=== PATIENT | male | born 1965 | race Caucasian/White ===

== ENCOUNTER 2023-11-28 12:25 | Outpatient (OUT) | payer MEDICAID, SELFPAY ==
--- NOTE | 2023-11-28 12:32 | ECG_ITS ---
The [facility] Test Date: 2023-11-28 Pat Name: JOHN GODWIN Department: Room: - Gender: Male [employer]: : 1965 Requested By: KASSI MANRIQUEZ Order Number: [id number] Reading MD: MISHEL MONTOYA Measurements Intervals Rembrandt Rate: 57 P: 23 [place]: 157 QRS: 44 QRSD: 112 T: -10 QT: 424 QTc: 416 Interpretive Statements SINUS BRADYCARDIA MODERATE INTRAVENTRICULAR CONDUCTION DELAY [110+ ms QRS DURATION] NONSPECIFIC T-WAVE ABNORMALITY Electronically Signed On 11-28-2023 23:06:59 EDT by MISHEL MONTOYA
--- NOTE | 2023-11-28 12:32 | XR_ITS ---
The [address] [address] Patient Name: JOHN GODWIN MRN: [id number] date: 1965 Sex: M Assigned Patient Location: [facility] Current Patient Location: Accession/Order Number: [id number] Exam Date: 11/28/2023 13:12 Report Date: 11/29/2023 08:03 At the request of: KASSI MANRIQUEZ Procedure: XR chest 2V PROCEDURE: XR chest 2V DATE: 11/28/2023 12:12 PM CDT COMPARISONS: None. CLINICAL INDICATION: 57 years Male Preop exam FINDINGS: The cardiomediastinal silhouette and pulmonary vasculature are within normal limits. The lungs are clear. There is no evidence of pleural effusion or pneumothorax. XR/XR chest 2V IMPRESSION: Chest radiograph is within normal limits. Electronically authenticated by: NING CORTEZ Date: 11/29/2023 08:03
--- NOTE | 2023-11-28 13:01 | PM.PRESUREVA ---
History of Present Illness History of Present Illness Chief complaint: Right Kidney Stone Narrative: Patient presents for preadmission testing. Please see HPI from Dr. Prasad dated 11/16/2023. Review of Systems ROS Narrative Please see ROS from Dr. Prasad dated 11/16/2023. 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) Hyperlipidemia ?E78.5 - Hyperlipidemia, unspecified (ICD-10) Kidney stones ?N20.0 - Calculus of kidney (ICD-10) Surgical History (Updated 11/28/23 @ 13:00 by Kelsea Dempsey NP) Hx of tonsillectomy ?Z90.89 - Acquired absence of other organs (ICD-10) History of surgery on lower extremity (~07/2008) ?Z98.890 - Other specified postprocedural states (ICD-10) H/O colonoscopy ?Z98.890 - Other specified postprocedural states (ICD-10) Family History (Updated 11/28/23 @ 11:47 by Kelsea Dempsey NP) Other Family history of cancer Social History (Updated 11/28/23 @ 12:43 by Kelsea Dempsey NP) Within the past year, how often did you have a drink containing alcohol: monthly or less Smoking status: Never smoker Non-prescribed substance use: denies use Previous occupational history: [employer] Highest level of school completed/degree received: some college, no degree Meds Home Medications and Allergies Home Medications ?Medication ?Instructions ?Recorded ?Confirmed ?Type amlodipine 10 mg tablet 10 mg PO DAILY 11/28/23 11/28/23 History atorvastatin 40 mg tablet 40 mg PO DAILY 11/28/23 11/28/23 History carvedilol 12.5 mg tablet 12.5 mg PO BID 11/28/23 11/28/23 History hydrochlorothiazide 12.5 mg capsule 12.5 mg PO DAILY 11/28/23 11/28/23 History losartan 100 mg tablet 100 mg PO DAILY 11/28/23 11/28/23 History potassium bicarbonate-citric acid 25 meq PO BID 11/28/23 11/28/23 History 25 mEq effervescent tablet (Klor-Con/EF) Allergies Allergy/AdvReac Type Severity Reaction Status Date / Time lisinopril Allergy Cough Verified 11/28/23 11:52 Exam Narrative Exam Narrative: Constitutional: Awake, alert, comfortable, well-appearing, nontoxic, interactive, vital signs as charted Head: Normocephalic, atraumatic Neck: Supple, normal appearance, normal range of motion, no meningeal signs, no lymphadenopathy Respiratory: No respiratory distress, breath sounds clear Cardiovascular: Regular rate and rhythm, strong and regular heart tones Abdomen: Nontender, normal bowel sounds, soft, no CVA tenderness Musculoskeletal: Normal gait, no swelling or edema Skin: No rashes or induration, no lesions, only visible skin inspected Neuro: No neurological deficits, normal sensation Psychiatric: Oriented ?3, normal affect Assessment and Plan Assessment and Plan (1) Kidney stones: Plan Right ESWL scheduled with Dr. Prasad 12/08/2023.
[2023-11-28 13:29] LABS: Basophils Absolute Auto 0.1 10^3/uL (0.0-0.1); Basophils Percent Auto 0.7 % (0.2-2.0); Eosinophils Absolute Auto 0.3 10^3/uL (0.0-0.7); Eosinophils Percent Auto 3.3 % (0.9-7.0); Hematocrit 48.3 % (42.0-54.0); Hemoglobin 15.4 g/dL (14.0-18.0); Immature Granulocytes Abs Auto 0.02 10^3/uL (0.00-0.03); Immature Granulocytes Pct Auto 0.2 % (0.0-0.5); Lymphocytes Absolute Auto 4.8 10^3/uL (1.2-3.8); Mean Corpuscular HGB Conc 31.9 g/dL (29.9-35.2); Mean Corpuscular Hemoglobin 28.5 pg (25.9-34.0); Mean Corpuscular Volume 89.4 fL (80.0-94.0); Mean Platelet Volume 11.2 fL (9.5-13.5); Monocytes Absolute Auto 0.9 10^3/uL (0.3-0.8); Monocytes Percent Auto 8.9 % (1.7-12.0); Neutrophils Absolute Auto 3.7 10^3/uL (1.4-6.5); Neutrophils Percent Auto 37.9 % (43.0-75.0); Platelet Count 237 10^3/uL (150-450); Red Cell Distribution Width 13.4 % (11.0-15.0); White Blood Count 9.8 10^3/uL (4.0-11.0)
[2023-11-28 14:06] LABS: Anion Gap 11.8; BUN Creatinine Ratio 17.3; Calcium 9.7 mg/dL (8.5-10.1); Carbon Dioxide 28.8 mmol/L (21.0-32.0); Chloride 104 mmol/L (98-107); Estimated GFR (African America >60 (>=60); Estimated GFR (Non-African Ame >60 (>=60); Glucose 82 mg/dL (74-106); Potassium 3.6 mmol/L (3.5-5.1); Sodium 141 mmol/L (136-145)
[2023-11-28 14:35] LABS: INR 0.98; Partial Thromboplastin Time 28.5 sec (22.3-36.2); Prothrombin Time 10.4 sec (9.0-11.6)
== END 2023-11-28 12:26 | disposition home or self-care (01) ==
PROVIDERS: Visit Provider Urology
DX: Z01.810 Encounter for preprocedural cardiovascular examination (principal); Z01.812 Encounter for preprocedural laboratory examination; Z01.818 Encounter for other preprocedural examination; N20.0 Calculus of kidney
CPT/HCPCS: 71046; 80048; 85025; 85610; 85730; 93005; G0463

== ENCOUNTER 2023-12-08 08:11 | Day surgery (SDC) | payer MEDICAID, SELFPAY ==
[2023-11-28 12:58] VITALS: BP 149/91; PULSE 65; TEMP 36.5; O2SAT 95; BMI 43.8
[2023-12-08] VITALS (10 sets, daily range): BP systolic 120–160; BP diastolic 77–95; PULSE 75–93; TEMP 36.5–36.6; O2SAT 86–98
--- NOTE | 2023-12-08 08:15 | XR_ITS ---
The [address] [address] Patient Name: JOHN GODWIN MRN: [id number] date: 1965 Sex: M Assigned Patient Location: [facility] Current Patient Location: [facility] Accession/Order Number: [id number] Exam Date: 12/08/2023 08:28 Report Date: 12/08/2023 09:50 At the request of: KASSI MANRIQUEZ Procedure: XR abdomen 1V EXAM: XR abdomen 1V HISTORY: kidney stones COMPARISON: None. TECHNIQUE: AP view of the abdomen. FINDINGS: Nonobstructive bowel gas pattern is noted. There are bilateral renal calculi. The osseous structures are intact. XR/XR abdomen 1V IMPRESSION: Nonobstructive bowel gas pattern. Bilateral nephrolithiasis. Electronically authenticated by: LOVE LEVIN Date: 12/08/2023 09:50
[2023-12-08] MEDS: LACTATED RINGER'S SOLUTION 1,000 ML 50 ML IV (09:03)
[2023-12-08] MEDS: CEFAZOLIN SODIUM/DEXTROSE,ISO 1 GM/50 ML IV.SOLN IV (09:44)
[2023-12-08] MEDS: FAMOTIDINE/PF 20 MG/2 ML VIAL IV (09:46)
--- NOTE | 2023-12-08 10:51 | P.URON_ITS ---
Urology Surgery Operative Note Operative Note Procedure Date: 12/08/23 Time Out Performed: yes Pre-op Diagnosis: Right nephrolithiasis Post-op Diagnosis: same as pre-op Procedures performed: 1. Right ESWL. Anesthesia: General-LMA Primary Surgeon: Rio Prasad Complications: None Estimated blood loss (mL): 0 Findings: 2, right mid to lower pole stones Specimens: None Indications for Procedures: This gentleman has recurrent right nephrolithiasis. He has 2 stones each of which is about 5 mm. They are nonobstructing. He now presents for right ESWL. He has signed an informed consent for this procedure after all risks were explained. Some of these risks include bleeding, perinephric hematoma, infection and anesthesia to name a few. Detailed description of Procedure: The patient was brought to the Operating Room and placed on Siemens electromagnetic lithotripsy treatment table in the supine position. SCDs were placed on their lower extremities and turned on and functioning during the entire case. Timeout was done by all parties in the room. We all agreed upon the patient's identification and the planned procedures for this patient. General Anesthesia was then administered via LMA. Treatment head was then brought to the patient's correct side. While using flourscopy the lower pole stone was identified and lined up into the crosshairs. We then began applying shocks at power level 2.0 and increased to a maximum power level of 3.5. Intermittent fluoroscopy showed that the stone fragmented well. After 1500 shocks we then lined up the midpole stone in the crosshairs and similarly applied 1500 shocks. After 3000 shocks were applied to the right renal unit all stone was well fragmented and there was no visible evidence fluoroscopically of any formed stone remaining. The procedure was then terminated. He was then transferred to a [facility] bed and wheeled to PACU in stable condition.
--- NOTE | 2023-12-08 12:35 | PC.NURSE ---
Voided vila colored urine without difficulty; urine strained and negative for calculi
== END 2023-12-08 12:35 | disposition home or self-care (01) ==
PROVIDERS: Visit Provider Urology
PROC: (CPT 873; principal; 2023-12-08 09:30)
DX: N20.0 Calculus of kidney (principal); I45.6 Pre-excitation syndrome; E78.5 Hyperlipidemia, unspecified; I25.10 Atherosclerotic heart disease of native coronary artery without angina pectoris; Z87.442 Personal history of urinary calculi; I11.9 Hypertensive heart disease without heart failure; Z79.899 Other long term (current) drug therapy; N40.0 Benign prostatic hyperplasia without lower urinary tract symptoms; R82.994 Hypercalciuria; E66.01 Morbid (severe) obesity due to excess calories; Z68.41 Body mass index [BMI] 40.0-44.9, adult
CPT/HCPCS: 50590; 36415; 74018; J1094; J2704

== ENCOUNTER 2024-02-20 13:20 | Outpatient (OUT) | payer MEDICAID, SELFPAY ==
--- NOTE | 2024-02-20 13:47 | PM.PRESUREVA ---
History of Present Illness History of Present Illness Chief complaint: left kidney stone Narrative: Patient presents for preadmission testing. Please see HPI from Dr. Prasad dated February 15, 2024. Review of Systems ROS Narrative Please see ROS from Dr. Prasad dated February 15, 2024. 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) Hyperlipidemia ?E78.5 - Hyperlipidemia, unspecified (ICD-10) Kidney stones ?N20.0 - Calculus of kidney (ICD-10) Surgical History (Updated 02/17/24 @ 10:56 by Kelsea Dempsey NP) H/O lithotripsy (12/08/23) ?Z98.890 - Other specified postprocedural states (ICD-10) History of lithotripsy ?Z98.890 - Other specified postprocedural states (ICD-10) Hx of tonsillectomy ?Z90.89 - Acquired absence of other organs (ICD-10) History of surgery on lower extremity (~07/2008) ?Z98.890 - Other specified postprocedural states (ICD-10) H/O colonoscopy ?Z98.890 - Other specified postprocedural states (ICD-10) Family History (Updated 11/28/23 @ 11:47 by Kelsea Dempsey NP) Other Family history of cancer Social History (Updated 11/28/23 @ 12:43 by Kelsea Dempsey NP) Within the past year, how often did you have a drink containing alcohol: monthly or less Smoking status: Never smoker Non-prescribed substance use: denies use Previous occupational history: [employer] Highest level of school completed/degree received: some college, no degree Meds Home Medications and Allergies Home Medications ?Medication ?Instructions ?Recorded ?Confirmed ?Type amlodipine 10 mg tablet 10 mg PO DAILY 11/28/23 02/20/24 History atorvastatin 40 mg tablet 40 mg PO DAILY 11/28/23 02/20/24 History carvedilol 12.5 mg tablet 12.5 mg PO BID 11/28/23 02/20/24 History hydrochlorothiazide 12.5 mg capsule 12.5 mg PO DAILY 11/28/23 02/20/24 History losartan 100 mg tablet 100 mg PO DAILY 11/28/23 02/20/24 History potassium bicarbonate-citric acid 25 meq PO BID 11/28/23 02/20/24 History 25 mEq effervescent tablet (Klor-Con/EF) Allergies Allergy/AdvReac Type Severity Reaction Status Date / Time lisinopril Allergy Cough Verified 02/20/24 13:33 Exam Narrative Exam Narrative: Constitutional: Awake, alert, comfortable, well-appearing, nontoxic, interactive, vital signs as charted Head: Normocephalic, atraumatic Neck: Supple, normal appearance, normal range of motion, no meningeal signs, no lymphadenopathy Respiratory: No respiratory distress, breath sounds clear Cardiovascular: Regular rate and rhythm, strong and regular heart tones Abdomen: Nontender, normal bowel sounds, soft, no CVA tenderness Musculoskeletal: Normal gait, no swelling or edema Skin: No rashes or induration, no lesions, only visible skin inspected Neuro: No neurological deficits, normal sensation Psychiatric: Oriented ?3, normal affect Assessment and Plan Assessment and Plan (1) Kidney stones: Plan Left ESWL scheduled with Dr. Prasad March 01, 2024.
[2024-02-20 13:57] LABS: Hemoglobin 15.8 g/dL (14.0-18.0); Mean Corpuscular HGB Conc 32.9 g/dL (29.9-35.2); Mean Corpuscular Hemoglobin 29.4 pg (25.9-34.0); Mean Corpuscular Volume 89.2 fL (80.0-94.0); Mean Platelet Volume 11.2 fL (9.5-13.5); Platelet Count 264 10^3/uL (150-450); Red Blood Count 5.38 10^6/uL (4.70-6.10); Red Cell Distribution Width 13.6 % (11.0-15.0); White Blood Count 11.6 10^3/uL (4.0-11.0)
[2024-02-20 14:27] LABS: INR 0.98; Partial Thromboplastin Time 27.3 sec (22.3-36.2); Prothrombin Time 10.4 sec (9.0-11.6)
[2024-02-20 15:04] LABS: Monocytes Absolute Manual 0.69 10^3/uL (0.30-0.80)
[2024-02-20 15:05] LABS: BUN Creatinine Ratio 13.9; Calcium 9.1 mg/dL (8.5-10.1); Carbon Dioxide 28.3 mmol/L (21.0-32.0); Chloride 103 mmol/L (98-107); Estimated GFR (African America >60 (>=60); Estimated GFR (Non-African Ame 54 (>=60); Glucose 148 mg/dL (74-106); Potassium 3.3 mmol/L (3.5-5.1); Sodium 141 mmol/L (136-145)
== END 2024-02-20 13:21 | disposition home or self-care (01) ==
LOC: PST 13:21
PROVIDERS: Visit Provider Urology
DX: Z01.812 Encounter for preprocedural laboratory examination (principal); Z01.818 Encounter for other preprocedural examination; N20.0 Calculus of kidney
CPT/HCPCS: 80048; 85007; 85027; 85610; 85730; G0463

== ENCOUNTER 2024-03-01 08:03 | Day surgery (SDC) | payer MEDICAID, SELFPAY ==
[2024-02-20 13:45] VITALS: BP 118/81; PULSE 76; TEMP 36.6; O2SAT 97; BMI 42.1
[2024-03-01] VITALS (11 sets, daily range): BP systolic 107–150; BP diastolic 76–93; PULSE 54–74; TEMP 36.3–36.8; O2SAT 90–97; BMI 43.5; BMI 434.7
--- OUTSIDE RECORDS SUMMARY | 2024-03-01 08:10 | XMS_ITS | CCD ---
Author Organization [facility] Care Team Providers Care Switcher Name Role Phone ARLYN LOZA Unavailable Unavailable NO FAMILY DOCTOR, NO FAMILY DOCTOR Unavailable Unavailable RIO PRASAD Admitting Unavailable RIO PRASAD Attending Unavailable REQUEST, NONE LISTED Primary Care Unavailable RIO PRASAD Consulting Unavailable RANI PATTERSON V Consulting Unavailable ENA GALICIA Consulting Unavailable JULIANO PORTER Consulting Unavailable Unavailable Unavailable None, No PCP Unavailable Unavailable [facility], Services Primary Care Provider MD Rio Prasad Attending Provider MD Josias Damon Attending Provider Mast, DO Carter Attending Provider MD Rossy Salinas Other Provider MD Josias Damon Attending Provider [phone] Marie Jay, Dr. Josias King Referring Unava ilable Marie Jay, Dr. Josias King Attending Unava ilable Marie Jay, Dr. Josias King Attending Unava ilable Marie Jay, Dr. Josias King Referring Unava ilable Loza, Dr. Arlyn Webber Referring Yaquelin vailable Loza, Dr. Arlyn Webber Attending Yaquelin vailable [facility], Services Primary Care Provider ETHAN Laureano-ALIVIA Dietrich Emergency Provider [facility], Services Primary Care Provider [phone] MD Rio Prasad Attending Provider MD Arlyn Loza Referring Provider [phone] [facility], . Primary Care Physician [phone] [facility] Services Primary Care Provider MD Rio Prasad Attending Provider DO Carter Alvarnega Emergency Provider [phone] [facility], Services Primary Care Provider MD Rio Prasad Attending Provider [phone] Rio PRASAD Attending Unavailable PRASAD, Rio R Attending Unavailable PRASAD, Rio R Attending Unavailable PRASAD, Rio R Attending Unavailable PRASAD, Rio R Attending Unavailable PRASAD, Rio R Attending Unavailable Bullimore, Marilia E Admitting Unavailable Bullimore, Marilia E Attending Unavailable [facility] Primary Care Unavaila ble Family [facility], Services Primary Care Unavaila ble Alvarenga, Carter Admitting Unavailable Alvarenga, Carter Attending Unavailable Prasad, Rio Attending Unavailable Prasad, Rio Admitting Unavailable [facility] Primary Care Unavaila ble Loza, Singh Referring Unavailable Prasad, Rio Admitting Unavailable [facility], Services Primary Care Unavaila ble Prasad, Rio Attending Unavailable Prasad, Rio Admitting Unavailable [facility], Services Primary Care Unavaila ble Prasad, Rio Attending Unavailable [facility], Services Primary Care Unavaila ble Prasad, Rio Attending Unavailable Prasad, Rio Admitting Unavailable Prasad, Rio Attending Unavailable Prasad, Rio Admitting Unavailable [facility], Services Primary Care Unavaila ble Allergies Allergy Classification Reported Allergen(s) Allergy Type Date of Onset Reaction(s) Facility (11 sources) Lisinopril; Translations: [Lisinopril TABS] Drug Allergy [place] [address] DO Work Phone: (1 source) No Known Medication Allergies; Translations: [No Known Medication Allergies] Propensity to adverse reactions (disorder) [facility] Repository Medications Current Medications Medication Drug Class(es) Dates Sig (Normalized) Sig (Original) acetaminophen 325 mg / oxyCODONE hydrochloride 5 mg oral tablet (15 sources) Opioid Agonist Start: 11-10-2022 take 1 tablet by mouth every six hours Oxycodone-Acetami nophen (Percocet) 5-325 mg tablet Active 1 - 2 TAB PO Every 6 hours 15 3 November 10, 2022 Start: 08-17-2017 End: 12-19-2018 take 2 tablets by mouth every four to six hours Oxycodone-Acetaminophen (Percocet) 5-325 mg tablet Discontinued 2 TAB PO EVERY 4-6 HOURS August 17, 2017 December 19, 2018 9:22am amLODIPine 10 mg oral tablet (20 sources) Dihydropyridine Calcium Channel Apple Start: 08-17-2017 take 1 mg by mouth once daily amLODIPine 10 mg Tab mg tab(s), Oral, Daily, Refills(s) 0 Start Date: 01/30/20 Status: Ordered atorvastatin 40 mg oral tablet (20 sources) HMG-CoA Reductase Inhibitor Start: 01-30-2020 take 1 mg by mouth once daily atorvastatin 40 mg Tab mg tab(s), Oral, Daily, Refills(s) 0 Start Date: 01/30/20 Status: Ordered Start: 08-17-2017 End: 02-21-2019 take 40 mg by mouth once daily Atorvastatin Discontinu ed 40 MG PO Daily August 17, 2017 1:00am February 21, 2019 3:31pm carvedilol 12.5 mg oral tablet (20 sources) alpha-Adrenergic Apple, beta-Adrenergic Apple Start: 08-17-2017 take 1 mg by mouth twice daily carvedilol 12.5 mg Tab mg tab(s), Oral, BID, Refills(s) 0 Start Date: 01/30/20 Status: Ordered cephalexin 500 mg oral capsule (3 sources) Cephalosporin Antibacterial Start: 12-13-2023 take 500 mg by mouth twice daily Cephalexin Active 500 MG PO Twice daily 03 06December 13, 2023 12:00am cyclobenzaprine hydrochloride 10 mg oral tablet (9 sources) Muscle Relaxant Start: 03-10-2019 take 10 mg by mouth three times daily Cyclobenzaprine Active 10 MG PO Three times daily March 10, 2019 12:00am hydroCHLOROthiazide 12.5 mg oral capsule (2 sources) Thiazide Diuretic Start: 11-16-2023 End: 11-10-2024 take 1 capsule by mouth once daily hydrochlorothiazide 12.5 mg Cap 12.5 mg = 1 cap(s), Oral, Daily, X 30 day(s), # 30 cap(s), Refills(s) 11, Pharmacy: [facility] [id number] [facility], 167, cm, 11/16/23 9:27:00 EDT, Height/Length Dosing, 124.6, kg, 11/16/23 9:27:00 EDT, Weight Dosing Start Date: 11/16/23 Stop Date: 11/10/24 Status: Ordered losartan potassium 100 mg oral tablet (20 sources) Angiotensin 2 Receptor Apple Start: 08-17-2017 take 1 mg by mouth once daily losartan 100 mg Tab mg tab(s), Oral, Daily, Refills(s) 0 Start Date: 01/30/20 Status: Ordered naproxen 500 mg oral tablet (15 sources) Nonsteroidal Anti-inflammatory Drug Start: 03-10-2019 End: 11-10-2022 take 500 mg by mouth twice daily at mealtime Naproxen Active 500 MG PO Twice daily November 10, 2022 5:46am administer with food or milk ondansetron 4 mg disintegrating oral tablet (6 sources) Serotonin-3 Receptor Antagonist Start: 11-10-2022 take 4 mg by mouth every eight hours Ondansetron Active 4 MG PO Q8H November 10, 2022 12:00am polymyxin b 90381 unt/ml / trimethoprim 1 mg/ml ophthalmic solution (6 sources) Dihydrofolate Reductase Inhibitor Antibacterial, Polymyxin-class Antibacterial Start: 04-09-2023 Polymyxin B Sulf-Trimethoprim (Polytrim) 10,000 unit- 1 mg/mL drops Active 1 DROPS EYE-RIGHT Q3H 10 April 09, 2023 12:00am while awake; do not exceed 6 doses in 24 hours Potassium Bicarb-Citric Acid (9 sources) Start: 12-19-2018 take 25 mEq by mouth once daily Potassium Bicarb-Citric Acid Active 25 MEQ PO Daily December 19, 2018 12:00am Start: 12-19-2018 take 25 mEq by mouth once daily Potassium Bicarb-Citric Acid Active 25 MEQ PO Daily December 18, 2018 11:00pm tamsulosin hydrochloride 0.4 mg oral capsule (6 sources) alpha-Adrenergic Apple Start: 11-10-2022 Tamsu losin (Flomax) 0.4 mg capsule Active 0.4 MG PO Daily November 10, 2022 12:00am administer 30 minutes after same meal each day until stone passes Completed/Discontinued Medications Medication Drug Class(es) Dates Sig (Normalized) Sig (Original) chlorthalidone 25 mg oral tablet (9 sources) Thiazide-like Diuretic Start: 08-17-2017 End: 12-19-2018 take 25 mg by mouth once daily Chlorthalidone Discontinued 25 MG PO Daily August 17, 2017 1:00am December 19, 2018 9:22am ciprofloxacin 2 mg/ml otic solution (1 source) Quinolone Antimicrobial Ciprofloxacin HCl - 0.2 % Otic Solution Quantity: 0 Refills: 0 Ordered: 10-Mar-2023 DO Active erythromycin 0.005 mg/mg ophthalmic ointment (1 source) Macrolide, Macrolide Antimicrobial Erythromycin 5 MG/GM Ophthalmic Ointment Quantity: 0 Refills: 0 Ordered: 10-Mar-2023 DO Active meloxicam 15 mg oral tablet (10 sources) Nonsteroidal Anti-inflammatory Drug Start: 07-27-2022 take 1 tablet by mouth once daily at mealtime Meloxicam 15 MG Oral Tablet one tablet daily with food Quantity: 30 Refills: 0 Ordered: 27-Jul-2022 Josias Damon MD Start : 27-Jul-2022 Active Meloxicam 15 MG Oral Tablet Quantity: 0 Refills: 0 Ordered: 27-Jul-2022 DO Active metFORMIN hydrochloride 500 mg oral tablet (9 sources) Biguanide take 1 tablet by mouth once daily at mealtime metFORMIN HCl - 500 MG Oral Tablet TAKE 1 TABLET DAILY WITH FOOD. Quantity: 90 Refills: 1 Ordered: 10-Mar-2022 DO Active omeprazole 20 mg delayed release oral capsule (9 sources) Proton Pump Inhibitor Start: 9 End: 9 take 20 mg by mouth once daily Omeprazole Discontinued 20 MG PO Daily December 19, 2018 12:00am February 21, 2019 3:31pm potassium bicarbonate 25 meq effervescent oral tablet (13 sources) Start: 3 End: 5 take 1 tablet by mouth twice daily Klor-Con/EF 25 mEq oral tablet, effervescent 25 mEq = 1 tab(s), Oral, BID, X 90 day(s), # 180 tab(s), Refills(s) 3, Pharmacy: [facility] [id number] [facility], 167, cm, 11/16/23 9:27:00 EDT, Height/Length Dosing, 124.6, kg, 11/16/23 9:27:00 EDT, Weight Dosing Start Date: 11/16/23 Stop Date: 11/10/24 Status: Ordered Klor-Con/EF 25 M EQ Oral Tablet Effervescent DISSOLVE 1 TABLET IN 6 TO 8 OUNCES OF WATER AND DRINK TWICE DAILY. 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 Chronic Coronary atherosclerosis and other heart disease (1 source) Coronary atherosclerosis and other heart disease Onset: 7 Diabetes mellitus without complication (10 sources) Diabetes mellitus; Translations: [Diabetes mellitus without mention of complication, type II or unspecified type, not stated as uncontrolled] Chronic Disorders of lipid metabolism (15 sources) Hyperlipidemia, unspecified; Translations: [Hyperlipidemia] Onset: 8 01-29-2020 Chronic Essential hypertension (20 sources) Essential (primary) hypertension; Translations: [Benign essential hypertension] Onset: 7 02-21-2019 Chronic Essential hypertension (2 sources) Essential hypertension Onset: 7 Genitourinary symptoms and ill-defined conditions (6 sources) Hypercalciuria; Translations: [Hypercalciuria] Onset: 4 Episodic Hyperplasia of prostate (7 sources) Benign prostatic hypertrophy without outflow obstruction; Translations: [Benign prostatic hyperplasia without lower urinary tract symptoms] Onset: 3 Chronic Nutritional deficiencies (10 sources) Vitamin D deficiency; Translations: [Unspecified vitamin D deficiency] Chronic Other and ill-defined heart disease (3 sources) Heart disease 01-29-2020 Chronic Other connective tissue disease (6 sources) Patellar tendonitis; Translations: [Patellar tendinitis] Episodic Other diseases of kidney and ureters (4 sources) Cyst of kidney; Translations: [Cyst of kidney, acquired] 12-13-2023 Episodic Other diseases of kidney and ureters (1 source) Acquired renal cyst without neoplastic change; Translations: [Cyst of kidney, acquired] Onset: 4 Episodic Other gastrointestinal disorders (9 sources) Diarrhea; Translations: [Diarrhea, unspecified] 02-21-2019 Episodic Other non-traumatic joint disorders (6 sources) Pain in right knee; Translations: [Right knee pain, unspecified chronicity] Episodic Other nutritional; endocrine; and metabolic disorders (1 source) Body mass index 30+ - obesity; Translations: [Body Mass Index 39.0-39.9, adult] Chronic Other nutritional; endocrine; and metabolic disorders (1 source) Obesity; Translations: [Obesity, unspecified] Chronic Other nutritional; endocrine; and metabolic disorders (13 sources) Body mass index 40+ - severely obese; Translations: [Morbid obesity] 01-30-2020 Chronic Other screening for suspected conditions (not mental disorders or infectious disease) (9 sources) Patient encounter status; Translations: [Encounter for screening for malignant neoplasm of colon] 12-19-2018 Episodic Residual codes; unclassified (3 sources) Family history of prostate cancer 01-29-2020 Episodic Spondylosis; intervertebral disc disorders; other back problems (3 sources) Backache 01-29-2020 Episodic Sprains and strains (9 sources) Low back strain; Translations: [Strain of muscle, fascia and tendon of lower back, initial encounter] 03-10-2019 Episodic Superficial injury; contusion (6 sources) Corneal abrasion; Translations: [Injury of conjunctiva and corneal abrasion without foreign body, unspecified eye, initial encounter] 04-09-2023 Episodic Unclassified (1 source) Urine finding 02-14-2024 Unclassified (1 source) Benign prostatic hyperplasia with lower urinary tract symptoms; Translations: [Benign prostatic hyperplasia with lower urinary tract symptoms] Onset: 3 Unclassified (1 source) Ocular pain, right eye; Translations: [Ocular pain, right eye] Onset: 3 Past or Other Problems Problem Classification Problem Date Documented Da te Episodic/Chronic Unclassified (10 sources) Never smoked tobacco; Translations: [Never a smoker] Results Test Name Value Interpretation Reference Range Facility Ambulatory Visit Summaryon 0 02-15-2024 Ambulatory Visit Summary Ambulatory Visit Summary JOHN SMITH :1965 Visit Date:02/15/2024 Ambulatory Visit Instructions Your Diagnosis Kidney stone BPH (benign prostatic hyperplasia) Hypercalciuria Hypocitraturia Renal cyst, right Your Care Team Attending Physician - DECLAN HERNANDEZ, Rio Simons Primary Care Physician - [facility], . This Is Your Medications List hydrochlorothiazide (hydrochlorothiazide 12.5 mg Cap) potassium bicarbonate (Klor-Con/EF 25 mEq oral tablet, effervescent) Contact prescribing physician if questions or concerns amlodipine (amLODIPine 10 mg Tab) atorvastatin (atorvastatin 40 mg Tab) carvedilol (carvedilol 12.5 mg Tab) losartan (losartan 100 mg Tab) Procedures Performed ESWL - Extracorporeal shockwave lithotripsy for renal calculus (08/11/2017), ESWL - Extracorporeal shockwave lithotripsy for renal calculus (07/14/2017), ESWL - Extracorporeal shockwave lithotripsy for renal calculus (06/16/2017). Discharge Vitals Temperature (Temporal Artery) 37 ?C Heart Rate (Peripheral) 72 Respiratory Rate 16 Blood Pressure 131/81 Height 167 cm Height 66 in Weight 124 kg Weight 272.8 lb BMI 44.46 What to do next Scheduled Follow-Up Appointments Tuesday 9:15 AM EST With: DECLAN HERNANDEZ, Rio Simons Where: [facility] Ambulatory Visit Summary Ambulatory Visit Summary JOHN SMITH :1965 Visit Date:02/15/2024 Ambulatory Visit Instructions Your Diagnosis Kidney stone BPH (benign prostatic hyperplasia) Hypercalciuria Hypocitraturia Renal cyst, right Your Care Team Attending Physician - Rio PRASAD MD Primary Care Physician - [facility], . This Is Your Medications List hydrochlorothiazide (hydrochlorothiazide 12.5 mg Cap) potassium bicarbonate (Klor-Con/EF 25 mEq oral tablet, effervescent) Contact prescribing physician if questions or concerns amlodipine (amLODIPine 10 mg Tab) atorvastatin (atorvastatin 40 mg Tab) carvedilol (carvedilol 12.5 mg Tab) losartan (losartan 100 mg Tab) Procedures Performed ESWL - Extracorporeal shockwave lithotripsy for renal calculus (08/11/2017), ESWL - Extracorporeal shockwave lithotripsy for renal calculus (07/14/2017), ESWL - Extracorporeal shockwave lithotripsy for renal calculus (06/16/2017). Discharge Vitals Temperature (Temporal Artery) 37 ?C Heart Rate (Peripheral) 72 Respiratory Rate 16 Blood Pressure 131/81 Height 167 cm Height 66 in Weight 124 kg Weight 272.8 lb BMI 44.46 What to do next Scheduled Follow-Up Appointments Tuesday 9:15 AM EST With: DECLAN HERNANDEZ, Rio Simons Where: [facility] Urology Office/Clinic Noteon 02-15-2024 Urology Office/Clinic Note Urology Office/Clinic Note Chief Complaint renal stones HPI Staff 2 month f/u with KUB. KUB done 02/06/24. Dx: BPH, kidney stone and hypercalciuria Klor-con/EF 25mEq BID and HCTZ 12.5mg qd Dysuria: no Incomplete bladder emptying: no Hematuria: no Frequency: no Urgency: no Nocturia: 0-1x Stream: good strong Leaking: no Post void dripping: no Wearing pads/ Depends: no Urge incontinence: no Stress incontinence: no Incontinence without Sensory Awareness: no Abdominal pain: no Flank pain: no Sexual complaints: no History of Present Illness Tests reviewed: reviewed UA, KUB, ER records, CT I have reviewed the previous health record information and history for this patient from Dr. Prasad. I have reviewed and verified the staff HPI to be accurate for this encounter. There have been no associated fever, chills, flank pain, or blood in the urine. Denies any urinary infections since last encounter. Review of Systems PHQ Score Initial Depression Screen Score: 0 SCORE ROS - Provider Constitutional: denies weight loss, denies hot flashes. Eyes: denies eye problems. Gastrointestinal: denies nausea, denies vomiting. Cardiovascular: denies chest pain or angina. Integumentary: no dryness Musculoskeletal: denies musculoskeletal symptoms. ENMT: denies otolaryngeal symptoms. Respiratory: no shortness of breath. Heme/Lymph: denies easy bleeding tendency, denies easy bruising tendency. Psychiatric: no confusion, no anxiety. Genitourinary: See HPI. Physical Exam Vitals & Measurements T: 37 ?C(Temporal Artery) HR: 72(Peripheral) RR: 16 BP: 131/81 HT: 66 in HT: 167 cm WT: 124 kg WT: 272.8 lb BMI: 44.46 General Appearance: alert, no distress, well nourished, well developed male. Genitourinary: normal scrotum, normal testes, normal urethra, normal epididymis, normal vas deferens/spermatic cord. Flank Pain: none. Bladder: nonpalpable. Assessment/Plan 1. Kidney stone (N20.0: Calculus of kidney) KUB 11/09/23 - Bilateral nephrolithiasis, largest 6 mm involving the R kidney. No ureteral or urinary bladder stones. Metabolic workup 10/12/23 - Volume 2,750 cc. U24 Ca 421 H. U24 citric acid 520. Urine salt H. S/p R ESWL 12/08/23. KUB 12/08/23 - Bilateral nephrolithiasis. [facility] ED 12/13/23 due to L flank pain. CT AP wo con 12/13/23 - Multiple tiny bilateral renal stones largest L 5 mm. No hydro. No ureteral stones or dilation. KUB 02/06/24 [facility] - Multiple stones in RCSs bilaterally up to 5 mm on L and 2 mm on R. Significant interval improvement in the R sided renal stones since prior exam. Had shooting pain from his flank down to his thigh, no explanation for pain in thigh per CT. Reviewed imaging with pt. -Consider repeat met workup after below. -Will schedule Left ESWL. The procedure risks, benefits, details and treatment alternatives have been discussed with the patient. These include blood in the urine, infection, bleeding around the kidney, kidney bruising, inability to break up the stone, need for blood transfusion, blockage from stone fragments, and need for additional procedures, among others. Full informed consent has been obtained. Will order General anesthesia. 2. BPH (benign prostatic hyperplasia) (N40.0: Benign prostatic hyperplasia without lower urinary tract symptoms) PSA: 07/07/22 - 0.81 07/11/23 - 0.59 No brothers with prostate ca but thinks he does have a family hx. [1] UA today negative for blood and infection. IPSS3. Not taking any BPH meds. 3. Hypercalciuria (R82.994: Hypercalciuria) Metabolic workup 10/12/23 - U24 Ca 421 H. Started HCTZ 12.5 mg qd at prior OV. Lytes were wnl. 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 Started Klor-Con. Metabolic workup 10/12/23 - U24 citric acid 520. Taking Klor-Con 25 mEq bid. 5. Renal cyst, right (N28.1: Cyst of kidney, acquired) CT AP wo con 12/13/23 - Right hemorrhagic renal cysts. Follow-up With When Contact Information Rio PRASAD MD, [facility] [address] [place] [address]- Additional Instructions: schedule Left ESWL Patient Education Lithotripsy, Care After Lithotripsy Benign Prostatic Hyperplasia I, Soumya Rizvi, personally scribed for Dr. Prasad on 02/15/2024 09:54:55. . Documentation recorded by the scribe, Soumya Rizvi, accurately reflects the services(s) I performed and decisions made by me. Authenticated by Dr. Prasad on 02/15/2024 09:57:21. Problem List/Past Medical History Ongoing Back pain BMI 40.0-44.9, adult BPH (benign prostatic hyperplasia) Family history of prostate cancer Heart disease Hypercalciuria Hyperlipemia Hypertension Hypocitraturia Kidney stone Renal cyst, right Renal stones Chrvy-Vzypxnpcc-Ecfko syndrome Historical No qualifying data Procedure/Surgical History ESWL - Extracorporeal shockwave lith (more content not included)... Normal [facility] Comment on above: Result Comment: Elec tronically Signed By: Rio PRASAD MD\.br\Date and Time Signed: 02/15/24 09:57 EDT\.br\Electronically Co-Signed By: Soumya Rizvi\.br\Date and Time Co-Signed: 02/15/24 09:55 EDT RAD - MISCon 02-07-2024 RAD - MISC [id number] Normal [facility] XR abdomen 1Von 02-06-2024 XR abdomen 1V [facility] [address] [address] XRay Report Signed Patient: John Smith MR#: [id number] : 1965 Acct:[id number] Age/Sex: 58 / M ADM Date: 02/06/24 Loc: XD Room: Type: [facility] Attending Dr: Rio Prasad MD Copies to: Rio Prasad MD Ordering Provider: Rio Prasad MD Date of Service: 02/06/24 XR/XR abdomen 1V: N20.0 XR abdomen 1V 02/06/2024 8:49 AM SIGNS AND SYMPTOMS: Follow-up renal stones PROTOCOL: Frontal radiographs of the abdomen and pelvis COMPARISON: 11/09/2023 FINDINGS: Multiple stones are noted in the renal collecting systems bilaterally measuring up to 7 mm in greatest dimension on the left and 2 mm in greatest dimension on the right. Significant interval improvement in right-sided renal stones is noted since the prior exam. Vascular calcifications are redemonstrated in the pelvis. Degenerative changes are noted in the lumbar spine and hips. XR/XR abdomen 1V IMPRESSION: Multiple stones are noted in the renal collecting systems bilaterally measuring up to 7 mm in greatest dimension on the left and 2 mm in greatest dimension on the right. Significant interval improvement in right-sided renal stones is noted since the prior exam. Impression dictated by: Drew Purcell M.D.02/06/2024 12:10 PM Dictation Location: [place] [address] Transcribed By: [facility] 02/06/24 1210 Dictated By: Drew Purcell II, MD 02/06/24 1205 Signed By: 02/06/24 1210 Normal [facility] Lab Reportson 12-23-2023 Lab Reports [id number] Normal [facility] Carbon dioxide, total [Moles /volume] in Serum or PlasmaOrdered By: Rio Prasad on 2023 CO2 [Moles/Vol] 32.2 mmol/L High 21.0-31.0 [facility] Comment on above: Performed By: #### L STEPHEN ####[facility] [id number] [place] [address] [facility] Chloride [Moles/volume] in S new or PlasmaOrdered By: Rio Prasad on 2023 Chloride [Moles/Vol] 103 mmol/L Normal 98-107 [facility] Comment on above: Performed By: #### L YTES ####[place] [id number] [facility] Potassium [Moles/volume] in Serum or PlasmaOrdered By: Rio Prasad on 2023 Potassium [Moles/Vol] 4.1 mmol/L Normal 3.5-5.1 [facility] Comment on above: Performed By: #### L YTES ####[place] [id number] [facility] Serum or plasma anion gap de terminationOrdered By: Rio Prasad on 2023 Anion gap [Moles/Vol] 7.9 mmol/L Normal 6.0-15.0 [facility] Comment on above: Result Comment: PERF ORMED BY: [facility] [address] [place] [id number] PATHOLOGIST [employer]LECT[employer] ENGINEERING TECHNICIAN LANI GEORGE M.D. Performed By: #### L YTES ####[place] [id number] [facility] Sodium [Moles/volume] in Ser um or PlasmaOrdered By: Rio Prasad on 2023 Sodium [Moles/Vol] 139 mmol/L Normal 136-145 [facility] Comment on above: Performed By: #### L YTES ####[place] [id number] [place] Alanine aminotransferase [En zymatic activity/volume] in Serum or PlasmaOrdered By: Carter Alvarenga on 12-13-2023 ALT [Catalytic activity/Vol] 35 U/L Normal 7-52 [facility] Comment on above: Performed By: #### C BC, HEPATIC, BMP, LIPASE ####[place] [id number] [place] Albumin [Mass/volume] in Ser um or Plasma by Bromocresol green (BCG) dye binding methoOrdered By: Carter Alvarenga on 12-13-2023 Albumin BCG dye [Mass/Vol] 4.5 g/dL 3.5-5.7 [facility] Alkaline phosphatase [Enzyma tic activity/volume] in Serum or PlasmaOrdered By: Carter Alvarenga on 12-13-2023 ALP [Catalytic activity/Vol] 104 U/L Normal 34-104 [facility] Comment on above: Performed By: #### C BC, HEPATIC, BMP, LIPASE ####[address] Aspartate aminotransferase [ Enzymatic activity/volume] in Serum or PlasmaOrdered By: Carter Alvarenga on 12-13-2023 AST [Catalytic activity/Vol] 18 U/L Normal 13-39 [facility] Comment on above: Performed By: #### C BC, HEPATIC, BMP, LIPASE ####[address] Automated basophil %Ordered By: Carter Alvarenga on 12-13-2023 Basophils/100 WBC (Bld) 0.6 % Normal . [facility] Comment on above: Performed By: #### C BC, HEPATIC, BMP, LIPASE ####[address] Automated basophil countOrde red By: Carter Alvaernga on 12-13-2023 Basophils (Bld) [#/Vol] 0.1 10*3/uL Normal 0.0-0.2 [facility] Comment on above: Result Comment: PERF ORMED BY: [facility] [address] [place] [address] PATHOLOGIST ELECT[employer] ENGINEERING TECHNICIAN LANI GEORGE M.D. Performed By: #### C BC, HEPATIC, BMP, LIPASE ####[address] Automated blood monocyte cou ntOrdered By: Carter Alvarenga on 12-13-2023 Monocytes (Bld) [#/Vol] 0.6 10*3/uL Normal 0.0-0.8 [facility] Comment on above: Performed By: #### C BC, HEPATIC, BMP, LIPASE ####[address] Automated eosinophil %Ordere d By: Carter Alvarenga on 12-13-2023 Eosinophils/100 WBC (Bld) 2.7 % Normal . [facility] Comment on above: Performed By: #### C BC, HEPATIC, BMP, LIPASE ####[place] [id number] [address] Automated eosinophil countOr dered By: Carter Alvarenga on 12-13-2023 Eosinophils (Bld) [#/Vol] 0.4 10*3/uL Normal 0.0-0.45 [facility] Comment on above: Performed By: #### C BC, HEPATIC, BMP, LIPASE ####[place] [id number] [address] Automated erythrocytes count in urine sediment (number/area)Ordered By: Carter Alvarenga on 12-13-2023 RBC Auto (Urine sed) [#/Area] Innumerable [HPF] 0-4 [facility] Automated leukocytes count i n urine sediment (number/area)Ordered By: Carter Alvarenga on 12-13-2023 WBC Auto (Urine sed) [#/Area] 1-2 [HPF] 0-4 [facility] Automated monocyte %Ordered By: Carter Alvarenga on 12-13-2023 Monocytes/100 WBC (Bld) 4.3 % Normal . [facility] Comment on above: Performed By: #### C BC, HEPATIC, BMP, LIPASE ####[place] [id number] [address] Automated neutrophil %Ordere d By: Carter Alvarenga on 12-13-2023 Neutrophils/100 WBC (Bld) 52.5 % Normal . [facility] Comment on above: Performed By: #### C BC, HEPATIC, BMP, LIPASE ####[place] [id number] [address] Automated urine color determ inationOrdered By: Carter Alvarenga on 12-13-2023 Color (U) Yellow Normal Yellow [facility] Comment on above: Order Comment: Name Collection Type:: Clean-Voided Midstream Performed By: #### A DDONUAPLUS #### [facility] [address] Basic Metabolic Panelon 11-15 Creatinine Clr Calc Pharmacy 85.43 Normal [facility] Comment on above: Performed By: #### C BC, HEPATIC, BMP, LIPASE ####[place] [id number] [address] GFR/1.73 sq M.predicted MDRD (S/P/Bld) [Vol rate/Area] mL/min/{1.73_m2} Normal [facility] Comment on above: Performed By: #### C BC, HEPATIC, BMP, LIPASE ####[place] [id number] [address] Bilirubin Test strip Ql (U)O rdered By: Carter Alvarenga on 12-13-2023 Bilirubin Ql (U) Negative Negative [facility] Bilirubin.direct [Mass/volum e] in Serum or PlasmaOrdered By: Carter Alvarenga on 12-13-2023 Bilirubin.direct [Mass/Vol] 0.20 mg/dL 0.03-0.18 [facility] Bilirubin.total [Mass/volume ] in Serum or PlasmaOrdered By: Carter Alvarenga on 12-13-2023 Bilirubin [Mass/Vol] 1.2 mg/dL High 0.3-1.0 [facility] Comment on above: Performed By: #### C BC, HEPATIC, BMP, LIPASE ####[place] [id number] [address] abdomen pelvis wo conon 0 12-13-2023 CT abdomen pelvis wo con [facility] [place] [address] [place] [address] CT Scan Report Signed Patient: John Smith MR#: [id number] : 1965 Acct:[id number] Age/Sex: 57 / M ADM Date: 12/13/23 Loc: ER Room: Type: [facility] ER Attending Dr: Copies to: Carter Alvarenga DO Ordering Provider: Carter Alvarenga DO Date of Service: 12/13/23 CT/CT abdomen pelvis wo con: f CT ABDOMEN AND PELVIS WITHOUT CONTRAST COMPARISON: 11/10/2022 CLINICAL DATA: Left flank pain radiating to the groin. History of kidney stones. Spiral images were obtained through the abdomen and pelvis without contrast. This CT exam was performed using one or more following dose reduction techniques: Automated exposure control, adjustment of the mA and/or kV according to patient size, or use of iterative reconstruction technique. Limited cuts through the lung bases show minimal scarring or atelectasis as well as similar tiny nodular densities. Assessment of the intra-abdominal organs is slightly limited by the absence of contrast. No calcified gallstones are identified. No intrahepatic masses are seen. The spleen, pancreas and adrenal glands show no acute findings. There is minor bilateral perinephric fibrofatty stranding. There is a small hyperdense exophytic nodule at the mid to lower pole anteriorly on the right which was seen previously and may be a hemorrhagic cyst. There are multiple tiny bilateral renal stones with the largest on the left measuring 5 mm. No hydronephrosis is seen. There is no ureteral dilatation or stones. There is atherosclerotic plaque at the aorta and iliac arteries. Small lymph nodes are visualized. No ascites is seen. There are normal caliber small bowel loops. Mild stool is visualized along the colon. There are some left-sided colonic diverticula. There is dextroscoliotic curvature and mild degenerative changes involving the spine. Images through the pelvis show no small bowel dilatation. No appendiceal inflammation is seen. The distal colon is mostly decompressed. There are additional colonic diverticula, without associated active inflammation. The urinary bladder is collapsed, limiting assessment. There is subtle perivesical stranding. The prostate is mildly enlarged and contains calcification. There are patulous inguinal rings containing fat, right larger than left. There are benign inguinal lymph nodes with fatty su. A hypodensity is seen within the muscles along the anterior aspect of the right femoral head that may be iliopsoas bursitis. It was seen on the comparison. There is no ascites. CT/CT abdomen pelvis wo con IMPRESSION: RIGHT HEMORRHAGIC RENAL CYSTS. BILATERAL NEPHROLITHIASIS, WITHOUT OBSTRUCTION. DIVERTICULOSIS. COLLAPSED URINARY BLADDER, LIMITING ASSESSMENT. NO OTHER ACUTE FINDINGS OR INTERVAL IMAGES. Impression dictated by: Ros Mendiola M.D.12/13/2023 4:46 PM Dictation Location: [place] [address] Transcribed By: ABILIO 12/13/23 1646 Dictated By: Ros Mendiola MD 12/13/23 1633 Signed By: 12/13/23 1646 Normal [facility] Calcium [Mass/volume] in Ser um or PlasmaOrdered By: Carter Alvarenga on 12-13-2023 Calcium [Mass/Vol] 10.0 mg/dL Normal 8.6-10.3 [facility] Comment on above: Performed By: #### C BC, HEPATIC, BMP, LIPASE ####[address] Carbon dioxide, total [Moles /volume] in Serum or PlasmaOrdered By: Carter Alvarenga on 12-13-2023 CO2 [Moles/Vol] 30.4 mmol/L Normal 21.0-31.0 [facility] Comment on above: Performed By: #### C BC, HEPATIC, BMP, LIPASE ####[address] Chloride [Moles/volume] in S new or PlasmaOrdered By: Carter Alvarenga on 12-13-2023 Chloride [Moles/Vol] 104 mmol/L Normal 98-107 [facility] Comment on above: Performed By: #### C BC, HEPATIC, BMP, LIPASE ####[address] Complete Blood Count Auto Di ffon 12-13-2023 Mean Corpuscular HGB Conc 33.1 g/dL Normal 32.5-35.6 [facility] Comment on above: Performed By: #### C BC, HEPATIC, BMP, LIPASE ####[address] Monocytes/100 WBC (Bld) 16.76 % Normal 0.00-20.00 [facility] Comment on above: Performed By: #### C BC, HEPATIC, BMP, LIPASE ####[address] NRBC% 0.3 /100{WBC} Normal 0-0.5 [facility] Comment on above: Performed By: #### C BC, HEPATIC, BMP, LIPASE ####[address] Creatinine [Mass/volume] in Serum or PlasmaOrdered By: Carter Alvraenga on 12-13-2023 Creatinine [Mass/Vol] 1.16 mg/dL Normal 0.70-1.30 [facility] Comment on above: Performed By: #### C BC, HEPATIC, BMP, LIPASE ####[facility] [id number] Dipstick and Microscopicon 0 12-13-2023 Appearance (U) Clear Normal Clear [facility] Comment on above: Order Comment: Name Collection Type:: Clean-Voided Midstream Performed By: #### A DDONUAPLUS #### [facility] [address] Bacteria,Urine None Seen Normal None Seen [facility] Comment on above: Order Comment: Name Collection Type:: Clean-Voided Midstream Performed By: #### A DDONUAPLUS #### [facility] [address] Bilirubin,Urine Negative Normal Negative [facility] Comment on above: Order Comment: Name Collection Type:: Clean-Voided Midstream Performed By: #### A DDONUAPLUS #### [facility] [address] Glucose Ql (U) Normal Normal Normal [facility] Comment on above: Order Comment: Name Collection Type:: Clean-Voided Midstream Performed By: #### A DDONUAPLUS #### [facility] [address] [place] [address] [place] Hyaline Casts,Urine None Seen Normal 0-8 [facility] Comment on above: Order Comment: Name Collection Type:: Clean-Voided Midstream Result Comment: PERF ORMED BY: [place] [address] PATHOLOGIST ELECTRONICS ENGINEERING TECHNICIAN LANI GEORGE M.D. Performed By: #### A DDONUAPLUS #### [address] Ketones Ql (U) Negative Normal Negative [facility] Comment on above: Order Comment: Name Collection Type:: Clean-Voided Midstream Performed By: #### A DDONUAPLUS #### [address] Leukocyte esterase Test strip Ql (U) Negative Normal Negative [facility] Comment on above: Order Comment: Name Collection Type:: Clean-Voided Midstream Performed By: #### A DDONUAPLUS #### [place] [address] [place] Nitrite,Urine Negative Normal Negative [facility] Comment on above: Order Comment: Name Collection Type:: Clean-Voided Midstream Performed By: #### A DDONUAPLUS #### [address] Occult Blood,Urine 3+ High Negative [facility] Comment on above: Order Comment: Name Collection Type:: Clean-Voided Midstream Result Comment: PERF ORMED BY: [place] [address] PATHOLOGIST ELECTRONICS ENGINEERING TECHNICIAN LANI GOERGE M.D. Performed By: #### A DDONUAPLUS #### [address] Protein,Urine Negative Normal Negative [facility] Comment on above: Order Comment: Name Collection Type:: Clean-Voided Midstream Performed By: #### A DDONUAPLUS #### [address] RBC,Urine Innumerable High 0-4 [facility] Comment on above: Order Comment: Name Collection Type:: Clean-Voided Midstream Performed By: #### A DDONUAPLUS #### [place] [address] [place] Specificy [place],Urine 1.020 Normal 1.001-1.030 [facility] Comment on above: Order Comment: Name Collection Type:: Clean-Voided Midstream Performed By: #### A DDONUAPLUS #### [address] Squamous Epithelial Cell,Urine None Seen Normal 0-2 [facility] Comment on above: Order Comment: Name Collection Type:: Clean-Voided Midstream Performed By: #### A DDONUAPLUS #### [facility] [address] Urobilinogen,Urine Normal Normal Normal [facility] Comment on above: Order Comment: Name Collection Type:: Clean-Voided Midstream Performed By: #### A DDONUAPLUS #### [facility] [address] WBC,Urine 1-2 Normal 0-4 [facility] Comment on above: Order Comment: Name Collection Type:: Clean-Voided Midstream Performed By: #### A DDONUAPLUS #### [facility] [address] Erythrocyte distribution wid th [Ratio] by Automated countOrdered By: Carter Alvarenga on 12-13-2023 Erythrocyte distribution width (RBC) [Ratio] 14.4 % Normal 12.0-14.8 [facility] Comment on above: Performed By: #### C BC, HEPATIC, BMP, LIPASE ####[place] [id number] [address] Erythrocytes [#/volume] in B lood by Automated countOrdered By: Carter Alvarenga on 12-13-2023 RBC (Bld) [#/Vol] 5.62 10*6/uL High 3.90-5.[address] [facility] Comment on above: Performed By: #### C BC, HEPATIC, BMP, LIPASE ####[address] Glucose [Mass/volume] in Ser um or PlasmaOrdered By: Carter Alvarenga on 12-13-2023 Glucose [Mass/Vol] 91 mg/dL Normal 70-100 [facility] Comment on above: ADA recommended refe rence rangeRandom Glucose Reference Range is dependent on time and content of last meal. Glucose of more than 200 mg/dL in a nonstressed, ambulatory subject supports the diagnosis of Diabetes Mellitus. Result Comment: [place] om Glucose Reference Range is dependent on time and content of last meal. Glucose of more than 200 mg/dL in a nonstressed, ambulatory subject supports the diagnosis of Diabetes Mellitus. ADA recommended reference range Performed By: #### C BC, HEPATIC, BMP, LIPASE ####[address] Hematocrit [Volume Fraction] of Blood by Automated countOrdered By: Carter Alvarenga on 12-13-2023 Hematocrit (Bld) [Volume fraction] 49.1 % Normal 38.8-50.0 [facility] Comment on above: Performed By: #### C BC, HEPATIC, BMP, LIPASE ####[address] Hemoglobin [Mass/volume] in BloodOrdered By: Carter Alvarenga on 12-13-2023 Hemoglobin (Bld) [Mass/Vol] 16.3 g/dL Normal 13.0-17.0 [facility] Comment on above: Performed By: #### C BC, HEPATIC, BMP, LIPASE ####[address] Hepatic Panelon 12-13-2023 Albumin [Mass/Vol] 4.5 g/dL Normal 3.5-5.7 [facility] Comment on above: Performed By: #### C BC, HEPATIC, BMP, LIPASE ####[address] Bilirubin,Indirect 1.0 mg/dL Normal [facility] Comment on above: Performed By: #### C BC, HEPATIC, BMP, LIPASE ####[address] Bilirubin.indirect [Mass/Vol] 0.20 mg/dL High 0.03-0.18 [facility] Comment on above: Performed By: #### C BC, HEPATIC, BMP, LIPASE ####[address] Ketones Auto test strip (U) [Mass/Vol]Ordered By: Carter Alvarenga on 12-13-2023 Ketones (U) [Mass/Vol] Negative Negative [facility] - UrinalysisOrder ed By: Carter Alvarenga on 12-13-2023 Hyaline casts LM Ql (Urine sed) None seen [LPF] 0-8 [facility] Leukocytes [#/volume] correc yvonne for nucleated erythrocytes in Blood by Automated counOrdered By: Carter Alvarenga on 12-13-2023 WBC corrected for nucl RBC Auto (Bld) [#/Vol] 14.6 10*3/uL 4.1-10.5 [facility] Leukocytes [#/volume] in Blo od by Automated countOrdered By: Carter Alvarenga on 12-13-2023 WBC (Bld) [#/Vol] 14.6 10*3/uL High 4.1-10.[address] [facility] Comment on above: Performed By: #### C BC, HEPATIC, BMP, LIPASE ####[place] [id number] [place] [id number] [facility] Lipase [Enzymatic activity/v olume] in Serum or PlasmaOrdered By: Carter Alvarenga on 12-13-2023 Lipase [Catalytic activity/Vol] 7.0 U/L Low 11.0-82.0 [facility] Comment on above: Result Comment: PERF ORMED BY: [facility] [address] [place] [id number] PATHOLOGIST ELECTRONICS ENGINEERING TECHNICIAN LANI GEORGE M.D. Performed By: #### C BC, HEPATIC, BMP, LIPASE ####[place] [id number] [facility] Lymphocytes [#/volume] in Bl ood by Automated countOrdered By: Carter Alvarenga on 12-13-2023 Lymphocytes (Bld) [#/Vol] 5.8 10*3/uL High 1.00-4.8 [facility] Comment on above: Performed By: #### C BC, HEPATIC, BMP, LIPASE ####[place] [id number] [place] Lymphocytes/100 leukocytes i n Blood by Automated countOrdered By: Carter Alvarenga on 12-13-2023 Lymphocytes/100 WBC (Bld) 39.9 % Normal . [facility] Comment on above: Performed By: #### C BC, HEPATIC, BMP, LIPASE ####[place] [id number] [place] MCH [Entitic mass] by Automa yvonne countOrdered By: Carter Alvarenga on 12-13-2023 MCH (RBC) [Entitic mass] 28.9 pg Normal 27.5-35.2 [facility] Comment on above: Performed By: #### C BC, HEPATIC, BMP, LIPASE ####[place] [id number] [address] MCHC Auto (RBC) [Mass/Vol]Or dered By: Carter Alvarenga on 12-13-2023 MCHC (RBC) [Mass/Vol] 33.1 g/dL 32.5-35.6 [facility] MCV [Entitic volume] by Auto mated countOrdered By: Carter Alvarenga on 12-13-2023 MCV (RBC) [Entitic vol] 87.3 fL Normal 83.5-101 [facility] Comment on above: Performed By: #### C BC, HEPATIC, BMP, LIPASE ####[address] Monocyte distribution width [Entitic volume] in Blood by AutomatedOrdered By: Carter Alvarenga on 12-13-2023 Monocyte distribution width Auto (Bld) [Entitic vol] 16.76 % 0.00-20.00 [facility] Neutrophils [#/volume] in Bl ood by Automated countOrdered By: Carter Alvarenga on 12-13-2023 Neutrophils (Bld) [#/Vol] 7.7 10*3/uL Normal 1.8-7.7 [facility] Comment on above: Performed By: #### C BC, HEPATIC, BMP, LIPASE ####[facility] [id number] [place] [address] Nitrite Test strip Ql (U)Ord ered By: Carter Alvarenga on 12-13-2023 Nitrite Ql (U) Negative Negative [facility] No Panel InformationOrdered By: Carter Alvarenga on 12-13-2023 Estimated GFR (CKD-EPI) > 60.0 mL/Min [facility] Creatinine Clearance (Chem 85.43 [facility] Nucleated erythrocytes [Pres ence] in Blood by Automated countOrdered By: Carter Alvarenga on 12-13-2023 Nucleated RBC Auto Ql (Bld) 0.3 /100{WBC} 0-0.5 [facility] Platelet mean volume [Entiti c volume] in Blood by Automated countOrdered By: Carter Alvarenga on 12-13-2023 Platelet mean volume (Bld) [Entitic vol] 9.2 fL Normal 6.6-10.1 [facility] Comment on above: Performed By: #### C BC, HEPATIC, BMP, LIPASE ####[address] Platelets [#/volume] in Bloo d by Automated countOrdered By: Carter Alvarenga on 12-13-2023 Platelets (Bld) [#/Vol] 256 10*3/uL Normal 150-450 [facility] Comment on above: Performed By: #### C BC, HEPATIC, BMP, LIPASE ####[address] Potassium [Moles/volume] in Serum or PlasmaOrdered By: Carter Alvarenga on 12-13-2023 Potassium [Moles/Vol] 3.9 mmol/L Normal 3.5-5.1 [facility] Comment on above: Performed By: #### C BC, HEPATIC, BMP, LIPASE ####[address] Protein Auto test strip (U) [Mass/Vol]Ordered By: Carter Alvarenga on 12-13-2023 Protein (U) [Mass/Vol] Negative Negative [facility] Protein [Mass/volume] in Ser um or PlasmaOrdered By: Carter Alvarenga on 12-13-2023 Protein [Mass/Vol] 7.6 g/dL Normal 6.4-8.9 [facility] Comment on above: Performed By: #### C BC, HEPATIC, BMP, LIPASE ####[address] Serum globulin measurement b y calculation (mass/volume)Ordered By: Carter Alvarenga on 12-13-2023 Globulin (S) [Mass/Vol] 3.1 g/dL Normal [facility] Comment on above: Performed By: #### C BC, HEPATIC, BMP, LIPASE ####[facility] Serum or plasma albumin/glob ulin mass ratioOrdered By: Carter Alvarenga on 12-13-2023 Albumin/Globulin [Mass ratio] 1.5 {ratio} Normal [facility] Comment on above: Performed By: #### C BC, HEPATIC, BMP, LIPASE ####[address] Serum or plasma anion gap de terminationOrdered By: Carter Alvarenga on 12-13-2023 Anion gap [Moles/Vol] 8.5 mmol/L Normal 6.0-15.0 [facility] Comment on above: Performed By: #### C BC, HEPATIC, BMP, LIPASE ####[place] [id number] [address] Serum or plasma non-glucuron idated bilirubin measurement (mass/volume)Ordered By: Carter Alvarenga on 12-13-2023 Bilirubin.indirect [Mass/Vol] 1.0 mg/dL [facility] Sodium [Moles/volume] in Ser um or PlasmaOrdered By: Carter Alvarenga on 12-13-2023 Sodium [Moles/Vol] 139 mmol/L Normal 136-145 [facility] Comment on above: Performed By: #### C BC, HEPATIC, BMP, LIPASE ####[address] Specific gravity Auto test s trip (U) [Rel density]Ordered By: Carter Alvarenga on 12-13-2023 Specific gravity (U) [Rel density] 1.020 1.001-1.030 [facility] Squamous epithelial cells de tection in urine sediment by light microscopyOrdered By: Carter Alvarenga on 12-13-2023 Epithelial cells.squamous LM Ql (Urine sed) None seen [HPF] 0-2 [facility] Urea nitrogen [Mass/volume] in Serum or PlasmaOrdered By: Carter Alvarenga on 12-13-2023 Urea nitrogen [Mass/Vol] 20 mg/dL Normal 7-25 [facility] Comment on above: Performed By: #### C BC, HEPATIC, BMP, LIPASE ####[facility] [id number] Urine bacteria detection by automated methodOrdered By: Carter Alvarenga on 12-13-2023 Bacteria Auto Ql (U) None seen [HPF] None Seen [facility] Urine clarity by refractomet ry automatedOrdered By: Carter Alvarenga on 12-13-2023 Clarity Refractometry automated (U) Clear Clear [facility] Urine glucose measurement by automated test strip (mass/volume)Ordered By: Carter Alvarenga on 12-13-2023 Glucose Auto test strip (U) [Mass/Vol] Normal mg/dL Normal [facility] Urine hemoglobin detection b y automated test stripOrdered By: Carter Alvarenga on 12-13-2023 Hemoglobin Auto test strip Ql (U) 3+ Negative [facility] Urine leukocyte esterase det ection by automated test stripOrdered By: Carter Alvarenga on 12-13-2023 Leukocyte esterase Auto test strip Ql (U) Negative Negative [facility] Urine pH measurement by auto mated test stripOrdered By: Carter Alvarenga on 12-13-2023 pH (U) 7.0 [pH] Normal 5.0-9.0 [facility] Comment on above: Order Comment: Name Collection Type:: Clean-Voided Midstream Performed By: #### A DDONUAPLUS #### [facility] [address] Urobilinogen Auto test strip (U) [Mass/Vol]Ordered By: Carter Alvarenga on 12-13-2023 Urobilinogen (U) [Mass/Vol] Normal mg/dL Normal [facility] RAD - MISCon 12-09-2023 RAD - MISC [id number]#1.00TIFF Normal [facility] Operative Reporton Operative Report [id number]#1.00TIFF Normal [facility] Lab Reportson 12-06-2023 Lab Reports [id number]#1.00TIFF Normal [facility] ECG 12-Leadon 11-30-2023 ECG 12-Lead [id number]#1.00TIFF Normal [facility] RAD - MISCon 11-30-2023 RAD - MISC [id number]#1.00TIFF Normal [facility] Lab Reportson 11-28-2023 Lab Reports [id number]#1.00TIFF Normal [facility] Patient Correspondenceon Patient Correspondence [id number]#1.00TIFF [facility] Consent for Procedure/Surger yon 11-17-2023 Consent for Procedure/Surgery [id number] [facility] Ambulatory Visit Summaryon 0 11-16-2023 Ambulatory Visit Summary JOHN SMITH :1965 Visit Date:11/16/2023 Ambulatory Visit Instructions Your Diagnosis BPH (benign prostatic hyperplasia) Kidney stone Hypercalciuria Your Care Team Attending Physician - DECLAN HERNANDEZ, Rio Simons Primary Care Physician - [facility], . This Is Your Medications List potassium bicarbonate (Klor-Con/EF 25 mEq oral tablet, effervescent) Contact prescribing physician if questions or concerns amlodipine (amLODIPine 10 mg Tab) atorvastatin (atorvastatin 40 mg Tab) carvedilol (carvedilol 12.5 mg Tab) losartan (losartan 100 mg Tab) Procedures Performed ESWL - Extracorporeal shockwave lithotripsy for renal calculus (08/11/2017), ESWL - Extracorporeal shockwave lithotripsy for renal calculus (07/14/2017), ESWL - Extracorporeal shockwave lithotripsy for renal calculus (06/16/2017). Discharge Vitals Temperature (Temporal Artery) 37 ?C Heart Rate (Peripheral) 74 Respiratory Rate 14 Blood Pressure 140/78 Height 167 cm Height 66 in Weight 124.6 kg Weight 274.12 lb BMI 44.68 What to do next Scheduled Follow-Up Appointments Tuesday 9:15 AM EST With: Rio PRASAD MD Where: [facility] Patient Educationon 11-16-19 Patient Education Nephrology Lithotripsy, Care After This sheet gives you information about how to care for yourself after your procedure. Your health care provider may also give you more specific instructions. If you have problems or questions, contact your health care provider. What can I expect after the procedure? After the procedure, it is common to have: ? Some blood in your urine. This should only last for a few days. ? Soreness in your back, sides, or upper abdomen for a few days. ? Blotches or bruises on the area where the shock wave entered the skin. ? Pain, discomfort, or nausea when pieces (fragments) of the kidney stone move through the tube that carries urine from the kidney to the bladder (ureter). Stone fragments may pass soon after the procedure, but they may continue to pass for up to 4?8 weeks. ? If you have severe pain or nausea, contact your health care provider. This may be caused by a large stone that was not broken up, and this may mean that you need more treatment. ? Some pain or discomfort during urination. ? Some pain or discomfort in the lower abdomen or (in men) at the base of the penis. Follow these instructions at home: Medicines ? Take tlrs-ihm-wqzbanb and prescription medicines only as told by your health care provider. ? If you were prescribed an antibiotic medicine, take it as told by your health care provider. Do not stop taking the antibiotic even if you start to feel better. ? Ask your health care provider if the medicine prescribed to you requires you to avoid driving or using machinery. Eating and drinking ? Drink enough fluid to keep your urine pale yellow. This helps any remaining pieces of the stone to pass. It can also help prevent new stones from forming. ? Eat plenty of fresh fruits and vegetables. ? Follow instructions from your health care provider about eating or drinking restrictions. You may be instructed to: ? Reduce how much salt (sodium) you eat or drink. Check ingredients and nutrition facts on packaged foods and beverages to see how much sodium they contain. ? Reduce how much meat you eat. ? Eat the recommended amount of calcium for your age and gender. Ask your health care provider how much calcium you should have. General instructions ? Get plenty of rest. ? Return to your normal activities as told by your health care provider. Ask your health care provider what activities are safe for you. Most people can resume normal activities 1?2 days after the procedure. ? If you were given a sedative during the procedure, it can affect you for several hours. Do not drive or operate machinery until your health care provider says that it is safe. ? Your health care provider may direct you to lie in a certain position (postural drainage) and tap firmly (percuss) over your kidney area to help stone fragments pass. Follow instructions as told by your health care provider. ? If directed, strain all urine through the strainer that was provided by your health care provider. ? Keep all fragments for your health care provider to see. Any stones that are found may be sent to a medical lab for examination. The stone may be as small as a grain of salt. ? Keep all follow-up visits as told by your health care provider. This is important. Contact a health care provider if: ? You have a fever or chills. ? You have nausea that is severe or does not go away. ? You have any of these urinary symptoms: ? Blood in your urine for longer than your health care provider told you to expect. ? Urine that smells bad or unusual. ? Feeling a strong urge to urinate after emptying your bladder. ? Pain or burning with urination that does not go away. ? Urinating more often than usual and this does not go away. ? You have a stent and it comes out. Get help right away if: ? You have severe pain in your back, sides, or upper abdomen. ? You have any of these urinary symptoms: ? Severe pain while urinating. ? More blood in your urine or having blood in your urine when you did not before. ? Passing blood clots in your urine. ? Passing only a small amount of urine or being unable to pass any urine at all. ? You have severe nausea that leads to persistent vomiting. ? You faint. Summary ? After this procedure, it is common to have some pain, discomfort, or nausea when pieces (fragments) of the kidney stone move through the tube that carries urine from the kidney to the bladder (ureter). If this pain or nausea is severe, however, you should contact your health care provider. ? Return to your normal activities as told by your health care provider. Ask your health care provider what activities are safe for you. ? Drink enough fluid to keep your urine pale yellow. This helps any remaining pieces of the stone to pass, and it can help prevent new stones from forming. ? If directed, strain your urine and keep all fragments for your health care p (more content not included)... Normal [facility] Screenson 11-16-2023 Screens [id number] Normal [facility] Urology Office/Clinic Noteon 11-16-2023 Urology Office/Clinic Note Chief Complaint 4 month follow up w/ KUB and Metabolic workup HPI Staff 4 month follow up w/KUB & metabolic workup Previous DX: BPH w/ obstruction/lower urinary tract symptoms, family history of prostate cancer, kidney stone, renal stone. S/P ESWL done on 08/11/17. *Klor- Con 25MEQ BID. Pt has a appt in July 2024 OV w/1yr PSA. KUB @ [facility] 11/09/23 Dysuria: denies pain and burning Incomplete bladder emptying: denies Hematuria: denies visible blood Frequency: denies Urgency: denies Nocturia: denies Stream: denies hesitancy Leaking: denies Post void dripping: denies Wearing pads/ Depends: denies Urge incontinence: denies Stress incontinence: denies Incontinence without Sensory Awareness: denies Abdominal pain: denies Flank pain: denies Sexual complaints: _ History of Present Illness Tests reviewed: reviewed UA, KUB I have reviewed the previous health record information and history for this patient from Dr. Prasad. I have reviewed and verified the staff HPI to be accurate for this encounter. There have been no associated fever, chills, flank pain, or blood in the urine. Denies any urinary infections since last encounter. Review of Systems PHQ Score Initial Depression Screen Score: 0 SCORE ROS - Provider Constitutional: denies weight loss, denies hot flashes. Eyes: denies eye problems. Gastrointestinal: denies nausea, denies vomiting. Cardiovascular: denies chest pain or angina. Integumentary: no dryness Musculoskeletal: denies musculoskeletal symptoms. ENMT: denies otolaryngeal symptoms. Respiratory: no shortness of breath. Heme/Lymph: denies easy bleeding tendency, denies easy bruising tendency. Psychiatric: no confusion, no anxiety. Genitourinary: See HPI. Physical Exam Vitals & Measurements T: 37 ?C(Temporal Artery) HR: 74(Peripheral) RR: 14 BP: 140/78 HT: 66 in HT: 167 cm WT: 124.6 kg WT: 274.12 lb BMI: 44.68 General Appearance: alert, no distress, well nourished, well developed male. Genitourinary: normal scrotum, normal testes, normal urethra, normal epididymis, normal vas deferens/spermatic cord. Flank Pain: none. Bladder: nonpalpable. Assessment/Plan 1. BPH (benign prostatic hyperplasia) (N40.0: Benign prostatic hyperplasia without lower urinary tract symptoms) PSA: 07/07/22 - 0.81 07/11/23 - 0.59 No brothers with prostate ca but thinks he does have a family hx. [1] UA today negative for blood and infection. 2. Kidney stone (N20.0: Calculus of kidney) KUB 11/09/23 - Bilateral nephrolithiasis, largest 6 mm involving the R kidney. No ureteral or urinary bladder stones. Metabolic workup 10/12/23 - Volume 2,750 cc. U24 Ca 421 H. U24 citric acid 520. Urine salt H. Taking Klor-Con 25 mEq BID, hasn't taken for a few weeks. Waiting for a refill from his pharmacy. Another rx sent to [facility] in [place]. Doesn't add salt to food. Last ESWL 2016, had both sides done. Discussed R ESWL, risks and benefits. -Restart Klor-Con above. -Dietary modifications (low salt). -Will schedule R ESWL. The procedure risks, benefits, details and treatment alternatives have been discussed with the patient. These include blood in the urine, infection, bleeding around the kidney, kidney bruising, inability to break up the stone, need for blood transfusion, blockage from stone fragments, and need for additional procedures, among others. Full informed consent has been obtained. Will order General anesthesia. 3. Hypercalciuria (R82.994: Hypercalciuria) Metabolic workup 10/12/23 - U24 Ca 421 H. -Start HCTZ 12.5 mg qd. SEs discussed. Rx sent to [facility] in [place]. -Electrolyte panel in one month. Follow-up With When Contact Information DECLAN HERNANDEZ, Rio Simons, URL [facility] [address], [place] [address]- Additional Instructions: schedule R ESWL Patient Education Lithotripsy, Care After Lithotripsy I, Soumya Rizvi, personally scribed for Dr. Prasad on 11/16/2023 10:15:33. . Documentation recorded by the scribe, Soumya Rizvi, accurately reflects the services(s) I performed and decisions made by me. Authenticated by Dr. Prasad on 11/16/2023 10:17:20. Problem List/Past Medical History Ongoing Back pain BMI 40.0-44.9, adult BPH (benign prostatic hyperplasia) Family history of prostate cancer Heart disease Hypercalciuria Hyperlipemia Hypertension Kidney stone Renal stones Maayu-Ukkpxahzp-Znnci syndrome Historical No qualifying data Procedure/Surgical History ESWL - Extracorporeal shockwave lithotripsy for renal calculus (08/11/2017), ESWL - Extracorporeal shockwave lithotripsy for renal calculus (07/14/2017), ESWL - Extracorporeal shockwave lithotripsy for renal calculus (06/16/2017). Medications amLODIPine 10 mg Tab, Oral, Daily atorvastatin 40 mg Tab, Oral, Daily carvedilol 12.5 mg Tab, Oral, BID Klor-Con/EF 25 mEq oral tablet, effervescent, 25 mEq= 1 tab(s), Oral, BID, 3 ref (more content not included)... [facility] Comment on above: Result Comment: Elec tronically Signed By: Rio PRASAD MD\.br\Date and Time Signed: 11/16/23 10:17 EDT\.br\Electronically Co-Signed By: Soumya Rizvi\.br\Date and Time Co-Signed: 11/16/23 10:15 EDT RAD - MISCon 11-10-2023 RAD - MIS [id number] [facility] XR abdomen 1Von 11-09-2023 XR abdomen 1V [place] [address] XRay Report Signed Patient: John Smith MR#: [id number] : 1965 Acct:[id number] Age/Sex: 57 / M ADM Date: 11/09/23 Loc: XD Room: Type: [facility] Attending Dr: Rio Prasad MD Copies to: Rio Prasad MD Ordering Provider: Rio Prasad MD Date of Service: 11/09/23 XR/XR abdomen 1V: N20.0 KUB: CLINICAL INFORMATION: Follow-up kidney stones COMPARISON: KUB 01/26/2021 FINDINGS: Bilateral nephrolithiasis, largest measuring 6 mm involving the right kidney. No ureteral or urinary bladder calculus. Phleboliths are seen within the pelvis. No bowel obstruction or free air. XR/XR abdomen 1V IMPRESSION: BILATERAL NEPHROLITHIASIS, LARGEST MEASURING 6 MM INVOLVING THE RIGHT KIDNEY. Impression dictated by: Narciso Mckeon Jr., Rosangela11/09/2023 1:05 PM Dictation Location: [place] [address] Transcribed By: [facility] 11/09/23 1305 Dictated By: Narciso Mckeon Jr, DO 11/09/23 1304 Signed By: 11/09/23 1305 Normal [facility] Lab Reportson 10-17-2023 Lab Reports [id number] Normal [facility] Lab Reportson 10-13-2023 Lab Reports [id number] Normal [facility] Lab Reports [id number] Normal [facility] 24 Hr Urine Uric Acidon 09-16 Uric Acid, 24 Hr Urine 739.8 Normal 197.2-1078.7 [facility] Comment on above: Order Comment: URINE VOLUME (MILLILTERS): 2750 Result Comment: Perf ormed at: - [facility] [place] [address] [place], [place] [id number] Store Team Leader: Garrison Pate PhD, Phone: [phone] Performed By: #### P HOS 24HRU, URIC 24HRU, MAG 24HRU, U24 CA, CITRIC UR ####[facility] ,#### CREA24, U24 NA, COL T V ####[place] [address] [address] Urine Uric Acid 26.9 mg/dL Normal Not Estab. [facility] Comment on above: Order Comment: URINE VOLUME (MILLILTERS): 2750 Performed By: #### P HOS 24HRU, URIC 24HRU, MAG 24HRU, U24 CA, CITRIC UR ####[facility] ,#### CREA24, U24 NA, COL T V ####[place] [address] [address] 24 hour urine sodium measure ment (moles/time)Ordered By: Rio Prsaad on 10-12-2023 Sodium (24H U) [Moles/Time] 297 mmol/24 40-220 [facility] 24 hour urine uric acid ivette urement (mass/time)Ordered By: Rio Prasad on 10-12-2023 Urate (24H U) [Mass/Time] 739.8 mg/24 hr 197.2-1078.7 [facility] Comment on above: Performed at: [facility] - [place] [address] [id number] Director: Garrison Pate PhD, Phone: [phone] CT biopsyOrdered By: Rio Prasad on 10-12-2023 CT biopsy 24 Hours [facility] Calcium [Mass/time] in 24 ho ur UrineOrdered By: Rio Prasad on 10-12-2023 Calcium (24H U) [Mass/Time] 421 mg/24 hr 0-320 [facility] Calcium [Mass/volume] in 24 hour UrineOrdered By: Rio Prasad on 10-12-2023 Calcium (24H U) [Mass/Vol] 15.3 mg/dL Not Estab. [facility] Calcium [Mass/volume] in Ser um or PlasmaOrdered By: Rio Prasad on 10-12-2023 Calcium [Mass/Vol] 8.9 mg/dL Normal 8.6-10.3 [facility] Comment on above: Performed By: #### U NAMRATA, CREAT, PTH, BUN, LYTES, CA #### [facility] [address] [place] [address] [place] Calcium, 24Hr Urineon 2023 Calcium, Urine 15.3 mg/dL Normal Not Estab. [facility] Comment on above: Order Comment: URINE VOLUME (MILLILTERS): 2750 Performed By: #### P HOS 24HRU, URIC 24HRU, MAG 24HRU, U24 CA, CITRIC UR ####[facility] ,#### CREA24, U24 NA, COL T V ####[facility] [place] [address] [place] Calcium, Urine 24 Hr 421 High 0-320 [facility] Comment on above: Order Comment: URINE VOLUME (MILLILTERS): 2750 Performed By: #### P HOS 24HRU, URIC 24HRU, MAG 24HRU, U24 CA, CITRIC UR ####[facility] ,#### CREA24, U24 NA, COL T V ####[place] [address] [address] Carbon dioxide, total [Moles /volume] in Serum or PlasmaOrdered By: Rio Prasad on 10-12-2023 CO2 [Moles/Vol] 28.4 mmol/L Normal 21.0-31.0 [facility] Comment on above: Performed By: #### U NAMRATA, CREAT, PTH, BUN, LYTES, CA #### [facility] [address] [place] [address] [place] Chloride [Moles/volume] in S new or PlasmaOrdered By: Rio Prasad on 10-12-2023 Chloride [Moles/Vol] 106 mmol/L Normal 98-107 [facility] Comment on above: Performed By: #### U NAMRATA, CREAT, PTH, BUN, LYTES, CA #### [facility] [address] Citric Acid, Urine, 24 Houro n 10-12-2023 Citric Acid, Urine 189 mg/L Normal Undefined [facility] Comment on above: Order Comment: URINE VOLUME (MILLILTERS): 2750 Result Comment: This test was developed and its performance characteristics determined by [facility]. It has not been cleared or approved by the Food and Drug Administration. Performed By: #### P HOS 24HRU, URIC 24HRU, MAG 24HRU, U24 CA, CITRIC UR ####[facility] ,#### CREA24, U24 NA, COL T V ####[facility] Citric Acid, Urine, 24HR 520 Normal 320-1240 [facility] Comment on above: Order Comment: URINE VOLUME (MILLILTERS): 2750 Result Comment: Perf ormed at: [facility] [address] [id number] Store Team Leader: Ammon Dalton MD, Phone: [phone] PERFORMED BY: [place] [address] PATHOLOGIST ELECTRONICS ENGINEERING TECHNICIAN LANI GEORGE M.D. Performed By: #### P HOS 24HRU, URIC 24HRU, MAG 24HRU, U24 CA, CITRIC UR ####[facility] ,#### CREA24, U24 NA, COL T V ####[address] Carlos Alberto Time and Vol 24 hr uron 10-12-2023 Total Volume, Urine 2750 Normal [facility] Comment on above: Order Comment: URINE COLLECTION TIME (HRS): 24 URINE VOLUME (MILLILTERS): 2750 Result Comment: PERF ORMED BY: [place] [address] PATHOLOGIST ELECTRONICS ENGINEERING TECHNICIAN LANI GEORGE M.D. Performed By: #### P HOS 24HRU, URIC 24HRU, MAG 24HRU, U24 CA, CITRIC UR ####[facility] ,#### CREA24, U24 NA, COL T V ####[facility] Urine Collection Time 24 Normal [facility] Comment on above: Order Comment: URINE COLLECTION TIME (HRS): 24 URINE VOLUME (MILLILTERS): 2750 Performed By: #### P HOS 24HRU, URIC 24HRU, MAG 24HRU, U24 CA, CITRIC UR ####[facility] ,#### CREA24, U24 NA, COL T V ####[place] [id number] [facility] Creatinineon 10-12-2023 GFR/1.73 sq M.predicted MDRD (S/P/Bld) [Vol rate/Area] mL/min/{1.73_m2} Normal [facility] Comment on above: Performed By: #### U NAMRATA, CREAT, PTH, BUN, LYTES, CA #### [address] Creatinine [Mass/volume] in Serum or PlasmaOrdered By: Rio Prasad on 10-12-2023 Creatinine [Mass/Vol] 0.99 mg/dL Normal 0.70-1.30 [facility] Comment on above: Performed By: #### U NAMRATA, CREAT, PTH, BUN, LYTES, CA #### [facility] [address] [place] [address] Creatinine [Mass/volume] in UrineOrdered By: Rio Prasad on 10-12-2023 Creatinine (U) [Mass/Vol] 68.00 mg/dL 14.00-26.00 [facility] Creatinine, 24 Hr Urineon Creatinine 24 Hour, Urine 1.87 g/24_hr Normal 1.00-2.09 [facility] Comment on above: Order Comment: URINE COLLECTION TIME (HRS): 24 URINE VOLUME (MILLILTERS): 2750 Performed By: #### P HOS 24HRU, URIC 24HRU, MAG 24HRU, U24 CA, CITRIC UR ####[facility] ,#### CREA24, U24 NA, COL T V ####[place] [address] [place] [id number] [facility] Creatinine, Urine 68.00 mg/dL High 14.00-26.00 [facility] Comment on above: Order Comment: URINE COLLECTION TIME (HRS): 24 URINE VOLUME (MILLILTERS): 2750 Performed By: #### P HOS 24HRU, URIC 24HRU, MAG 24HRU, U24 CA, CITRIC UR ####[facility] ,#### CREA24, U24 NA, COL T V ####[place] [address] [place] [id number] [place] Magnesium [Mass/time] in 24 hour UrineOrdered By: Rio Prasad on 10-12-2023 Magnesium (24H U) [Mass/Time] 151.3 mg/24 hr 12.0-293.0 [facility] Comment on above: Performed at: [facility] [place] [id number] Director: Garrison Pate PhD, Phone: [phone] Magnesium [Mass/volume] in U rineOrdered By: Rio Prasad on 10-12-2023 Magnesium (U) [Mass/Vol] 5.5 mg/dL Not Estab. [facility] Magnesium, Urine 24Hron 09-16 Magnesium, 24Hr Urine 151.3 Normal 12.0-293.0 [facility] Comment on above: Order Comment: URINE VOLUME (MILLILTERS): 2750 Result Comment: Perf ormed at: CB - [facility] [place] [id number] Store Team Leader: Garrison Pate PhD, Phone: [phone] Performed By: #### P HOS 24HRU, URIC 24HRU, MAG 24HRU, U24 CA, CITRIC UR ####[facility] ,#### CREA24, U24 NA, COL T V ####[place] [address] [place] [id number] [place] Magnesium, Urine 5.5 mg/dL Normal Not Estab. [facility] Comment on above: Order Comment: URINE VOLUME (MILLILTERS): 2750 Performed By: #### P HOS 24HRU, URIC 24HRU, MAG 24HRU, U24 CA, CITRIC UR ####[facility] ,#### CREA24, U24 NA, COL T V ####[facility] Yuw[address] No Panel InformationOrdered By: Rio Prasad on 10-12-2023 Estimated GFR (CKD-EPI) > 60.0 mL/Min [facility] Creatinine Clearance (Chem N/A [facility] Urine Citric Acid 189 mg/L Undefined [facility] Comment on above: This test was develo ped and its performance characteristicsdetermined by [facility]. It has not been cleared orapproved by the Food and Drug Administration. Urine Citric Acid 24 Hour 520 mg/24 hr 320-1240 [facility] Comment on above: Performed at: [address] [id number] Director: Ammon Dalton MD, Phone: [phone] Urine Creatinine 24 Hour 1.87 g/24 hr 1.00-2.09 [facility] Parathyrin.intact [Mass/volu me] in Serum or PlasmaOrdered By: Rio Prasad on 10-12-2023 Parathyrin.intact [Mass/Vol] 76.2 pg/mL [facility] Parathyroid Hormone Intacton 10-12-2023 Parathyroid Hormone Intact 76.2 pg/mL Normal [facility] Comment on above: Result Comment: PERF ORMED BY: [facility] [address] [place] [address] PATHOLOGIST ELECTRONICS ENGINEERING TECHNICIAN LANI GEORGE M.D. Performed By: #### U NAMRATA, CREAT, PTH, BUN, LYTES, CA ####[facility] Nyr[address] Phosphate [Mass/time] in 24 hour UrineOrdered By: Rio Prasad on 10-12-2023 Phosphate (24H U) [Mass/Time] 1367 mg/24 hr 390-1425 [facility] Phosphate [Mass/volume] in U rineOrdered By: Rio Prasad on 10-12-2023 Phosphate (U) [Mass/Vol] 49.7 mg/dL Not Estab. [facility] Phosphorus, 24Hr Urineon Phosphorous, Urine 49.7 mg/dL Normal Not Estab. [facility] Comment on above: Order Comment: URINE VOLUME (MILLILTERS): 2750 Performed By: #### P HOS 24HRU, URIC 24HRU, MAG 24HRU, U24 CA, CITRIC UR ####[facility] ,#### CREA24, U24 NA, COL T V ####[facility] Phosphorus, Urine 24Hr 1367 Normal 390-1425 [facility] Comment on above: Order Comment: URINE VOLUME (MILLILTERS): 2750 Performed By: #### P HOS 24HRU, URIC 24HRU, MAG 24HRU, U24 CA, CITRIC UR ####[facility] ,#### CREA24, U24 NA, COL T V ####[facility] [address] [place] [address] Potassium [Moles/volume] in Serum or PlasmaOrdered By: Rio Prasad on 10-12-2023 Potassium [Moles/Vol] 4.2 mmol/L Normal 3.5-5.1 [facility] Comment on above: Performed By: #### U NAMRATA, CREAT, PTH, BUN, LYTES, CA #### [facility] [address] Serum or plasma anion gap de terminationOrdered By: Rio Prasad on 10-12-2023 Anion gap [Moles/Vol] 9.8 mmol/L Normal 6.0-15.0 [facility] Comment on above: Performed By: #### U NAMRATA, CREAT, PTH, BUN, LYTES, CA #### [facility] [address] Sodium [Moles/volume] in Ser um or PlasmaOrdered By: Rio Prasad on 02-28-2024 Sodium [Moles/Vol] 140 mmol/L Normal 136-145 [facility] Comment on above: Performed By: #### U NAMRATA, CREAT, PTH, BUN, LYTES, CA #### [facility] [facility] [address] Sodium [Moles/volume] in Uri neOrdered By: Rio Prasad on 10-12-2023 Sodium (U) [Moles/Vol] 108.0 mmol/L Normal [facility] Comment on above: No reference range e stablished Order Comment: URINE COLLECTION TIME (HRS): 24 URINE VOLUME (MILLILTERS): 2750 Result Comment: No r eference range established Performed By: #### P HOS 24HRU, URIC 24HRU, MAG 24HRU, U24 CA, CITRIC UR ####[facility] ,#### CREA24, U24 NA, COL T V ####[facility] Sodium, 24 Hr Urineon 2023 Sodium 24 Hour Urine 297 High 40-220 [facility] Comment on above: Order Comment: URINE COLLECTION TIME (HRS): 24 URINE VOLUME (MILLILTERS): 2750 Performed By: #### P HOS 24HRU, URIC 24HRU, MAG 24HRU, U24 CA, CITRIC UR ####[facility] ,#### CREA24, U24 NA, COL T V ####[place] [id number] [address] Urate [Mass/volume] in Serum or PlasmaOrdered By: Rio Prasad on 10-12-2023 Urate [Mass/Vol] 4.6 mg/dL Normal 4.4-7.6 [facility] Comment on above: Result Comment: PERF ORMED BY: [place] [address] PATHOLOGIST ELECTRONICS ENGINEERING TECHNICIAN LANI GEORGE M.D. Performed By: #### U NAMRATA, CREAT, PTH, BUN, LYTES, CA #### [address] Urea nitrogen [Mass/volume] in Serum or PlasmaOrdered By: Rio Prasad on 10-12-2023 Urea nitrogen [Mass/Vol] 19 mg/dL Normal 7-25 [facility] Comment on above: Performed By: #### U NAMRATA, CREAT, PTH, BUN, LYTES, CA #### [facility] [address] [place] [id number] [facility] Urine uric acid measurement (mass/volume)Ordered By: Rio Prasad on 10-12-2023 Urate (U) [Mass/Vol] 26.9 mg/dL Not Estab. [facility] Urine volume measurementOrde red By: Rio Prasad on 10-12-2023 Specimen volume (U) [address] [facility] Screenson 07-21-2023 Screens [id number] Normal [facility] Ambulatory Visit Summaryon 1 09-20-2022 Ambulatory Visit Summary LUZMAELENAABDULAZIZNAVJOT Michelle :1965 Visit Date:07/20/2023 Ambulatory Visit Instructions Your Diagnosis BPH (benign prostatic hyperplasia) Kidney stone Tests Performed XR Abdomen 1 View -- Results Pending -- Please visit your patient portal for your results or contact your primary care physician. Your Care Team Attending Physician - DECALN HERNANDEZ, Rio Simons Primary Care Physician - [facility], . This Is Your Medications List potassium bicarbonate (Klor-Con/EF 25 mEq oral tablet, effervescent) Contact prescribing physician if questions or concerns amlodipine (amLODIPine 10 mg Tab) atorvastatin (atorvastatin 40 mg Tab) carvedilol (carvedilol 12.5 mg Tab) losartan (losartan 100 mg Tab) Procedures Performed ESWL - Extracorporeal shockwave lithotripsy for renal calculus (08/11/2017), ESWL - Extracorporeal shockwave lithotripsy for renal calculus (07/14/2017), ESWL - Extracorporeal shockwave lithotripsy for renal calculus (06/16/2017). Discharge Vitals Heart Rate (Peripheral) 67 Blood Pressure 144/80 Height 66 in Height 167 cm Weight 274.12 lb Weight 124.6 kg BMI 44.68 What to do next Scheduled Follow-Up Appointments Tuesday 9:15 AM EDT With: Rio PRASAD MD Where: [facility] [place] Normal [address] [place] [address]- \.br\ You Need to Schedule the Following Appointments\ .br\ Follow Up with Rio PRASAD MD, URL When: \.br\ Where:\.br\ [facility] [address]br\ [place] [address]-\.br\ Medications\. br\ What How Much When Instructions\ .br\ Changed potassium bicarbonate (Klor-Con/ EF 25 mEq oral tablet, effervescent) 1 Tablets By Mouth 2 times a day Duration: 90 Days Pickup at [facility] [address] [facility]\.br\ Unchanged amlodipine (amLODIPine 10 mg Tab) By Mouth Every day Contact prescribing physician if questions or concerns \.br\ Unchanged atorvastatin (atorvastatin 40 mg Tab) By Mouth Every day Contact prescribing physician if questions or concerns \.br\ Unchanged carvedilol (carvedilol 12.5 mg Tab) By Mouth 2 times a day Contact prescribing physician if questions or concerns \.br\ Unchanged losartan (losartan 100 mg Tab) By Mouth Every day Contact prescribing physician if questions or concerns \.br\ Pharmacy Information\. 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 Please share your experience with us by completing your survey. We appreciate your feedback and thank you for choosing us for your care.\.br\ Education Materials\.br \ 24-Hour Urine Collection\.b r\ Why am I having this test?\.br\ A 24-hour urine specimen is a lab test that requires you to collect all of your urine for an entire day. This is sometimes called a timed urine test. It can provide more information than a single urine sample.\.br\ There are many reasons to have this test. Your health care provider may order the test to check for or monitor the following conditions:\. br\ ? \.br\ High blood pressure.\.br \ ? \.br\ Kidney disease.\.br\ ? \.br\ Kidney stones.\.br\ ? \.br\ Urinary tract infections.\. br\ ? \.br\ .\.b r\ ? \.br\ Diabetes.\.br \ How do I prepare for this test?\.br\ ? \.br\ You may be asked to follow a special diet during or before the collection period. Follow any instructions from your health care provider. If no special instructions are given, you may eat and drink normally.\.br \ ? \.br\ Take xzdi-ryj-fggo ter and prescription medicines only as told by your health care provider.\.br \ ? \.br\ Let your health care provider know about any medicines that you are taking, including mkbu-esp-atjp ter medicines, vitamins, herbs, and supplements.\ .br\ ? \.br\ Choose a collection day when you can be at home or when you have a place to store the urine. All urine must be collected during the testing period.\.br\ How do I do a 24-hour urine collection?\. br\ \.br\ ? \.br\ When you get up in the morning, urinate in the toilet and flush. Write down the time. This will be your start time on the day of collection and your end time on the next morning.\.br\ ? \.br\ From the start time on, all of your urine should be kept in the collection jug that you received from the lab.\.br\ ? \.br\ If the jug that is given to you already has liquid in it, that is okay. Do not throw out the liquid or rinse out the jug.\.br\ ? \.br\ Urinate into a specimen container, such as a urinal or bajwa that sits over the toilet. Pour the urine from the container into the collection jug. Be careful not to spill any of the urine. Use the equipment provided by the lab.\.br\ ? \.br\ Do not let any toilet paper or stool (feces) get into the jug. This will contaminate the sample.\.br\ ? \.br\ Stop collecting your urine 24 hours after you started. Collect the last specimen as close as possible to the end of the 24-hour period.\.br\ ? \.br\ Keep the jug cool in an ice chest or keep it in the refrigerator during collection.\. br\ ? \.br\ When the 24-hour collection is complete, take the jug to the lab as soon as possible. Keep the jug cool in an ice chest while you are bringing it to the lab.\.br\ What do the results mean?\.br\ Talk with your health care provider about what your results mean.\.br\ Questions to ask your health care provider\.br\ Ask your health care provider, or the department that is doing the test:\.br\ ? \.br\ When will my results be ready?\.br\ ? \.br\ How will I get my results?\.br\ ? \.br\ What are my treatment options?\.br\ ? \.br\ What other tests do I need?\.br\ ? \.br\ What are my next steps?\.br\ Summary\.br\ ? \.br\ A 24-hour urine specimen is a lab test that requires you to collect all of your urine for an entire day.\.br\ ? \.br\ When you get up in the morning, urinate in the toilet and flush. Write down the time. For the next 24 hours, collect all of your urine in the collection jug that you received from the lab.\.br\ ? \.br\ Keep the jug cool while collecting the urine and while bringing it back to the lab.\.br\ ? \.br\ Take the jug of urine back to the lab as soon as possible after the collection period has ended.\.br\ This information is not intended to replace advice given to you by your health care provider. Make sure you discuss any questions you have with your health care provider.\.br \ Document Revised: 02/05/2022 Document Reviewed: 02/05/2022 Elsevier Patient Education ? 2022 Elsevier Inc.\.br\ \.br\ [facility] Patient Educationon 07-20-20 Patient Education Urology 24-Hour Urine Collection Why am I having this test? A 24-hour urine specimen is a lab test that requires you to collect all of your urine for an entire day. This is sometimes called a timed urine test. It can provide more information than a single urine sample. There are many reasons to have this test. Your health care provider may order the test to check for or monitor the following conditions: ? High blood pressure. ? Kidney disease. ? Kidney stones. ? Urinary tract infections. ? . ? Diabetes. How do I prepare for this test? ? You may be asked to follow a special diet during or before the collection period. Follow any instructions from your health care provider. If no special instructions are given, you may eat and drink normally. ? Take mgob-fig-ckqzcfi and prescription medicines only as told by your health care provider. ? Let your health care provider know about any medicines that you are taking, including rdqm-msk-zeewbqg medicines, vitamins, herbs, and supplements. ? Choose a collection day when you can be at home or when you have a place to store the urine. All urine must be collected during the testing period. How do I do a 24-hour urine collection? ? When you get up in the morning, urinate in the toilet and flush. Write down the time. This will be your start time on the day of collection and your end time on the next morning. ? From the start time on, all of your urine should be kept in the collection jug that you received from the lab. ? If the jug that is given to you already has liquid in it, that is okay. Do not throw out the liquid or rinse out the jug. ? Urinate into a specimen container, such as a urinal or bajwa that sits over the toilet. Pour the urine from the container into the collection jug. Be careful not to spill any of the urine. Use the equipment provided by the lab. ? Do not let any toilet paper or stool (feces) get into the jug. This will contaminate the sample. ? Stop collecting your urine 24 hours after you started. Collect the last specimen as close as possible to the end of the 24-hour period. ? Keep the jug cool in an ice chest or keep it in the refrigerator during collection. ? When the 24-hour collection is complete, take the jug to the lab as soon as possible. Keep the jug cool in an ice chest while you are bringing it to the lab. What do the results mean? Talk with your health care provider about what your results mean. Questions to ask your health care provider Ask your health care provider, or the department that is doing the test: ? When will my results be ready? ? How will I get my results? ? What are my treatment options? ? What other tests do I need? ? What are my next steps? Summary ? A 24-hour urine specimen is a lab test that requires you to collect all of your urine for an entire day. ? When you get up in the morning, urinate in the toilet and flush. Write down the time. For the next 24 hours, collect all of your urine in the collection jug that you received from the lab. ? Keep the jug cool while collecting the urine and while bringing it back to the lab. ? Take the jug of urine back to the lab as soon as possible after the collection period has ended. This information is not intended to replace advice given to you by your health care provider. Make sure you discuss any questions you have with your health care provider. Document Revised: 02/05/2022 Document Reviewed: 02/05/2022 [employer] Patient Education ? 2022 [employer]. [facility] Urology Office/Clinic Noteon 07-20-2023 Urology Office/Clinic Note Chief Complaint 1 year follow up HPI Staff 1 year follow up w/PSA. Current PSA 0.590 done 07/11/23, previous PSA 0.810 done 07/07/22. Previous DX: BPH w/ obstruction/lower urinary tract symptoms, family history of prostate cancer, kidney stone, renal stone. S/P ESWL done on 08/11/17. *Klor- Con 25MEQ BID-need refill sent to [facility]. Pt unalbe to give urine sample. Dysuria: denies pain or burning Incomplete bladder emptying: denies Hematuria: denies visible blood Frequency: denies Urgency: denies Nocturia: 1x a night Stream: denies hesitancy, denies weak stream Leaking: denies Post void dripping: denies Wearing pads/ Depends: denies Urge incontinence: denies Stress incontinence: denies Incontinence without Sensory Awareness: denies Abdominal pain: denies Flank pain: denies Sexual complaints: denies History of Present Illness Tests reviewed: reviewed PSA I have reviewed the previous health record information and history for this patient from Dr. Prasad. I have reviewed and verified the staff HPI to be accurate for this encounter. There have been no associated fever, chills, flank pain, or blood in the urine. Denies any urinary infections since last encounter. Review of Systems PHQ Score Initial Depression Screen Score: 0 SCORE ROS - Provider Constitutional: denies weight loss, denies hot flashes. Eyes: denies eye problems. Gastrointestinal: denies nausea, denies vomiting. Cardiovascular: denies chest pain or angina. Integumentary: no dryness Musculoskeletal: denies musculoskeletal symptoms. ENMT: denies otolaryngeal symptoms. Respiratory: no shortness of breath. Heme/Lymph: denies easy bleeding tendency, denies easy bruising tendency. Psychiatric: no confusion, no anxiety. Genitourinary: See HPI. Physical Exam Vitals & Measurements HR: 67(Peripheral) BP: 144/80 HT: 66 in HT: 167 cm WT: 124.6 kg WT: 274.12 lb BMI: 44.68 General Appearance: alert, no distress, well nourished, well developed male. Genitourinary: normal scrotum, normal testes, normal urethra, normal epididymis, normal vas deferens/spermatic cord. Flank Pain: none. Bladder: nonpalpable. Assessment/Plan 1. BPH (benign prostatic hyperplasia) (N40.0: Benign prostatic hyperplasia without lower urinary tract symptoms) PSA: 07/07/22 - 0.81 07/11/23 - 0.59 Pt unable to provide urine sample today. Not taking any BPH meds. IPSS 1. PSA low and stable. Will cont to monitor. No brothers with prostate ca but thinks he does have a family hx. -PSA and OV with FRANSISCO in 1 yr 2. Kidney stone (N20.0: Calculus of kidney) Taking Klor-Con 25 mEq BID. Refill sent to [facility]. Pt passed 3 mm stone back in November, went to ER. Stone was ID'd via xray. Last met workup 2020. Given stone episode while on stone prevention med, will repeat met workup. Follow up 4 mos with KUB and met workup or sooner if needed. Pt understands and agrees with plan. Follow-up With When Contact Information DECLAN HERNANDEZ, Rio Simons, URL [facility] [address], [place] [address]- Additional Instructions: 4 mos with KUB and met workup, then PSA and OV with [facility]CO in 1 yr Patient Education 24-Hour Urine Collection I, Soumya Rizvi, personally scribed for Dr. Prasad on 07/20/2023 09:12:08. . Documentation recorded by the scribe, Soumya Rizvi, accurately reflects the services(s) I performed and decisions made by me. Authenticated by Dr. Prasad on 07/20/2023 09:13:18. Problem List/Past Medical History Ongoing Back pain BMI 40.0-44.9, adult BPH (benign prostatic hyperplasia) BPH with obstruction/lower urinary tract symptoms Family history of prostate cancer Heart disease Hyperlipemia Hypertension Kidney stone Renal stones Gklur-Rmwxzpcuf-Cyyst syndrome Historical No qualifying data Procedure/Surgical History ESWL - Extracorporeal shockwave lithotripsy for renal calculus (08/11/2017), ESWL - Extracorporeal shockwave lithotripsy for renal calculus (07/14/2017), ESWL - Extracorporeal shockwave lithotripsy for renal calculus (06/16/2017). Medications amLODIPine 10 mg Tab, Oral, Daily atorvastatin 40 mg Tab, Oral, Daily carvedilol 12.5 mg Tab, Oral, BID Klor-Con/EF 25 mEq oral tablet, effervescent, 25 mEq= 1 tab(s), Oral, BID, 3 refills losartan 100 mg Tab, Oral, Daily Allergies No Known Medication Allergies Social History Tobacco Never (less than 100 in lifetime) Tobacco Use:. Never Smokeless Tobacco Use:., 07/20/2023 Family History Primary malignant neoplasm of female breast: Mother. Prostate cancer: Grandparent. Immunizations Vaccine Date Status influenza virus vaccine, inactivated 06/07/2022 Recorded SARS-CoV-2 (COVID-19) [id number] 06/07/2022 Recorded SARS-CoV-2 (COVID-19) mRNA BNT-162b2 vax 08/03/2021 Recorded influenza virus vaccine, inactivated 04/29/2021 Recorded SARS-CoV-2 (COVID-19) Ad26 vaccine 12/16/2020 Re (more content not included)... Normal [facility] Comment on above: Result Comment: Elec tronically Signed By: Rio PRASAD MD\.br\Date and Time Signed: 07/20/23 09:13 EST\.br\Electronically Co-Signed By: Soumya Rizvi\.br\Date and Time Co-Signed: 07/20/23 09:12 EST Lab Reportson 07-12-2023 Lab Reports [id number] Normal [facility] Alanine aminotransferase [En zymatic activity/volume] in Serum or PlasmaOrdered By: Arlyn Loza on 07-11-2023 ALT [Catalytic activity/Vol] 27 U/L Normal 7-52 [facility] Comment on above: Performed By: #### B MP, ALT, LIPID, AST ####[facility] Aspartate aminotransferase [ Enzymatic activity/volume] in Serum or PlasmaOrdered By: Arlyn Loza on 07-11-2023 AST [Catalytic activity/Vol] 20 U/L Normal 13-39 [facility] Comment on above: Performed By: #### B MP, ALT, LIPID, AST ####[facility]1111 [place] [id number] [facility] Basic Metabolic Panelon 06-16 GFR/1.73 sq M.predicted MDRD (S/P/Bld) [Vol rate/Area] mL/min/{1.73_m2} Normal [facility] Comment on above: Performed By: #### B MP, ALT, LIPID, AST ####[facility] Calcium [Mass/volume] in Ser um or PlasmaOrdered By: Arlyn Loza on 07-11-2023 Calcium [Mass/Vol] 9.3 mg/dL Normal 8.6-10.3 [facility] Comment on above: Performed By: #### B MP, ALT, LIPID, AST ####[place] [address] [address] Carbon dioxide, total [Moles /volume] in Serum or PlasmaOrdered By: Arlyn Loza on 07-11-2023 CO2 [Moles/Vol] 30.7 mmol/L Normal 21.0-31.0 [facility] Comment on above: Performed By: #### B MP, ALT, LIPID, AST ####[address] Chloride [Moles/volume] in S new or PlasmaOrdered By: Arlyn Loza on 07-11-2023 Chloride [Moles/Vol] 104 mmol/L Normal 98-107 [facility] Comment on above: Performed By: #### B MP, ALT, LIPID, AST ####[address] Cholesterol [Mass/volume] in Serum or PlasmaOrdered By: Arlyn Loza on 07-11-2023 Cholesterol [Mass/Vol] 172 mg/dL Normal 140-200 [facility] Comment on above: Chol less than 200 m g/dl low riskChol 201-239 mg/dl borderline riskChol 240 mg/dl and greater high risk Result Comment: Chol less than 200 mg/dl low risk Chol 201-239 mg/dl borderline risk Chol 240 mg/dl and greater high risk Performed By: #### B MP, ALT, LIPID, AST ####[address] Cholesterol in LDL Calc [Mas s/Vol]Ordered By: Arlyn Loza on 07-11-2023 Cholesterol in LDL [Mass/Vol] 86 mg/dL 0-100 [facility] Comment on above: LDL ATP III CLASSIFI CATIONLDL less than 100 mg/dL OptimalLDL 100-129 mg/dL Near or above optimalLDL 130-159 mg/dL Borderline highLDL 160-189 mg/dL HighLDL greater than 189 mg/dL Very high Cholesterol in VLDL Calc [Ma ss/Vol]Ordered By: Arlyn oLza on 07-11-2023 Cholesterol in VLDL [Mass/Vol] 35 mg/dL [facility] Creatinine [Mass/volume] in Serum or PlasmaOrdered By: Arlyn Loza on 07-11-2023 Creatinine [Mass/Vol] 1.04 mg/dL Normal 0.70-1.30 [facility] Comment on above: Performed By: #### B MP, ALT, LIPID, AST ####[facility] Glucose [Mass/volume] in Ser um or PlasmaOrdered By: Arlyn Loza on 07-11-2023 Glucose [Mass/Vol] 97 mg/dL Normal 70-100 [facility] Comment on above: ADA recommended refe rence rangeRandom Glucose Reference Range is dependent on time and content of last meal. Glucose of more than 200 mg/dL in a nonstressed, ambulatory subject supports the diagnosis of Diabetes Mellitus. Result Comment: [place] om Glucose Reference Range is dependent on time and content of last meal. Glucose of more than 200 mg/dL in a nonstressed, ambulatory subject supports the diagnosis of Diabetes Mellitus. ADA recommended reference range Performed By: #### B MP, ALT, LIPID, AST ####[place] [address] [place] [id number] [facility] Lipid Panelon 07-11-2023 LDL Cholesterol,Calculate d 86 mg/dL Normal 0-100 [facility] Comment on above: Result Comment: LDL ATP III CLASSIFICATION LDL less than 100 mg/dL Optimal LDL 100-129 mg/dL Near or above optimal LDL 130-159 mg/dL Borderline high LDL 160-189 mg/dL High LDL greater than 189 mg/dL Very high Performed By: #### B MP, ALT, LIPID, AST ####[facility]1111 [place] [id number] [facility] Triglyceride w/Reflex 179 mg/dL High 0-149 [facility] Comment on above: Result Comment: TRIG ATP III CLASSIFICATION TRIG less than 150 mg/dL Normal TRIG 150-199 mg/dL Borderline high TRIG 200-500 mg/dL High TRIG greater than 500 mg/dL Very high Standard traceable to the Center for Disease Conrtrol and Prevention (CDC) test method. Performed By: #### B MP, ALT, LIPID, AST ####[place] [address] [address] VLDL CHOLESTEROL 35 mg/dL Normal [facility] Comment on above: Performed By: #### B MP, ALT, LIPID, AST ####[facility] No Panel InformationOrdered By: Arlyn Loza on 07-11-2023 Estimated GFR (CKD-EPI) > 60.0 mL/Min [facility] Creatinine Clearance (Chem N/A [facility] PSA Total (Not a Screen)on 09-10-2022 PSA Total (Not a Screen) 0.590 ng/mL Normal 0.000-4.000 [facility] Comment on above: Result Comment: PERF ORMED BY: [place] [address] PATHOLOGIST ELECTRONICS ENGINEERING TECHNICIAN LANI GEORGE M.D. Performed By: #### P SATOTAL #### [address] Potassium [Moles/volume] in Serum or PlasmaOrdered By: Arlyn Loza on 07-11-2023 Potassium [Moles/Vol] 4.5 mmol/L Normal 3.5-5.1 [facility] Comment on above: Performed By: #### B MP, ALT, LIPID, AST ####[address] Prostate specific Ag [Mass/v olume] in Serum or PlasmaOrdered By: Rio Prasad on 07-11-2023 Prostate specific Ag [Mass/Vol] 0.590 ng/mL 0.000-4.000 [facility] Serum or plasma anion gap de terminationOrdered By: Arlyn Loza on 07-11-2023 Anion gap [Moles/Vol] 11.8 mmol/L Normal 6.0-15.[address] [facility] Comment on above: Performed By: #### B MP, ALT, LIPID, AST ####[place] [address] [address] Serum or plasma high density lipoprotein (HDL) cholesterol measurementOrdered By: Arlyn Loza on 07-11-2023 Cholesterol in HDL [Mass/Vol] 50 mg/dL Normal 23-92 [facility] Comment on above: HDL CHOL ATP-III CLA SSIFICATION Cardiovascular RiskHDL > or equal to 60 mg/dL LOWHDL < 40 mg/dL HIGH Result Comment: HDL CHOL ATP-III CLASSIFICATION Cardiovascular Risk HDL > or equal to 60 mg/dL LOW HDL < 40 mg/dL HIGH Performed By: #### B MP, ALT, LIPID, AST ####[address] Serum or plasma total choles terol/high density lipoprotein (HDL) cholesterol mass ratOrdered By: Arlyn Loza on 07-11-2023 Cholesterol.total/Cho lesterol in HDL [Mass ratio] 3.4 {ratio} Normal <5.0 [facility] Comment on above: Result Comment: PERF ORMED BY: [facility] [address] [place] [address] PATHOLOGIST ELECTRONICS ENGINEERING TECHNICIAN LANI GEORGE M.D. Performed By: #### B MP, ALT, LIPID, AST ####[address] Sodium [Moles/volume] in Ser um or PlasmaOrdered By: Arlyn Loza on 07-11-2023 Sodium [Moles/Vol] 142 mmol/L Normal 136-145 [facility] Comment on above: Performed By: #### B MP, ALT, LIPID, AST ####[address] Triglyceride [Mass/volume] i n Serum or PlasmaOrdered By: Arlyn Loza on 07-11-2023 Triglyceride [Mass/Vol] 179 mg/dL 0-149 [facility] Comment on above: TRIG ATP III CLASSIF ICATIONTRIG less than 150 mg/dL NormalTRIG 150-199 mg/dL Borderline highTRIG 200-500 mg/dL High TRIG greater than 500 mg/dL Very highStandard traceable to the Center for Disease Conrtrol and Prevention (CDC) test method. 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) Diabetes (250.00) (E11.9) Morbid obesity with BMI of 40.0-44.9, adult (278.01,V85.41) (E66.01,Z68.41) Nephrolithiasis (592.0) (N20.0) Orders Benign essential hypertension IO EKG Electrocardiogram- 12 Lead; Status:Complete; Done: [id number] Benign essential hypertension, Hyperlipidemia ALT - Alanine Aminotransferase, Serum; Status:Active - Retrospective Authorization; Requested for:[id number]; AST; Status:Active - Retrospective Authorization; Requested for:[id number]; Basic Metabolic Panel; Status:Active - Retrospective Authorization; Requested for:[id number]; Lipid Panel; Status:Active - Retrospective Authorization; Requested for:[id number]; Morbid obesity with BMI of 40.0-44.9, adult Healthy Weight Tips; Status:Complete - Retrospective Authorization; Done: [id number] Some eating tips that can help you lose weight.; Status:Complete - Retrospective Authorization; Done: [id number] Patient Instructions Please bring all medicines, vitamins, and herbal supplements with you when you come to the office. Prescriptions will not be filled unless you are compliant with your follow up appointments or have a follow up appointment scheduled as per instruction of your physician. Refills should be requested at the time of your visit. Follow up in 1 year Chief Complaint JOHN SMITH is being seen for an annual follow-up of. Patient is in the office for follow-up for the problems noted below. He is dealing with orthopedic problems but no cardiac issues. He has no palpitations syncope or near syncope and no dizziness. His medical therapy was reviewed and he is tolerating it. His weight is coming down on purpose which is nice. EKG today showed sinus rhythm with delta wave indicating preexcitation. He has had no arrhythmias that we know of. ASSESSMENT AND PLAN: 1. 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 We will monitor 2. Hyperlipidemia, on statin therapy, due for lipid profile which is ordered along other labs. 3. Hypertension, currently under very good control, on multiple medications Suzanne metabolic profile is ordered 4. morbid obesity. Patient lost 20 pounds in the last few months and more is coming. 5. Intolerance to hydrochlorothiazide due to kidney stones 6. Diabetes managed by [facility] and stable Arlyn Loza MD, [facility] Surgical History Problems History of Complete colonoscopy History of Leg surgery History of Renal lithotripsy History of Tonsillectomy Current Meds Medication NameInstruction amLODIPine Besylate 10 MG Oral TabletTAKE 1 TABLET BY MOUTH EVERY DAY Atorvastatin Calcium 40 MG Oral TabletTAKE 1 TABLET Bedtime Carvedilol 12.5 MG Oral Tablettake 1 tablet by mouth twice a day Ciprofloxacin HCl - 0.2 % Otic Solution Erythromycin 5 MG/GM Ophthalmic Ointment Klor-Con/EF 25 MEQ Oral Tablet EffervescentDISSOLVE 1 TABLET IN 6 TO 8 OUNCES OF WATER AND DRINK TWICE DAILY. Losartan Potassium 100 MG Oral TabletTake 1 tablet daily Allergies Medication Lisinopril TABS Cough; Recorded By: Ute Banda; 01/13/2022 3:46:16 PM Social History Problems Alcohol use (V49.89) (Z78.9) Caffeine use (V49.89) (Z78.9) Never a smoker No illicit drug use Review of Systems Constitutional: not feeling tired. Cardiovascular: no intermittent leg claudication and as noted in HPI. Respiratory: no cough and no shortness of breath. Gastrointestinal: no change in bowel habits and no blood in stools. Integumentary: no skin rashes. Neurological: no seizures and no frequent falls. All other systems have been reviewed and are negative for complaint. Vitals Vital Signs Recorded: [id number] 08:44AM Heart Rate60, L Radial Tvkoddaj812, LUE, Sitting Wtjsqalip95, LUE, Sitting Height5 ft 6 in Zbokwy083 lb BMI Ndnalqotjp19.45 kg/m2 BSA Calculated2.25 Tobacco Useb) No PHQ-2 #1. Over the last 2 weeks have you felt down, depressed or hopeless? (If yes, answer PHQ-9 below)No PHQ-2 #2. Over the last 2 weeks have you felt little interest or pleasure in doing things? (If yes, answer PHQ-9 below)No EKG done in office today. Physical Exam Constitutional: alert and in no acute distress. Neck: neck is supple, symmetric, trachea midline, no masses and no thyromegaly . Pulmonary: no increased work of breathing or signs of respiratory distress and lungs clear to auscultation. Cardiovascular: carotid pulses 2+ bilaterally with no bruit , JVP was normal, no thrills , regular rhythm, normal S1 and S2, no murmurs , pedal pulses 2+ bilaterally and no edema . Abdomen: abdomen non-tender, no masses and no hepatomegaly . Skin: skin warm and dry, normal skin turgor . Psychiatric judgment and insight is normal and oriented to person, place and time . Signatures Electronically signed by : (more content not included)... Normal [facility] Tobacco Screening.on 023 Adult depression screening assessment No [facility] [employer] norma 250 DO Work Phone: Tobacco use status [facility] b) No [facility] [employer] norma 250 DO Work Phone: Established Visit (Orthopaed ic Surgery)on 09-07-2022 Established Visit (Orthopaedic Surgery) Chief Complaint F/U Patellar tendinitis right knee Chondromalacia patella right knee History of Present Illness History of Present Illness The patient is here for his right knee. I had sent him to therapy and started him on Mobic. He is also been wearing a knee brace. He is here for recheck. His pain is much better. No pain going from sitting to standing and is pointing about the patella. They feel a pop or click and have some pain. Review of Systems GENERAL: Negative for malaise, significant weight loss, fever MUSCULOSKELETAL: see HPI NEURO: Negative Physical Exam This is an overweight male in no acute distress Right knee: The skin is intact, the extensor mechanism is intact. There is no effusion, erythema or warmth. Range of motion 0-125 degrees There is no tenderness over the patellar tendon with the knee in extension or flexion. There is subpatellar crepitus through the arc of motion on the right. There is no instability varus or valgus stressing the knee at 0 and 30 degrees Crow's negative stressing the medial and lateral compartments. Imaging None today Assessment Chondromalacia patella right knee Patellar tendinitis right knee, resolved Plan His pain is tolerable and he is able to do what he wishes. I would recommend resuming activities as tolerated. He can take nubx-tfz-hbmczml anti-inflammatory medications if needed. Follow-up as needed Questions answered . 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) Surgical History Problems History of Complete colonoscopy History of Leg surgery History of Renal lithotripsy History of Tonsillectomy Family History Mother No pertinent family history Father No pertinent family history Sibling No pertinent family history Social History Problems Alcohol use (V49.89) (Z78.9) Caffeine use (V49.89) (Z78.9) Never a smoker No illicit drug use Allergies Medication Lisinopril TABS Cough; Recorded By: Ute Banda; 01/13/2022 3:46:16 PM Current Meds Medication NameInstruction amLODIPine Besylate 10 MG Oral TabletTake 1 tablet daily Atorvastatin Calcium 40 MG Oral TabletTAKE 1 TABLET Bedtime Carvedilol 12.5 MG Oral Tablettake 1 tablet by mouth twice a day Klor-Con/EF 25 MEQ Oral Tablet EffervescentDISSOLVE 1 TABLET IN 6 TO 8 OUNCES OF WATER AND DRINK TWICE DAILY. Losartan Potassium 100 MG Oral TabletTAKE 1 TABLET DAILY. Meloxicam 15 MG Oral Tabletone tablet daily with food Meloxicam 15 MG Oral Tablet metFORMIN HCl - 500 MG Oral TabletTAKE 1 TABLET DAILY WITH FOOD. Signatures Electronically signed by : Josias Damon MD; Sep 07 2022 9:54AM EST (Author) Normal [facility] Albumin [Mass/volume] in Ser um or PlasmaOrdered By: Rossy Salinas on 08-09-2022 Albumin [Mass/Vol] 4.1 g/dL 3.2-5.5 [facility] Basophils Auto (Bld) [#/Vol] Ordered By: Rossy Salinas on 08-09-2022 Basophils (Bld) [#/Vol] 0.1 10*3/uL 0.0-0.2 [facility] Basophils/100 WBC Auto (Bld) Ordered By: Rossy Salinas on 08-09-2022 Basophils/100 WBC (Bld) 0.9 % . [facility] Cholesterol [Mass/volume] in Serum or PlasmaOrdered By: Rossy Salinas on 08-09-2022 Cholesterol [Mass/Vol] 200 mg/dL 140-200 [facility] Comment on above: Chol less than 200 m g/dl low riskChol 201-239 mg/dl borderline riskChol 240 mg/dl and greater high risk Cholesterol in LDL Calc [Mas s/Vol]Ordered By: Rossy Salinas on 08-09-2022 Cholesterol in LDL [Mass/Vol] 106 mg/dL 0-100 [facility] Comment on above: LDL ATP III CLASSIFI CATIONLDL less than 100 mg/dL OptimalLDL 100-129 mg/dL Near or above optimalLDL 130-159 mg/dL Borderline highLDL 160-189 mg/dL HighLDL greater than 189 mg/dL Very high Cholesterol in VLDL Calc [Ma ss/Vol]Ordered By: Rossy Salinas on 08-09-2022 Cholesterol in VLDL [Mass/Vol] 41 mg/dL [facility] Creatinine [Mass/volume] in UrineOrdered By: Rossy Salinas on 08-09-2022 Creatinine (U) [Mass/Vol] 112.2 mg/dL [facility] Comment on above: No reference range e stablished Creatinine and Glomerular fi ltration rate.predicted panel (S/P/Bld)Ordered By: Rossy Salinas on 08-09-2022 Creatinine [Mass/Vol] 1.11 mg/dL 0.64-1.27 [facility] Eosinophils Auto (Bld) [#/Vo l]Ordered By: Rossy Salinas on 08-09-2022 Eosinophils (Bld) [#/Vol] 0.4 10*3/uL 0.0-0.45 [facility] Eosinophils/100 WBC Auto (Bl d)Ordered By: Rossy Salinas on 08-09-2022 Eosinophils/100 WBC (Bld) 4.3 % . [facility] Erythrocyte distribution wid th Auto (RBC) [Ratio]Ordered By: Rossy Salinas on 08-09-2022 Erythrocyte distribution width (RBC) [Ratio] 14.3 % 12.0-14.8 [facility] Estimated glomerular filtrat ion rate (GFR) non- AmericanOrdered By: Rossy Salinas on 08-09-2022 GFR/1.73 sq M.predicted among non-blacks MDRD (S/P/Bld) [Vol rate/Area] > 60 mL/Min [facility] Globulin Calc (S) [Mass/Vol] Ordered By: Rosys Salinas on 08-09-2022 Globulin (S) [Mass/Vol] 2.9 g/dL [facility] Hematocrit Auto (Bld) [Volum e fraction]Ordered By: Rossy Salinas on 08-09-2022 Hematocrit (Bld) [Volume fraction] 47.2 % 38.8-50.0 [facility] Hemoglobin [Mass/volume] in BloodOrdered By: Rossy Salinas on 08-09-2022 Hemoglobin (Bld) [Mass/Vol] 15.6 g/dL 13.0-17.0 [facility] Leukocytes [#/volume] correc yvonne for nucleated erythrocytes in Blood by Automated counOrdered By: Rossy Salinas on 08-09-2022 WBC corrected for nucl RBC Auto (Bld) [#/Vol] 10.2 10*3/uL 4.1-10.5 [facility] Lymphocytes Auto (Bld) [#/Vo l]Ordered By: Rossy Rbad on 08-09-2022 Lymphocytes (Bld) [#/Vol] 3.9 10*3/uL 1.00-4.8 [facility] Lymphocytes/100 WBC Auto (Bl d)Ordered By: Rossy Brad on 08-09-2022 Lymphocytes/100 WBC (Bld) 38.1 % . [facility] MCH Auto (RBC) [Entitic mass ]Ordered By: Rossy Washington on 08-09-2022 MCH (RBC) [Entitic mass] 29.6 pg 27.5-35.2 [facility] MCHC Auto (RBC) [Mass/Vol]Or dered By: Rossy Washington on 08-09-2022 MCHC (RBC) [Mass/Vol] 33.0 g/dL 32.5-35.6 [facility] MCV Auto (RBC) [Entitic vol] Ordered By: Rossy Brad on 08-09-2022 MCV (RBC) [Entitic vol] 89.6 fL 83.5-101 [facility] Monocytes Auto (Bld) [#/Vol] Ordered By: Rossy Brad on 08-09-2022 Monocytes (Bld) [#/Vol] 0.6 10*3/uL 0.0-0.8 [facility] Monocytes/100 WBC Auto (Bld) Ordered By: Rossy Washington on 08-09-2022 Monocytes/100 WBC (Bld) 5.9 % . [facility] Neutrophils Auto (Bld) [#/Vo l]Ordered By: Rossy Brad on 08-09-2022 Neutrophils (Bld) [#/Vol] 5.2 10*3/uL 1.8-7.7 [facility] Neutrophils/100 WBC Auto (Bl d)Ordered By: Rossy Brad on 08-09-2022 Neutrophils/100 WBC (Bld) 50.8 % . [facility] No Panel InformationOrdered By: Rossy Chaparroser on 08-09-2022 25-Hydroxy Vitamin D Total 21.6 ng/mL 30-100 [facility] Comment on above: VITAMIN D STATUS 25( [place])VITAMIN D RANGE (ng/mL) Deficient <20 Insufficient 20 to <30Sufficient 30 to 100Reference: Brody MF,Jani NC, Irvin DEJESUS, et al. Evaluation,treatment, and prevention of vitamin D deficiency; an Endocrine Society clinical practice guideline. JCEM. 2010; 96(7):1911-30. Estimated GFR () > 60 mL/Min [facility] Comment on above: GFR estimated refere nce range: According to KDOQI guidelines, <60 ml/min/1.73m2 is sufficient to diagnose a patient with chronic kidney disease. Pharmacy Creatinine Clearance (Chem N/A [facility] Nucleated erythrocytes [Pres ence] in Blood by Automated countOrdered By: Rossy Salinas on 08-09-2022 Nucleated RBC Auto Ql (Bld) 0.1 /100{WBC} 0-0.5 [facility] Platelet mean volume Auto (B ld) [Entitic vol]Ordered By: Rossy Chaparroser on 08-09-2022 Platelet mean volume (Bld) [Entitic vol] 9.3 fL 6.6-10.1 [facility] Platelets Auto (Bld) [#/Vol] Ordered By: Rossy Chaparroser on 08-09-2022 Platelets (Bld) [#/Vol] 235 10*3/uL 150-450 [facility] Protein [Mass/volume] in Ser um or PlasmaOrdered By: Rossy Salinas on 08-09-2022 Protein [Mass/Vol] 7.0 g/dL 6.1-7.9 [facility] RBC Auto (Bld) [#/Vol]Ordere d By: Rossy Brad on 08-09-2022 RBC (Bld) [#/Vol] 5.27 10*6/uL 3.90-5.[address] [facility] Serum or plasma alanine weldon otransferase measurement without P-5'-P (enzymatic activiOrdered By: Rossy Salinas on 08-09-2022 ALT No additional P-5'-P [Catalytic activity/Vol] 35 U/L 10-60 [facility] Serum or plasma albumin/glob ulin mass ratioOrdered By: Rossy Salinas on 08-09-2022 Albumin/Globulin [Mass ratio] 1.4 {ratio} [facility] Serum or plasma alkaline linda sphatase measurement (enzymatic activity/volume)Ordered By: Rossy Salinas on 08-09-2022 ALP [Catalytic activity/Vol] 89 U/L 32-92 [facility] Serum or plasma anion gap de terminationOrdered By: Rossy Salinas on 08-09-2022 Anion gap [Moles/Vol] 12.1 mmol/L 6.0-15.[address] [facility] Serum or plasma aspartate am inotransferase measurement (enzymatic activity/volume)Ordered By: Rossy Salinas on 08-09-2022 AST [Catalytic activity/Vol] 21 U/L 10-42 [facility] Serum or plasma calcium ivette urement (mass/volume)Ordered By: Rossy Salinas on 08-09-2022 Calcium [Mass/Vol] 9.6 mg/dL 8.2-10.2 [facility] Serum or plasma chloride kenan surement (moles/volume)Ordered By: Rossy Salinas on 08-09-2022 Chloride [Moles/Vol] 105 mmol/L 95-114 [facility] Serum or plasma glucose ivette urement (mass/volume)Ordered By: Rossy Salinas on 08-09-2022 Glucose [Mass/Vol] 93 mg/dL 70-100 [facility] Comment on above: ADA recommended refe rence rangeRandom Glucose Reference Range is dependent on time and content of last meal. Glucose of more than 200 mg/dL in a nonstressed, ambulatory subject supports the diagnosis of Diabetes Mellitus. Serum or plasma high density lipoprotein (HDL) cholesterol measurementOrdered By: Rossy Salinas on 08-09-2022 Cholesterol in HDL [Mass/Vol] 53 mg/dL 29-71 [facility] Comment on above: HDL CHOL ATP-III CLA SSIFICATION Cardiovascular RiskHDL > or equal to 60 mg/dL LOWHDL < 40 mg/dL HIGH Serum or plasma potassium me asurement (moles/volume)Ordered By: Rossy Salinas on 08-09-2022 Potassium [Moles/Vol] 4.1 mmol/L 3.5-5.1 [facility] Serum or plasma sodium measu rement (moles/volume)Ordered By: Rossy Salinas on 08-09-2022 Sodium [Moles/Vol] 138 mmol/L 136-146 [facility] Serum or plasma total biliru bin measurement (mass/volume)Ordered By: Rossy Salinas on 08-09-2022 Bilirubin [Mass/Vol] 0.9 mg/dL 0.3-1.2 [facility] Serum or plasma total carbon dioxide measurement (moles/volume)Ordered By: Rossy Salinas on 08-09-2022 CO2 [Moles/Vol] 25.0 mmol/L 22.0-30.0 [facility] Serum or plasma total choles terol/high density lipoprotein (HDL) cholesterol mass ratOrdered By: Rossy Salinas on 08-09-2022 Cholesterol.total/Cho lesterol in HDL [Mass ratio] 3.8 {ratio} <5.0 [facility] Serum or plasma urea nitroge n measurement (mass/volume)Ordered By: Rossy Salinas on 08-09-2022 Urea nitrogen [Mass/Vol] 15 mg/dL 9-23 [facility] Triglyceride [Mass/volume] i n Serum or PlasmaOrdered By: Rossy Salinas on 08-09-2022 Triglyceride [Mass/Vol] 205 mg/dL 35-149 [facility] Comment on above: TRIG ATP III CLASSIF ICATIONTRIG less than 150 mg/dL NormalTRIG 150-199 mg/dL Borderline highTRIG 200-500 mg/dL High TRIG greater than 500 mg/dL Very highStandard traceable to the Center for Disease Conrtrol and Prevention (CDC) test method. Urine microalbumin measureme nt with detection limit of 20 mg/L or less (mass/volume)Ordered By: Rossy Salinas on 08-09-2022 Albumin DL <= 20 mg/L (U) [Mass/Vol] 0.7 mg/dL 0.0-1.8 [facility] Urine microalbumin/creatinin e mass ratioOrdered By: Rossy Salinas on 08-09-2022 Albumin/Creatinine DL <= 20 mg/L (U) [Mass ratio] 6.0 mg/g 0.0-30.0 [facility] Comment on above: 30-300 mg/g indicate s an increased risk for diabetic nephropathy. Greater than 300 mg/g is consistent with clinical nephropathy. (Am. J. Kidney Disease 1995, 25:107) WBC Auto (Bld) [#/Vol]Ordere d By: Rossy Salinas on 08-09-2022 WBC (Bld) [#/Vol] 10.2 10*3/uL 4.1-10.[address] [facility] Initial Visit (Orthopaedic S urgery)on 07-27-2022 Initial Visit (Orthopaedic Surgery) Orders Patellar tendinitis of right knee Start: Meloxicam 15 MG Oral Tablet; one tablet daily with food Physical Therapy - General Referral Evaluation and Treatment Evaluate AND Treat Status: Hold For - Scheduling,Retrospective Authorization Requested for: [id number] Basic Hinged Knee; Status:Canceled - Retrospective Authorization,Data wrong; Basic Hinged Knee; Status:Need Information - Financial Authorization,Retrospecti ve Authorization; Requested for:[id number]; Chief Complaint Right knee pain xrays today History of Present Illness History of Present Illness This is a 56-year-old male here for his right knee. In August 2021 he developed an anterior knee pain while out of town. He had pain for 2 weeks where he could not bear weight and had pain with bending his knee. The pain then resolved. Over the summer he redeveloped anterior knee pain. He has had intermittent pain now and points anteriorly. There will be times where he has significant pain in the knee and cannot bear weight or has difficulty straightening his knee. He points anteriorly where he would get this pain. He has been wearing a knee brace which is worn out. He has a history of having a tibial nailing in 2007. He has never had any knee surgeries. He denies any groin pain, back pain, numbness or tingling in the lower extremities. Review of Systems GENERAL: Negative GI: Negative MUSCULOSKELETAL: See HPI SKIN: Negative NEURO: Negative Physical Exam This is an overweight male in no acute distress Logrolling of the right hip elicits no pain. Leg raise is negative on the right Right knee: There is a healed anterior incision over the right knee, roughly over the patellar tendon. There is no effusion, erythema or warmth. Full extension of the right knee with flexion to 110 degrees. He has equal motion on the left There is no instability varus or valgus stressing the knee at 0 or 30 degrees Filemon's 1+ with a firm endpoint Crow's negative stressing the medial and lateral compartments Pain with patellar compression Tenderness over the patellar tendon Imaging See dictated report Assessment Patellar tendinitis right knee Chondromalacia patella right knee Plan Hinged knee brace Ice massage Physical therapy Mobic 15 mg 1 p.o. daily Follow-up in 4 to 6 weeks for recheck, sooner if there is any problems Questions answered . 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) Surgical History Problems History of Complete colonoscopy History of Leg surgery History of Renal lithotripsy History of Tonsillectomy Family History Mother No pertinent family history Father No pertinent family history Sibling No pertinent family history Social History Problems Alcohol use (V49.89) (Z78.9) Caffeine use (V49.89) (Z78.9) Never a smoker No illicit drug use Allergies Lisinopril TABS Cough; Recorded By: Ute Banda; 01/13/2022 3:46:16 PM Current Meds Medication NameInstruction amLODIPine Besylate 10 MG Oral TabletTake 1 tablet daily Atorvastatin Calcium 40 MG Oral TabletTAKE 1 TABLET Bedtime Carvedilol 12.5 MG Oral Tablettake 1 tablet by mouth twice a day Klor-Con/EF 25 MEQ Oral Tablet EffervescentDISSOLVE 1 TABLET IN 6 TO 8 OUNCES OF WATER AND DRINK TWICE DAILY. Losartan Potassium 100 MG Oral TabletTAKE 1 TABLET DAILY. Meloxicam 15 MG Oral Tablet metFORMIN HCl - 500 MG Oral TabletTAKE 1 TABLET DAILY WITH FOOD. Vitals Vital Signs Recorded: [id number] 09:28AM Height5 ft 6 in Rwhrcw824 lb BMI Disltxptzp08.58 kg/m2 BSA Calculated2.27 Signatures Electronically signed by : Josias Damon MD; Jul 27 2022 11:04AM EST (Author) [facility] KNEE CMPLT, 4 OR MORE VIEWSo n 07-27-2022 KNEE CMPLT, 4 OR MORE VIEWS Patient Name: JOHN SMITH STUDY: KNEE; COMPLT, 4 OR MORE VIEWS; Right; 07/27/2022 9:37 am INDICATION: pain M25.561: Right knee pain, unspecified chronicity. ACCESSION NUMBER(S): [id number] ORDERING CLINICIAN: JOSIAS DAMON FINDINGS: Right knee films are negative for fracture, dislocation or destructive the joint spaces are maintained. There is some heterotopic bone seen in the patellar tendon. There is an intramedullary nail seen in the superior portion of the tibia. No evidence of hardware failure is appreciated. Electronically signed by: JOSIAS DAMON MD Normal [facility] Radiologyon 07-27-2022 XR Knee 4 Views Normal [facility] DO Work Phone: No Panel InformationOrdered By: Rio Prasad on 07-07-2022 Prostate Specific Antigen Total 0.810 ng/mL 0.000-4.000 [facility] XR Knee Complete Right*on XR Knee Complete Right* HISTORY: Knee pain. No known injury. TECHNIQUE: AP, lateral and oblique views of the knee obtained. COMPARISON: FINDINGS: No acute fracture or dislocation. Joint spaces of the knee are maintained. Intramedullary radha is present within the visualized proximal tibia. Chronic deformity of the fibula is partially visualized. No knee joint effusion. Soft tissues are within normal limits. IMPRESSION: No acute osseous abnormality. Report reported and signed by MARCEL VILLEGAS on 03/12/2022 1226 Normal [facility] Account Administrator Tobacco Screening.on 022 Adult depression screening assessment No [facility] [employer] norma 250 DO Work Phone: Tobacco use status [facility]PH[facility] b) No [facility] [facility] norma 250 DO Work Phone: ALT (SGPT)on 02-16-2017 Alanine aminotransferase (ALT) 40 U/L Normal 10-52 [facility] Comment on above: Performed By: #### [id number] ####[facility] [id number] [place] [address] AST (SGOT)on 02-16-2017 Aspartate aminotransferase (AST) 27 U/L Normal 13-39 [facility] Healthcare Comment on above: Performed By: #### [id number] ####[facility] [id number] [place] [address] Vital Signs Date Time Vital Sign Value Performing Clinician [facility] 02-15-2024 09:09-0400 Blood Pressure Location Rio PRASAD [facility] 02-15-2024 09:09-0400 Body temperature 98.6 [degF] Rio PRASAD [facility] 02-15-2024 09:09-0400 Diastolic blood pressure 81 mm[Hg] Rio PRASAD [facility] 02-15-2024 09:09-0400 Heart rate 72 /min Rio PRASAD [facility] 02-15-2024 09:09-0400 Respiratory rate 16 /min Rio PRASAD [facility] 02-15-2024 09:09-0400 Systolic blood pressure 131 mm[Hg] Rio PRASAD [facility] 12-13-2023 18:54-0400 Diastolic blood pressure 92 mm[Hg] [facility] Work Phone: [facility] 12-13-2023 18:54-0400 Heart rate 75 /min [facility] Work Phone: [facility] 12-13-2023 18:54-0400 Respiratory rate 16 /min [facility] Work Phone: [facility] 12-13-2023 18:54-0400 SaO2% (BldA) [Mass fraction] 97 % [facility] Work Phone: [facility] 12-13-2023 18:54-0400 Systolic blood pressure 155 mm[Hg] [facility] Work Phone: [facility] 12-13-2023 14:25-0400 Body height 165.1 cm [facility] Work Phone: [facility] 12-13-2023 14:25-0400 Body temperature 97.7 [degF] [facility] Work Phone: [facility] 12-13-2023 14:25-0400 Body weight 117.6 kg [facility] Work Phone: [facility] 11-16-2023 10:25-0400 Diastolic blood pressure 80 mm[Hg] Rio PRASAD [facility] 11-16-2023 10:25-0400 Heart rate 62 /min Rio PRASAD [facility] 11-16-2023 10:25-0400 Mean blood pressure 99 mm[Hg] Rio PRASAD [facility] 11-16-2023 10:25-0400 Systolic blood pressure 136 mm[Hg] Rio PRASAD [facility] 11-16-2023 09:10-0400 Blood Pressure Location Rio PRASAD [facility] 11-16-2023 09:10-0400 Body temperature 98.6 [degF] Rio PRASAD [facility] 11-16-2023 09:10-0400 Diastolic blood pressure 78 mm[Hg] Rio PRASAD [facility] 11-16-2023 09:10-0400 Heart rate 74 /min Rio PRASAD [facility] 11-16-2023 09:10-0400 Respiratory rate 14 /min Rio PRASAD [facility] 11-16-2023 09:10-0400 Systolic blood pressure 140 mm[Hg] Rio PRASAD [facility] 07-20-2023 08:20-0500 Diastolic blood pressure 80 mm[Hg] Rio PRASAD [facility] 07-20-2023 08:20-0500 Mean blood pressure 101 mm[Hg] Rio PRASAD [facility] 07-20-2023 08:20-0500 Systolic blood pressure 144 mm[Hg] Rio PRASAD [facility] 07-20-2023 08:15-0500 Blood Pressure Location Rio PRASAD [facility] 07-20-2023 08:15-0500 Diastolic blood pressure 88 mm[Hg] Rio PRASAD [facility] 07-20-2023 08:15-0500 Heart rate 67 /min Rio PRASAD [facility] 07-20-2023 08:15-0500 Systolic blood pressure 144 mm[Hg] Rio PRASAD [facility] 04-09-2023 12:28-0400 Body height 166.37 cm [facility] Work Phone: [facility] 04-09-2023 12:28-0400 Body temperature 98.2 [degF] [facility] Work Phone: [facility] 04-09-2023 12:28-0400 Body weight 119.95 kg [facility] Work Phone: [facility] 04-09-2023 12:28-0400 Diastolic blood pressure 84 mm[Hg] [facility] Work Phone: [facility] 04-09-2023 12:28-0400 Heart rate 78 /min [facility] Work Phone: [facility] 04-09-2023 12:28-0400 Respiratory rate 15 /min Services [facility] [employer] Work Phone: [facility] 04-09-2023 12:28-0400 SaO2% (BldA) [Mass fraction] 98 % [facility] Work Phone: [facility] 04-09-2023 12:28-0400 Systolic blood pressure 154 mm[Hg] [facility] Work Phone: [facility] 03-10-2023 08:44-0400 Body height 167.64 cm No PCP None [facility] 250 DO Work Phone: 03-10-2023 08:44-0400 Body mass index (BMI) [Ratio] 42.45 kg/m2 No PCP None [facility] 250 DO Work Phone: 03-10-2023 08:44-0400 Body surface area Derived from formula 2.25 m2 No PCP None [facility] 250 DO Work Phone: 03-10-2023 08:44-0400 Body weight 119.3 kg No PCP None [facility] 250 DO Work Phone: 03-10-2023 08:44-0400 Diastolic blood pressure 84 mm[Hg] No PCP None [facility] 250 DO Work Phone: 03-10-2023 08:44-0400 Heart rate 60 /min No PCP None [facility] 250 DO Work Phone: 03-10-2023 08:44-0400 Systolic blood pressure 118 mm[Hg] No PCP None [facility] 250 DO Work Phone: 07-27-2022 09:28-0500 Body height 167.64 cm No PCP None [facility] DO Work Phone: 07-27-2022 09:28-0500 Body mass index (BMI) [Ratio] 43.58 kg/m2 No PCP None [facility] DO Work Phone: 07-27-2022 09:28-0500 Body surface area Derived from formula 2.27 m2 No PCP None [facility] DO Work Phone: 07-27-2022 09:28-0500 Body weight 122.47 kg No PCP None [facility] DO Work Phone: 03-10-2022 08:29-0400 Body height 167.64 cm No PCP None [facility] 250 DO Work Phone: 03-10-2022 08:29-0400 Body mass index (BMI) [Ratio] 41.16 kg/m2 No PCP None [facility] 250 DO Work Phone: 03-10-2022 08:29-0400 Body surface area Derived from formula 2.22 m2 No PCP None [facility] 250 DO Work Phone: 03-10-2022 08:29-0400 Body weight 115.67 kg No PCP None [facility] 250 DO Work Phone: 03-10-2022 08:29-0400 Diastolic blood pressure 82 mm[Hg] No PCP None [facility] 250 DO Work Phone: 03-10-2022 08:29-0400 Heart rate 66 /min No PCP None [facility] 250 DO Work Phone: 03-10-2022 08:29-0400 Systolic blood pressure 136 mm[Hg] No PCP None [facility] 250 DO Work Phone: Encounters Encounter Date Encounter Type Care Provider Facility Start: 07-25-2024 ambulatory Rio Rey ty: [facility] Start: 03-01-2024 ambulatory Rio Rey ty:[id number] Start: 02-15-2024 End: 02-15-2024 ambulatory Rio PRASAD Facility: [place] Start: 02-15-2024 End: 02-15-2024 Patient encounter procedure Rio PRASAD [facility] Start: 02-06-2024 End: 02-06-2024 Patient encounter procedure [facility] Work Phone: [facility] [place] Work Phone: Start: 02-06-2024 End: 02-06-2024 ambulatory [facility] Work Phone: [facility] Work Phone: Start: 2023 End: 2023 Patient encounter procedure [facility] Work Phone: [facility] [place] Work Phone: Start: 2023 End: 2023 ambulatory [facility] Work Phone: [facility] Work Phone: Start: 12-13-2023 End: 12-13-2023 Emergency department patient visit [facility] Work Phone: [facility] Work Phone: Start: 12-08-2023 End: 12-08-2023 ambulatory Rio PRASAD Facility:[id number] Start: 11-16-2023 End: 11-16-2023 ambulatory Rio PRASAD Facility:[facility] Start: 11-16-2023 End: 11-16-2023 Patient encounter procedure Rio PRASAD [facility] Start: 11-09-2023 End: 11-09-2023 Patient encounter procedure [facility] Work Phone: [facility] [place] Work Phone: Start: 11-09-2023 End: 11-09-2023 ambulatory [facility] Work Phone: [facility] Work Phone: Start: 10-12-2023 End: 10-12-2023 Patient encounter procedure [facility] Work Phone: [facility] [place] Work Phone: Start: 10-12-2023 End: 10-12-2023 ambulatory Rioannemarie Prasad Facility:[facility] Start: 07-20-2023 End: 07-20-2023 ambulatory Rio PRASAD Facility: [facility] Start: 07-20-2023 End: 07-20-2023 Patient encounter procedure Rio PRASAD [facility] Start: 07-11-2023 End: 07-11-2023 Patient encounter procedure [facility] Work Phone: [facility] [place] Work Phone: Start: 07-11-2023 End: 07-11-2023 ambulatory [facility] Work Phone: [facility] Work Phone: Start: 04-09-2023 End: 04-09-2023 Emergency department patient visit [facility] Work Phone: [facility] Work Phone: Start: 03-10-2023 Office outpatient vi sit 25 minutes No PCP None [facility] 250 DO Work Phone: Start: 03-10-[address] Arlyn calderón [facility] Facility: Start: 10-04-2022 Rx Renewal No PCP None [facility] 250 DO Work Phone: Start: 09-21-2022 Rx Renewal No PCP None [facility] 250 DO Work Phone: Start: 09-07-2022 Patient encounter procedure No PCP None [facility] Work Phone: Start: 09-07-[address] Josias Palumbo [facility] Facility:[id number] Start: 09-06-2022 End: 09-08-2022 ambulatory [facility] Work Phone: [facility] Work Phone: Start: 09-06-2022 End: 09-08-2022 Discharged Recurring [facility] Work Phone: [facility] Start: 08-09-2022 End: 08-09-2022 ambulatory [facility] Work Phone: [facility] Work Phone: Start: 08-09-2022 End: 08-09-2022 Patient encounter procedure [facility] Work Phone: [facility] [place] Work Phone: Start: 08-05-2022 Registered Recurring [facility] Work Phone: [facility] [address] Start: 07-27-2022 Patient encounter procedure No PCP None [facility] DO Work Phone: Start: 07-27-[address] Josias dicknes Marie Facility:[id number] Start: 07-07-2022 End: 07-07-2022 ambulatory [facility] Work Phone: [facility] Work Phone: Start: 07-07-2022 End: 07-07-2022 Patient encounter procedure Services [facility] Work Phone: [facility] [place] Start: 07-05-2022 Rx Renewal No PCP None [facility] 250 DO Work Phone: Start: 03-10-2022 Office outpatient vi sit 25 minutes No PCP None [facility] 250 DO Work Phone: Start: 01-28-2022 Rx Renewal Arlyn Loza MD Work Phone: [facility] 250 DO Work Phone: Start: 10-09-2021 Rx Renewal Arlyn Loza MD Work Phone: [facility] 250 DO Work Phone: Start: 09-28-2021 Rx Renewal Arlyn Loza MD Work Phone: [facility] 250 DO Work Phone: Start: 06-22-2021 Rx Renewal Arlyn Loza MD Work Phone: [facility] [address] [place] Work Phone: Start: 08-11-2017 End: 08-11-2017 Patient encounter procedure RIO PRASAD Facility:[id number] Start: 02-16-2017 Ambulatory ARLYN LOZA Facility :[id number] Procedures Date Procedure Procedure Detail Performing Clinician Start: 02-06-2024 Diagnostic radiograp hy of abdomen Services [facility] Work Phone: Start: 12-13-2023 CT of abdomen and pe lvis without contrast [facility] Phone: Start: 11-09-2023 Diagnostic radiograp hy of abdomen [facility] Phone: Start: 08-11-2017 Extracorporeal shock wave lithotripsy of calculus of kidney Rio PRASAD Start: 07-14-2017 Extracorporeal shock wave lithotripsy of calculus of kidney Rioannemarie PRASAD Start: 06-16-2017 Extracorporeal shock wave lithotripsy of calculus of kidney Rioannemarie PRASAD Leg repair Arlyn Loza MD Work Phone: Renal lithotripsy Arlyn thornton MD Work Phone: Tonsillectomy Arlyn Loza MD Work Phone: Total colonoscopy Arlyn thornton MD Work Phone: Plan of Treatment Date Care Activity Detail Author Start: 03-01-2024 FUV, Provider: Arlyn Loza, Status: Pen, Time: 8:40 AM FUV, Provider: Arlyn Loza, Status: Pen, [facility]: [facility]40 [facility]: Start: 03-10-2023 FUV, Provider: Arlyn Loza, Status: Pen, Time: 8:40 AM [facility], Provider: Arlyn Loza, Status: Pen, Time: 8:40 AM [facility] Work Phone: Start: 09-07-2022 FUV, Provider: Josias Damon, Status: Pen, Time: 9:30 AM FUV, Provider: Josias Damon, Status: Pen, Time: 9:30 AM [facility] Work Phone: Start: 03-10-2022 FUV, Provider: Arlyn Loza, Status: Pen, Time: 8:30 AM FUV, Provider: Arlyn Loza, Status: Pen, Time: 8:30 AM [facility] 250A [place] Work Phone: Patient Education [facility] Work Phone: Patient referral [facility] Work Phone: Immunizations Immunization Date Immunization Notes Care Provider Fa jaxon 06-07-2022 influenza virus vacc ine, unspecified formulation Rio PRASAD [facility] 06-07-2022 influenza, injectabl e, quadrivalent, preservative free No PCP None [facility] DO Work Phone: 06-07-2022 Pfizer COVID-19 Vac Bivalent 30 MCG/0.3ML Intramuscular Suspension No PCP None [facility] 08-03-2021 Pfizer-BioNTech COVI D-19 Vacc 30 MCG/0.3ML Intramuscular Suspension Arlyn Loza MD Work Phone: [facility] Comment on above: Series: 04-29-2021 influenza virus vacc ine, unspecified formulation Rio PRASAD [facility] 04-29-2021 influenza, injectabl e, quadrivalent, preservative free No PCP None [facility] 250 DO Work Phone: 12-16-2020 Moderna COVID-19 Vac cine 100 MCG/0.5ML Intramuscular Suspension Arlyn Loza MD Work Phone: [facility] 250 DO Work Phone: 12-16-2020 SARS-CoV-2 (COVID-19 ) Ad26 vaccine, recombinant Rio PRASAD [facility] 11-18-2020 Moderna COVID-19 Vac cine 100 MCG/0.5ML Intramuscular Suspension Arlyn Loza MD Work Phone: [facility] 250 DO Work Phone: 11-18-2020 SARS-CoV-2 (COVID-19 ) Ad26 vaccine, recombinant Rio PRASAD [facility] 05-22-2020 influenza virus vacc ine, unspecified formulation Rio PRASAD [facility] 05-22-2020 influenza, injectabl e, quadrivalent, preservative free No PCP None [facility] 250 DO Work Phone: Payers Date Payer Category Payer Medicaid [id number] 2023 Self-pay [id number] 1965 Unknown [id number] 2.16.84 [id number] 1967 Unknown [id number] 2.16. [id number] 1967 Unknown [id number] 2.16. [id number] 1967 Unknown [id number] 2.16. [id number] 1967 Unknown [id number] 2.16.8 [id number] 1967 Unknown [id number] 2.16.8 [id number] 1967 Unknown [id number] 2.16.8 [id number] 1967 Unknown [id number] 2.16.8 [id number] 1967 Unknown [id number] 2.16.8 [id number] 1959 Unknown [id number] Medicaid [id number] Unknown Unknown [place] [employer] [id number] Unknown HCAP/HFA/FAP Active [id number] 1 [id number] Unknown [id number] 2.16.8 [id number] Unknown [id number] 2.16.8 [id number] Unknown [id number] 2.16.8 [id number] Unknown [id number] 2.16.8 [id number] Unknown [id number] 2.16.8 [id number] Unknown [id number] 2.16.8 [id number] Unknown [id number] 2.16.8 [id number] Social History Date Type Detail Facility Alcohol use Alcohol use -[facility] 250 DO Work Phone: Start: 03-10-2019 End: 02-15-2024 Tobacco smoking status NHIS Never smoked tobacco (finding) [facility] Start: 1965 Sex Assigned At Male [facility] Tobacco smoking status Never [facility] Sex Assigned At Male [facility] Functional Status Date Assessment Result Facility 02-15-2024 Functional Status N/A [facility] 11-16-2023 Functional Status N/A [facility] 07-20-2023 Functional Status N/A [facility] Clinical Notes 08-15-2021 to 02-15-2024 Note Date & Type Note Facility 02-15-2024 Hospital Discharge instructions Patient Education 02/15/2024 09:54:17 Lithotripsy, Care After Lithotripsy, Care After This sheet gives you information about how to care for yourself after your procedure. Your health care provider may also give you more specific instructions. If you have problems or questions, contact your health care provider. What can I expect after the procedure? After the procedure, it is common to have: Some blood in your urine. This should only last for a few days. Soreness in your back, sides, or upper abdomen for a few days. Blotches or bruises on the area where the shock wave entered the skin. Pain, discomfort, or nausea when pieces (fragments) of the kidney stone move through the tube that carries urine from the kidney to the bladder (ureter). Stone fragments may pass soon after the procedure, but they may continue to pass for up to 4 8 weeks. ?If you have severe pain or nausea, contact your health care provider. This may be caused by a large stone that was not broken up, and this may mean that you need more treatment. Some pain or discomfort during urination. Some pain or discomfort in the lower abdomen or (in men) at the base of the penis. Follow these instructions at home: Medicines Take oyrw-smn-griayma and prescription medicines only as told by your health care provider. If you were prescribed an antibiotic medicine, take it as told by your health care provider. Do not stop taking the antibiotic even if you start to feel better. Ask your health care provider if the medicine prescribed to you requires you to avoid driving or using machinery. Eating and drinking Drink enough fluid to keep your urine pale yellow. This helps any remaining pieces of the stone to pass. It can also help prevent new stones from forming. Eat plenty of fresh fruits and vegetables. Follow instructions from your health care provider about eating or drinking restrictions. You may be instructed to: ?Reduce how much salt (sodium) you eat or drink. Check ingredients and nutrition facts on packaged foods and beverages to see how much sodium they contain. ?Reduce how much meat you eat. Eat the recommended amount of calcium for your age and gender. Ask your health care provider how much calcium you should have. General instructions Get plenty of rest. Return to your normal activities as told by your health care provider. Ask your health care provider what activities are safe for you. Most people can resume normal activities 1 2 days after the procedure. If you were given a sedative during the procedure, it can affect you for several hours. Do not drive or operate machinery until your health care provider says that it is safe. Your health care provider may direct you to lie in a certain position (postural drainage) and tap firmly (percuss) over your kidney area to help stone fragments pass. Follow instructions as told by your health care provider. If directed, strain all urine through the strainer that was provided by your health care provider. ?Keep all fragments for your health care provider to see. Any stones that are found may be sent to a medical lab for examination. The stone may be as small as a grain of salt. Keep all follow-up visits as told by your health care provider. This is important. Contact a health care provider if: You have a fever or chills. You have nausea that is severe or does not go away. You have any of these urinary symptoms: ?Blood in your urine for longer than your health care provider told you to expect. ?Urine that smells bad or unusual. ?Feeling a strong urge to urinate after emptying your bladder. ?Pain or burning with urination that does not go away. ?Urinating more often than usual and this does not go away. You have a stent and it comes out. Get help right away if: You have severe pain in your back, sides, or upper abdomen. You have any of these urinary symptoms: ?Severe pain while urinating. ?More blood in your urine or having blood in your urine when you did not before. ?Passing blood clots in your urine. ?Passing only a small amount of urine or being unable to pass any urine at all. You have severe nausea that leads to persistent vomiting. You faint. Summary After this procedure, it is common to have some pain, discomfort, or nausea when pieces (fragments) of the kidney stone move through the tube that carries urine from the kidney to the bladder (ureter). If this pain or nausea is severe, however, you should contact your health care provider. Return to your normal activities as told by your health care provider. Ask your health care provider what activities are safe for you. Drink enough fluid to keep your urine pale yellow. This helps any remaining pieces of the stone to pass, and it can help prevent new stones from forming. If directed, strain your urine and keep all fragments for your health care provider to see. Fragments or stones may be as small as a grain of salt. Get help right away if you have severe pain in your back, sides, or upper abdomen, or if you have severe pain while urinating. This information is not intended to replace advice given to you by your health care provider. Make sure you discuss any questions you have with your health care provider. Document Revised: 06/28/2022 Document Reviewed: 04/05/2022 [employer] Patient Education 2022 [employer]. 02/15/2024 09:54:16 Lithotripsy Lithotripsy Lithotripsy is a treatment that can help break up kidney stones that are too large to pass on their own. This is a nonsurgical procedure that crushes a kidney stone with shock waves. These shock waves pass through your body and focus on the kidney stone. They cause the kidney stone to break up into smaller pieces while it is still in the urinary tract. The smaller pieces of stone can pass more easily out of your body in the urine. Tell a health care provider about: Any allergies you have. All medicines you are taking, including vitamins, herbs, eye drops, creams, and utaq-vwi-bkjmymo medicines. Any problems you or family members have had with anesthetic medicines. Any blood disorders you have. Any surgeries you have had. Any medical conditions you have. Whether you are or may be . What are the risks? Generally, this is a safe procedure. However, problems may occur, including: Infection. Bleeding from the kidney. Bruising of the kidney or skin. Scarring of the kidney, which can lead to: ?Increased blood pressure. ?Poor kidney function. ?Return (recurrence) of kidney stones. Damage to other structures or organs, such as the liver, colon, spleen, or pancreas. Blockage (obstruction) of the tube that carries urine from the kidney to the bladder (ureter). Failure of the kidney stone to break into pieces (fragments). What happens before the procedure? Staying hydrated Follow instructions from your health care provider about hydration, which may include: Up to 2 hours before the procedure you may continue to drink clear liquids, such as water, clear fruit juice, black coffee, and plain tea. Eating and drinking restrictions Follow instructions from your health care provider about eating and drinking, which may include: 8 hours before the procedure stop eating heavy meals or foods, such as meat, fried foods, or fatty foods. 6 hours before the procedure stop eating light meals or foods, such as toast or cereal. 6 hours before the procedure stop drinking milk or drinks that contain milk. 2 hours before the procedure stop drinking clear liquids. Medicines Ask your health care provider about: Changing or stopping your regular medicines. This is especially important if you are taking diabetes medicines or blood thinners. Taking medicines such as aspirin and ibuprofen. These medicines can thin your blood. Do not take these medicines unless your health care provider tells you to take them. Taking jieq-kxq-hvkazro medicines, vitamins, herbs, and supplements. Tests You may have tests, such as: Blood tests. Urine tests. Imaging tests, such as a CT scan. General instructions Plan to have someone take you home from the hospital or clinic. If you will be going home right after the procedure, plan to have someone with you for 24 hours. Ask your health care provider what steps will be taken to help prevent infection. These may include washing skin with a germ-killing soap. What happens during the procedure? An IV will be inserted into one of your veins. You will be given one or more of the following: ?A medicine to help you relax (sedative). ?A medicine to make you fall asleep (general anesthetic). A water-filled cushion may be placed behind your kidney or on your abdomen. In some cases, you may be placed in a tub of lukewarm water. Your body will be positioned in a way that makes it easy to target the kidney stone. An X-ray or ultrasound exam will be done to locate your stone. Shock waves will be aimed at the stone. If you are awake, you may feel a tapping sensation as the shock waves pass through your body. A flexible tube with holes in it (stent) may be placed in the ureter. This will help keep urine flowing from the kidney if the fragments of the stone have been blocking the ureter. The procedure may vary among health care providers and hospitals. What happens after the procedure? You may have an X-ray to see whether the procedure was able to break up the kidney stone and how much of the stone has passed. If large stone fragments remain after treatment, you may need to have a second procedure at a later time. Your blood pressure, heart rate, breathing rate, and blood oxygen level will be monitored until you leave the hospital or clinic. You may be given antibiotics or pain medicine as needed. If a stent was placed in your ureter during surgery, it may stay in place for a few weeks. You may need to strain your urine to collect pieces of the kidney stone for testing. You will need to drink plenty of water. If you were given a sedative during the procedure, it can affect you for several hours. Do not drive or operate machinery until your health care provider says that it is safe. Summary Lithotripsy is a treatment that can help break up kidney stones that are too large to pass on their own. Lithotripsy is a nonsurgical procedure that crushes a kidney stone with shock waves. Generally, this is a safe procedure. However, problems may occur, including damage to the kidney or other organs, infection, or obstruction of the tube that carries urine from the kidney to the bladder (ureter). You may have a stent placed in your ureter to help drain your urine. This stent may stay in place for a few weeks. After the procedure, you will need to drink plenty of water. You may be asked to strain your urine to collect pieces of the kidney stone for testing. This information is not intended to replace advice given to you by your health care provider. Make sure you discuss any questions you have with your health care provider. Document Revised: 06/28/2022 Document Reviewed: 04/05/2022 [employer] Patient Education 2022 [employer] 02/15/2024 09:47:13 Benign Prostatic Hyperplasia Benign Prostatic Hyperplasia Benign prostatic hyperplasia (BPH) is an enlarged prostate gland that is caused by the normal aging process. The prostate may get bigger as a man gets older. The condition is not caused by cancer. The prostate is a walnut-sized gland that is involved in the production of semen. It is located in front of the rectum and below the bladder. The bladder stores urine. The urethra carries stored urine out of the body. An enlarged prostate can press on the urethra. This can make it harder to pass urine. The buildup of urine in the bladder can cause infection. Back pressure and infection may progress to bladder damage and kidney (renal) failure. What are the causes? This condition is part of the normal aging process. However, not all men develop problems from this condition. If the prostate enlarges away from the urethra, urine flow will not be blocked. If it enlarges toward the urethra and compresses it, there will be problems passing urine. What increases the risk? This condition is more likely to develop in men older than 50 years. What are the signs or symptoms? Symptoms of this condition include: Getting up often during the night to urinate. Needing to urinate frequently during the day. Difficulty starting urine flow. Decrease in size and strength of your urine stream. Leaking (dribbling) after urinating. Inability to pass urine. This needs immediate treatment. Inability to completely empty your bladder. Pain when you pass urine. This is more common if there is also an infection. Urinary tract infection (UTI). How is this diagnosed? This condition is diagnosed based on your medical history, a physical exam, and your symptoms. Tests will also be done, such as: A post-void bladder scan. This measures any amount of urine that may remain in your bladder after you finish urinating. A digital rectal exam. In a rectal exam, your health care provider checks your prostate by putting a lubricated, gloved finger into your rectum to feel the back of your prostate gland. This exam detects the size of your gland and any abnormal lumps or growths. An exam of your urine (urinalysis). A prostate specific antigen (PSA) screening. This is a blood test used to screen for prostate cancer. An ultrasound. This test uses sound waves to electronically produce a picture of your prostate gland. Your health care provider may refer you to a specialist in kidney and prostate diseases (urologist). How is this treated? Once symptoms begin, your health care provider will monitor your condition (active surveillance or watchful waiting). Treatment for this condition will depend on the severity of your condition. Treatment may include: Observation and yearly exams. This may be the only treatment needed if your condition and symptoms are mild. Medicines to relieve your symptoms, including: ?Medicines to shrink the prostate. ?Medicines to relax the muscle of the prostate. Surgery in severe cases. Surgery may include: ?Prostatectomy. In this procedure, the prostate tissue is removed completely through an open incision or with a laparoscope or robotics. ?Transurethral resection of the prostate (TURP). In this procedure, a tool is inserted through the opening at the tip of the penis (urethra). It is used to cut away tissue of the inner core of the prostate. The pieces are removed through the same opening of the penis. This removes the blockage. ?Transurethral incision (TUIP). In this procedure, small cuts are made in the prostate. This lessens the prostate's pressure on the urethra. ?Transurethral microwave thermotherapy (TUMT). This procedure uses microwaves to create heat. The heat destroys and removes a small amount of prostate tissue. ?Transurethral needle ablation (TUNA). This procedure uses radio frequencies to destroy and remove a small amount of prostate tissue. ?Interstitial laser coagulation (ILC). This procedure uses a laser to destroy and remove a small amount of prostate tissue. ?Transurethral electrovaporization (TUVP). This procedure uses electrodes to destroy and remove a small amount of prostate tissue. ?Prostatic urethral lift. This procedure inserts an implant to push the lobes of the prostate away from the urethra. Follow these instructions at home: Take hcrp-lwb-mehmybl and prescription medicines only as told by your health care provider. Monitor your symptoms for any changes. Contact your health care provider with any changes. Avoid drinking large amounts of liquid before going to bed or out in public. Avoid or reduce how much caffeine or alcohol you drink. Give yourself time when you urinate. Keep all follow-up visits. This is important. Contact a health care provider if: You have unexplained back pain. Your symptoms do not get better with treatment. You develop side effects from the medicine you are taking. Your urine becomes very dark or has a bad smell. Your lower abdomen becomes distended and you have trouble passing urine. Get help right away if: You have a fever or chills. You suddenly cannot urinate. You feel light-headed or very dizzy, or you faint. There are large amounts of blood or clots in your urine. Your urinary problems become hard to manage. You develop moderate to severe low back or flank pain. The flank is the side of your body between the ribs and the hip. These symptoms may be an emergency. Get help right away. Call 911. Do not wait to see if the symptoms will go away. Do not drive yourself to the hospital. Summary Benign prostatic hyperplasia (BPH) is an enlarged prostate that is caused by the normal aging process. It is not caused by cancer. An enlarged prostate can press on the urethra. This can make it hard to pass urine. This condition is more likely to develop in men older than 50 years. Get help right away if you suddenly cannot urinate. This information is not intended to replace advice given to you by your health care provider. Make sure you discuss any questions you have with your health care provider. Document Revised: 02/17/2022 Document Reviewed: 02/17/2022 [employer] Patient Education 2022 [employer]. Follow Up Care 12/14/2023 12:41:57 With:DECLAN HERNANDEZ, Rio Simons, URL Address: [facility] [address] , [place] [id number]- When: Unknown [facility] 02-15-2024 Note Patient Education Nephrology Lithotripsy, Care After This sheet gives you information about how to care for yourself after your procedure. Your health care provider may also give you more specific instructions. If you have problems or questions, contact your health care provider. What can I expect after the procedure? After the procedure, it is common to have: ? Some blood in your urine. This should only last for a few days. ? Soreness in your back, sides, or upper abdomen for a few days. ? Blotches or bruises on the area where the shock wave entered the skin. ? Pain, discomfort, or nausea when pieces (fragments) of the kidney stone move through the tube that carries urine from the kidney to the bladder (ureter). Stone fragments may pass soon after the procedure, but they may continue to pass for up to 4?8 weeks. ? If you have severe pain or nausea, contact your health care provider. This may be caused by a large stone that was not broken up, and this may mean that you need more treatment. ? Some pain or discomfort during urination. ? Some pain or discomfort in the lower abdomen or (in men) at the base of the penis. Follow these instructions at home: Medicines ? Take lymm-rhz-xntivgc and prescription medicines only as told by your health care provider. ? If you were prescribed an antibiotic medicine, take it as told by your health care provider. Do not stop taking the antibiotic even if you start to feel better. ? Ask your health care provider if the medicine prescribed to you requires you to avoid driving or using machinery. Eating and drinking ? Drink enough fluid to keep your urine pale yellow. This helps any remaining pieces of the stone to pass. It can also help prevent new stones from forming. ? Eat plenty of fresh fruits and vegetables. ? Follow instructions from your health care provider about eating or drinking restrictions. You may be instructed to: ? Reduce how much salt (sodium) you eat or drink. Check ingredients and nutrition facts on packaged foods and beverages to see how much sodium they contain. ? Reduce how much meat you eat. ? Eat the recommended amount of calcium for your age and gender. Ask your health care provider how much calcium you should have. General instructions ? Get plenty of rest. ? Return to your normal activities as told by your health care provider. Ask your health care provider what activities are safe for you. Most people can resume normal activities 1?2 days after the procedure. ? If you were given a sedative during the procedure, it can affect you for several hours. Do not drive or operate machinery until your health care provider says that it is safe. ? Your health care provider may direct you to lie in a certain position (postural drainage) and tap firmly (percuss) over your kidney area to help stone fragments pass. Follow instructions as told by your health care provider. ? If directed, strain all urine through the strainer that was provided by your health care provider. ? Keep all fragments for your health care provider to see. Any stones that are found may be sent to a medical lab for examination. The stone may be as small as a grain of salt. ? Keep all follow-up visits as told by your health care provider. This is important. Contact a health care provider if: ? You have a fever or chills. ? You have nausea that is severe or does not go away. ? You have any of these urinary symptoms: ? Blood in your urine for longer than your health care provider told you to expect. ? Urine that smells bad or unusual. ? Feeling a strong urge to urinate after emptying your bladder. ? Pain or burning with urination that does not go away. ? Urinating more often than usual and this does not go away. ? You have a stent and it comes out. Get help right away if: ? You have severe pain in your back, sides, or upper abdomen. ? You have any of these urinary symptoms: ? Severe pain while urinating. ? More blood in your urine or having blood in your urine when you did not before. ? Passing blood clots in your urine. ? Passing only a small amount of urine or being unable to pass any urine at all. ? You have severe nausea that leads to persistent vomiting. ? You faint. Summary ? After this procedure, it is common to have some pain, discomfort, or nausea when pieces (fragments) of the kidney stone move through the tube that carries urine from the kidney to the bladder (ureter). If this pain or nausea is severe, however, you should contact your health care provider. ? Return to your normal activities as told by your health care provider. Ask your health care provider what activities are safe for you. ? Drink enough fluid to keep your urine pale yellow. This helps any remaining pieces of the stone to pass, and it can help prevent new stones from forming. ? If directed, strain your urine and keep all fragments fo (more content not included)... [facility] 11-16-2023 Hospital Discharge instructions Patient Education 11/16/2023 10:15:19 Lithotripsy, Care After Lithotripsy, Care After This sheet gives you information about how to care for yourself after your procedure. Your health care provider may also give you more specific instructions. If you have problems or questions, contact your health care provider. What can I expect after the procedure? After the procedure, it is common to have: Some blood in your urine. This should only last for a few days. Soreness in your back, sides, or upper abdomen for a few days. Blotches or bruises on the area where the shock wave entered the skin. Pain, discomfort, or nausea when pieces (fragments) of the kidney stone move through the tube that carries urine from the kidney to the bladder (ureter). Stone fragments may pass soon after the procedure, but they may continue to pass for up to 4 8 weeks. ?If you have severe pain or nausea, contact your health care provider. This may be caused by a large stone that was not broken up, and this may mean that you need more treatment. Some pain or discomfort during urination. Some pain or discomfort in the lower abdomen or (in men) at the base of the penis. Follow these instructions at home: Medicines Take svhi-nrj-mhelyqs and prescription medicines only as told by your health care provider. If you were prescribed an antibiotic medicine, take it as told by your health care provider. Do not stop taking the antibiotic even if you start to feel better. Ask your health care provider if the medicine prescribed to you requires you to avoid driving or using machinery. Eating and drinking Drink enough fluid to keep your urine pale yellow. This helps any remaining pieces of the stone to pass. It can also help prevent new stones from forming. Eat plenty of fresh fruits and vegetables. Follow instructions from your health care provider about eating or drinking restrictions. You may be instructed to: ?Reduce how much salt (sodium) you eat or drink. Check ingredients and nutrition facts on packaged foods and beverages to see how much sodium they contain. ?Reduce how much meat you eat. Eat the recommended amount of calcium for your age and gender. Ask your health care provider how much calcium you should have. General instructions Get plenty of rest. Return to your normal activities as told by your health care provider. Ask your health care provider what activities are safe for you. Most people can resume normal activities 1 2 days after the procedure. If you were given a sedative during the procedure, it can affect you for several hours. Do not drive or operate machinery until your health care provider says that it is safe. Your health care provider may direct you to lie in a certain position (postural drainage) and tap firmly (percuss) over your kidney area to help stone fragments pass. Follow instructions as told by your health care provider. If directed, strain all urine through the strainer that was provided by your health care provider. ?Keep all fragments for your health care provider to see. Any stones that are found may be sent to a medical lab for examination. The stone may be as small as a grain of salt. Keep all follow-up visits as told by your health care provider. This is important. Contact a health care provider if: You have a fever or chills. You have nausea that is severe or does not go away. You have any of these urinary symptoms: ?Blood in your urine for longer than your health care provider told you to expect. ?Urine that smells bad or unusual. ?Feeling a strong urge to urinate after emptying your bladder. ?Pain or burning with urination that does not go away. ?Urinating more often than usual and this does not go away. You have a stent and it comes out. Get help right away if: You have severe pain in your back, sides, or upper abdomen. You have any of these urinary symptoms: ?Severe pain while urinating. ?More blood in your urine or having blood in your urine when you did not before. ?Passing blood clots in your urine. ?Passing only a small amount of urine or being unable to pass any urine at all. You have severe nausea that leads to persistent vomiting. You faint. Summary After this procedure, it is common to have some pain, discomfort, or nausea when pieces (fragments) of the kidney stone move through the tube that carries urine from the kidney to the bladder (ureter). If this pain or nausea is severe, however, you should contact your health care provider. Return to your normal activities as told by your health care provider. Ask your health care provider what activities are safe for you. Drink enough fluid to keep your urine pale yellow. This helps any remaining pieces of the stone to pass, and it can help prevent new stones from forming. If directed, strain your urine and keep all fragments for your health care provider to see. Fragments or stones may be as small as a grain of salt. Get help right away if you have severe pain in your back, sides, or upper abdomen, or if you have severe pain while urinating. This information is not intended to replace advice given to you by your health care provider. Make sure you discuss any questions you have with your health care provider. Document Revised: 06/28/2022 Document Reviewed: 04/05/2022 [employer] Patient Education 2022 [employer] 11/16/2023 10:15:18 Lithotripsy Lithotripsy Lithotripsy is a treatment that can help break up kidney stones that are too large to pass on their own. This is a nonsurgical procedure that crushes a kidney stone with shock waves. These shock waves pass through your body and focus on the kidney stone. They cause the kidney stone to break up into smaller pieces while it is still in the urinary tract. The smaller pieces of stone can pass more easily out of your body in the urine. Tell a health care provider about: Any allergies you have. All medicines you are taking, including vitamins, herbs, eye drops, creams, and utsy-gzx-ikufoqd medicines. Any problems you or family members have had with anesthetic medicines. Any blood disorders you have. Any surgeries you have had. Any medical conditions you have. Whether you are or may be . What are the risks? Generally, this is a safe procedure. However, problems may occur, including: Infection. Bleeding from the kidney. Bruising of the kidney or skin. Scarring of the kidney, which can lead to: ?Increased blood pressure. ?Poor kidney function. ?Return (recurrence) of kidney stones. Damage to other structures or organs, such as the liver, colon, spleen, or pancreas. Blockage (obstruction) of the tube that carries urine from the kidney to the bladder (ureter). Failure of the kidney stone to break into pieces (fragments). What happens before the procedure? Staying hydrated Follow instructions from your health care provider about hydration, which may include: Up to 2 hours before the procedure you may continue to drink clear liquids, such as water, clear fruit juice, black coffee, and plain tea. Eating and drinking restrictions Follow instructions from your health care provider about eating and drinking, which may include: 8 hours before the procedure stop eating heavy meals or foods, such as meat, fried foods, or fatty foods. 6 hours before the procedure stop eating light meals or foods, such as toast or cereal. 6 hours before the procedure stop drinking milk or drinks that contain milk. 2 hours before the procedure stop drinking clear liquids. Medicines Ask your health care provider about: Changing or stopping your regular medicines. This is especially important if you are taking diabetes medicines or blood thinners. Taking medicines such as aspirin and ibuprofen. These medicines can thin your blood. Do not take these medicines unless your health care provider tells you to take them. Taking casz-vvh-dxkufnp medicines, vitamins, herbs, and supplements. Tests You may have tests, such as: Blood tests. Urine tests. Imaging tests, such as a CT scan. General instructions Plan to have someone take you home from the hospital or clinic. If you will be going home right after the procedure, plan to have someone with you for 24 hours. Ask your health care provider what steps will be taken to help prevent infection. These may include washing skin with a germ-killing soap. What happens during the procedure? An IV will be inserted into one of your veins. You will be given one or more of the following: ?A medicine to help you relax (sedative). ?A medicine to make you fall asleep (general anesthetic). A water-filled cushion may be placed behind your kidney or on your abdomen. In some cases, you may be placed in a tub of lukewarm water. Your body will be positioned in a way that makes it easy to target the kidney stone. An X-ray or ultrasound exam will be done to locate your stone. Shock waves will be aimed at the stone. If you are awake, you may feel a tapping sensation as the shock waves pass through your body. A flexible tube with holes in it (stent) may be placed in the ureter. This will help keep urine flowing from the kidney if the fragments of the stone have been blocking the ureter. The procedure may vary among health care providers and hospitals. What happens after the procedure? You may have an X-ray to see whether the procedure was able to break up the kidney stone and how much of the stone has passed. If large stone fragments remain after treatment, you may need to have a second procedure at a later time. Your blood pressure, heart rate, breathing rate, and blood oxygen level will be monitored until you leave the hospital or clinic. You may be given antibiotics or pain medicine as needed. If a stent was placed in your ureter during surgery, it may stay in place for a few weeks. You may need to strain your urine to collect pieces of the kidney stone for testing. You will need to drink plenty of water. If you were given a sedative during the procedure, it can affect you for several hours. Do not drive or operate machinery until your health care provider says that it is safe. Summary Lithotripsy is a treatment that can help break up kidney stones that are too large to pass on their own. Lithotripsy is a nonsurgical procedure that crushes a kidney stone with shock waves. Generally, this is a safe procedure. However, problems may occur, including damage to the kidney or other organs, infection, or obstruction of the tube that carries urine from the kidney to the bladder (ureter). You may have a stent placed in your ureter to help drain your urine. This stent may stay in place for a few weeks. After the procedure, you will need to drink plenty of water. You may be asked to strain your urine to collect pieces of the kidney stone for testing. This information is not intended to replace advice given to you by your health care provider. Make sure you discuss any questions you have with your health care provider. Document Revised: 06/28/2022 Document Reviewed: 04/05/2022 [employer] Patient Education 2022 [employer]. Follow Up Care 07/20/2023 09:14:37 With:Rio PRASAD MD, GLENYS Address: [facility] [address] [place] [address]- When: Unknown [facility] 07-20-2023 Hospital Discharge instructions Patient Education 07/20/2023 09:11:54 24-Hour Urine Collection 24-Hour Urine Collection Why am I having this test? A 24-hour urine specimen is a lab test that requires you to collect all of your urine for an entire day. This is sometimes called a timed urine test. It can provide more information than a single urine sample. There are many reasons to have this test. Your health care provider may order the test to check for or monitor the following conditions: High blood pressure. Kidney disease. Kidney stones. Urinary tract infections. . Diabetes. How do I prepare for this test? You may be asked to follow a special diet during or before the collection period. Follow any instructions from your health care provider. If no special instructions are given, you may eat and drink normally. Take xunj-ufb-tjdzdph and prescription medicines only as told by your health care provider. Let your health care provider know about any medicines that you are taking, including pavw-pte-fxznesk medicines, vitamins, herbs, and supplements. Choose a collection day when you can be at home or when you have a place to store the urine. All urine must be collected during the testing period. How do I do a 24-hour urine collection? When you get up in the morning, urinate in the toilet and flush. Write down the time. This will be your start time on the day of collection and your end time on the next morning. From the start time on, all of your urine should be kept in the collection jug that you received from the lab. If the jug that is given to you already has liquid in it, that is okay. Do not throw out the liquid or rinse out the jug. Urinate into a specimen container, such as a urinal or bajwa that sits over the toilet. Pour the urine from the container into the collection jug. Be careful not to spill any of the urine. Use the equipment provided by the lab. Do not let any toilet paper or stool (feces) get into the jug. This will contaminate the sample. Stop collecting your urine 24 hours after you started. Collect the last specimen as close as possible to the end of the 24-hour period. Keep the jug cool in an ice chest or keep it in the refrigerator during collection. When the 24-hour collection is complete, take the jug to the lab as soon as possible. Keep the jug cool in an ice chest while you are bringing it to the lab. What do the results mean? Talk with your health care provider about what your results mean. Questions to ask your health care provider Ask your health care provider, or the department that is doing the test: When will my results be ready? How will I get my results? What are my treatment options? What other tests do I need? What are my next steps? Summary A 24-hour urine specimen is a lab test that requires you to collect all of your urine for an entire day. When you get up in the morning, urinate in the toilet and flush. Write down the time. For the next 24 hours, collect all of your urine in the collection jug that you received from the lab. Keep the jug cool while collecting the urine and while bringing it back to the lab. Take the jug of urine back to the lab as soon as possible after the collection period has ended. This information is not intended to replace advice given to you by your health care provider. Make sure you discuss any questions you have with your health care provider. Document Revised: 02/05/2022 Document Reviewed: 02/05/2022 [employer] Patient Education 2022 [employer]. Follow Up Care 07/14/2022 09:22:25 With:DECLAN HERNANDEZ, Rio Simons, URL Address: [facility] [address] [place] [address]- When: Unknown [facility] 08-15-2021 History of Present illness Narrative History of Present IllnessThis is a 56-year-old male here for his right knee. In August 2021 he developed an anterior knee pain while out of town. He had pain for 2 weeks where he could not bear weight and had pain with bending his knee. The pain then resolved. Over the summer he redeveloped anterior knee pain. He has had intermittent pain now and points anteriorly. There will be times where he has significant pain in the knee and cannot bear weight or has difficulty straightening his knee. He points anteriorly where he would get this pain.He has been wearing a knee brace which is worn out. He has a history of having a tibial nailing in 2007. He has never had any knee surgeries.He denies any groin pain, back pain, numbness or tingling in the lower extremities.Review of SystemsGENERAL: NegativeGI: NegativeMUSCULOSKELETAL: See HPISKIN: NegativeNEURO: NegativePhysical ExamThis is an overweight male in no acute distressLogrolling of the right hip elicits no pain.Leg raise is negative on the rightRight knee:There is a healed anterior incision over the right knee, roughly over the patellar tendon.There is no effusion, erythema or warmth.Full extension of the right knee with flexion to 110 degrees. He has equal motion on the leftThere is no instability varus or valgus stressing the knee at 0 or 30 degreesLachman's 1+ with a firm endpointMurray's negative stressing the medial and lateral compartmentsPain with patellar compressionTenderness over the patellar tendonImagingSee dictated reportAssessmentPatellar tendinitis right kneeChondromalacia patella right kneePlanHinged knee braceIce massagePhysical therapyMobic 15 mg 1 p.o. dailyFollow-up in 4 to 6 weeks for recheck, sooner if there is any problemsQuestions answered. [facility] Work Phone: Evaluation + Plan note Future Appointments Appointment Date:11/16/2023 09:15:00 AM Scheduled Provider:Rio PRASAD MD Location:[facility] Appointment Type:URO Office Visit Appointment Date:07/25/2024 09:15:00 AM Scheduled Provider:Rio PRASAD MD Location:[facility] Appointment Type:URO Office Visit Diagnostic Tests PendingPSA Total 07/20/23 [facility] Evaluation + Plan note Future Appointments Appointment Date:07/25/2024 09:15:00 AM Scheduled Provider:Rio PRASAD MD Location:[facility] Appointment Type:URO Office Visit Diagnostic Tests PendingElectrolyte Panel 11/16/23 [facility] Evaluation + Plan note Future Appointments Appointment Date:07/25/2024 09:15:00 AM Scheduled Provider:Rio PRASAD MD Location:[facility] Appointment Type:URO Office Visit [facility] Evaluation note No assessment information availa [facility] Work Phone: History of Present illness Narrative History of Present IllnessThe patient is here for his right knee. I had sent him to therapy and started him on Mobic. He is also been wearing a knee brace. He is here for recheck.His pain is much better. No pain going from sitting to standing and is pointing about the patella. They feel a pop or click and have some pain.Review of SystemsGENERAL: Negative for malaise, significant weight loss, feverMUSCULOSKELETAL: see HPINEURO: NegativePhysical ExamThis is an overweight male in no acute distressRight knee: The skin is intact, the extensor mechanism is intact.There is no effusion, erythema or warmth.Range of motion 0-125 degreesThere is no tenderness over the patellar tendon with the knee in extension or flexion.There is subpatellar crepitus through the arc of motion on the right.There is no instability varus or valgus stressing the knee at 0 and 30 degreesMurray's negative stressing the medial and lateral compartments.ImagingNone todayAssessmentChondromalacia patella right kneePatellar tendinitis right knee, resolvedPlanHis pain is tolerable and he is able to do what he wishes. I would recommend resuming activities as tolerated.He can take nhwj-hmx-xmaiiam anti-inflammatory medications if needed.Follow-up as neededQuestions answered. [facility] Work Phone: Hospital course Narrative No data available for this section [facility] Hospital Discharge instructions Additional Instructions Apply 1 Polytrim eyedrop into the right eye every 3 hours while awake for 7 days Do not rub the eye but may apply compresses Call [facility] Tuesday morning or wait for them to call you to have an appointment to be rechecked Return to the ER for more severe pain loss of vision fever chills or any other concerns [facility] Work Phone: Progress note No data available for this section [facility] Summary Purpose Family History No Family History Records FoundUnknown Family Member Name Dates Details No pertinent family history: Mother, Father, Sibling(V49.89, Z78.9) Status:Active Unknown Family Member Name Dates Details No pertinent family history: Mother, Father, Sibling(V49.89, Z78.9) Status:Active Unknown Family Member Name Dates Details No pertinent family history: Mother, Father, Sibling(V49.89, Z78.9) Status:Active Unknown Family Member Name Dates Details No pertinent family history: Mother, Father, Sibling(V49.89, Z78.9) Status:Active Relationship Condition Age at Onset Recorded Date/T anum father Malignant neoplasm Unknown Not Specified Malignant neoplasm of breast Unknown Unknown Family Member Name Dates Details No pertinent family history: Mother, Father, Sibling(V49.89, Z78.9) Status:Active Unknown Family Member Name Dates Details No pertinent family history: Mother, Father, Sibling(V49.89, Z78.9) Status:Active Unknown Family Member Name Dates Details No pertinent family history: Mother, Father, Sibling(V49.89, Z78.9) Status:Active Unknown Family Member Name Dates Details No pertinent family history: Mother, Father, Sibling(V49.89, Z78.9) Status:Active Unknown Family Member Name Dates Details No pertinent family history: Mother, Father, Sibling(V49.89, Z78.9) Status:Active Unknown Family Member Name Dates Details No pertinent family history: Mother, Father, Sibling(V49.89, Z78.9) Status:Active Advance Directives No Advanced Directives Records Found Advance Directive Response Recorded Date/ Time Advance Directives No May 25, 2017 11:03am Advance Directive Response Recorded Date/ Time Advance Directives No May 25, 2017 12:03pm Chief Complaint * JOHN SMITH is being seen for an annual follow-up of. 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 He is weight increased nearly 10 pounds from last visit mostly due to inactivity and dietary indiscretion. His blood pressure is under control. He has no symptoms of palpitations syncopeor near syncope and no dizziness. His lab data from August 2021 were reviewed. The outstanding abnormality was a triglyceride of 300 and low vitamin D3 level at 23. He started taking vitamin D3 2000units daily and he will follow-up with me for vitamin D level. Apart from his morbid obesity physical examination was normal. * ASSESSMENT AND PLAN: * 1. 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 Hyperlipidemia, on statin therapy, being monitored. Last lab data August 2021 were reviewed andthe only outstanding abnormality was high triglyceride. Encouraged the patient to lose weight and reduce carbohydrate consumption. * 3. Hypertension, currently under very good control, on multiple medications * 4. morbid obesity. Discussed with patient measures needed to bring his weight under control with emphasis on low-calorie diet. * 5. Intolerance to hydrochlorothiazide due to kidney stones * 6. Diabetes started recently on metformin, losing weight and reducing carbohydrate consumption and regular exercise were highly recommended * 7. Vitamin D deficiency. Started taking 2000 units daily advised patient to check his vitamin D level and maintain above 50 * Arlyn Loza MD, FACC * JOHN SMITH is being seen for an annual follow-up of. 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 He is weight increased nearly 10 pounds from last visit mostly due to inactivity and dietary indiscretion. His blood pressure is under control. He has no symptoms of palpitations syncopeor near syncope and no dizziness. His lab data from August 2021 were reviewed. The outstanding abnormality was a triglyceride of 300 and low vitamin D3 level at 23. He started taking vitamin D3 2000units daily and he will follow-up with me for vitamin D level. Apart from his morbid obesity physical examination was normal. * ASSESSMENT AND PLAN: * 1. 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 Hyperlipidemia, on statin therapy, being monitored. Last lab data August 2021 were reviewed andthe only outstanding abnormality was high triglyceride. Encouraged the patient to lose weight and reduce carbohydrate consumption. * 3. Hypertension, currently under very good control, on multiple medications * 4. morbid obesity. Discussed with patient measures needed to bring his weight under control with emphasis on low-calorie diet. * 5. Intolerance to hydrochlorothiazide due to kidney stones * 6. Diabetes started recently on metformin, losing weight and reducing carbohydrate consumption and regular exercise were highly recommended * 7. Vitamin D deficiency. Started taking 2000 units daily advised patient to check his vitamin D level and maintain above 50 * Arlyn Loza MD, FACC * Right knee pain * xrays today * F/U Patellar tendinitis right knee * Chondromalacia patella right knee * JOHN SMITH is being seen for an annual follow-up of. * Patient is in the office for follow-up for the problems noted below. He is dealing with orthopedic problems but no cardiac issues. He has no palpitations syncope or near syncope and no dizziness. Hismedical therapy was reviewed and he is tolerating it. His weight is coming down on purpose which isnice. EKG today showed sinus rhythm with delta wave indicating preexcitation. He has had no arrhythmias that we know of. * ASSESSMENT AND PLAN: * 1. 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 We will monitor * 2. Hyperlipidemia, on statin therapy, due for lipid profile which is ordered along other labs. * 3. Hypertension, currently under very good control, on multiple medications Suzanne metabolic profile is ordered * 4. morbid obesity. Patient lost 20 pounds in the last few months and more is coming. * 5. Intolerance to hydrochlorothiazide due to kidney stones * 6. Diabetes managed by [facility] and stable * Arlyn Loza MD, FACC Chief Complaint and Reason for Visit Chief Complaint N40.1 N20.0 Z80.42 Chief Complaint N40.1 N20.0 Z80.42 V R knee E55.9 I10 E78.5 Chief Complaint N40.1 N20.0 Z80.42 E55.9 I10 E78.5 V R knee Chief Complaint R eye irritation Chief Complaint I10 E78.5 Z80.42 N40 .1 Chief Complaint Kidney Stones N20.0 Chief Complaint Kidney Stones N20.0 L flank pain Chief Complaint Kidney Stones N20.0 L flank pain R82.994 Chief Complaint N20.0 L flank pain R82.994 N20.0 Additional Source Comments (unrecognized sect ion and content) No Status Records FoundNo Status Records FoundNo Status Records FoundNo Status Records FoundNo Status Records FoundNo Status Records FoundNo Status Records Found INFORMATION SOURCE (unrecogn ized section and content) DATE CREATED AUTHOR 02/08/2018 [facility] DATE CREATED AUTHOR AUTHOR'S ORGANIZ ATION 04/26/2019 [facility] DATE CREATED AUTHOR AUTHOR'S ORGANIZ ATION 03/16/2022 [facility] DATE CREATED AUTHOR AUTHOR'S ORGANIZ ATION 03/10/2023 [facility] ical Center DATE CREATED AUTHOR AUTHOR'S ORGANIZ ATION 03/10/2023 [employer] DATE CREATED AUTHOR AUTHOR'S ORGANIZ ATION 02/16/2024 [facility] ical Center DATE CREATED AUTHOR AUTHOR'S ORGANIZ ATION 02/16/2024 [facility] Care Teams (unrecognized sec tion and content) Team Status: Active Member Role Status [facility] Primary Care Provider Active Team Status: Inactive Member Role Status [facility] Primary Care Provider Active DREW SlaughterP- Emergency Provider Active Team Status: Inactive Member Role Status [facility] Primary Care Provider Active Rio Prasad MD Attending Provider Active Team Status: Active Member Role Status [facility] Primary Care Provider Active Josias Damon MD Attending Provider Active Team Status: Inactive Member Role Status [facility] Primary Care Provider Active Carter Munroe DO Attending Provider Active Rossy Salinas MD RES Other Provider Active Team Status: Inactive Member Role Status [facility] Primary Care Provider Active Josias Damon MD Attending Provider Active Team Status: Inactive Member Role Status [facility] Primary Care Provider Active Rio Prasad MD Attending Provider Active Arlyn Loza MD Referring Provider Active Team Status: Inactive Member Role Status [facility] Primary Care Provider Active Start: October 12, 2023 End: October 12, 2023 Rio Prasad MD Attending Provider Active St art: October 12, 2023 End: October 12, 2023 Team Status: Inactive Member Role Status Dates [facility] Primary Care Provider Active Start: November 09, 2023 End: November 09, 2023 Rio Prasad MD Attending Provider Active St art: November 09, 2023 End: November 09, 2023 Team Status: Inactive Member Role Status [facility] Primary Care Provider Active Start: December 13, 2023 End: December 13, 2023 Carter Alvarenga DO Emergency Provider Active Sta rt: December 13, 2023 End: December 13, 2023 Team Status: Inactive Member Role Status [facility] Primary Care Provider Active Start: 2023 End: 2023 Rio Prasad MD Attending Provider Active St art: 2023 End: 2023 Team Status: Inactive Member Role Status [facility] Care Provider Active Start: February 06, 2024 End: February 06, 2024 Rio Prasad MD Attending Provider Active St art: February 06, 2024 End: February 06, 2024 Goals (unrecognized section and content) Goals may be documented in a n alternate sectionGoals may be documented in an alternate sectionGoals may be documented in an alternate sectionGoals may be documented in an alternate sectionGoals may be documented in an alternate section No data available for this sectionGoals may be documented in an alternate section No data available for this sectionGoals may be documented in an alternate sectionGoals may be documented in an alternate sectionGoals may be documented in an alternate section No data available for this section FOR RECORDS PERTAINING TO PATIENTS WHO ARE OR HAVE BEEN ENROLLED IN A CHEMICAL DEPENDENCY/SUBSTANCEABUSE PROGRAM, SOME INFORMATION MAY BE OMITTED. This clinical summary was aggregated from multiple sources. Caution should be exercised in using it in the provision of clinical care. This summary normalizes information from multiple sources, and as a consequence, information in this document may materially change the coding, format and clinical context of patient data. In addition, data may be omitted in some cases. CLINICAL DECISIONS SHOULD BE BASED ON THE PRIMARY CLINICAL RECORDS. [facility] [employer] provides no warranty or guarantee of the accuracy or completeness of information in this document.
--- NOTE | 2024-03-01 08:15 | XR_ITS ---
The [address] [address] Patient Name: JOHN GODWIN MRN: [id number] date: 1965 Sex: M Assigned Patient Location: [facility] Current Patient Location: [facility] Accession/Order Number: [id number] Exam Date: 03/01/2024 08:12 Report Date: 03/01/2024 08:37 At the request of: KASSI MANRIQUEZ Procedure: XR abdomen 1V EXAMINATION: XR abdomen 1V HISTORY: kidney stones COMPARISON: XR abdomen 12/08/2023 FINDINGS: KIDNEY/URETER - RIGHT: No visible renal or ureteral calcifications. KIDNEY/URETER - LEFT: Several small calcifications projecting over left kidney. PELVIS: No appreciable ureteral stones. Stable pelvic calcifications favoring phleboliths. BOWEL: No abnormal dilation or deviation. BONES: No acute abnormality. OTHER: Negative. No abnormal gaseous collections. XR/XR abdomen 1V IMPRESSION: 1. Grossly stable left nephrolithiasis. 2. Clearing of previously seen right kidney stones versus obscured by overlying bowel content. Electronically authenticated by: DAYNE BRYANT Date: 03/01/2024 08:37
[2024-03-01] MEDS: LACTATED RINGER'S SOLUTION 1,000 ML 50 ML IV (08:52)
[2024-03-01] MEDS: CEFAZOLIN SODIUM/DEXTROSE,ISO 2 GM/50 ML PIGGYBACK IV (09:54)
--- NOTE | 2024-03-01 10:42 | PM.URSON ---
Urology Surgery Operative Note Operative Note Procedure Date: 03/01/24 Time Out Performed: yes Pre-op Diagnosis: Left nephrolithiasis Post-op Diagnosis: same as pre-op Procedures performed: 1. Left ESWL. Anesthesia: General-LMA Primary Surgeon: Rio Prasad Complications: None Estimated blood loss (mL): 0 Findings: Dense left nephrolithiasis Specimens: None Drains: None Indications for Procedures: This gentleman has recurrent left nephrolithiasis. He now presents for left ESWL. He has signed an informed consent after risks were explained. Some of these risks include bleeding, perinephric hematoma, infection and anesthesia to name a few. Detailed description of Procedure: The patient was brought to the Operating Room and placed on Siemens electromagnetic lithotripsy treatment table in the supine position. SCDs were placed on their lower extremities and turned on and functioning during the entire case. Timeout was done by all parties in the room. We all agreed upon the patient's identification and the planned procedures for this patient. General Anesthesia was then administered via LMA. Treatment head was then brought to the patient's correct side. While using flourscopy the stones were identified and I lined up the upper pole stones into the crosshairs. We then began applying shocks. We started at a power level of 2.0 and increased to a maximum power level of 3.5. Intermittent fluoroscopy revealed that the stones were very dense. We ended up applying a total of 3000 shocks. We had very minimal fragmentation. The procedure was then terminated. No shocks were applied to the lower pole stone. He was then transferred to a [facility] bed and wheeled to PACU in stable condition. The plan is that we will check a KUB x-ray and we will most likely proceed with ureteroscopic thulium laser lithotripsy.
--- NOTE | 2024-03-01 11:55 | PC.NURSE ---
1155: pt ambulates to bathroom with minimal assistance,pt voids without difficulty. bloody urine,no stone fragments present.
== END 2024-03-01 12:16 | disposition home or self-care (01) ==
PROVIDERS: Visit Provider Urology
PROC: (CPT 873; principal; 2024-03-01 09:30)
DX: N20.0 Calculus of kidney (principal); N40.0 Benign prostatic hyperplasia without lower urinary tract symptoms; R82.994 Hypercalciuria; R82.991 Hypocitraturia; N28.1 Cyst of kidney, acquired; E78.5 Hyperlipidemia, unspecified; I10 Essential (primary) hypertension; I45.6 Pre-excitation syndrome; E66.01 Morbid (severe) obesity due to excess calories; Z68.41 Body mass index [BMI] 40.0-44.9, adult
CPT/HCPCS: 50590; 36415; 74018; J0690; J1100; J1885; J2371; J2704; J3010

== ENCOUNTER 2024-04-27 09:47 | Outpatient (OUT) | payer MEDICAID, SELFPAY ==
--- OUTSIDE RECORDS SUMMARY | 2024-04-27 10:01 | XMS_ITS | CCD ---
Author Organization [facility] Providers Care Outside Cutter Name Role Phone ARLYN LOZA Unavailable Unavailable NO FAMILY DOCTOR, NO FAMILY DOCTOR Unavailable Unavailable RIO PRASAD Admitting Unavailable RIO PRASAD Attending Unavailable REQUEST, NONE LISTED Primary Care Unavailable RIO PRASAD Consulting Unavailable RANI PATTERSON V Consulting Unavailable ENA GALICIA Consulting Unavailable JULIANO PORTER Consulting Unavailable Unavailable Unavailable None, No PCP Unavailable Unavailable [facility], Services Primary Care Provider MD Rio Prasad Attending Provider MD Josias Damon Attending Provider DO Carter Munroe Attending Provider MD Rossy Salinas Other Provider MD Josias Damon Attending Provider [phone] Marie Jay, Dr. Josias King Referring Unava iljanet Damon Jr, Dr. Josias King Attending Unava ilable Marei Jay, Dr. Josias King Attending Unava ilable Marie Jay, Dr. Josias King Referring Unava ilable Dago, Dr. Arlyn Webber Referring Yaquelin vailable Loza, Dr. Arlyn Webber Attending Yaquelin vailable [facility], Services Primary Care Provider [phone] Sridevi [facility]- Marilia Dietrich Emergency Provider [phone] [facility] Services Primary Care Provider MD Rio Prasad Attending Provider MD Arlyn Loza Referring Provider [facility], . Primary Care Physician [facility] Primary Care Provider MD Rio Prasad Attending Provider DO Carter Alvarenga Emergency Provider [phone] [facility] Primary Care Provider MD Rio Prasad Attending Provider Rio PRASAD Attending Unavailable PRASAD, Rio R Attending Unavailable PRASAD, Rio R Attending Unavailable PRASAD, Rio R Attending Unavailable PRASAD, Rio R Attending Unavailable PRASAD, Rio R Attending Unavailable [facility] Primary Care Provider MD Rio Prasad Attending Provider [facility], Services Primary Care Unavaila ble Carter Alvarenga Admitting Unavailable Carter Alvarenga Attending Unavailable Prasad, Rio Attending Unavailable Prasad, Rio Admitting Unavailable [facility] Primary Care Unavaila ble Arlyn Loza Referring Unavailable Prasad, Rio Admitting Unavailable [facility] Primary Care Unavaila ble Prasad, Rio Attending Unavailable [facility] Primary Care Unavaila ble Prasad, Rio Attending Unavailable Prasad, Rio Admitting Unavailable [facility] Primary Care Unavaila ble Prasad, Rio Attending Unavailable Prasad, Rio Admitting Unavailable [facility] Primary Care Unavaila ble Prasad, Rio Attending Unavailable Prasad, Roi Admitting Unavailable [facility] Primary Care Unavaila ble Prasad, Rio Attending Unavailable Prasad, Rio Admitting Unavailable Allergies Allergy Classification Reported Allergen(s) Allergy Type Date of Onset Reaction(s) Facility (11 sources) Lisinopril; Translations: [Lisinopril TABS] Drug Allergy [place] [address] DO Work Phone: (1 source) No Known Medication Allergies; Translations: [No Known Medication Allergies] Propensity to adverse reactions (disorder) [facility] Repository Medications Current Medications Medication Drug Class(es) Dates Sig (Normalized) Sig (Original) acetaminophen 325 mg / oxyCODONE hydrochloride 5 mg oral tablet (17 sources) Opioid Agonist Start: 11-10-2022 take 1 [...] Dihydropyridine Calcium Channel Apple Start: 08-17-2017 take 10 mg by mouth once daily Amlodipine Active 10 MG PO Daily August 17, 2017 1:00am atorvastatin 40 mg oral tablet (20 sources) [...] alpha-Adrenergic Apple, beta-Adrenergic Apple Start: 08-17-2017 take 12.5 mg by mouth twice daily Carvedilol Active 12.5 MG PO Twice daily August 17, 2017 1:00am cephalexin 500 mg oral capsule (4 sources) Cephalosporin Antibacterial Start: 12-13-2023 take 500 mg by mouth twice daily Cephalexin Active 500 MG PO Twice daily 03 06December 13, 2023 12:00am cyclobenzaprine hydrochloride 10 mg oral tablet (10 sources) Muscle Relaxant Start: 03-10-2019 take 10 [...] day(s), # 30 cap(s), Refills(s) 11, Pharmacy: [facility] [id number] [facility], 167, cm, 11/16/23 9:27:00 EDT, Height/Length Dosing, 124.6, kg, 11/16/23 9:27:00 EDT, Weight Dosing Start Date: 11/16/23 Stop Date: 11/10/24 Status: Ordered losartan potassium 100 mg oral tablet (20 sources) Angiotensin 2 Receptor Apple Start: 08-17-2017 take 100 mg by mouth once daily Losartan Active 100 MG PO Daily August 17, 2017 1:00am naproxen 500 mg oral tablet (17 sources) Nonsteroidal Anti-inflammatory Drug Start: 03-10-2019 End: 11-10-2022 take 500 mg by mouth twice daily at mealtime Naproxen Active 500 MG PO Twice daily November 10, 2022 5:46am administer with food or milk ondansetron 4 mg disintegrating oral tablet (7 sources) Serotonin-3 Receptor Antagonist Start: 11-10-2022 take 4 mg by mouth every eight hours Ondansetron Active 4 MG PO Q8H November 10, 2022 12:00am polymyxin b 82326 unt/ml / trimethoprim 1 mg/ml ophthalmic solution (7 sources) Dihydrofolate Reductase Inhibitor Antibacterial, Polymyxin-class Antibacterial Start: 04-09-2023 Polymyxin B Sulf-Trimethoprim (Polytrim) 10,000 unit- 1 mg/mL drops Active 1 DROPS EYE-RIGHT Q3H 10 April 09, 2023 12:00am while awake; do not exceed 6 doses in 24 hours Potassium Bicarb-Citric Acid (10 sources) Start: 12-19-2018 take 25 mEq by mouth once daily Potassium Bicarb-Citric Acid Active 25 MEQ PO Daily December 19, 2018 12:00am Start: 12-19-2018 take 25 mEq by mouth once daily Potassium Bicarb-Citric Acid Active 25 MEQ PO Daily December 18, 2018 11:00pm tamsulosin hydrochloride 0.4 mg oral capsule (7 sources) alpha-Adrenergic Apple Start: 11-10-2022 Tamsu losin (Flomax) 0.4 mg capsule Active 0.4 MG PO Daily November 10, 2022 12:00am administer 30 minutes after same meal each day until stone passes Completed/Discontinued Medications Medication Drug Class(es) Dates Sig (Normalized) Sig (Original) chlorthalidone 25 mg oral tablet (10 sources) Thiazide-like Diuretic Start: 08-17-2017 End: 12-19-2018 [...] omeprazole 20 mg delayed release oral capsule (10 sources) Proton Pump Inhibitor Start: 9 End: [...] day(s), # 180 tab(s), Refills(s) 3, Pharmacy: [facility] [id number] [facility], 167, cm, 11/16/23 9:27:00 EDT, [...] Classification Problem Date Documented Da te Episodic/Chronic Calculus of urinary tract (20 sources) Calculus of kidney; Translations: [Kidney stone] Onset: 7 08-17-2017 Episodic 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) Mfdlk-Sxzeufzhr-Dswzb pattern; 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 Chronic [...] hypertension (2 sources) Essential hypertension Onset: 7 Hyperplasia of prostate (7 sources) Benign prostatic [...] Episodic Other diseases of kidney and ureters (5 sources) Cyst of kidney; Translations: [Cyst of kidney, acquired] 12-13-2023 Episodic Other diseases of kidney and ureters (1 source) Acquired renal cyst without neoplastic change; Translations: [Cyst of kidney, acquired] Onset: 4 Episodic Other gastrointestinal disorders (10 sources) Diarrhea; Translations: [Diarrhea, unspecified] 02-21-2019 Episodic [...] conditions (not mental disorders or infectious disease) (10 sources) Patient encounter status; Translations: [Encounter for screening for malignant neoplasm of colon] 12-19-2018 Episodic Residual codes; unclassified (3 sources) Family history of prostate cancer 01-29-2020 Episodic Spondylosis; intervertebral disc disorders; other back problems (3 sources) Backache 01-29-2020 Episodic Sprains and strains (10 sources) Low back strain; Translations: [Strain of muscle, fascia and tendon of lower back, initial encounter] 03-10-2019 Episodic Superficial injury; contusion (7 sources) Corneal abrasion; Translations: [Injury of conjunctiva and corneal abrasion without foreign body, unspecified eye, initial encounter] 04-09-2023 Episodic Unclassified (1 source) Urine finding 02-14-2024 Unclassified (1 source) Benign prostatic hyperplasia with lower urinary tract symptoms; Translations: [Benign prostatic hyperplasia with lower urinary tract symptoms] Onset: 3 Past or Other Problems Problem Classification Problem Date Documented Da te Episodic/Chronic Abdominal pain (15 sources) Abdominal pain; Translations: [Unspecified abdominal pain] Onset: 12-13-2023 02-21-2019 Episodic Genitourinary symptoms and ill-defined conditions (6 sources) Hypercalciuria; Translations: [Hypercalciuria] Onset: 11-16-2023 Episodic Unclassified (10 sources) Never smoked tobacco; Translations: [Never a smoker] Results Test Name Value Interpretation Reference Range Facility XR KUBon 04-04-2024 XR KUB [facility] [place] [id number] XRay Report Signed Patient: John Smith MR#: [id number] : 1965 Acct:[id number] Age/Sex: 58 / M ADM Date: 04/04/24 Loc: XD Room: Type: [facility] Attending Dr: Rio Prasad MD Copies to: Rio Prasad MD Ordering Provider: Rio Prasad MD Date of Service: 04/04/24 XR/XR KUB: N20.0 Single view of abdomen COMPARISON: 02/06/2024 HISTORY: Follow-up kidney stones THORAX: Lung bases unremarkable. FREE AIR: Supine position limits assessment BOWEL: No gaseous intestinal distention. STOOL: No significant stool RENAL STONES: Similar bilateral nephrolithiasis measuring up to 7 mm. VASCULAR CALCIFICATIONS: Present SOFT TISSUE: Unremarkable BONES: Unremarkable POSTSURGICAL CHANGES: None XR/XR KUB IMPRESSION: Similar bilateral nephrolithiasis Impression dictated by: Americo Godfrey M.D.04/04/2024 2:03 PM Dictation Location: [place] [address] Transcribed By: ABILIO 04/04/24 1403 Dictated By: Americo Godfrey DO 04/04/24 1358 Signed By: 04/04/24 1403 Normal [facility] Ambulatory Visit Summaryon 0 02-15-2024 Ambulatory Visit [...] Rio PRASAD MD Where: [facility] Ambulatory Visit Summary Ambulatory Visit Summary [...] HERNANDEZ, Rio Simons Where: [facility] Urology Office/Clinic Noteon 02-15-2024 Urology Office/Clinic Note [...] ESWL 12/08/23. KUB 12/08/23 - Bilateral nephrolithiasis. [facility] 12/13/23 due to L flank pain. CT AP wo con 12/13/23 - Multiple tiny bilateral renal stones largest L 5 mm. No hydro. No ureteral stones or dilation. KUB 02/06/24 [facility] - Multiple stones in RCSs bilaterally up [...] renal cysts. Follow-up With When Contact Information DECLAN HERNANDEZ, Rio Simons, URL [facility] [address], [place] [address]- Additional Instructions: schedule Left ESWL Patient Education Lithotripsy, Care After Lithotripsy Benign Prostatic Hyperplasia ISoumya, personally scribed for Dr. Prasad on 02/15/2024 [...] Kidney stone Renal cyst, right Renal stones Lgsop-Ihacmlvxk-Nbctk syndrome Historical No qualifying data Procedure/Surgical History ESWL - Extracorporeal shockwave lith (more content not included)... Normal [facility] Comment on above: Result Comment: Elec tronically Signed By: DECLAN HERNANDEZ, Rio Simons\.br\Date and Time Signed: 02/15/24 09:57 EDT\.br\Electronically Co-Signed By: Soumya Rizvi\.br\Date and Time Co-Signed: 02/15/24 09:55 EDT RAD - MISCon 02-07-2024 RAD - MISC [id number] Normal [facility] XR abdomen 1Von 02-06-2024 XR abdomen 1V [facility] [place] [address] [place] [address] XRay Report Signed Patient: John Smith MR#: [id number] : 1965 Acct:[id number] Age/Sex: 58 / M ADM Date: 02/06/24 Loc: XD Room: Type: [facility] Attending Dr: Rio Prasad MD Copies to: [...] Drew Purcell M.D.02/06/2024 12:10 PM Dictation Location: [place] [address] Transcribed By: [facility] 02/06/24 1210 Dictated By: Drew Purcell II, MD 02/06/24 1205 Signed By: 02/06/24 1210 Normal [facility] Lab Reportson 12-23-2023 Lab Reports [id number] Normal [facility] Carbon dioxide, total [Moles /volume] in Serum or PlasmaOrdered By: Rio Prasad on 2023 CO2 [Moles/Vol] 32.2 mmol/L High 21.0-31.0 [facility] Comment on above: Performed By: #### L YTES ####[place] [address] [place] [id number] [place] Chloride [Moles/volume] in S new or PlasmaOrdered By: Rio Prasad on 2023 Chloride [Moles/Vol] 103 mmol/L Normal 98-107 [facility] Comment on above: Performed By: #### L YTES ####[place] [address] [place] [address] [place] Potassium [Moles/volume] in Serum or PlasmaOrdered By: Rio Prasad on 2023 Potassium [Moles/Vol] 4.1 mmol/L Normal 3.5-5.1 [facility] Comment on above: Performed By: #### L YTES ####[address] [address] [place] Serum or plasma anion gap de terminationOrdered By: Rio Prasad on 2023 Anion gap [Moles/Vol] 7.9 mmol/L Normal 6.0-15.0 [facility] Comment on above: Result Comment: PERF ORMED BY: [facility] [address] [place] [address] PATHOLOGIST LEATHER SPRAYER LANI GEORGE M.D. Performed By: #### L STEPHEN ####[address] Sodium [Moles/volume] in Ser um or PlasmaOrdered By: Rio Prasad on 2023 Sodium [Moles/Vol] 139 mmol/L Normal 136-145 [facility] Comment on above: Performed By: #### L STEPHEN ####[address] Alanine aminotransferase [En zymatic activity/volume] in Serum or PlasmaOrdered By: Carter Alvarenga on 12-13-2023 ALT [Catalytic activity/Vol] 35 U/L Normal 7-52 [facility] Comment on above: Performed By: #### C BC, HEPATIC, BMP, LIPASE ####[address] Albumin [Mass/volume] in Ser um or Plasma by Bromocresol green (BCG) dye binding methoOrdered By: Carter Alvarenga on 12-13-2023 Albumin BCG dye [Mass/Vol] 4.5 g/dL 3.5-5.7 [facility] Alkaline phosphatase [Enzyma tic activity/volume] in Serum or PlasmaOrdered By: Carter Alvarenga on 12-13-2023 ALP [Catalytic activity/Vol] 104 U/L Normal 34-104 [facility] Comment on above: Performed By: #### C BC, HEPATIC, BMP, LIPASE ####[address] Aspartate aminotransferase [ Enzymatic activity/volume] in Serum or PlasmaOrdered By: Carter Alvarenga on 12-13-2023 AST [Catalytic activity/Vol] 18 U/L Normal 13-39 [facility] Comment on above: Performed By: #### C BC, HEPATIC, BMP, LIPASE ####[address] Automated basophil %Ordered By: Carter Alvarenga on 12-13-2023 Basophils/100 WBC (Bld) 0.6 % Normal . [facility] Comment on above: Performed By: #### C BC, HEPATIC, BMP, LIPASE ####[place] [id number] [address] Automated basophil countOrde red By: Carter Alvarenga on 12-13-2023 Basophils (Bld) [#/Vol] 0.1 10*3/uL Normal 0.0-0.2 [facility] Comment on above: Result Comment: PERF ORMED BY: [facility] [address] [place] [address] PATHOLOGIST LEATHER SPRAYER LANI GEORGE M.D. Performed By: #### C BC, HEPATIC, BMP, LIPASE ####[address] Automated blood monocyte cou ntOrdered By: Carter Alvarenga on 12-13-2023 Monocytes (Bld) [#/Vol] 0.6 10*3/uL Normal 0.0-0.8 [facility] Comment on above: Performed By: #### C BC, HEPATIC, BMP, LIPASE ####[address] Automated eosinophil %Ordere d By: Carter Alvarenga on 12-13-2023 Eosinophils/100 WBC (Bld) 2.7 % Normal . [facility] Comment on above: Performed By: #### C BC, HEPATIC, BMP, LIPASE ####[address] Automated eosinophil countOr dered By: Carter Alvarenga on 12-13-2023 Eosinophils (Bld) [#/Vol] 0.4 10*3/uL Normal 0.0-0.45 [facility] Comment on above: Performed By: #### C BC, HEPATIC, BMP, LIPASE ####[address] Automated erythrocytes count in urine sediment (number/area)Ordered By: Carter Alvarenga on 12-13-2023 RBC Auto (Urine sed) [#/Area] Innumerable [HPF] 0-4 [facility] Automated leukocytes count i n urine sediment (number/area)Ordered By: Carter Alvarenga on 12-13-2023 WBC Auto (Urine sed) [#/Area] 1-2 [HPF] 0-4 [facility] Automated monocyte %Ordered By: Carter Alvarenga on 12-13-2023 Monocytes/100 WBC (Bld) 4.3 % Normal . [facility] Comment on above: Performed By: #### C BC, HEPATIC, BMP, LIPASE ####[facility] [id number] Automated neutrophil %Ordere d By: Carter Alvarenga on 12-13-2023 Neutrophils/100 WBC (Bld) 52.5 % Normal . [facility] Comment on above: Performed By: #### C BC, HEPATIC, BMP, LIPASE ####[place] [address] [address] Automated urine color determ inationOrdered By: Carter Alvarenga on 12-13-2023 Color (U) Yellow Normal Yellow [facility] Comment on above: Order Comment: Name Collection Type:: Clean-Voided Midstream Performed By: #### A DDONUAPLUS #### [facility] [address] Basic Metabolic Panelon 11-15 Creatinine Clr Calc Pharmacy 85.43 Normal [facility] Comment on above: Performed By: #### C BC, HEPATIC, BMP, LIPASE ####[facility] GFR/1.73 sq M.predicted MDRD (S/P/Bld) [Vol rate/Area] mL/min/{1.73_m2} Normal [facility] Comment on above: Performed By: #### C BC, HEPATIC, BMP, LIPASE ####[facility] [id number] Bilirubin Test strip Ql (U)O rdered By: Carter Alvarenga on 12-13-2023 Bilirubin Ql (U) Negative Negative [facility] Bilirubin.direct [Mass/volum e] in Serum or PlasmaOrdered By: Carter Alvarenga on 12-13-2023 Bilirubin.direct [Mass/Vol] 0.20 mg/dL 0.03-0.18 [facility] Bilirubin.total [Mass/volume ] in Serum or PlasmaOrdered By: Carter Alvarenga on 12-13-2023 Bilirubin [Mass/Vol] 1.2 mg/dL High 0.3-1.0 [facility] Comment on above: Performed By: #### C BC, HEPATIC, BMP, LIPASE ####[facility] [id number] [place] [id number] [place] CT abdomen pelvis wo conon 0 12-13-2023 CT abdomen pelvis wo con [facility] [place] [address] [place] [id number] Scan Report Signed Patient: John Smith MR#: [id number] : 1965 Acct:[id number] Age/Sex: 57 / M ADM Date: 12/13/23 Loc: ER Room: Type: [facility] ER Attending Dr: Copies to: Carter Alvarenga [...] Ros Mendiola M.D.12/13/2023 4:46 PM Dictation Location: [place] [address] Transcribed By: [facility] 12/13/23 1646 Dictated By: Ros Mendiola MD 12/13/23 1633 Signed By: 12/13/23 1646 Normal [facility] Calcium [Mass/volume] in Ser um or PlasmaOrdered By: Carter Alvarenga on 12-13-2023 Calcium [Mass/Vol] 10.0 mg/dL Normal 8.6-10.3 [facility] Comment on above: Performed By: #### C BC, HEPATIC, BMP, LIPASE ####[facility] [id number] Carbon dioxide, total [Moles /volume] in Serum or PlasmaOrdered By: Carter Alvarenga on 12-13-2023 CO2 [Moles/Vol] 30.4 mmol/L Normal 21.0-31.0 [facility] Comment on above: Performed By: #### C BC, HEPATIC, BMP, LIPASE ####[facility] [id number] [place] [id number] [place] Chloride [Moles/volume] in S new or PlasmaOrdered By: Carter Alvarenga on 12-13-2023 Chloride [Moles/Vol] 104 mmol/L Normal 98-107 [facility] Comment on above: Performed By: #### C BC, HEPATIC, BMP, LIPASE ####[address] Complete Blood Count Auto Di ffon 12-13-2023 Mean Corpuscular HGB Conc 33.1 g/dL Normal 32.5-35.6 [facility] Comment on above: Performed By: #### C BC, HEPATIC, BMP, LIPASE ####[address] Monocytes/100 WBC (Bld) 16.76 % Normal 0.00-20.00 [facility] Comment on above: Performed By: #### C BC, HEPATIC, BMP, LIPASE ####[address] NRBC% 0.3 /100{WBC} Normal 0-0.5 [facility] Comment on above: Performed By: #### C BC, HEPATIC, BMP, LIPASE ####[address] Creatinine [Mass/volume] in Serum or PlasmaOrdered By: Carter Alvarenga on 12-13-2023 Creatinine [Mass/Vol] 1.16 mg/dL Normal 0.70-1.30 [facility] Comment on above: Performed By: #### C BC, HEPATIC, BMP, LIPASE ####[address] Dipstick and Microscopicon 0 12-13-2023 Appearance (U) Clear Normal Clear [facility] Comment on above: Order Comment: Name Collection Type:: Clean-Voided Midstream Performed By: #### A DDONUAPLUS #### [facility] [address] Bacteria,Urine None Seen Normal None Seen [facility] Comment on above: Order Comment: Name Collection Type:: Clean-Voided Midstream Performed By: #### A DDONUAPLUS #### [facility] [address] Bilirubin,Urine Negative Normal Negative [facility] Comment on above: Order Comment: Name Collection Type:: Clean-Voided Midstream Performed By: #### A DDONUAPLUS #### [address] Glucose Ql (U) Normal Normal Normal [facility] Comment on above: Order Comment: Name Collection Type:: Clean-Voided Midstream Performed By: #### A DDONUAPLUS #### [place] [address] [place] Hyaline Casts,Urine None Seen Normal 0-8 [facility] Comment on above: Order Comment: Name Collection Type:: Clean-Voided Midstream Result Comment: PERF ORMED BY: [place] [address] PATHOLOGIST LEATHER SPRAYER LANI GEORGE M.D. Performed By: #### A DDONUAPLUS #### [address] Ketones Ql (U) Negative Normal Negative [facility] Comment on above: Order Comment: Name Collection Type:: Clean-Voided Midstream Performed By: #### A DDONUAPLUS #### [place] [address] [place] Leukocyte esterase Test strip Ql (U) Negative Normal Negative [facility] Comment on above: Order Comment: Name Collection Type:: Clean-Voided Midstream Performed By: #### A DDONUAPLUS #### [place] [address] [place] Nitrite,Urine Negative Normal Negative [facility] Comment on above: Order Comment: Name Collection Type:: Clean-Voided Midstream Performed By: #### A DDONUAPLUS #### [place] [address] [place] Occult Blood,Urine 3+ High Negative [facility] Comment on above: Order Comment: Name Collection Type:: Clean-Voided Midstream Result Comment: PERF ORMED BY: [place] [address] PATHOLOGIST LEATHER SPRAYER JIANLAN SUN M.D. Performed By: #### A DDONUAPLUS #### [address] Protein,Urine Negative Normal Negative [facility] Comment on above: Order Comment: Name Collection Type:: Clean-Voided Midstream Performed By: #### A DDONUAPLUS #### [address] RBC,Urine Innumerable High 0-4 [facility] Comment on above: Order Comment: Name Collection Type:: Clean-Voided Midstream Performed By: #### A DDONUAPLUS #### [address] Specificy [place],Urine 1.020 Normal 1.001-1.030 [facility] Comment on above: Order Comment: Name Collection Type:: Clean-Voided Midstream Performed By: #### A DDONUAPLUS #### [address] Squamous Epithelial Cell,Urine None Seen Normal 0-2 [facility] Comment on above: Order Comment: Name Collection Type:: Clean-Voided Midstream Performed By: #### A DDONUAPLUS #### [address] Urobilinogen,Urine Normal Normal Normal [facility] Comment on above: Order Comment: Name Collection Type:: Clean-Voided Midstream Performed By: #### A DDONUAPLUS #### [address] WBC,Urine 1-2 Normal 0-4 [facility] Comment on above: Order Comment: Name Collection Type:: Clean-Voided Midstream Performed By: #### A DDONUAPLUS #### [address] Erythrocyte distribution wid th [Ratio] by Automated countOrdered By: Carter Alvarenga on 12-13-2023 Erythrocyte distribution width (RBC) [Ratio] 14.4 % Normal 12.0-14.8 [facility] Comment on above: Performed By: #### C BC, HEPATIC, BMP, LIPASE ####[place] [id number] [address] Erythrocytes [#/volume] in B lood by Automated countOrdered By: Carter Alvarenga on 12-13-2023 RBC (Bld) [#/Vol] 5.62 10*6/uL High 3.90-5.60 [facility] Comment on above: Performed By: #### C BC, HEPATIC, BMP, LIPASE ####[address] Glucose [Mass/volume] in Ser um or PlasmaOrdered By: Carter Alvarenga on 12-13-2023 Glucose [Mass/Vol] 91 mg/dL Normal 70-100 [facility] Comment on above: ADA recommended refe rence rangeRandom Glucose Reference Range is dependent on time and content of last meal. Glucose of more than 200 mg/dL in a nonstressed, ambulatory subject supports the diagnosis of Diabetes Mellitus. Result Comment: [place] Glucose Reference Range is dependent on time and content of last meal. Glucose of more than 200 mg/dL in a nonstressed, ambulatory subject supports the diagnosis of Diabetes Mellitus. ADA recommended reference range Performed By: #### C BC, HEPATIC, BMP, LIPASE ####[place] [id number] [place] Hematocrit [Volume Fraction] of Blood by Automated countOrdered By: Carter Alvarenga on 12-13-2023 Hematocrit (Bld) [Volume fraction] 49.1 % Normal 38.8-50.0 [facility] Comment on above: Performed By: #### C BC, HEPATIC, BMP, LIPASE ####[place] [id number] [place] Hemoglobin [Mass/volume] in BloodOrdered By: Carter Alvarenga on 12-13-2023 Hemoglobin (Bld) [Mass/Vol] 16.3 g/dL Normal 13.0-17.0 [facility] Comment on above: Performed By: #### C BC, HEPATIC, BMP, LIPASE ####[place] [id number] [place] Hepatic Panelon 12-13-2023 Albumin [Mass/Vol] 4.5 g/dL Normal 3.5-5.7 [facility] Comment on above: Performed By: #### C BC, HEPATIC, BMP, LIPASE ####[place] [address] [address] Bilirubin,Indirect 1.0 mg/dL Normal [facility] Comment on above: Performed By: #### C BC, HEPATIC, BMP, LIPASE ####[place] [address] Bilirubin.indirect [Mass/Vol] 0.20 mg/dL High 0.03-0.18 [facility] Comment on above: Performed By: #### C BC, HEPATIC, BMP, LIPASE ####[place] [address] [address] Ketones Auto test strip (U) [Mass/Vol]Ordered By: Carter Alvarenga on 12-13-2023 Ketones (U) [Mass/Vol] Negative Negative [facility] Laboratory - UrinalysisOrder ed By: Carter Alvarenga on 12-13-2023 Hyaline casts LM Ql (Urine sed) None seen [LPF] 0-8 [facility] Leukocytes [#/volume] correc yvonne for nucleated erythrocytes in Blood by Automated counOrdered By: Carter Alvarenga on 12-13-2023 WBC corrected for nucl RBC Auto (Bld) [#/Vol] 14.6 10*3/uL 4.1-10.5 [facility] Leukocytes [#/volume] in Blo od by Automated countOrdered By: Carter Alvarenga on 12-13-2023 WBC (Bld) [#/Vol] 14.6 10*3/uL High 4.1-10.5 [facility] Comment on above: Performed By: #### C BC, HEPATIC, BMP, LIPASE ####[place] [address] [address] Lipase [Enzymatic activity/v olume] in Serum or PlasmaOrdered By: Carter Alvarenga on 12-13-2023 Lipase [Catalytic activity/Vol] 7.0 U/L Low 11.0-82.0 [facility] Comment on above: Result Comment: PERF ORMED BY: [facility] [address] [place] [address] PATHOLOGIST LEATHER SPRAYER LANI GEORGE M.D. Performed By: #### C BC, HEPATIC, BMP, LIPASE ####[place] [address] [address] Lymphocytes [#/volume] in Bl ood by Automated countOrdered By: Carter Alvarenga on 12-13-2023 Lymphocytes (Bld) [#/Vol] 5.8 10*3/uL High 1.00-4.8 [facility] Comment on above: Performed By: #### C BC, HEPATIC, BMP, LIPASE ####[address] Lymphocytes/100 leukocytes i n Blood by Automated countOrdered By: Carter Alvarenga on 12-13-2023 Lymphocytes/100 WBC (Bld) 39.9 % Normal . [facility] Comment on above: Performed By: #### C BC, HEPATIC, BMP, LIPASE ####[address] MCH [Entitic mass] by Automa yvonne countOrdered By: Carter Alvarenga on 12-13-2023 MCH (RBC) [Entitic mass] 28.9 pg Normal 27.5-35.2 [facility] Comment on above: Performed By: #### C BC, HEPATIC, BMP, LIPASE ####[address] MCHC Auto (RBC) [Mass/Vol]Or dered By: Carter Alvarenga on 12-13-2023 MCHC (RBC) [Mass/Vol] 33.1 g/dL 32.5-35.6 [facility] MCV [Entitic volume] by Auto mated countOrdered By: Carter Alvarenga on 12-13-2023 MCV (RBC) [Entitic vol] 87.3 fL Normal 83.5-101 [facility] Comment on above: Performed By: #### C BC, HEPATIC, BMP, LIPASE ####[address] Monocyte distribution width [Entitic volume] in Blood by AutomatedOrdered By: Carter Alvarenga on 12-13-2023 Monocyte distribution width Auto (Bld) [Entitic vol] 16.76 % 0.00-20.00 [facility] Neutrophils [#/volume] in Bl ood by Automated countOrdered By: Carter Alvarenga on 12-13-2023 Neutrophils (Bld) [#/Vol] 7.7 10*3/uL Normal 1.8-7.7 [facility] Comment on above: Performed By: #### C BC, HEPATIC, BMP, LIPASE ####[facility] [id number] [address] Nitrite Test strip Ql (U)Ord ered By: Carter Alvarenga on 12-13-2023 Nitrite Ql (U) Negative Negative [facility] No Panel InformationOrdered By: Carter Alvarenga on 12-13-2023 Estimated GFR (CKD-EPI) > 60.0 mL/Min [facility] Creatinine Clearance (Chem 85.43 [facility] Nucleated erythrocytes [Pres ence] in Blood by Automated countOrdered By: Carter Alvarenga on 12-13-2023 Nucleated RBC Auto Ql (Bld) 0.3 /100{WBC} 0-0.5 [facility] Platelet mean volume [Entiti c volume] in Blood by Automated countOrdered By: Carter Alvarenga on 12-13-2023 Platelet mean volume (Bld) [Entitic vol] 9.2 fL Normal 6.6-10.1 [facility] Comment on above: Performed By: #### C BC, HEPATIC, BMP, LIPASE ####[facility] [id number] Platelets [#/volume] in Bloo d by Automated countOrdered By: Carter Alvarenga on 12-13-2023 Platelets (Bld) [#/Vol] 256 10*3/uL Normal 150-450 [facility] Comment on above: Performed By: #### C BC, HEPATIC, BMP, LIPASE ####[place] [address] [place] [id number] [place] Potassium [Moles/volume] in Serum or PlasmaOrdered By: Carter Alvarenga on 04-30-2024 Potassium [Moles/Vol] 3.9 mmol/L Normal 3.5-5.1 [facility] Comment on above: Performed By: #### C BC, HEPATIC, BMP, LIPASE ####[place] [address] [address] Protein Auto test strip (U) [Mass/Vol]Ordered By: Carter Alvarenga on 12-13-2023 Protein (U) [Mass/Vol] Negative Negative [facility] Protein [Mass/volume] in Ser um or PlasmaOrdered By: Carter Alvarenga on 12-13-2023 Protein [Mass/Vol] 7.6 g/dL Normal 6.4-8.9 [facility] Comment on above: Performed By: #### C BC, HEPATIC, BMP, LIPASE ####[address] Serum globulin measurement b y calculation (mass/volume)Ordered By: Carter Alvarenga on 12-13-2023 Globulin (S) [Mass/Vol] 3.1 g/dL Normal [facility] Comment on above: Performed By: #### C BC, HEPATIC, BMP, LIPASE ####[address] Serum or plasma albumin/glob ulin mass ratioOrdered By: Carter Alvarenga on 12-13-2023 Albumin/Globulin [Mass ratio] 1.5 {ratio} [facility] Comment on above: Performed By: #### C BC, HEPATIC, BMP, LIPASE ####[address] Serum or plasma anion gap de terminationOrdered By: Carter Alvarenga on 12-13-2023 Anion gap [Moles/Vol] 8.5 mmol/L Normal 6.0-15.0 [facility] Comment on above: Performed By: #### C BC, HEPATIC, BMP, LIPASE ####[address] Serum or plasma non-glucuron idated bilirubin measurement (mass/volume)Ordered By: Carter Alvarenga on 12-13-2023 Bilirubin.indirect [Mass/Vol] 1.0 mg/dL [facility] Sodium [Moles/volume] in Ser um or PlasmaOrdered By: Carter Alvarenga on 12-13-2023 Sodium [Moles/Vol] 139 mmol/L Normal 136-145 [facility] Comment on above: Performed By: #### C BC, HEPATIC, BMP, LIPASE ####[facility] [id number] [place] [id number] [place] Specific gravity Auto test s trip (U) [Rel density]Ordered By: Carter Alvarenga on 12-13-2023 Specific gravity (U) [Rel density] 1.020 1.001-1.030 [facility] Squamous epithelial cells de tection in urine sediment by light microscopyOrdered By: Carter Alvarenga on 12-13-2023 Epithelial cells.squamous LM Ql (Urine sed) None seen [HPF] 0-2 [facility] Urea nitrogen [Mass/volume] in Serum or PlasmaOrdered By: Carter Alvarenga on 12-13-2023 Urea nitrogen [Mass/Vol] 20 mg/dL Normal 7-25 [facility] Comment on above: Performed By: #### C BC, HEPATIC, BMP, LIPASE ####[place] [address] [address] Urine bacteria detection by automated methodOrdered By: Carter Alvarenga on 12-13-2023 Bacteria Auto Ql (U) None seen [HPF] None Seen [facility] Urine clarity by refractomet ry automatedOrdered By: Carter Alvarenga on 12-13-2023 Clarity Refractometry automated (U) Clear Clear [facility] Urine glucose measurement by automated test strip (mass/volume)Ordered By: Carter Alvarenga on 12-13-2023 Glucose Auto test strip (U) [Mass/Vol] Normal mg/dL Normal [facility] Urine hemoglobin detection b y automated test stripOrdered By: Carter Alvarenga on 12-13-2023 Hemoglobin Auto test strip Ql (U) 3+ Negative [facility] Urine leukocyte esterase det ection by automated test stripOrdered By: Carter Alvarenga on 12-13-2023 Leukocyte esterase Auto test strip Ql (U) Negative Negative [facility] Urine pH measurement by auto mated test stripOrdered By: Carter Alvarenga on 12-13-2023 pH (U) 7.0 [pH] Normal 5.0-9.0 [facility] Comment on above: Order Comment: Name Collection Type:: Clean-Voided Midstream Performed By: #### A DDONUAPLUS #### [facility] [address] [place] [id number] [place] Urobilinogen Auto test strip (U) [Mass/Vol]Ordered By: Carter Alvarenga on 12-13-2023 Urobilinogen (U) [Mass/Vol] Normal mg/dL Normal [facility] RAD - MISCon 12-09-2023 RAD - MIS [id number]#1.00TIFF Normal [facility] Operative Reporton Operative Report [id number]#1.00TIFF Normal [facility] Lab Reportson 12-06-2023 Lab Reports [id number]#1.00TIFF Normal [facility] ECG 12-Leadon 11-30-2023 ECG 12-Lead [id number]#1.00TIFF Normal [facility] RAD - MISCon 11-30-2023 RAD - MISC [id number]#1.00TIFF Normal [facility] Lab Reportson 11-28-2023 Lab Reports [id number]#1.00TIFF Normal [facility] Patient Correspondenceon Patient Correspondence [id number]#1.00TIFF Normal [facility] Consent for Procedure/Surger yon 11-17-2023 Consent for Procedure/Surgery [id number]#1.00TIFF Normal [facility] Ambulatory Visit Summaryon 0 11-16-2023 Ambulatory Visit Summary JOHN SMITH :1965 Visit Date:11/16/2023 Ambulatory Visit Instructions Your Diagnosis BPH (benign prostatic hyperplasia) Kidney stone Hypercalciuria Your Care Team Attending Physician - Rio [...] HERNANDEZ, Rio Simons Where: [facility] Patient Educationon 11-16-19 Patient Education Nephrology Lithotripsy, [...] these instructions at home: Medicines ? Take bgif-mnk-avyhzbq and prescription medicines only as told by [...] care p (more content not included)... Normal [facility] Screenson 11-16-2023 Screens [id number]#1.00TIFF Normal [facility] Urology Office/Clinic Noteon 11-16-2023 Urology Office/Clinic Note [...] appt in July 2024 OV w/1yr PSA. [place] [facility] [place] Dysuria: denies pain and burning Incomplete [...] from his pharmacy. Another rx sent to [facility] in [employer]. Doesn't add salt to food. [...] mg qd. SEs discussed. Rx sent to [facility] in [employer]. -Electrolyte panel in one month. Follow-up With When Contact Information DECLAN HERNANDEZ, Rio Simons, [facility] [address], [place] [address]- Additional Instructions: schedule R ESWL Patient Education Lithotripsy, Care After Lithotripsy ISoumya, personally scribed for Dr. Prasad on 11/16/2023 10:15:33. . Documentation recorded by the scribe, Soumya Rizvi, accurately reflects the services(s) I performed and decisions made by me. Authenticated by Dr. Prasad on 11/16/2023 10:17:20. Problem List/Past Medical History Ongoing Back pain BMI 40.0-44.9, adult BPH (benign prostatic hyperplasia) Family history of prostate cancer Heart disease Hypercalciuria Hyperlipemia Hypertension Kidney stone Renal stones Qkpgm-Fboroxbeg-Ctskx syndrome Historical No qualifying data Procedure/Surgical History [...] BID, 3 ref (more content not included)... Normal [facility] Comment on above: Result Comment: Elec tronically Signed By: DECLAN HERNANDEZ, Rio Simons\.br\Date and Time Signed: 11/16/23 10:17 EDT\.br\Electronically Co-Signed By: Soumya Rizvi\.br\Date and Time Co-Signed: 11/16/23 10:15 EDT RAD - MISCon 11-10-2023 RAD - MISC [id number]#1.00TIFF Normal [facility] XR abdomen 1Von 11-09-2023 XR abdomen 1V [facility] [place] [address] XRay Report Signed Patient: John Smith MR#: [id number] : 1965 Acct:[id number] Age/Sex: 57 / M ADM Date: 11/09/23 Loc: XD Room: Type: [facility] Attending Dr: Rio Prasad MD Copies to: [...] KIDNEY. Impression dictated by: Narciso Mckeon Jr., D.O.11/09/2023 1:05 PM Dictation Location: [place] [address] Transcribed By: [facility] 11/09/23 1305 Dictated By: Narciso Mckeon Jr, DO 11/09/23 1304 Signed By: 11/09/23 1305 Normal [facility] Lab Reportson 10-17-2023 Lab Reports [id number]#1.00TIFF Normal [facility] Lab Reportson 10-13-2023 Lab Reports [id number] Normal [facility] Lab Reports [id number]#1.00TIFF Normal [facility] 24 Hr Urine Uric Acidon 09-16 Uric Acid, 24 Hr Urine 739.8 Normal 197.2-1078.7 [facility] Comment on above: Order Comment: URINE VOLUME (MILLILTERS): 2750 Result Comment: Perf ormed at: - [facility] [place] [address] Bee Tender: Garrison Pate PhD, Phone: [phone] Performed By: #### P HOS 24HRU, URIC 24HRU, MAG 24HRU, U24 CA, CITRIC UR ####[facility] ,#### CREA24, U24 NA, COL T V ####[facility] Urine Uric Acid 26.9 mg/dL Normal Not Estab. [facility] Comment on above: Order Comment: URINE VOLUME (MILLILTERS): 2750 Performed By: #### P HOS 24HRU, URIC 24HRU, MAG 24HRU, U24 CA, CITRIC UR ####[facility] ,#### CREA24, U24 NA, COL T V ####[place] [address] [address] 24 hour urine sodium measure ment (moles/time)Ordered By: Rio Prasad on 10-12-2023 Sodium (24H U) [Moles/Time] 297 mmol/24 40-220 [facility] 24 hour urine uric acid ivette urement (mass/time)Ordered By: Rio Prasad on 10-12-2023 Urate (24H U) [Mass/Time] 739.8 mg/24 hr 197.2-1078.7 [facility] Comment on above: Performed at: [address] [id number] Director: Garrison Pate PhD, Phone: [phone] CT biopsyOrdered By: Rio Prasad on 10-12-2023 CT biopsy 24 Hours [facility] Calcium [Mass/time] in 24 ho ur UrineOrdered By: Rio Prasad on 10-12-2023 Calcium (24H U) [Mass/Time] 421 mg/24 hr 0-320 [facility] Calcium [Mass/volume] in 24 hour UrineOrdered By: Rio Prasad on 10-12-2023 Calcium (24H U) [Mass/Vol] 15.3 mg/dL Not Estab. [facility] Calcium [Mass/volume] in Ser um or PlasmaOrdered By: Rio Prasad on 10-12-2023 Calcium [Mass/Vol] 8.9 mg/dL Normal 8.6-10.3 [facility] Comment on above: Performed By: #### U NAMRATA, CREAT, PTH, BUN, LYTES, CA #### [facility] [address] [place] [address] [place] Calcium, 24Hr Urineon 2023 Calcium, Urine 15.3 mg/dL Normal Not Estab. [facility] Comment on above: Order Comment: URINE VOLUME (MILLILTERS): 2750 Performed By: #### P HOS 24HRU, URIC 24HRU, MAG 24HRU, U24 CA, CITRIC UR ####[facility] ,#### CREA24, U24 NA, COL T V ####[facility] [address] [place] [address] [place] Calcium, Urine 24 Hr 421 High 0-320 [facility] Comment on above: Order Comment: URINE VOLUME (MILLILTERS): 2750 Performed By: #### P HOS 24HRU, URIC 24HRU, MAG 24HRU, U24 CA, CITRIC UR ####[facility] ,#### CREA24, U24 NA, COL T V ####[facility] [place] [id number] [place] Carbon dioxide, total [Moles /volume] in Serum or PlasmaOrdered By: Rio Prasad on 10-12-2023 CO2 [Moles/Vol] 28.4 mmol/L Normal 21.0-31.0 [facility] Comment on above: Performed By: #### U NAMRATA, CREAT, PTH, BUN, LYTES, CA #### [facility] [address] [place] [address] [place] Chloride [Moles/volume] in S new or PlasmaOrdered By: Rio Prasad on 10-12-2023 Chloride [Moles/Vol] 106 mmol/L Normal 98-107 [facility] Comment on above: Performed By: #### U NAMRATA, CREAT, PTH, BUN, LYTES, CA #### [facility] [address] [place] [address] [place] Citric Acid, Urine, 24 Houro n 10-12-2023 Citric Acid, Urine 189 mg/L Normal Undefined [facility] Comment on above: Order Comment: URINE VOLUME (MILLILTERS): 2750 Result Comment: This test was developed and its performance characteristics determined by [facility]. It has not been cleared or approved by the Food and Drug Administration. Performed By: #### P HOS 24HRU, URIC 24HRU, MAG 24HRU, U24 CA, CITRIC UR ####[facility] ,#### CREA24, U24 NA, COL T V ####[facility] [place] [id number] [place] Citric Acid, Urine, 24HR 520 Normal 320-1240 [facility] Comment on above: Order Comment: URINE VOLUME (MILLILTERS): 2750 Result Comment: Perf ormed at: - [facility] [id number] Bee Tender: Ammon Dalton MD, Phone: [phone] PERFORMED BY: [place] [address] PATHOLOGIST LEATHER SPRAYER LANI GEORGE M.D. Performed By: #### P HOS 24HRU, URIC 24HRU, MAG 24HRU, U24 CA, CITRIC UR ####[facility] ,#### CREA24, U24 NA, COL T V ####[address] Carlos Alberto Time and Vol 24 hr uron 10-12-2023 Total Volume, Urine 2750 Normal [facility] Comment on above: Order Comment: URINE COLLECTION TIME (HRS): 24 URINE VOLUME (MILLILTERS): 2750 Result Comment: PERF ORMED BY: [place] [address] PATHOLOGIST LEATHER SPRAYER LANI GEORGE M.D. Performed By: #### P HOS 24HRU, URIC 24HRU, MAG 24HRU, U24 CA, CITRIC UR ####[facility] ,#### CREA24, U24 NA, COL T V ####[address] Urine Collection Time 24 Normal [facility] Comment on above: Order Comment: URINE COLLECTION TIME (HRS): 24 URINE VOLUME (MILLILTERS): 2750 Performed By: #### P HOS 24HRU, URIC 24HRU, MAG 24HRU, U24 CA, CITRIC UR ####[facility] ,#### CREA24, U24 NA, COL T V ####[address] Creatinineon 10-12-2023 GFR/1.73 sq M.predicted MDRD (S/P/Bld) [Vol rate/Area] mL/min/{1.73_m2} Normal [facility] Comment on above: Performed By: #### U NAMRATA, CREAT, PTH, BUN, LYTES, CA #### [facility] [address] [place] [id number] [place] Creatinine [Mass/volume] in Serum or PlasmaOrdered By: Rio Prasad on 10-12-2023 Creatinine [Mass/Vol] 0.99 mg/dL Normal 0.70-1.30 [facility] Comment on above: Performed By: #### U NAMRATA, CREAT, PTH, BUN, LYTES, CA #### [facility] [address] [place] [id number] [place] Creatinine [Mass/volume] in UrineOrdered By: Rio Prasad on 10-12-2023 Creatinine (U) [Mass/Vol] 68.00 mg/dL 14.00-26.00 [facility] Creatinine, 24 Hr Urineon Creatinine 24 Hour, Urine 1.87 g/24_hr Normal 1.00-2.09 [facility] Comment on above: Order Comment: URINE COLLECTION TIME (HRS): 24 URINE VOLUME (MILLILTERS): 2750 Performed By: #### P HOS 24HRU, URIC 24HRU, MAG 24HRU, U24 CA, CITRIC UR ####[facility] ,#### CREA24, U24 NA, COL T V ####[facility] [place] [address] [place] Creatinine, Urine 68.00 mg/dL High 14.00-26.00 [facility] Comment on above: Order Comment: URINE COLLECTION TIME (HRS): 24 URINE VOLUME (MILLILTERS): 2750 Performed By: #### P HOS 24HRU, URIC 24HRU, MAG 24HRU, U24 CA, CITRIC UR ####[facility] ,#### CREA24, U24 NA, COL T V ####[facility] [place] [id number] [place] Magnesium [Mass/time] in 24 hour UrineOrdered By: Rio Prasad on 10-12-2023 Magnesium (24H U) [Mass/Time] 151.3 mg/24 hr 12.0-293.0 [facility] Comment on above: Performed at: [facility] Phyllis sparks[address] [id number] Director: Garrison Pate PhD, Phone: [phone] Magnesium [Mass/volume] in U rineOrdered By: Rio Prasad on 10-12-2023 Magnesium (U) [Mass/Vol] 5.5 mg/dL Not Estab. [facility] Magnesium, Urine 24Hron 09-16 Magnesium, 24Hr Urine 151.3 Normal 12.0-293.0 [facility] Comment on above: Order Comment: URINE VOLUME (MILLILTERS): 2750 Result Comment: Perf ormed at: - [facility] [address] [id number] Bee Tender: Garrison Pate PhD, Phone: [phone] Performed By: #### P HOS 24HRU, URIC 24HRU, MAG 24HRU, U24 CA, CITRIC UR ####[facility] ,#### CREA24, U24 NA, COL T V ####[place] [address] [address] Magnesium, Urine 5.5 mg/dL Normal Not Estab. [facility] Comment on above: Order Comment: URINE VOLUME (MILLILTERS): 2750 Performed By: #### P HOS 24HRU, URIC 24HRU, MAG 24HRU, U24 CA, CITRIC UR ####[facility] ,#### CREA24, U24 NA, COL T V ####[address] No Panel InformationOrdered By: Rio Prasad on 10-12-2023 Estimated GFR (CKD-EPI) > 60.0 mL/Min [facility] Creatinine Clearance (Chem N/A [facility] Urine Citric Acid 189 mg/L Undefined [facility] Comment on above: This test was develo ped and its performance characteristicsdetermined by [facility]. It has not been cleared orapproved by the Food and Drug Administration. Urine Citric Acid 24 Hour 520 mg/24 hr 320-1240 [facility] Comment on above: Performed at: [address] [id number] Director: Ammon Dalton MD, Phone: [phone] Urine Creatinine 24 Hour 1.87 g/24 hr 1.00-2.09 [facility] Parathyrin.intact [Mass/volu me] in Serum or PlasmaOrdered By: Rio Prasad on 10-12-2023 Parathyrin.intact [Mass/Vol] 76.2 pg/mL [facility] Parathyroid Hormone Intacton 10-12-2023 Parathyroid Hormone Intact 76.2 pg/mL Normal [facility] Comment on above: Result Comment: PERF ORMED BY: [facility] [address] [place] [address] PATHOLOGIST LEATHER SPRAYER LANI GEORGE M.D. Performed By: #### U NAMRATA, CREAT, PTH, BUN, LYTES, CA ####[facility] [address] [place] [address] [place] Phosphate [Mass/time] in 24 hour UrineOrdered By: Rio Prasad on 10-12-2023 Phosphate (24H U) [Mass/Time] 1367 mg/24 hr 390-1425 [facility] Phosphate [Mass/volume] in U rineOrdered By: Rio Prasad on 10-12-2023 Phosphate (U) [Mass/Vol] 49.7 mg/dL Not Estab. [facility] Phosphorus, 24Hr Urineon Phosphorous, Urine 49.7 mg/dL Normal Not Estab. [facility] Comment on above: Order Comment: URINE VOLUME (MILLILTERS): 2750 Performed By: #### P HOS 24HRU, URIC 24HRU, MAG 24HRU, U24 CA, CITRIC UR ####[facility] ,#### CREA24, U24 NA, COL T V ####[facility] [address] [place] [address] [place] Phosphorus, Urine 24Hr 1367 Normal [phone] [facility] Comment on above: Order Comment: URINE VOLUME (MILLILTERS): 2750 Performed By: #### P HOS 24HRU, URIC 24HRU, MAG 24HRU, U24 CA, CITRIC UR ####[facility] ,#### CREA24, U24 NA, COL T V ####[facility] [place] [address] [place] Potassium [Moles/volume] in Serum or PlasmaOrdered By: Rio Prasad on 10-12-2023 Potassium [Moles/Vol] 4.2 mmol/L Normal 3.5-5.1 [facility] Comment on above: Performed By: #### U NAMRATA, CREAT, PTH, BUN, LYTES, CA #### [facility] [address] Serum or plasma anion gap de terminationOrdered By: Rio Prasad on 10-12-2023 Anion gap [Moles/Vol] 9.8 mmol/L Normal 6.0-15.0 [facility] Comment on above: Performed By: #### U NAMRATA, CREAT, PTH, BUN, LYTES, CA #### [facility] [address] [place] [address] [place] Sodium [Moles/volume] in Ser um or PlasmaOrdered By: Rio Prasad on 10-12-2023 Sodium [Moles/Vol] 140 mmol/L Normal 136-145 [facility] Comment on above: Performed By: #### U NAMRATA, CREAT, PTH, BUN, LYTES, CA #### [facility] [address] [place] [address] Sodium [Moles/volume] in Uri neOrdered By: Rio Prasad on 10-12-2023 Sodium (U) [Moles/Vol] 108.0 mmol/L Normal [facility] Comment on above: No reference range e stablished Order Comment: URINE COLLECTION TIME (HRS): 24 URINE VOLUME (MILLILTERS): 2750 Result Comment: No r eference range established Performed By: #### P HOS 24HRU, URIC 24HRU, MAG 24HRU, U24 CA, CITRIC UR ####[facility] ,#### CREA24, U24 NA, COL T V ####[place] [address] [place] Sodium, 24 Hr Urineon 2023 Sodium 24 Hour Urine 297 High 40-220 [facility] Comment on above: Order Comment: URINE COLLECTION TIME (HRS): 24 URINE VOLUME (MILLILTERS): 2750 Performed By: #### P HOS 24HRU, URIC 24HRU, MAG 24HRU, U24 CA, CITRIC UR ####[facility] ,#### CREA24, U24 NA, COL T V ####[facility] [address] [place] [id number] [place] Urate [Mass/volume] in Serum or PlasmaOrdered By: Rio Prasad on 10-12-2023 Urate [Mass/Vol] 4.6 mg/dL Normal 4.4-7.6 [facility] Comment on above: Result Comment: PERF ORMED BY: [facility] [address] [place] [address] PATHOLOGIST LEATHER SPRAYER LANI GEORGE M.D. Performed By: #### U NAMRATA, CREAT, PTH, BUN, LYTES, CA #### [facility] [address] [place] [id number] [place] Urea nitrogen [Mass/volume] in Serum or PlasmaOrdered By: Rio Prasad on 10-12-2023 Urea nitrogen [Mass/Vol] 19 mg/dL Normal 7-25 [facility] Comment on above: Performed By: #### U NAMRATA, CREAT, PTH, BUN, LYTES, CA #### [facility] [address] [place] [id number] [place] Urine uric acid measurement (mass/volume)Ordered By: Rio Prasad on 10-12-2023 Urate (U) [Mass/Vol] 26.9 mg/dL Not Estab. [facility] Urine volume measurementOrde red By: Rio Prasad on 10-12-2023 Specimen volume (U) 2750 ml [facility] Screenson 07-21-2023 Screens [id number] Normal [facility] Ambulatory Visit Summaryon 1 09-20-2022 Ambulatory Visit Summary JOHN SMITH :1965 Visit Date:07/20/2023 Ambulatory Visit Instructions Your Diagnosis BPH (benign prostatic hyperplasia) Kidney stone Tests Performed XR Abdomen 1 View -- Results Pending -- Please visit your patient portal for your results or contact your primary care physician. Your Care Team Attending Physician - Rio PRASAD MD [facility], . This Is Your Medications List [...] Rio PRASAD MD Where: [facility] Normal [address] [place] [address]- \.br\ You Need to Schedule the Following Appointments\ .br\ Follow Up with Rio PRASAD MD, URL When: \.br\ Where:\.br\ [facility] [address] [place]\.br\ [place] [address]-\.br\ Medications\. br\ What How Much When Instructions\ .br\ Changed potassium bicarbonate (Klor-Con/ EF 25 mEq oral tablet, effervescent) 1 Tablets By Mouth 2 times a day Duration: 90 Days [facility]\.br\ Unchanged amlodipine (amLODIPine 10 mg [...] questions or concerns \.br\ Pharmacy Information\. br\ [facility]: [address] [phone]\.br\ Allergies\.br \ No Known Medication Allergies\.br \ [...] and drink normally.\.br \ ? \.br\ Take qoog-kes-onkf ter and prescription medicines only as told by your health care provider.\.br \ ? \.br\ Let your health care provider know about any medicines that you are taking, including awcm-ozd-jlwb ter medicines, vitamins, herbs, and supplements.\ .br\ [...] \ Document Revised: 02/05/2022 Document Reviewed: 02/05/2022 [employer] Patient Education ? 2022 [employer].\.br\ \.br\ [facility] Patient Educationon 07-20-20 Patient Education Urology 24-Hour [...] may eat and drink normally. ? Take uyhv-tpq-ojuboub and prescription medicines only as told by your health care provider. ? Let your health care provider know about any medicines that you are taking, including bchi-hro-gnqlbbj medicines, vitamins, herbs, and supplements. ? Choose [...] provider. Document Revised: 02/05/2022 Document Reviewed: 02/05/2022 [employer] Patient Education ? 2022 [employer]. Two[employer] [facility] Urology Office/Clinic Noteon 07-20-2023 Urology Office/Clinic Note Chief Complaint 1 year follow up HPI Staff 1 year follow up w/PSA. Current PSA 0.590 done 07/11/23, previous PSA 0.810 done 07/07/22. Previous DX: BPH w/ obstruction/lower urinary tract symptoms, family history of prostate cancer, kidney stone, renal stone. S/P ESWL done on 08/11/17. *Klor- Con 25MEQ BID-need refill sent to [facility]. Pt unalbe to give urine sample. [...] Klor-Con 25 mEq BID. [facility]. Pt passed 3 mm stone back in November, went to ER. Stone was ID'd via xray. Last met workup 2020. Given stone episode while on stone prevention med, will repeat met workup. Follow up 4 mos with KUB and met workup or sooner if needed. Pt understands and agrees with plan. Follow-up With When Contact Information DECLAN HERNANDEZ, Rio R, URL [facility] [address], [place] [address]- Additional Instructions: 4 mos with KUB and met workup, then PSA and OV with FRANSISCO in 1 yr Patient Education 24-Hour Urine Collection Soumya Gaalviz, personally scribed for Dr. Prasad on 07/20/2023 [...] disease Hyperlipemia Hypertension Kidney stone Renal stones Ehjph-Enevwzfqd-Ukeyg syndrome Historical No qualifying data Procedure/Surgical History [...] virus vaccine, inactivated 06/07/2022 Recorded SARS-CoV-2 (COVID-19) [id number] 06/07/2022 Recorded SARS-CoV-2 (COVID-19) mRNA BNT-162b2 vax 08/03/2021 Recorded influenza virus vaccine, inactivated 04/29/2021 Recorded SARS-CoV-2 (COVID-19) Ad26 vaccine 12/16/2020 Re (more content not included)... Normal [facility] Comment on above: Result Comment: Elec tronically Signed By: Rio PRASAD MD\.br\Date and Time Signed: 07/20/23 09:13 EST\.br\Electronically Co-Signed By: Soumya Rizvi\.br\Date and Time Co-Signed: 07/20/23 09:12 EST Lab Reportson 07-12-2023 Lab Reports [id number] Normal [facility] Alanine aminotransferase [En zymatic activity/volume] in Serum or PlasmaOrdered By: Arlyn Loza on 07-11-2023 ALT [Catalytic activity/Vol] 27 U/L Normal 7-52 [facility] Comment on above: Performed By: #### B MP, ALT, LIPID, AST ####[address] [place] [address] [place] Aspartate aminotransferase [ Enzymatic activity/volume] in Serum or PlasmaOrdered By: Arlyn Loza on 07-11-2023 AST [Catalytic activity/Vol] 20 U/L Normal 13-39 [facility] Comment on above: Performed By: #### B MP, ALT, LIPID, AST ####[place] [id number] [place] Basic Metabolic Panelon 06-16 GFR/1.73 sq M.predicted MDRD (S/P/Bld) [Vol rate/Area] mL/min/{1.73_m2} Normal [facility] Comment on above: Performed By: #### B MP, ALT, LIPID, AST ####[place] [id number] [place] Calcium [Mass/volume] in Ser um or PlasmaOrdered By: Arlyn Loza on 07-11-2023 Calcium [Mass/Vol] 9.3 mg/dL Normal 8.6-10.3 [facility] Comment on above: Performed By: #### B MP, ALT, LIPID, AST ####[place] [id number] [place] Carbon dioxide, total [Moles /volume] in Serum or PlasmaOrdered By: Arlyn Loza on 07-11-2023 CO2 [Moles/Vol] 30.7 mmol/L Normal 21.0-31.0 [facility] Comment on above: Performed By: #### B MP, ALT, LIPID, AST ####[place] [id number] [place] Chloride [Moles/volume] in S new or PlasmaOrdered By: Arlyn Loza on 07-11-2023 Chloride [Moles/Vol] 104 mmol/L Normal 98-107 [facility] Comment on above: Performed By: #### B MP, ALT, LIPID, AST ####[facility] [address] [place] [id number] [place] Cholesterol [Mass/volume] in Serum or PlasmaOrdered By: Arlyn Loza on 07-11-2023 Cholesterol [Mass/Vol] 172 mg/dL Normal 140-200 [facility] Comment on above: Chol less than 200 m g/dl low riskChol 201-239 mg/dl borderline riskChol 240 mg/dl and greater high risk Result Comment: Chol less than 200 mg/dl low risk Chol 201-239 mg/dl borderline risk Chol 240 mg/dl and greater high risk Performed By: #### B MP, ALT, LIPID, AST ####[facility] [address] [place] [id number] [place] Cholesterol in LDL Calc [Mas s/Vol]Ordered By: Arlyn Loza on 07-11-2023 Cholesterol in LDL [Mass/Vol] 86 mg/dL 0-100 [facility] Comment on above: LDL ATP III CLASSIFI CATIONLDL less than 100 mg/dL OptimalLDL 100-129 mg/dL Near or above optimalLDL 130-159 mg/dL Borderline highLDL 160-189 mg/dL HighLDL greater than 189 mg/dL Very high Cholesterol in VLDL Calc [Ma ss/Vol]Ordered By: Arlyn Loza on 07-11-2023 Cholesterol in VLDL [Mass/Vol] 35 mg/dL [facility] Creatinine [Mass/volume] in Serum or PlasmaOrdered By: Arlyn Loza on 07-11-2023 Creatinine [Mass/Vol] 1.04 mg/dL Normal 0.70-1.30 [facility] Comment on above: Performed By: #### B MP, ALT, LIPID, AST ####[facility] [id number] [place] [id number] [place] Glucose [Mass/volume] in Ser um or PlasmaOrdered By: Arlyn Loza on 07-11-2023 Glucose [Mass/Vol] 97 mg/dL Normal 70-100 [facility] Comment on above: ADA recommended refe rence rangeRandom Glucose Reference Range is dependent on time and content of last meal. Glucose of more than 200 mg/dL in a nonstressed, ambulatory subject supports the diagnosis of Diabetes Mellitus. Result Comment: [facility] Glucose Reference Range is dependent on time and content of last meal. Glucose of more than 200 mg/dL in a nonstressed, ambulatory subject supports the diagnosis of Diabetes Mellitus. ADA recommended reference range Performed By: #### B MP, ALT, LIPID, AST ####[place] [address] Lipid Panelon 07-11-2023 LDL Cholesterol,Calculate d 86 mg/dL Normal 0-100 [facility] Comment on above: Result Comment: LDL ATP III CLASSIFICATION LDL less than 100 mg/dL Optimal LDL 100-129 mg/dL Near or above optimal LDL 130-159 mg/dL Borderline high LDL 160-189 mg/dL High LDL greater than 189 mg/dL Very high Performed By: #### B MP, ALT, LIPID, AST ####[place] [address] Triglyceride w/Reflex 179 mg/dL High 0-149 [facility] Comment on above: Result Comment: TRIG ATP III CLASSIFICATION TRIG less than 150 mg/dL Normal TRIG 150-199 mg/dL Borderline high TRIG 200-500 mg/dL High TRIG greater than 500 mg/dL Very high Standard traceable to the Center for Disease Conrtrol and Prevention (CDC) test method. Performed By: #### B MP, ALT, LIPID, AST ####[address] VLDL CHOLESTEROL 35 mg/dL Normal [facility] Comment on above: Performed By: #### B MP, ALT, LIPID, AST ####[place] [address] No Panel InformationOrdered By: Arlyn Loza on 07-11-2023 Estimated GFR (CKD-EPI) > 60.0 mL/Min [facility] Creatinine Clearance (Chem N/A [facility] PSA Total (Not a Screen)on 09-10-2022 PSA Total (Not a Screen) 0.590 ng/mL Normal 0.000-4.000 [facility] Comment on above: Result Comment: PERF ORMED BY: [facility] [address] [place] [address] PATHOLOGIST LEATHER SPRAYER LANI GEORGE M.D. Performed By: #### P SATOTAL #### [facility] [address] Potassium [Moles/volume] in Serum or PlasmaOrdered By: Arlyn Loza on 07-11-2023 Potassium [Moles/Vol] 4.5 mmol/L Normal 3.5-5.1 [facility] Comment on above: Performed By: #### B MP, ALT, LIPID, AST ####[place] [address] Prostate specific Ag [Mass/v olume] in Serum or PlasmaOrdered By: Rio Prasad on 07-11-2023 Prostate specific Ag [Mass/Vol] 0.590 ng/mL 0.000-4.000 [facility] Serum or plasma anion gap de terminationOrdered By: Arlyn Loza on 07-11-2023 Anion gap [Moles/Vol] 11.8 mmol/L Normal 6.0-15.0 [facility] Comment on above: Performed By: #### B MP, ALT, LIPID, AST ####[place] [address] Serum or plasma high density lipoprotein (HDL) cholesterol measurementOrdered By: Arlyn Loza on 07-11-2023 Cholesterol in HDL [Mass/Vol] 50 mg/dL Normal 23-92 [facility] Comment on above: HDL CHOL ATP-III CLA SSIFICATION Cardiovascular RiskHDL > or equal to 60 mg/dL LOWHDL < 40 mg/dL HIGH Result Comment: HDL CHOL ATP-III CLASSIFICATION Cardiovascular Risk HDL > or equal to 60 mg/dL LOW HDL < 40 mg/dL HIGH Performed By: #### B MP, ALT, LIPID, AST ####[place] [address] Serum or plasma total choles terol/high density lipoprotein (HDL) cholesterol mass ratOrdered By: Arlyn Loza on 11-27-2023 Cholesterol.total/Cho lesterol in HDL [Mass ratio] 3.4 {ratio} Normal <5.0 [facility] Comment on above: Result Comment: PERF ORMED BY: [facility] [address] [id number] PATHOLOGIST LEATHER SPRAYER LANI GEORGE M.D. Performed By: #### B MP, ALT, LIPID, AST ####[place] [address] [place] [id number] [place] Sodium [Moles/volume] in Ser um or PlasmaOrdered By: Arlny Loza on 07-11-2023 Sodium [Moles/Vol] 142 mmol/L Normal 136-145 [facility] Comment on above: Performed By: #### B MP, ALT, LIPID, AST ####[place] [address] [place] [id number] [place] Triglyceride [Mass/volume] i n Serum or PlasmaOrdered By: Arlyn Loza on 07-11-2023 Triglyceride [Mass/Vol] 179 mg/dL 0-149 [facility] Comment on above: TRIG ATP III CLASSIF ICATIONTRIG less than 150 mg/dL NormalTRIG 150-199 mg/dL Borderline highTRIG 200-500 mg/dL High TRIG greater than 500 mg/dL Very highStandard traceable to the Center for Disease Conrtrol and Prevention (CDC) test method. 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) Diabetes (250.00) (E11.9) Morbid obesity with BMI of 40.0-44.9, adult (278.01,V85.41) (E66.01,Z68.41) Nephrolithiasis (592.0) (N20.0) Orders Benign essential hypertension IO EKG Electrocardiogram- 12 Lead; Status:Complete; Done: [id number] Benign essential hypertension, Hyperlipidemia ALT - Alanine Aminotransferase, Serum; Status:Active - Retrospective Authorization; Requested for:[id number]; AST; Status:Active - Retrospective Authorization; Requested for:[id number]; Basic Metabolic Panel; Status:Active - Retrospective Authorization; Requested for:[id number]; Lipid Panel; Status:Active - Retrospective Authorization; Requested for:[id number]; Morbid obesity with BMI of 40.0-44.9, adult Healthy Weight Tips; Status:Complete - Retrospective Authorization; Done: [id number] Some eating tips that can help you lose weight.; Status:Complete - Retrospective Authorization; Done: [id number] Patient Instructions Please bring all medicines, vitamins, [...] to kidney stones 6. Diabetes managed by [facility] and stable Arlyn Loza MD, [facility] Surgical History Problems History of Complete colonoscopy [...] negative for complaint. Vitals Vital Signs Recorded: [id number] 08:44AM Heart Rate60, L Radial Ykzsnsel907, LUE, Sitting Shxgegext38, LUE, Sitting Height5 ft 6 in Nrmjxq060 lb BMI Zhxogeoiaj70.45 kg/m2 BSA Calculated2.25 Tobacco Useb) No PHQ-2 [...] by : (more content not included)... Normal [employer] Tobacco Screening.on 023 Adult depression screening assessment No [facility] [employer] norma 250 DO Work Phone: Tobacco use status [facility] b) No -[facility] norma 250 DO Work Phone: Established Visit [...] resuming activities as tolerated. He can take nkne-akt-xpxrwna anti-inflammatory medications if needed. Follow-up as needed Questions answered . 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 [facility] Cholesterol [Mass/volume] in Serum or PlasmaOrdered By: Rossy Salinas on 08-09-2022 Cholesterol [Mass/Vol] 200 mg/dL 140-200 [facility] Comment on above: Chol less than 200 m g/dl low riskChol 201-239 mg/dl borderline riskChol 240 mg/dl and greater high risk Cholesterol in LDL Calc [Mas s/Vol]Ordered By: Rossy Salinas on 08-09-2022 Cholesterol in LDL [Mass/Vol] 106 mg/dL 0-100 [facility] Comment on above: LDL ATP III CLASSIFI CATIONLDL less than 100 mg/dL OptimalLDL 100-129 mg/dL Near or above optimalLDL 130-159 mg/dL Borderline highLDL 160-189 mg/dL HighLDL greater than 189 mg/dL Very high Cholesterol in VLDL Calc [Ma ss/Vol]Ordered By: Rossy Salinas on 08-09-2022 Cholesterol in VLDL [Mass/Vol] 41 mg/dL [facility] Creatinine [Mass/volume] in UrineOrdered By: Rossy Salinas on 08-09-2022 Creatinine (U) [Mass/Vol] 112.2 mg/dL [facility] Comment on above: No reference range e stablished Creatinine and Glomerular fi ltration rate.predicted panel (S/P/Bld)Ordered By: Rossy Salinas on 08-09-2022 Creatinine [Mass/Vol] 1.11 mg/dL 0.64-1.27 [facility] Eosinophils Auto (Bld) [#/Vo l]Ordered By: Rossy Salinas on 08-09-2022 Eosinophils (Bld) [#/Vol] 0.4 10*3/uL 0.0-0.45 [facility] Eosinophils/100 WBC Auto (Bl d)Ordered By: Rossy Salinas on 08-09-2022 Eosinophils/100 WBC (Bld) 4.3 % . [facility] Erythrocyte distribution wid th Auto (RBC) [Ratio]Ordered By: Rossy Salinas on 08-09-2022 Erythrocyte distribution width (RBC) [Ratio] 14.3 % 12.0-14.8 [facility] Estimated glomerular filtrat ion rate (GFR) non- AmericanOrdered By: Rossy Salinas on 08-09-2022 GFR/1.73 sq M.predicted among non-blacks MDRD (S/P/Bld) [Vol rate/Area] > 60 mL/Min [facility] Globulin Calc (S) [Mass/Vol] Ordered By: Rossy Salinas on 08-09-2022 Globulin (S) [Mass/Vol] 2.9 g/dL [facility] Hematocrit Auto (Bld) [Volum e fraction]Ordered By: Rossy Salinas on 08-09-2022 Hematocrit (Bld) [Volume fraction] 47.2 % 38.8-50.0 [facility] Hemoglobin [Mass/volume] in BloodOrdered By: Rossy Salinas on 08-09-2022 Hemoglobin (Bld) [Mass/Vol] 15.6 g/dL 13.0-17.0 [facility] Leukocytes [#/volume] correc yvonne for nucleated erythrocytes in Blood by Automated counOrdered By: Rossy Salinas on 08-09-2022 WBC corrected for nucl RBC Auto (Bld) [#/Vol] 10.2 10*3/uL 4.1-10.5 [facility] Lymphocytes Auto (Bld) [#/Vo l]Ordered By: Rossy Salinas on 08-09-2022 Lymphocytes (Bld) [#/Vol] 3.9 10*3/uL 1.00-4.8 [facility] Lymphocytes/100 WBC Auto (Bl d)Ordered By: Rossy Salinas on 08-09-2022 Lymphocytes/100 WBC (Bld) 38.1 % . [facility] MCH Auto (RBC) [Entitic mass ]Ordered By: Rossy Salinas on 08-09-2022 MCH (RBC) [Entitic mass] 29.6 pg 27.5-35.2 [facility] MCHC Auto (RBC) [Mass/Vol]Or dered By: Rossy Salinas on 08-09-2022 MCHC (RBC) [Mass/Vol] 33.0 g/dL 32.5-35.6 [facility] MCV Auto (RBC) [Entitic vol] Ordered By: Rossy Chaparroser on 08-09-2022 MCV (RBC) [Entitic vol] 89.6 fL 83.5-101 [facility] Monocytes Auto (Bld) [#/Vol] Ordered By: Rossy Linton on 08-09-2022 Monocytes (Bld) [#/Vol] 0.6 10*3/uL 0.0-0.8 [facility] Monocytes/100 WBC Auto (Bld) Ordered By: Rossy Brad on 08-09-2022 Monocytes/100 WBC (Bld) 5.9 % . [facility] Neutrophils Auto (Bld) [#/Vo l]Ordered By: Rossy Brad on 08-09-2022 Neutrophils (Bld) [#/Vol] 5.2 10*3/uL 1.8-7.7 [facility] Neutrophils/100 WBC Auto (Bl d)Ordered By: Rossy Brad on 08-09-2022 Neutrophils/100 WBC (Bld) 50.8 % . [facility] No Panel InformationOrdered By: Rossy Salinas on 08-09-2022 25-Hydroxy Vitamin D Total 21.6 ng/mL 30-100 [facility] Comment on above: VITAMIN D STATUS 25( [place])VITAMIN D RANGE (ng/mL) Deficient <20 Insufficient 20 to <30Sufficient 30 to 100Reference: Brody MF,Jani NC, Irvin DEJESUS, et al. Evaluation,treatment, and prevention of vitamin D deficiency; an Endocrine Society clinical practice guideline. JCEM. 2010; 96(7):1911-30. Estimated GFR () > 60 mL/Min [facility] Comment on above: GFR estimated refere nce range: According to KDOQI guidelines, <60 ml/min/1.73m2 is sufficient to diagnose a patient with chronic kidney disease. Pharmacy Creatinine Clearance (Chem N/A [facility] Nucleated erythrocytes [Pres ence] in Blood by Automated countOrdered By: Rossy Salinas on 08-09-2022 Nucleated RBC Auto Ql (Bld) 0.1 /100{WBC} 0-0.5 [facility] Platelet mean volume Auto (B ld) [Entitic vol]Ordered By: Rossy Salinas on 08-09-2022 Platelet mean volume (Bld) [Entitic vol] 9.3 fL 6.6-10.1 [facility] Platelets Auto (Bld) [#/Vol] Ordered By: Rossy Salinas on 08-09-2022 Platelets (Bld) [#/Vol] 235 10*3/uL 150-450 [facility] Protein [Mass/volume] in Ser um or PlasmaOrdered By: Rossy Salinas on 08-09-2022 Protein [Mass/Vol] 7.0 g/dL 6.1-7.9 [facility] RBC Auto (Bld) [#/Vol]Ordere d By: Rossy Salinas on 08-09-2022 RBC (Bld) [#/Vol] 5.27 10*6/uL 3.90-5.60 [facility] Serum or plasma alanine weldon otransferase measurement without P-5'-P (enzymatic activiOrdered By: Rossy Salinas on 08-09-2022 ALT No additional P-5'-P [Catalytic activity/Vol] 35 U/L 1060 [facility] Serum or plasma albumin/glob ulin mass ratioOrdered By: Rossy Salinas on 08-09-2022 Albumin/Globulin [Mass ratio] 1.4 {ratio} [facility] Serum or plasma alkaline linda sphatase measurement (enzymatic activity/volume)Ordered By: Rossy Salinas on 08-09-2022 ALP [Catalytic activity/Vol] 89 U/L 32-92 [facility] Serum or plasma anion gap de terminationOrdered By: Rossy Salinas on 08-09-2022 Anion gap [Moles/Vol] 12.1 mmol/L 6.0-15.0 [facility] Serum or plasma aspartate am inotransferase measurement (enzymatic activity/volume)Ordered By: Rossy Salinas on 08-09-2022 AST [Catalytic activity/Vol] 21 U/L 1042 [facility] Serum or plasma calcium ivette urement (mass/volume)Ordered By: Rossy Salinas on 08-09-2022 Calcium [Mass/Vol] 9.6 mg/dL 8.2-10.2 [facility] Serum or plasma chloride kenan surement (moles/volume)Ordered By: Rossy Salinas on 08-09-2022 Chloride [Moles/Vol] 105 mmol/L 95-114 [facility] Serum or plasma glucose ivette urement (mass/volume)Ordered By: Rossy Salinas on 08-09-2022 Glucose [Mass/Vol] 93 mg/dL 70-100 [facility] Comment on above: ADA recommended refe rence rangeRandom Glucose Reference Range is dependent on time and content of last meal. Glucose of more than 200 mg/dL in a nonstressed, ambulatory subject supports the diagnosis of Diabetes Mellitus. Serum or plasma high density lipoprotein (HDL) cholesterol measurementOrdered By: Rossy Salinas on 08-09-2022 Cholesterol in HDL [Mass/Vol] 53 mg/dL 29-71 [facility] Comment on above: HDL CHOL ATP-III CLA SSIFICATION Cardiovascular RiskHDL > or equal to 60 mg/dL LOWHDL < 40 mg/dL HIGH Serum or plasma potassium me asurement (moles/volume)Ordered By: Rossy Salinas on 08-09-2022 Potassium [Moles/Vol] 4.1 mmol/L 3.5-5.1 [facility] Serum or plasma sodium measu rement (moles/volume)Ordered By: Rossy Salinas on 08-09-2022 Sodium [Moles/Vol] 138 mmol/L 136-146 [facility] Serum or plasma total biliru bin measurement (mass/volume)Ordered By: Rossy Salinas on 08-09-2022 Bilirubin [Mass/Vol] 0.9 mg/dL 0.3-1.2 [facility] Serum or plasma total carbon dioxide measurement (moles/volume)Ordered By: Rossy Salinas on 08-09-2022 CO2 [Moles/Vol] 25.0 mmol/L 22.0-30.0 [facility] Serum or plasma total choles terol/high density lipoprotein (HDL) cholesterol mass ratOrdered By: Rossy Salinas on 08-09-2022 Cholesterol.total/Cho lesterol in HDL [Mass ratio] 3.8 {ratio} <5.0 [facility] Serum or plasma urea nitroge n measurement (mass/volume)Ordered By: Rossy Salinas on 08-09-2022 Urea nitrogen [Mass/Vol] 15 mg/dL 9-23 [facility] Triglyceride [Mass/volume] i n Serum or PlasmaOrdered By: Rossy Salinas on 08-09-2022 Triglyceride [Mass/Vol] 205 mg/dL 35-149 [facility] Comment on above: TRIG ATP III [...] 20 mg/L (U) [Mass/Vol] 0.7 mg/dL 0.0-1.8 [facility] Urine microalbumin/creatinin e mass ratioOrdered By: Rossy Salinas on 08-09-2022 Albumin/Creatinine DL <= 20 mg/L (U) [Mass ratio] 6.0 mg/g 0.0-30.0 [facility] Comment on above: 30-300 mg/g indicate s an increased risk for diabetic nephropathy. Greater than 300 mg/g is consistent with clinical nephropathy. (Am. J. Kidney Disease 1994, 25:107) WBC Auto (Bld) [#/Vol]Ordere d By: Rossy Salinas on 08-09-2022 WBC (Bld) [#/Vol] 10.2 10*3/uL 4.1-10.5 [facility] Initial Visit (Orthopaedic S urgery)on 07-27-2022 Initial Visit (Orthopaedic Surgery) Orders Patellar tendinitis of right knee Start: Meloxicam 15 MG Oral Tablet; one tablet daily with food Physical Therapy - General Referral Evaluation and Treatment Evaluate AND Treat Status: Hold For - Scheduling,Retrospective Authorization Requested for: [id number] Basic Hinged Knee; Status:Canceled - Retrospective Authorization,Data wrong; Basic Hinged Knee; Status:Need Information - Financial Authorization,Retrospecti ve Authorization; Requested for:[id number]; Chief Complaint Right knee pain xrays today [...] (719.46) (M25.561) Vitamin D deficiency (268.9) (E55.9) Ywlvy-Vjvzlpfbt-Nsqvq 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 Vitals Vital Signs Recorded: [id number] 09:28AM Height5 ft 6 in Uwdngl503 lb BMI Ysdvahxwpm34.58 kg/m2 BSA Calculated2.27 Signatures Electronically signed by : Josias Damon MD; Jul 27 2022 11:04AM EST (Author) Normal [facility] KNEE CMPLT, [facility]-27[facility]2022 KNEE CMPLT, 4 OR MORE VIEWS Patient Name: JOHN SMITH STUDY: KNEE; COMPLT, 4 OR MORE VIEWS; Right; 07/27/2022 9:37 am INDICATION: pain M25.561: Right knee pain, unspecified chronicity. ACCESSION NUMBER(S): [id number] ORDERING CLINICIAN: JOSIAS DAMON FINDINGS: Right knee films are negative for fracture, dislocation or destructive the joint spaces are maintained. There is some heterotopic bone seen in the patellar tendon. There is an intramedullary nail seen in the superior portion of the tibia. No evidence of hardware failure is appreciated. Electronically signed by: JOSIAS DAMON MD Normal [facility] Radiologyon 07-27-2022 XR Knee 4 Views Normal [facility] DO Work Phone: No Panel InformationOrdered By: Rio Prasad on 07-07-2022 Prostate Specific Antigen Total 0.810 ng/mL 0.000-4.000 [facility] XR Knee Complete Right*on XR Knee [...] by MARCEL VILLEGAS on 03/12/2022 1226 Normal [facility] [employer] Tobacco Screening.on 022 Adult depression screening assessment No [facility] [employer] DO Work Phone: Tobacco use status CPHS b) No [facility] [employer] 250 DO Work Phone: ALT (SGPT)on 02-16-2017 Alanine aminotransferase (ALT) 40 U/L Normal 10-52 [facility] Healthcare Comment on above: Performed By: #### [id number] ####[facility] [address] [place] [address] AST (SGOT)on 02-16-2017 Aspartate aminotransferase (AST) 27 U/L Normal 13-39 [facility] Healthcare Comment on above: Performed By: #### 1 [id number] ####[facility] [address] [place] [address] Vital Signs Date Time Vital Sign Value Performing Clinician [facility] 02-15-2024 09:09-0400 Blood Pressure Location Rio PRASAD [facility] 02-15-2024 09:09-0400 Body temperature 98.6 [degF] Rio PRASAD [facility] 02-15-2024 09:09-0400 Diastolic blood pressure 81 mm[Hg] Rioannemarie PRASAD [facility] 02-15-2024 09:09-0400 Heart rate 72 /min Rio PRASAD [facility] 02-15-2024 09:09-0400 Respiratory rate 16 /min Rio PRASAD [facility] 02-15-2024 09:09-0400 Systolic blood pressure 131 mm[Hg] Rio PRASAD [facility] 12-13-2023 18:54-0400 Diastolic blood pressure 92 mm[Hg] [facility] Work Phone: [facility] 12-13-2023 18:54-0400 Heart rate 75 /min [facility] Work Phone: [facility] 12-13-2023 18:54-0400 Respiratory rate 16 /min [facility] Work Phone: [facility] 12-13-2023 18:54-0400 SaO2% (BldA) [Mass fraction] 97 % [facility] Work Phone: [facility] 12-13-2023 18:54-0400 Systolic blood pressure 155 mm[Hg] [facility] Work Phone: [facility] 12-13-2023 14:25-0400 Body height 165.1 cm [facility] Work Phone: [facility] 12-13-2023 14:25-0400 Body temperature 97.7 [degF] [facility] Work Phone: [facility] 12-13-2023 14:25-0400 Body weight 117.6 kg [facility] Work Phone: [facility] 11-16-2023 10:25-0400 Diastolic blood pressure 80 mm[Hg] Rio PRASAD [facility] 11-16-2023 10:25-0400 Heart rate 62 /min Rio PRASAD [facility] 11-16-2023 10:25-0400 Mean blood pressure 99 mm[Hg] Rio PRASAD [facility] 11-16-2023 10:25-0400 Systolic blood pressure 136 mm[Hg] Rio PRASAD [facility] 11-16-2023 09:10-0400 Blood Pressure Location Rio PRASAD [facility] 11-16-2023 09:10-0400 Body temperature 98.6 [degF] Rio PRASAD [facility] 11-16-2023 09:10-0400 Diastolic blood pressure 78 mm[Hg] Rio PRASAD [facility] 11-16-2023 09:10-0400 Heart rate 74 /min Rio PRASAD [facility] 11-16-2023 09:10-0400 Respiratory rate 14 /min Rio PRASAD [facility] 11-16-2023 09:10-0400 Systolic blood pressure 140 mm[Hg] Rio PRASAD [facility] 07-20-2023 08:20-0500 Diastolic blood pressure 80 mm[Hg] Rio PRASAD [facility] 07-20-2023 08:20-0500 Mean blood pressure 101 mm[Hg] Rio PRASAD [facility] 07-20-2023 08:20-0500 Systolic blood pressure 144 mm[Hg] Rio PRASAD [facility] 07-20-2023 08:15-0500 Blood Pressure Location Rio PRASAD [facility] 07-20-2023 08:15-0500 Diastolic blood pressure 88 mm[Hg] Rio PRASAD [facility] 07-20-2023 08:15-0500 Heart rate 67 /min Rio PRASAD [facility] 07-20-2023 08:15-0500 Systolic blood pressure 144 mm[Hg] Rio PRASAD [facility] 04-09-2023 12:28-0400 Body height 166.37 cm Services [employer] [facility] Work Phone: [facility] 04-09-2023 12:28-0400 Body temperature 98.2 [degF] [facility] Work Phone: [facility] 04-09-2023 12:28-0400 Body weight 119.95 kg [facility] Work Phone: [facility] 04-09-2023 12:28-0400 Diastolic blood pressure 84 mm[Hg] [facility] Work Phone: [facility] 04-09-2023 12:28-0400 Heart rate 78 /min Services [employer] Work Phone: [facility] 04-09-2023 12:28-0400 Respiratory rate 15 /min Services [employer] [facility] Work Phone: [facility] 04-09-2023 12:28-0400 SaO2% (BldA) [Mass fraction] 98 % Services [facility] [employer] Work Phone: [facility] 04-09-2023 12:28-0400 Systolic blood pressure 154 mm[Hg] Services [facility] Work Phone: [facility] 03-10-2023 08:44-0400 Body height 167.64 cm No PCP None [facility] 250 DO Work Phone: 03-10-2023 08:44-0400 Body mass index (BMI) [Ratio] 42.45 kg/m2 No PCP None [facility] 250 DO Work Phone: 03-10-2023 08:44-0400 Body surface area Derived from formula 2.25 m2 No PCP None [facility] 250 DO Work Phone: 03-10-2023 08:44-0400 Body weight 119.3 kg No PCP None [facility] 250 DO Work Phone: 03-10-2023 08:44-0400 Diastolic blood pressure 84 mm[Hg] No PCP None [facility] 250 DO Work Phone: 03-10-2023 08:44-0400 Heart rate 60 /min No PCP None [facility] 250 DO Work Phone: 03-10-2023 08:44-0400 Systolic blood pressure 118 mm[Hg] No PCP None [facility] 250 DO Work Phone: 07-27-2022 09:28-0500 Body height 167.64 cm No PCP None [facility] DO Work Phone: 07-27-2022 09:28-0500 Body mass index (BMI) [Ratio] 43.58 kg/m2 No PCP None [facility] DO Work Phone: 07-27-2022 09:28-0500 Body surface area Derived from formula 2.27 m2 No PCP None [facility] Work Phone: 07-27-2022 09:28-0500 Body weight 122.47 kg No PCP None [facility] Work Phone: 03-10-2022 08:29-0400 Body height 167.64 cm No PCP None [facility] 250 DO Work Phone: 03-10-2022 08:29-0400 Body mass index (BMI) [Ratio] 41.16 kg/m2 No PCP None [facility] 250 DO Work Phone: 03-10-2022 08:29-0400 Body surface area Derived from formula 2.22 m2 No PCP None [facility] 250 DO Work Phone: 03-10-2022 08:29-0400 Body weight 115.67 kg No PCP None [facility] DO Work Phone: 03-10-2022 08:29-0400 Diastolic blood pressure 82 mm[Hg] No PCP None [facility] 250 DO Work Phone: 03-10-2022 08:29-0400 Heart rate 66 /min No PCP None [facility] DO Work Phone: 03-10-2022 08:29-0400 Systolic blood pressure 136 mm[Hg] No PCP None [facility] 250 DO Work Phone: Encounters Encounter Date Encounter Type Care Provider Facility Start: 07-25-2024 ambulatory Rio Rey ty:RASHID Ovalle Start: 04-04-2024 End: 04-04-2024 Patient encounter procedure Services [facility] Work Phone: [facility] [address] [place] Work Phone: Start: 04-04-2024 End: 04-04-2024 ambulatory [facility] Work Phone: [facility] Work Phone: Start: 03-01-2024 ambulatory Rio PRASAD Facili ty:[id number] Start: 02-15-2024 End: 02-15-2024 ambulatory Rio PRASAD Facility:[facility] Start: 02-15-2024 End: 02-15-2024 Patient encounter procedure Rio PRASAD [facility] Start: 02-06-2024 End: 02-06-2024 Patient encounter procedure [facility] Work Phone: [facility]-XRay [address] [place] Work Phone: Start: 02-06-2024 End: 02-06-2024 ambulatory [facility] Work Phone: [facility] Work Phone: Start: 2023 End: 2023 Patient encounter procedure [facility] Work Phone: [facility]-Lab [address] [place] Work Phone: Start: 2023 End: 2023 ambulatory [facility] Work Phone: [facility] Work Phone: Start: 12-13-2023 End: 12-13-2023 Emergency department patient visit [facility] Work Phone: [facility]-Emergency Room Work Phone: Start: 12-08-2023 End: 12-08-2023 ambulatory Rio PRASAD Facility:[id number] Start: 11-16-2023 End: 11-16-2023 ambulatory Rio PRASAD Facility:[facility] [place] Start: 11-16-2023 End: 11-16-2023 Patient encounter procedure Rio PRASAD [facility] Start: 11-09-2023 End: 11-09-2023 Patient encounter procedure Services [facility] Work Phone: [facility]-XRay [address] [place] Work Phone: Start: 11-09-2023 End: 11-09-2023 ambulatory Services Family [facility] Work Phone: [facility] Work Phone: Start: 10-12-2023 End: 10-12-2023 Patient encounter procedure Services [facility] Work Phone: [facility] [address] [place] Work Phone: Start: 10-12-2023 End: 10-12-2023 ambulatory Services [facility] Facility:[facility] Start: 07-20-2023 End: 07-20-2023 ambulatory Rio PRASAD Facility:[facility] Start: 07-20-2023 End: 07-20-2023 Patient encounter procedure Rio R PRASAD [facility] Start: 07-11-2023 End: 07-11-2023 Patient encounter procedure Services [facility] Work Phone: [facility] [address] [place] Work Phone: Start: 07-11-2023 End: 07-11-2023 ambulatory Services [facility] Work Phone: [facility] Work Phone: Start: 04-09-2023 End: 04-09-2023 Emergency department patient visit Services Family [facility] Work Phone: [facility]-Emergency Room Work Phone: Start: 03-10-2023 Office outpatient vi sit 25 minutes No PCP None -[facility] 250 DO Work Phone: Start: 03-10-[address] Arlyn Loza Facility: Start: 10-04-2022 Rx Renewal No PCP None [facility] [place] DO Work Phone: Start: 09-21-2022 Rx Renewal No PCP None [facility] [place] [facility] [facility] DO Work Phone: Start: 09-07-2022 Patient encounter procedure No PCP None [facility] DO Work Phone: Start: 09-07-[address] Josias Damon Jr Facility:[id number] Start: 09-06-2022 End: 09-08-2022 ambulatory [facility] Work Phone: [facility] Work Phone: Start: 09-06-2022 End: 09-08-2022 Discharged Recurring Services [facility] Work Phone: [facility]-Physical Therapy [address] Start: 08-09-2022 End: 08-09-2022 ambulatory [facility] Work Phone: [facility] Work Phone: Start: 08-09-2022 End: 08-09-2022 Patient encounter procedure [facility] Work Phone: [facility]-Lab [address] [place] Work Phone: Start: 08-05-2022 Registered Recurring Services [facility] Work Phone: [facility]-Physical Therapy [address] Start: 07-27-2022 Patient encounter procedure No PCP [facility] Work Phone: Start: 07-27-[address] Josias Damon Jr Facility:[id number] Start: 07-07-2022 End: 07-07-2022 ambulatory [facility] Work Phone: [facility] Work Phone: Start: 07-07-2022 End: 07-07-2022 Patient encounter procedure Services [facility] Work Phone: [facility] [address] [place] Start: 07-05-2022 Rx Renewal No PCP None [facility] 250 DO Work Phone: Start: 03-10-2022 Office outpatient vi sit 25 minutes No PCP None [facility] 250 DO Work Phone: Start: 01-28-2022 Rx Renewal Arlyn Loza MD Work Phone: [facility] 250 DO Work Phone: Start: 10-09-2021 Rx Renewal Arlyn Loza MD Work Phone: [facility] 250 DO Work Phone: Start: 09-28-2021 Rx Renewal Arlyn Loza MD Work Phone: [facility] 250 DO Work Phone: Start: 06-22-2021 Rx Renewal Arlyn Loza MD Work Phone: [facility] [address] [place] Work Phone: Start: 08-11-2017 End: 08-11-2017 Patient encounter procedure RIO PRASAD Facility:H1 Start: 02-16-2017 Ambulatory ARLYN LOZA Facility :[id number] Procedures Date Procedure Procedure Detail Performing Clinician Start: 04-04-2024 Diagnostic radiograp hy of abdomen Services [employer] Work Phone: Start: 02-06-2024 Diagnostic radiograp hy of abdomen Services [email or web address] Phone: Start: 12-13-2023 CT of abdomen and pe lvis without contrast Services [email or web address] Phone: Start: 11-09-2023 Diagnostic radiograp hy of abdomen Services [email or web address] Phone: Start: 08-11-2017 Extracorporeal shock wave lithotripsy of calculus of kidney Rioannemarie PRASAD Start: 07-14-2017 Extracorporeal shock wave lithotripsy of calculus of kidney Rio PRASAD Start: 06-16-2017 Extracorporeal shock wave lithotripsy of calculus of kidney Rio PRASAD Leg repair Arlyn Loza MD Work Phone: Renal lithotripsy Arlyn thornton MD Work Phone: Tonsillectomy Arlyn Loza MD Work Phone: Total colonoscopy Arlyn thornton MD Work Phone: Plan of Treatment Date Care Activity Detail Author Start: 03-01-2024 FUV, Provider: Arlyn Loza, Status: Pen, Time: 8:40 AM FUV, Provider: Arlyn Loza, Status: Pen, [facility]: 8:40 [facility] Work Phone: Start: 03-10-2023 FUV, Provider: Arlyn Loza, Status: Pen, Time: 8:40 AM FUV, Provider: Arlyn Loza, Status: Pen, Time: 8:40 AM [facility] 250 DO Work Phone: Start: 09-07-2022 FUV, Provider: Josias Damon, Status: Pen, Time: 9:30 AM FUV, Provider: Josias Damon, Status: Pen, Time: 9:30 AM [facility] Work Phone: Start: 03-10-2022 FUV, Provider: Arlyn Loza, Status: Pen, Time: 8:30 AM FUV, Provider: Arlyn Loza, Status: Pen, Time: 8:30 AM [facility] [place] Work Phone: Patient Education [facility] Work Phone: Patient referral [facility] Work Phone: Immunizations Immunization Date Immunization Notes Care Provider Rosa coates 06-07-2022 influenza virus vacc ine, unspecified formulation Rio PRASAD [facility] 06-07-2022 influenza, injectabl e, quadrivalent, preservative free No PCP None [facility] Work Phone: 06-07-2022 Pfizer COVID-19 Vac Bivalent 30 MCG/0.3ML Intramuscular Suspension No PCP None [facility] 08-03-2021 Pfizer-BioNTech COVI D-19 Vacc 30 MCG/0.3ML Intramuscular Suspension Arlyn Loza MD Work Phone: [facility] Comment on above: Series: 04-29-2021 influenza virus vacc ine, unspecified formulation Rioannemarie PRASAD [facility] 04-29-2021 influenza, injectabl e, quadrivalent, preservative free No PCP None [facility] 250 DO Work Phone: 12-16-2020 Moderna COVID-19 Vac cine 100 MCG/0.5ML Intramuscular Suspension Arlyn Loza MD Work Phone: [facility] 250 DO Work Phone: 12-16-2020 SARS-CoV-2 (COVID-19 ) Ad26 vaccine, recombinant Rio PRASAD [facility] 11-18-2020 Moderna COVID-19 Vac cine 100 MCG/0.5ML Intramuscular Suspension Arlyn Loza MD Work Phone: [facility] 250 DO Work Phone: 11-18-2020 SARS-CoV-2 (COVID-19 ) Ad26 vaccine, recombinant Rio PRASAD [facility] 05-22-2020 influenza virus vacc ine, unspecified formulation Rio PRASAD [facility] 05-22-2020 influenza, injectabl e, quadrivalent, preservative free No PCP None -[facility] 250 DO Work Phone: Payers Date Payer Category Payer Self-pay [id number] 2023 Medicaid [id number] 1965 Unknown [id number] 2.16.84 [id number] 1965 Unknown [id number] 2.16. [id number] 1967 Unknown [id number] 2.16. [id number] 1967 Unknown [id number] 2.16. [id number] 1967 Unknown [id number] 2.16.8 40.1.718324.3.579.2.727 1967 Unknown [id number] 2.16.8 40.1.729753.3.579.2.727 1967 Unknown [id number] 2.16.8 40.1.883183.3.579.2.727 1967 Unknown [id number] 2.16.8 40.1.144855.3.579.2.727 1967 Unknown [id number] 2.16.8 40.1.124604.3.579.2.727 1959 Unknown [id number] Medicaid [id number] Unknown Unknown Gilliam [employer] [id number] Unknown HCAP/HFA/FAP Active [id number] Unknown [id number] 2.16.8 40.1.032432.3.579.2.531 Unknown [id number] 2.16.8 40.1.372518.3.579.2.531 Unknown [id number] 2.16.8 40.1.547286.3.579.2.531 Unknown [id number] 2.16.8 40.1.882977.3.579.2.531 Unknown [id number] 2.16.8 40.1.193233.3.579.2.531 Unknown [id number] 2.16.8 40.1.546884.3.579.2.531 Unknown [id number] 2.16.8 40.1.131617.3.579.2.531 Social History Date Type Detail Facility Alcohol use Alcohol use -[facility] 250 DO Work Phone: Start: 03-10-2019 End: 12-13-2023 Tobacco smoking status NHIS Never smoked tobacco (finding) [facility] Start: 1965 Sex Assigned At Male [facility] Tobacco smoking status Never [facility] Sex Assigned At Male [facility] Functional Status Date Assessment Result Facility 02-15-2024 Functional Status N/A [facility] 11-16-2023 Functional Status N/A [facility] 07-20-2023 Functional Status N/A [facility] Clinical Notes 08-15-2021 to 02-15-2024 Note [...] Follow these instructions at home: Medicines Take fnhq-gmp-vcplazv and prescription medicines only as told by [...] provider. Document Revised: 06/28/2022 Document Reviewed: 04/05/2022 Elsevier Patient Education 2022 [employer]. 02/15/2024 09:54:16 Lithotripsy Lithotripsy Lithotripsy is a [...] including vitamins, herbs, eye drops, creams, and rlkw-djg-grnktne medicines. Any problems you or family members [...] provider tells you to take them. Taking chfi-nhl-cbwwcad medicines, vitamins, herbs, and supplements. Tests You [...] provider. Document Revised: 06/28/2022 Document Reviewed: 04/05/2022 [employer] Patient Education 2022 [employer]. 02/15/2024 09:47:13 Benign Prostatic Hyperplasia Benign Prostatic [...] urethra. Follow these instructions at home: Take yhcq-xaw-bhvdqmi and prescription medicines only as told by [...] provider. Document Revised: 02/17/2022 Document Reviewed: 02/17/2022 [employer] Patient Education 2022 [employer]. Follow Up Care 12/14/2023 12:41:57 With:DECLAN HERNANDEZ, Rio Simons, URL Address: [facility] [address] [place] [address]- When: Unknown [facility] 02-15-2024 Note Patient Education Nephrology Lithotripsy, [...] these instructions at home: Medicines ? Take qusg-mrr-womtkiv and prescription medicines only as told by [...] all fragments fo (more content not included)... [facility] 11-16-2023 Hospital Discharge instructions Patient Education 11/16/2023 [...] Follow these instructions at home: Medicines Take kxvx-zeo-sdyjeqp and prescription medicines only as told by [...] provider. Document Revised: 06/28/2022 Document Reviewed: 04/05/2022 [employer] Patient Education 2022 [employer]. 11/16/2023 10:15:18 Lithotripsy Lithotripsy Lithotripsy is a [...] including vitamins, herbs, eye drops, creams, and sexr-kjj-lfnzsal medicines. Any problems you or family members [...] provider tells you to take them. Taking whmw-pqk-bpbeyka medicines, vitamins, herbs, and supplements. Tests You [...] provider. Document Revised: 06/28/2022 Document Reviewed: 04/05/2022 [employer] Patient Education 2022 [employer]admin. Follow Up Care 07/20/2023 09:14:37 With:DECLAN HERNANDEZ, Rio Simons, URL Address: [facility] [address] , [place] [address]- When: Unknown [facility] 07-20-2023 Hospital Discharge instructions Patient Education 07/20/2023 [...] you may eat and drink normally. Take kufx-cal-cpcwmqg and prescription medicines only as told by your health care provider. Let your health care provider know about any medicines that you are taking, including cqjo-mdu-liejgny medicines, vitamins, herbs, and supplements. Choose a [...] provider. Document Revised: 02/05/2022 Document Reviewed: 02/05/2022 [employer]mo Patient Education 2022 [employer]admin. Follow Up Care 07/14/2022 09:22:25 With:DECLAN HERNANDEZ, Rio Simons, URL Address: [facility] [address] , [place] [address]- When: Unknown [facility] 08-15-2021 History of Present illness Narrative History of Present IllnessThilalito is a 56-year-old male here for his [...] sooner if there is any problemsQuestions answered. [facility] Work Phone: Evaluation + Plan note Future Appointments Appointment Date:11/16/2023 09:15:00 AM Scheduled Provider:Rio PRASAD MD Location:[facility] Appointment Type:URO Office Visit Appointment Date:07/25/2024 09:15:00 AM Scheduled Provider:Rio PRASAD MD Location:[facility] Appointment Type:URO Office Visit Diagnostic Tests PendingPSA Total 07/20/23 [facility] Evaluation + Plan note Future Appointments Appointment Date:07/25/2024 09:15:00 AM Scheduled Provider:[facility]AD [facility] App[facility] Type:URO Office Visit Diagnostic Tests PendingElectrolyte Panel 11/16/23 [facility] Evaluation + Plan note Future Appointments Appointment Date:07/25/2024 09:15:00 AM Scheduled Provider:Rio PRASAD MD Location:[facility] Appointment Type:URO Office Visit [facility] Evaluation note No assessment information availa ble [facility] Work Phone: History of Present illness Narrative [...] recommend resuming activities as tolerated.He can take honq-zkf-smkfhjc anti-inflammatory medications if needed.Follow-up as neededQuestions answered. [facility] Work Phone: Hospital course Narrative No data available for this section [facility] Hospital Discharge instructions Additional Instructions Apply 1 Polytrim eyedrop into the right eye every 3 hours while awake for 7 days Do not rub the eye but may apply compresses Call [facility] Tuesday morning or wait for them to call you to have an appointment to be rechecked Return to the ER for more severe pain loss of vision fever chills or any other concerns [facility] Work Phone: Progress note No data available for this section [facility] Summary Purpose Family History No Family History [...] Recorded Date/T anum father Malignant neoplasm Unknown mother Malignant neoplasm of breast Unknown Advance Directives No Advanced Directives Records Found [...] kidney stones * 6. Diabetes managed by [facility] and stable * Arlyn Loza MD, FACC [...] Complaint N20.0 L flank pain R82.994 N20.0 Chief Complaint N20.0 n20.0 Additional Source Comments (unrecognized sect ion and content) No Status Records FoundNo Status Records FoundNo Status Records FoundNo Status Records FoundNo Status Records FoundNo Status Records FoundNo Status Records Found INFORMATION SOURCE (unrecogn ized section and content) DATE CREATED AUTHOR 02/08/2018 [facility] Healthcare DATE CREATED AUTHOR AUTHOR'S ORGANIZ ATION 04/26/2019 [facility] DATE CREATED AUTHOR AUTHOR'S ORGANIZ ATION 03/16/2022 [facility] dical Specialist DATE CREATED AUTHOR AUTHOR'S ORGANIZ ATION 03/10/2023 [facility] DATE CREATED AUTHOR AUTHOR'S ORGANIZ ATION 03/10/2023 [employer] DATE CREATED AUTHOR AUTHOR'S ORGANIZ ATION 02/16/2024 [facility] ical Center DATE CREATED AUTHOR AUTHOR'S ORGANIZ ATION 04/13/2024 [facility] ys[facility] Group Care Teams (unrecognized sec tion and content) Team Status: Active Member Role Status Dates Services Family Health Primary Care Provider Active Team Status: Inactive Member Role Status Dates Services Family [facility] Primary Care Provider Active Marilia Laureano , RECORDS MANAGEMENT COORDINATOR- Emergency Provider Active Team Status: Inactive Member Role Status Dates Services [facility] Primary Care Provider Active Rio Prasad MD Attending Provider Active Team Status: Active Member Role Status Dates Services [facility] Primary Care Provider Active Josias Damon MD Attending Provider Active Team Status: Inactive Member Role Status Dates Services [facility] Primary Care Provider Active Carter Munroe DO Attending Provider Active Rossy Salinas MD RES Other Provider Active Team Status: Inactive Member Role Status Dates Services [facility] Primary Care Provider Active Josias Damon MD Attending Provider Active Team Status: Inactive Member Role Status Dates Services [facility] Primary Care Provider Active Rio Prasad MD Attending Provider Active Arlyn Loza MD Referring Provider Active Team Status: Inactive Member Role Status Dates Services [facility] Primary Care Provider Active Start: October 12, 2023 End: October 12, 2023 Rio Prasad MD Attending Provider Active St art: October 12, 2023 End: October 12, 2023 Team Status: Inactive Member Role Status Dates Services [facility] Primary Care Provider Active Start: November 09, 2023 End: November 09, 2023 Rio Prasad MD Attending Provider Active St art: November 09, 2023 End: November 09, 2023 Team Status: Inactive Member Role Status Dates Services Family [facility] Primary Care Provider Active Start: December 13, 2023 End: December 13, 2023 Carter Alvarenga DO Emergency Provider Active Sta rt: December 13, 2023 End: December 13, 2023 Team Status: Inactive Member Role Status Dates [facility] Provider Active Start: 2023 End: 2023 Rio Prasad MD Attending Provider Active St art: 2023 End: 2023 Team Status: Inactive Member Role Status Dates [facility] Provider Active Start: February 06, 2024 End: February 06, 2024 Rio Prasad MD Attending Provider Active St art: February 06, 2024 End: February 06, 2024 Team Status: Inactive Member Role Status Dates [facility] Provider Active Start: April 04, 2024 End: April 04, 2024 Rio Prasad MD Attending Provider Active St art: April 04, 2024 End: April 04, 2024 Goals (unrecognized section and content) Goals [...] may be documented in an alternate section FOR RECORDS PERTAINING TO PATIENTS WHO [...] BE BASED ON THE PRIMARY CLINICAL RECORDS. [facility]. provides no warranty or guarantee of the accuracy or completeness of information in this document.
[2024-04-27 10:41] LABS: Hematocrit 49.8 % (42.0-54.0); Hemoglobin 15.9 g/dL (14.0-18.0); Mean Corpuscular HGB Conc 31.9 g/dL (29.9-35.2); Mean Corpuscular Hemoglobin 28.6 pg (25.9-34.0); Mean Corpuscular Volume 89.6 fL (80.0-94.0); Platelet Count 254 10^3/uL (150-450); Red Blood Count 5.56 10^6/uL (4.70-6.10); Red Cell Distribution Width 13.6 % (11.0-15.0); White Blood Count 11.4 10^3/uL (4.0-11.0)
--- NOTE | 2024-04-27 10:42 | PM.PRESUREVA ---
History of Present Illness History of Present Illness Chief complaint: left kidney stone Narrative: Patient presents for preadmission testing. The patient states he had a left ESWL done here on March 01, 2024 and has been doing well, upon follow-up with urology a KUB revealed remaining kidney stones. The patient states he is not having any urological complaints at this time and denies dysuria, hematuria, flank pain, fever, nausea, vomiting, or any other complaints. Review of Systems ROS Narrative REVIEW OF SYSTEMS: Negative except as stated in HPI, ten or more systems reviewed. Constitutional: No fever, chills, weakness ENT: No sore throat or epistaxis Cardiovascular: No edema, chest pain, palpitations, or activity intolerance Respiratory: No shortness of breath, cough, or wheezing Musculoskeletal: No joint pain or swelling Gastrointestinal: No abdominal pain, constipation, diarrhea, or vomiting Genitourinary: No dysuria or hematuria Neurological: No numbness, tingling, weakness, or headache Psychiatric: No mood changes PFSH PFSH Medical History (Updated 02/17/24 @ 10:56 by Klesea Dempsey NP) S/P extracorporeal shock wave therapy (12/08/23) ?Z98.890 - Other specified postprocedural states (ICD-10) Migraine ?G43.909 - Migraine, unspecified, not intractable, without status migrainosus (ICD-10) Hypertension ?I10 - Essential (primary) hypertension (ICD-10) Heart disease ?I51.9 - Heart disease, unspecified (ICD-10) Benign prostatic hyperplasia ?N40.0 - Benign prostatic hyperplasia without lower urinary tract symptoms (ICD-10) Back pain ?M54.9 - Dorsalgia, unspecified (ICD-10) 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) Hyperlipidemia ?E78.5 - Hyperlipidemia, unspecified (ICD-10) Kidney stones ?N20.0 - Calculus of kidney (ICD-10) Surgical History (Updated 02/17/24 @ 10:56 by Kelsea Dempsey NP) H/O lithotripsy (12/08/23) ?Z98.890 - Other specified postprocedural states (ICD-10) History of lithotripsy ?Z98.890 - Other specified postprocedural states (ICD-10) Hx of tonsillectomy ?Z90.89 - Acquired absence of other organs (ICD-10) History of surgery on lower extremity (~07/2008) ?Z98.890 - Other specified postprocedural states (ICD-10) H/O colonoscopy ?Z98.890 - Other specified postprocedural states (ICD-10) Family History (Updated 11/28/23 @ 11:47 by Kelsea Dempsey NP) Other Family history of cancer Social History (Updated 11/28/23 @ 12:43 by Kelsea Dempsey NP) Within the past year, how often did you have a drink containing alcohol: monthly or less Smoking status: Never smoker Non-prescribed substance use: denies use Previous occupational history: [employer] Highest level of school completed/degree received: some college, no degree Meds Home Medications and Allergies Home Medications ?Medication ?Instructions ?Recorded ?Confirmed ?Type amlodipine 10 mg tablet 10 mg PO DAILY 11/28/23 04/27/24 History atorvastatin 40 mg tablet 40 mg PO DAILY 11/28/23 04/27/24 History carvedilol 12.5 mg tablet 12.5 mg PO BID 11/28/23 04/27/24 History hydrochlorothiazide 12.5 mg capsule 12.5 mg PO DAILY 11/28/23 04/27/24 History losartan 100 mg tablet 100 mg PO DAILY 11/28/23 04/27/24 History potassium bicarbonate-citric acid 25 meq PO BID 11/28/23 04/27/24 History 25 mEq effervescent tablet (Klor-Con/EF) Allergies Allergy/AdvReac Type Severity Reaction Status Date / Time lisinopril Allergy Cough Verified 04/27/24 10:06 Exam Narrative Exam Narrative: Constitutional: Awake, alert, comfortable, well-appearing, nontoxic, interactive, vital signs as charted Head: Normocephalic, atraumatic Neck: Supple, normal appearance, normal range of motion, no meningeal signs, no lymphadenopathy Respiratory: No respiratory distress, breath sounds clear Cardiovascular: Regular rate and rhythm, strong and regular heart tones Abdomen: Nontender, normal bowel sounds, soft, no CVA tenderness Musculoskeletal: Normal gait, no swelling or edema Skin: No rashes or induration, no lesions, only visible skin inspected Neuro: No neurological deficits, normal sensation Psychiatric: Oriented ?3, normal affect Assessment and Plan Assessment and Plan (1) Kidney stones: Plan Cystoscopy, left retrograde, left ureteroscopy, holmium laser, possible left stent placement scheduled with Dr. Prasad May 10, 2024.
[2024-04-27 10:48] LABS: INR 0.96; Partial Thromboplastin Time 26.9 sec (22.3-36.2); Prothrombin Time 10.2 sec (9.0-11.6)
[2024-04-27 11:17] LABS: Eosinophils Absolute Manual 0.22 10^3/uL (0.00-0.70); Lymphocytes Absolute Manual 6.27 10^3/uL (1.20-3.80); Monocytes Absolute Manual 0.68 10^3/uL (0.30-0.80); Segmented Neut Absolute Manual 4.21 10^3/uL (1.4-6.5)
[2024-04-27 11:18] LABS: Anion Gap 7.5; BUN Creatinine Ratio 17.5; Calcium 9.5 mg/dL (8.5-10.1); Carbon Dioxide 32.1 mmol/L (21.0-32.0); Chloride 102 mmol/L (98-107); Estimated GFR (African America >60 (>=60); Estimated GFR (Non-African Ame >60 (>=60); Glucose 95 mg/dL (74-106); Potassium 3.6 mmol/L (3.5-5.1); Sodium 138 mmol/L (136-145)
== END 2024-04-27 09:48 | disposition home or self-care (01) ==
LOC: PST 09:47
PROVIDERS: Visit Provider Urology
DX: Z01.812 Encounter for preprocedural laboratory examination (principal); Z01.818 Encounter for other preprocedural examination; N20.0 Calculus of kidney
CPT/HCPCS: 36415; 80048; 85007; 85027; 85610; 85730; G0463

== ENCOUNTER 2024-05-10 09:43 | Day surgery (SDC) | payer MEDICAID, SELFPAY ==
[2024-04-27 10:13] VITALS: BP 151/82; PULSE 68; TEMP 36.4; O2SAT 96; BMI 43.8
[2024-05-10] VITALS (14 sets, daily range): BP systolic 112–165; BP diastolic 73–109; PULSE 68–97; TEMP 36.4–37.6; O2SAT 92–96; BMI 44.0
--- NOTE | 2024-05-10 | FL_ITS ---
[address] [address] Patient Name: JOHN GODWIN MRN: [id number] date: 1965 Sex: M [facility] Patient Location: [facility] Accession/Order Number: [id number] Exam Date: 05/10/2024 11:44 Report Date: 05/15/2024 11:17 At the request of: KASSI MANRIQUEZ Procedure: FL fluoroscopy <1hr NON-READ EXAM: FL fluoroscopy <1hr NON-READ HISTORY: TECHNIQUE: FINDINGS: Please see Operative Report. Electronically authenticated by: RADIOLOGIST NO Date: 05/15/2024 11:17
--- OUTSIDE RECORDS SUMMARY | 2024-05-10 09:52 | XMS_ITS | CCD ---
Author Organization [facility] Team Providers Care Marketing Underwriter Name Role Phone ARLYN LOZA Unavailable Unavailable NO FAMILY DOCTOR, NO FAMILY DOCTOR Unavailable Unavailable RIO PRASAD Admitting Unavailable RIO PRASAD Attending Unavailable REQUEST, NONE LISTED Primary Care Unavailable RIO PRASAD Consulting Unavailable RANI PATTERSON V Consulting Unavailable ENA GALICIA Consulting Unavailable JULIANO PORTER Consulting Unavailable Unavailable Unavailable None, No PCP Unavailable Unavailable [facility], Services Primary Care Provider MD Roi Prasad Attending Provider [phone] MD Josias Damon Attending Provider Shaneka, DO Machado Attending Provider [phone] MD Rossy Salinas Other Provider [phone] MD Josias Damon Attending Provider [phone] Marie Jay, Dr. Josias King Referring Unava iljanet Damon Jr, Dr. Josias King Attending Unava ilable Marie Jay, Dr. Josias King Attending Unava ilable Marie Jay, Dr. Josias King Referring Unava ilable Dago, Dr. Arlyn Webber Referring Yaquelin vailable Loza, Dr. Arlyn Webber Attending Yaquelin vailable [facility], Services Primary Care Provider Sridevi [facility]- Marilia Dietrich Emergency Provider [facility] Services Primary Care Provider MD Rio Prasad Attending Provider MD Arlyn Loza Referring Provider [phone] [facility], . Primary Care Physician [phone] [facility] Primary Care Provider MD Rio Prasad Attending Provider DO Carter Alvarenga Emergency Provider [facility] Primary Care Provider MD Rio Prasad Attending Provider [facility] Primary Care Provider MD Rio Prasad Attending Provider [phone] [facility] Primary Care Unavaila ble Carter Alvarenga Admitting Unavailable Carter Alvarenga Attending Unavailable Prasad, Rio Attending Unavailable Prasad, Rio Admitting Unavailable [facility] Primary Care Unavaila ble Loza, Singh Referring Unavailable Prasad, Rio Admitting Unavailable Family [...] Rio Attending Unavailable Prasad, Rio Admitting Unavailable PRASAD, Rio R Attending Unavailable PRASAD, Rio R Attending Unavailable PRASAD, Rio R Attending Unavailable PRASAD, Rio R Attending Unavailable PRASAD, Rio R Attending Unavailable PRASAD, Rio R Attending Unavailable PRASAD, Rio R Attending Unavailable Allergies Allergy Classification Reported Allergen(s) Allergy Type Date of Onset Reaction(s) Facility (11 sources) Lisinopril; Translations: [Lisinopril TABS] Drug Allergy Cough [facility] 250 DO Work Phone: (1 source) No Known Medication Allergies; Translations: [No Known Medication Allergies] Propensity to adverse reactions (disorder) [facility] Repository Medications Current Medications Medication Drug Class(es) [...] day(s), # 30 cap(s), Refills(s) 11, Pharmacy: [facility] [id number] [facility], 167, cm, 11/16/23 9:27:00 EDT, [...] Q8H November 10, 2022 12:00am polymyxin b 26968 unt/ml / trimethoprim 1 mg/ml ophthalmic solution [...] day(s), # 180 tab(s), Refills(s) 3, Pharmacy: [facility] [id number] [facility], 167, cm, 11/16/23 9:27:00 EDT, [...] 7 08-17-2017 Episodic 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) Qzcnz-Bfbihgbem-Aenzt pattern; 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 Chronic [...] Range Facility XR KUBon 04-04-2024 XR KUB [facility] Main [place] [id number] XRay Report Signed Patient: John Smith MR#: [id number] : 1965 Acct:[id number] Age/Sex: 58 / M ADM Date: 04/04/24 Loc: XD Room: Type: [facility] Attending Dr: Rio Prasad MD Copies [...] Americo Godfrey M.D.04/04/2024 2:03 PM Dictation Location: [place] [address] Transcribed By: [facility] 04/04/24 1403 Dictated By: Americo Godfrey DO 04/04/24 1358 Signed By: 04/04/24 1403 Normal [facility] Ambulatory Visit Summaryon [...] Rio PRASAD MD Where: [facility] Ambulatory Visit Summary Ambulatory Visit Summary [...] What to do next Scheduled Follow-Up Appointments Tuesday. 2023 9:15 AM EST With: DECLAN HERNANDEZ, Rio Simons Where: [facility] Urology Office/Clinic Noteon 02-15-2024 Urology Office/Clinic [...] ESWL 12/08/23. KUB 12/08/23 - Bilateral nephrolithiasis. [facility] ED 12/13/23 due to L flank pain. CT AP wo con 12/13/23 - Multiple tiny bilateral renal stones largest L 5 mm. No hydro. No ureteral stones or dilation. KUB 02/06/24 FR - Multiple stones in RCSs bilaterally up [...] [facility] [address], [place] [address]- Additional Instructions: schedule Left ESWL Patient Education [...] Kidney stone Renal cyst, right Renal stones Xtfpz-Pnhrqdiba-Tgqvf syndrome Historical No qualifying data Procedure/Surgical History ESWL - Extracorporeal shockwave lith (more content not included)... Normal [facility] Comment on above: Result Comment: Elec tronically Signed By: DECLAN HERNANDEZ, Rio Simons\.br\Date and Time Signed: 02/15/24 09:57 EDT\.br\Electronically Co-Signed By: Soumya Rizvi\.br\Date and Time Co-Signed: 02/15/24 09:55 EDT RAD - MISCon 02-07-2024 RAD - MISC [id number] Normal [facility] XR abdomen 1Von 02-06-2024 XR abdomen 1V [facility] Main [place] [address] [place] [address] XRay Report Signed Patient: John Smith MR#: [id number] : 1965 Acct:[id number] Age/Sex: 58 / M ADM Date: 02/06/24 Loc: XD Room: Type: [facility] Attending Dr: Rio Prasad MD Copies [...] Drew Purcell M.D.02/06/2024 12:10 PM Dictation Location: [place] [address] Transcribed By: [facility] 02/06/24 1210 Dictated By: Drew Purcell II, MD 02/06/24 1205 Signed By: 02/06/24 1210 Normal [facility] Lab Reportson 12-23-2023 Lab Reports [id number] Normal [facility] Carbon dioxide, total [Moles /volume] in Serum or PlasmaOrdered By: Rio Prasad on 2023 CO2 [Moles/Vol] 32.2 mmol/L High 21.0-31.0 [facility] Comment on above: Performed By: #### L YTES ####[place] [address] [place] [id number] [place] Chloride [Moles/volume] in S new or PlasmaOrdered By: Rio Prasad on 2023 Chloride [Moles/Vol] 103 mmol/L Normal 98-107 [facility] Comment on above: Performed By: #### L YTES ####[place] [address] [place] [address] [facility] Potassium [Moles/volume] in Serum or PlasmaOrdered By: Rio Prasad on 2023 Potassium [Moles/Vol] 4.1 mmol/L Normal 3.5-5.1 [facility] Comment on above: Performed By: #### L YTES ####[place] [address] [place] [address] [place] Serum or plasma anion gap de terminationOrdered By: Rio Prasad on 2023 Anion gap [Moles/Vol] 7.9 mmol/L Normal 6.0-15.0 [facility] Comment on above: Result Comment: PERF ORMED BY: [facility] [address] [place] [place] [address] PATHOLOGIST [employer] LANI GEORGE M.D. Performed By: #### L YTES ####[place] [id number] [facility] Sodium [Moles/volume] in Ser um or PlasmaOrdered By: Rio Prasad on 2023 Sodium [Moles/Vol] 139 mmol/L Normal 136-145 [facility] Comment on above: Performed By: #### L YTES ####[address] Alanine aminotransferase [En zymatic activity/volume] in Serum or PlasmaOrdered By: Carter Alvarenga on 12-13-2023 ALT [Catalytic activity/Vol] 35 U/L Normal 7-52 [facility] Comment on above: Performed By: #### C BC, HEPATIC, BMP, LIPASE ####[address] Albumin [Mass/volume] in Ser um or Plasma by Bromocresol green (BCG) dye binding methoOrdered By: Carter Alvarenga on 12-13-2023 Albumin BCG dye [Mass/Vol] 4.5 g/dL 3.5-5.7 [facility] Alkaline phosphatase [Enzyma tic activity/volume] in Serum or PlasmaOrdered By: Carter Alvarenga on 12-13-2023 ALP [Catalytic activity/Vol] 104 U/L Normal 34-104 [facility] Comment on above: Performed By: #### C BC, HEPATIC, BMP, LIPASE ####[place] [id number] [facility] Aspartate aminotransferase [ Enzymatic activity/volume] in Serum or PlasmaOrdered By: Carter Alvarenga on 12-13-2023 AST [Catalytic activity/Vol] 18 U/L Normal 13-39 [facility] Comment on above: Performed By: #### C BC, HEPATIC, BMP, LIPASE ####[address] Automated basophil %Ordered By: Carter Alvarenga on 12-13-2023 Basophils/100 WBC (Bld) 0.6 % Normal . [facility] Comment on above: Performed By: #### C BC, HEPATIC, BMP, LIPASE ####[address] Automated basophil countOrde red By: Carter Alvarenga on 12-13-2023 Basophils (Bld) [#/Vol] 0.1 10*3/uL Normal 0.0-0.2 [facility] Comment on above: Result Comment: PERF ORMED BY: [facility] [address] [place] [address] PATHOLOGIST [employer] LANI GEORGE M.D. Performed By: #### C BC, HEPATIC, BMP, LIPASE ####[address] Automated blood monocyte cou ntOrdered By: Carter Alvarenga on 12-13-2023 Monocytes (Bld) [#/Vol] 0.6 10*3/uL Normal 0.0-0.8 [facility] Comment on above: Performed By: #### C BC, HEPATIC, BMP, LIPASE ####[address] Automated eosinophil %Ordere d By: Carter Alvarenga on 12-13-2023 Eosinophils/100 WBC (Bld) 2.7 % Normal . [facility] Comment on above: Performed By: #### C BC, HEPATIC, BMP, LIPASE ####[address] Automated eosinophil countOr dered By: Carter Alvarenga on 12-13-2023 Eosinophils (Bld) [#/Vol] 0.4 10*3/uL Normal 0.0-0.45 [facility] Comment on above: Performed By: #### C BC, HEPATIC, BMP, LIPASE ####[address] Automated erythrocytes count in urine sediment (number/area)Ordered By: Carter Alvarenga on 12-13-2023 RBC Auto (Urine sed) [#/Area] Innumerable [HPF] 0-4 [facility] Automated leukocytes count i n urine sediment (number/area)Ordered By: Carter Alvarenga on 12-13-2023 WBC Auto (Urine sed) [#/Area] 1-2 [HPF] 0-4 [facility] Automated monocyte %Ordered By: Carter Alvarenga on 12-13-2023 Monocytes/100 WBC (Bld) 4.3 % Normal . [facility] Comment on above: Performed By: #### C BC, HEPATIC, BMP, LIPASE ####[facility] Automated neutrophil %Ordere d By: Carter Alvarenga on 12-13-2023 Neutrophils/100 WBC (Bld) 52.5 % Normal . [facility] Comment on above: Performed By: #### C BC, HEPATIC, BMP, LIPASE ####[place] [address] Automated urine color determ inationOrdered By: Carter Alvarenga on 12-13-2023 Color (U) Yellow Normal Yellow [facility] Comment on above: Order Comment: Name Collection Type:: Clean-Voided Midstream Performed By: #### A DDONUAPLUS #### [facility] [address] Basic Metabolic Panelon 11-15 Creatinine Clr Calc Pharmacy 85.43 Normal [facility] Comment on above: Performed By: #### C BC, HEPATIC, BMP, LIPASE ####[place] [address] GFR/1.73 sq M.predicted MDRD (S/P/Bld) [Vol rate/Area] mL/min/{1.73_m2} Normal [facility] Comment on above: Performed By: #### C BC, HEPATIC, BMP, LIPASE ####[place] [address] Bilirubin Test strip Ql (U)O rdered By: Carter Alvarenga on 12-13-2023 Bilirubin Ql (U) Negative Negative [facility] Bilirubin.direct [Mass/volum e] in Serum or PlasmaOrdered By: Carter Alvarenga on 12-13-2023 Bilirubin.direct [Mass/Vol] 0.20 mg/dL 0.03-0.18 [facility] Bilirubin.total [Mass/volume ] in Serum or PlasmaOrdered By: Carter Alvarenga on 12-13-2023 Bilirubin [Mass/Vol] 1.2 mg/dL High 0.3-1.0 [facility] Comment on above: Performed By: #### C BC, HEPATIC, BMP, LIPASE ####[facility] [id number] abdomen pelvis wo conon 0 12-13-2023 CT abdomen pelvis wo con [facility] Main [place] [address] [place] [address] CT Scan Report Signed Patient: John Smith MR#: [id number] : 1965 Acct:[id number] Age/Sex: 57 / M ADM Date: 12/13/23 Loc: ER Room: Type: [facility] ER Attending Dr: Copies to: Carter Alvarenga [...] Ros Mendiola M.D.12/13/2023 4:46 PM Dictation Location: [place] [address] Transcribed By: [facility] 12/13/23 1646 Dictated By: Ros Mendiola MD 12/13/23 1633 Signed By: 12/13/23 1646 Normal [facility] Calcium [Mass/volume] in Ser um or PlasmaOrdered By: Carter Alvarenga on 12-13-2023 Calcium [Mass/Vol] 10.0 mg/dL Normal 8.6-10.3 [facility] Comment on above: Performed By: #### C BC, HEPATIC, BMP, LIPASE ####[facility] [id number] Carbon dioxide, total [Moles /volume] in Serum or PlasmaOrdered By: Carter Alvarenga on 12-13-2023 CO2 [Moles/Vol] 30.4 mmol/L Normal 21.0-31.0 [facility] Comment on above: Performed By: #### C BC, HEPATIC, BMP, LIPASE ####[facility] [id number] [place] [id number] [facility] Chloride [Moles/volume] in S new or PlasmaOrdered By: Carter Alvarenga on 12-13-2023 Chloride [Moles/Vol] 104 mmol/L Normal 98-107 [facility] Comment on above: Performed By: #### C BC, HEPATIC, BMP, LIPASE ####[place] [id number] Complete Blood Count Auto Di ffon 12-13-2023 Mean Corpuscular HGB Conc 33.1 g/dL Normal 32.5-35.6 [facility] Comment on above: Performed By: #### C BC, HEPATIC, BMP, LIPASE ####[address] Monocytes/100 WBC (Bld) 16.76 % Normal 0.00-20.00 [facility] Comment on above: Performed By: #### C BC, HEPATIC, BMP, LIPASE ####[address] NRBC% 0.3 /100{WBC} Normal 0-0.5 [facility] Comment on above: Performed By: #### C BC, HEPATIC, BMP, LIPASE ####[address] Creatinine [Mass/volume] in Serum or PlasmaOrdered By: Carter Alvarenga on 12-13-2023 Creatinine [Mass/Vol] 1.16 mg/dL Normal 0.70-1.30 [facility] Comment on above: Performed By: #### C BC, HEPATIC, BMP, LIPASE ####[address] Dipstick and Microscopicon 0 12-13-2023 Appearance (U) Clear Normal Clear [facility] Comment on above: Order Comment: Name Collection Type:: Clean-Voided Midstream Performed By: #### A DDONUAPLUS #### [facility] [address] Bacteria,Urine None Seen Normal None Seen [facility] Comment on above: Order Comment: Name Collection Type:: Clean-Voided Midstream Performed By: #### A DDONUAPLUS #### [facility] [address] Bilirubin,Urine Negative Normal Negative [facility] Comment on above: Order Comment: Name Collection Type:: Clean-Voided Midstream Performed By: #### A DDONUAPLUS #### [place] [id number] [facility] Glucose Ql (U) Normal Normal Normal [facility] Comment on above: Order Comment: Name Collection Type:: Clean-Voided Midstream Performed By: #### A DDONUAPLUS #### [place] [address] [place] Hyaline Casts,Urine None Seen Normal 0-8 [facility] Comment on above: Order Comment: Name Collection Type:: Clean-Voided Midstream Result Comment: PERF ORMED BY: [place] [address] PATHOLOGIST [employer] LANI GEORGE M.D. Performed By: #### A DDONUAPLUS #### [address] Ketones Ql (U) Negative Normal Negative [facility] Comment on above: Order Comment: Name Collection Type:: Clean-Voided Midstream Performed By: #### A DDONUAPLUS #### [address] Leukocyte esterase Test strip Ql (U) Negative Normal Negative [facility] Comment on above: Order Comment: Name Collection Type:: Clean-Voided Midstream Performed By: #### A DDONUAPLUS #### [place] [address] [place] Nitrite,Urine Negative Normal Negative [facility] Comment on above: Order Comment: Name Collection Type:: Clean-Voided Midstream Performed By: #### A DDONUAPLUS #### [place] [address] [place] Occult Blood,Urine 3+ High Negative [facility] Comment on above: Order Comment: Name Collection Type:: Clean-Voided Midstream Result Comment: PERF ORMED BY: [place] [address] PATHOLOGIST [employer] LANI GEORGE M.D. Performed By: #### A DDONUAPLUS #### [address] Protein,Urine Negative Normal Negative [facility] Comment on above: Order Comment: Name Collection Type:: Clean-Voided Midstream Performed By: #### A DDONUAPLUS #### [address] RBC,Urine Innumerable High 0-4 [facility] Comment on above: Order Comment: Name Collection Type:: Clean-Voided Midstream Performed By: #### A DDONUAPLUS #### [address] Specificy [place],Urine 1.020 Normal 1.001-1.030 [facility] Comment on above: Order Comment: Name Collection Type:: Clean-Voided Midstream Performed By: #### A DDONUAPLUS #### [address] Squamous Epithelial Cell,Urine None Seen Normal 0-2 [facility] Comment on above: Order Comment: Name Collection Type:: Clean-Voided Midstream Performed By: #### A DDONUAPLUS #### [address] Urobilinogen,Urine Normal Normal Normal [facility] Comment on above: Order Comment: Name Collection Type:: Clean-Voided Midstream Performed By: #### A DDONUAPLUS #### [place] [address] [place] WBC,Urine 1-2 Normal 0-4 [facility] Comment on above: Order Comment: Name Collection Type:: Clean-Voided Midstream Performed By: #### A DDONUAPLUS #### [place] [address] [place] Erythrocyte distribution wid th [Ratio] by Automated countOrdered By: Carter Alvarenga on 12-13-2023 Erythrocyte distribution width (RBC) [Ratio] 14.4 % Normal 12.0-14.8 [facility] Comment on above: Performed By: #### C BC, HEPATIC, BMP, LIPASE ####[place] [address] Erythrocytes [#/volume] in B lood by Automated countOrdered By: Carter Alvarenga on 12-13-2023 RBC (Bld) [#/Vol] 5.62 10*6/uL High 3.90-5.60 [facility] Comment on above: Performed By: #### C BC, HEPATIC, BMP, LIPASE ####[place] [id number] [facility] Glucose [Mass/volume] in Ser um or PlasmaOrdered By: Carter Alvarenga on 12-13-2023 Glucose [Mass/Vol] 91 mg/dL Normal 70-100 [facility] Comment on above: ADA recommended refe rence rangeRandom Glucose Reference Range is dependent on time and content of last meal. Glucose of more than 200 mg/dL in a nonstressed, ambulatory subject supports the diagnosis of Diabetes Mellitus. Result Comment: [place] om Glucose Reference Range is dependent on time and content of last meal. Glucose of more than 200 mg/dL in a nonstressed, ambulatory subject supports the diagnosis of Diabetes Mellitus. ADA recommended reference range Performed By: #### C BC, HEPATIC, BMP, LIPASE ####[place] [id number] [facility] Hematocrit [Volume Fraction] of Blood by Automated countOrdered By: Carter Alvarenga on 12-13-2023 Hematocrit (Bld) [Volume fraction] 49.1 % Normal 38.8-50.0 [facility] Comment on above: Performed By: #### C BC, HEPATIC, BMP, LIPASE ####[place] [id number] [facility] Hemoglobin [Mass/volume] in BloodOrdered By: Carter Alvarenga on 12-13-2023 Hemoglobin (Bld) [Mass/Vol] 16.3 g/dL Normal 13.0-17.0 [facility] Comment on above: Performed By: #### C BC, HEPATIC, BMP, LIPASE ####[place] [id number] [facility] Hepatic Panelon 12-13-2023 Albumin [Mass/Vol] 4.5 g/dL Normal 3.5-5.7 [facility] Comment on above: Performed By: #### C BC, HEPATIC, BMP, LIPASE ####[place] [address] Bilirubin,Indirect 1.0 mg/dL Normal [facility] Comment on above: Performed By: #### C BC, HEPATIC, BMP, LIPASE ####[place] [address] Bilirubin.indirect [Mass/Vol] 0.20 mg/dL High 0.03-0.18 [facility] Comment on above: Performed By: #### C BC, HEPATIC, BMP, LIPASE ####[place] [address] Ketones Auto test strip (U) [Mass/Vol]Ordered By: Carter Alvarenga on 12-13-2023 Ketones (U) [Mass/Vol] Negative Negative [facility] - UrinalysisOrder ed By: Carter Alvarenga on 12-13-2023 Hyaline casts LM Ql (Urine sed) None seen [LPF] 0-8 [facility] Leukocytes [#/volume] correc yvonne for nucleated erythrocytes in Blood by Automated counOrdered By: Carter Alvarenga on 12-13-2023 WBC corrected for nucl RBC Auto (Bld) [#/Vol] 14.6 10*3/uL 4.1-10.5 [facility] Leukocytes [#/volume] in Blo od by Automated countOrdered By: Carter Alvarenga on 12-13-2023 WBC (Bld) [#/Vol] 14.6 10*3/uL High 4.1-10.5 [facility] Comment on above: Performed By: #### C BC, HEPATIC, BMP, LIPASE ####[place] [address] Lipase [Enzymatic activity/v olume] in Serum or PlasmaOrdered By: Carter Alvarenga on 12-13-2023 Lipase [Catalytic activity/Vol] 7.0 U/L Low 11.0-82.0 [facility] Comment on above: Result Comment: PERF ORMED BY: [facility] [address] [place] [address] PATHOLOGIST [employer] LANI GEORGE M.D. Performed By: #### C BC, HEPATIC, BMP, LIPASE ####[place] [id number] Lymphocytes [#/volume] in Bl ood by Automated countOrdered By: Carter Alvarenga on 12-13-2023 Lymphocytes (Bld) [#/Vol] 5.8 10*3/uL High 1.00-4.8 [facility] Comment on above: Performed By: #### C BC, HEPATIC, BMP, LIPASE ####[address] Lymphocytes/100 leukocytes i n Blood by Automated countOrdered By: Carter Alvarenga on 12-13-2023 Lymphocytes/100 WBC (Bld) 39.9 % Normal . [facility] Comment on above: Performed By: #### C BC, HEPATIC, BMP, LIPASE ####[address] MCH [Entitic mass] by Automa yvonne countOrdered By: Carter Alvarenga on 12-13-2023 MCH (RBC) [Entitic mass] 28.9 pg Normal 27.5-35.2 [facility] Comment on above: Performed By: #### C BC, HEPATIC, BMP, LIPASE ####[address] MCHC Auto (RBC) [Mass/Vol]Or dered By: Carter Alvarenga on 12-13-2023 MCHC (RBC) [Mass/Vol] 33.1 g/dL 32.5-35.6 [facility] MCV [Entitic volume] by Auto mated countOrdered By: Carter Alvarenga on 12-13-2023 MCV (RBC) [Entitic vol] 87.3 fL Normal 83.5-101 [facility] Comment on above: Performed By: #### C BC, HEPATIC, BMP, LIPASE ####[address] Monocyte distribution width [Entitic volume] in Blood by AutomatedOrdered By: Carter Alvarenga on 12-13-2023 Monocyte distribution width Auto (Bld) [Entitic vol] 16.76 % 0.00-20.00 [facility] Neutrophils [#/volume] in Bl ood by Automated countOrdered By: Carter Alvarenga on 12-13-2023 Neutrophils (Bld) [#/Vol] 7.7 10*3/uL Normal 1.8-7.7 [facility] Comment on above: Performed By: #### C BC, HEPATIC, BMP, LIPASE ####[facility] [id number] [place] [address] [facility] Nitrite Test strip Ql (U)Ord ered By: Carter Alvarenga on 12-13-2023 Nitrite Ql (U) Negative Negative [facility] No Panel InformationOrdered By: Carter Alvarenga on 12-13-2023 Estimated GFR (CKD-EPI) > 60.0 mL/Min [facility] Creatinine Clearance (Chem 85.43 [facility] Nucleated erythrocytes [Pres ence] in Blood by Automated countOrdered By: Carter Alvarenga on 12-13-2023 Nucleated RBC Auto Ql (Bld) 0.3 /100{WBC} 0-0.5 [facility] Platelet mean volume [Entiti c volume] in Blood by Automated countOrdered By: Carter Alvarenga on 12-13-2023 Platelet mean volume (Bld) [Entitic vol] 9.2 fL Normal 6.6-10.1 [facility] Comment on above: Performed By: #### C BC, HEPATIC, BMP, LIPASE ####[facility] [address] [place] [address] [place] Platelets [#/volume] in Bloo d by Automated countOrdered By: Carter Alvarenga on 12-13-2023 Platelets (Bld) [#/Vol] 256 10*3/uL Normal 150-450 [facility] Comment on above: Performed By: #### C BC, HEPATIC, BMP, LIPASE ####[place] [address] [place] [address] [place] Potassium [Moles/volume] in Serum or PlasmaOrdered By: Carter Alvarenga on 12-13-2023 Potassium [Moles/Vol] 3.9 mmol/L Normal 3.5-5.1 [facility] Comment on above: Performed By: #### C BC, HEPATIC, BMP, LIPASE ####[address] Protein Auto test strip (U) [Mass/Vol]Ordered By: Carter Alvarenga on 12-13-2023 Protein (U) [Mass/Vol] Negative Negative [facility] Protein [Mass/volume] in Ser um or PlasmaOrdered By: Carter Alvarenga on 12-13-2023 Protein [Mass/Vol] 7.6 g/dL Normal 6.4-8.9 [facility] Comment on above: Performed By: #### C BC, HEPATIC, BMP, LIPASE ####[address] Serum globulin measurement b y calculation (mass/volume)Ordered By: Carter Alvarenga on 12-13-2023 Globulin (S) [Mass/Vol] 3.1 g/dL [facility] Comment on above: Performed By: #### C BC, HEPATIC, BMP, LIPASE ####[address] Serum or plasma albumin/glob ulin mass ratioOrdered By: Carter Alvarenga on 12-13-2023 Albumin/Globulin [Mass ratio] 1.5 {ratio} [facility] Comment on above: Performed By: #### C BC, HEPATIC, BMP, LIPASE ####[address] Serum or plasma anion gap de terminationOrdered By: Carter Alvarenga on 12-13-2023 Anion gap [Moles/Vol] 8.5 mmol/L Normal 6.0-15.0 [facility] Comment on above: Performed By: #### C BC, HEPATIC, BMP, LIPASE ####[address] Serum or plasma non-glucuron idated bilirubin measurement (mass/volume)Ordered By: Carter Alvarenga on 12-13-2023 Bilirubin.indirect [Mass/Vol] 1.0 mg/dL [facility] Sodium [Moles/volume] in Ser um or PlasmaOrdered By: Carter Alvarenga on 12-13-2023 Sodium [Moles/Vol] 139 mmol/L Normal 136-145 [facility] Comment on above: Performed By: #### C BC, HEPATIC, BMP, LIPASE ####[facility] [address] [place] [id number] [facility] Specific gravity Auto test s trip (U) [Rel density]Ordered By: Carter Alvarenga on 12-13-2023 Specific gravity (U) [Rel density] 1.020 1.001-1.030 [facility] Squamous epithelial cells de tection in urine sediment by light microscopyOrdered By: Carter Alvarenga on 12-13-2023 Epithelial cells.squamous LM Ql (Urine sed) None seen [HPF] 0-2 [facility] Urea nitrogen [Mass/volume] in Serum or PlasmaOrdered By: Carter Alvarenga on 12-13-2023 Urea nitrogen [Mass/Vol] 20 mg/dL Normal 7-25 [facility] Comment on above: Performed By: #### C BC, HEPATIC, BMP, LIPASE ####[place] [address] Urine bacteria detection by automated methodOrdered By: Carter Alvarenga on 12-13-2023 Bacteria Auto Ql (U) None seen [HPF] None Seen [facility] Urine clarity by refractomet ry automatedOrdered By: Carter Alvarenga on 12-13-2023 Clarity Refractometry automated (U) Clear Clear [facility] Urine glucose measurement by automated test strip (mass/volume)Ordered By: Carter Alvarenga on 12-13-2023 Glucose Auto test strip (U) [Mass/Vol] Normal mg/dL Normal [facility] Urine hemoglobin detection b y automated test stripOrdered By: Carter Alvarenga on 12-13-2023 Hemoglobin Auto test strip Ql (U) 3+ Negative [facility] Urine leukocyte esterase det ection by automated test stripOrdered By: Carter Alvarenga on 12-13-2023 Leukocyte esterase Auto test strip Ql (U) Negative Negative [facility] Urine pH measurement by auto mated test stripOrdered By: Carter Alvarenga on 12-13-2023 pH (U) 7.0 [pH] Normal 5.0-9.0 [facility] Comment on above: Order Comment: Name Collection Type:: Clean-Voided Midstream Performed By: #### A DDONUAPLUS #### [facility] [address] Urobilinogen Auto test strip (U) [Mass/Vol]Ordered By: Carter Alvarenga on 12-13-2023 Urobilinogen (U) [Mass/Vol] Normal mg/dL Normal [facility] RAD - MISCon 12-09-2023 RAD - MIS [id number]#1.00TIFF Normal [facility] Operative Reporton Operative Report [id number]#1.00TIFF Normal [facility] Lab Reportson 12-06-2023 Lab Reports [id number]#1.00TIFF Normal [facility] ECG 12-Leadon 11-30-2023 ECG 12-Lead [id number]#1.00TIFF Normal [facility] RAD - MISCon 11-30-2023 RAD - MIS [id number]#1.00TIFF Normal [facility] Lab Reportson 11-28-2023 Lab Reports [id number]#1.00TIFF Normal [facility] Patient Correspondenceon Patient Correspondence [id number]#1.00TIFF Normal [facility] Consent for Procedure/Surger yon 11-17-2023 Consent for Procedure/Surgery [id number]#1.00TIFF Normal [facility] Ambulatory Visit Summaryon 0 11-16-2023 Ambulatory Visit Summary JOHN SMITH :1965 Visit Date:11/16/2023 Ambulatory Visit Instructions Your Diagnosis BPH (benign prostatic hyperplasia) Kidney stone Hypercalciuria Your Care Team Attending Physician - Rio PRASAD MD [facility] - [facility], . This Is Your Medications List [...] Rio PRASAD MD Where: [facility] Patient Educationon 11-16-19 24 Patient Education Nephrology Lithotripsy, Care After This [...] these instructions at home: Medicines ? Take kcdd-fqq-mivpjlx and prescription medicines only as told by [...] care p (more content not included)... Normal [facility] Screenson 11-16-2023 Screens [id number]#1.00TIFF Normal [facility] Urology Office/Clinic Noteon 11-16-2023 Urology Office/Clinic Note Chief Complaint 4 month follow up w/ KUB and Metabolic workup HPI Staff 4 month follow up w/KUB & metabolic workup Previous DX: BPH w/ obstruction/lower urinary tract symptoms, family history of prostate cancer, kidney stone, renal stone. S/P ESWL done on 08/11/17. *Klor- Con 25MEQ BID. Pt has a appt in July 2024 OV w/1yr PSARadha DOWNING @ [facility] 11/09/23 Dysuria: denies pain and burning Incomplete [...] from his pharmacy. Another rx sent to [facility] in [place]. Doesn't add salt to food. [...] mg qd. SEs discussed. Rx sent to [facility] [employer]. -Electrolyte panel in one month. Follow-up With When Contact Information DECLAN HERNANDEZ, Rio Simons, [facility] [address], [place] [address]- Additional Instructions: schedule R ESWL Patient Education [...] Hypercalciuria Hyperlipemia Hypertension Kidney stone Renal stones Vggnp-Tbgqvqkom-Vmnxu syndrome Historical No qualifying data Procedure/Surgical History [...] 3 ref (more content not included)... Normal [facility] Comment on above: Result Comment: Elec tronically Signed By: DECLAN HERNANDEZ, Rio Simons\.br\Date and Time Signed: 11/16/23 10:17 EDT\.br\Electronically Co-Signed By: Soumya Rizvi\.br\Date and Time Co-Signed: 11/16/23 10:15 EDT RAD - MISCon 11-10-2023 RAD - MISC [id number]#1.00TIFF Normal [facility] XR abdomen 1Von 11-09-2023 XR abdomen 1V [facility] [place] [address] XRay Report Signed Patient: John Smith MR#: [id number] : 1965 Acct:[id number] Age/Sex: 57 / M ADM Date: 11/09/23 Loc: XD Room: Type: [facility] Attending Dr: Rio Prasad MD Copies [...] Mckeon Jr., D.O.11/09/2023 1:05 PM Dictation Location: [place] [address] Transcribed By: [facility] 11/09/23 1305 Dictated By: Narciso Mckeon Jr, DO 11/09/23 1304 Signed By: 11/09/23 1305 Normal [facility] Lab Reportson 10-17-2023 Lab Reports [id number]#1.00TIFF Normal [facility] Lab Reportson 10-13-2023 Lab Reports [id number]#1.00TIFF Normal [facility] Lab Reports [id number]#1.00TIFF Normal [facility] 24 Hr Urine Uric Acidon 09-16 Uric Acid, 24 Hr Urine 739.8 Normal 197.2-1078.7 [facility] Comment on above: Order Comment: URINE VOLUME (MILLILTERS): 2750 Result Comment: Perf ormed at: - [facility] [place] [id number] Supervisory Historian: Garrison Pate PhD, Phone: [phone] Performed By: #### P HOS 24HRU, URIC 24HRU, MAG 24HRU, U24 CA, CITRIC UR ####[facility] ,#### CREA24, U24 NA, COL T V ####[place] [address] Urine Uric Acid 26.9 mg/dL Normal Not Estab. [facility] Comment on above: Order Comment: URINE VOLUME (MILLILTERS): 2750 Performed By: #### P HOS 24HRU, URIC 24HRU, MAG 24HRU, U24 CA, CITRIC UR ####[facility] ,#### CREA24, U24 NA, COL T V ####[place] [address] 24 hour urine sodium measure ment (moles/time)Ordered By: Rio Prasad on 10-12-2023 Sodium (24H U) [Moles/Time] 297 mmol/24 40-220 [facility] 24 hour urine uric acid ivette urement (mass/time)Ordered By: Rio Prasad on 10-12-2023 Urate (24H U) [Mass/Time] 739.8 mg/24 hr 197.2-1078.7 [facility] Comment on above: Performed at: [place] [id number] Director: Garrison Pate PhD, Phone: [phone] CT biopsyOrdered By: Rio Prasad on 10-12-2023 CT biopsy 24 Hours [facility] Calcium [Mass/time] in 24 ho ur UrineOrdered By: Rio Prasad on 10-12-2023 Calcium (24H U) [Mass/Time] 421 mg/24 hr 0-320 [facility] Calcium [Mass/volume] in 24 hour UrineOrdered By: Rio Prasad on 10-12-2023 Calcium (24H U) [Mass/Vol] 15.3 mg/dL Not Estab. [facility] Calcium [Mass/volume] in Ser um or PlasmaOrdered By: Rio Prasad on 10-12-2023 Calcium [Mass/Vol] 8.9 mg/dL Normal 8.6-10.3 [facility] Comment on above: Performed By: #### U NAMRATA, CREAT, PTH, BUN, LYTES, CA #### [facility] [address] [place] [address] [place] Calcium, 24Hr Urineon 2023 Calcium, Urine 15.3 mg/dL Normal Not Estab. [facility] Comment on above: Order Comment: URINE VOLUME (MILLILTERS): 2750 Performed By: #### P HOS 24HRU, URIC 24HRU, MAG 24HRU, U24 CA, CITRIC UR ####[facility] ,#### CREA24, U24 NA, COL T V ####[facility] [address] [place] [id number] [place] Calcium, Urine 24 Hr 421 High 0-320 [facility] Comment on above: Order Comment: URINE VOLUME (MILLILTERS): 2750 Performed By: #### P HOS 24HRU, URIC 24HRU, MAG 24HRU, U24 CA, CITRIC UR ####[facility] ,#### CREA24, U24 NA, COL T V ####[facility] [place] [id number] [place] Carbon dioxide, total [Moles /volume] in Serum or PlasmaOrdered By: Rio Prasad on 10-12-2023 CO2 [Moles/Vol] 28.4 mmol/L Normal 21.0-31.0 [facility] Comment on above: Performed By: #### U NAMRATA, CREAT, PTH, BUN, LYTES, CA #### [facility] [address] [place] [address] [place] Chloride [Moles/volume] in S new or PlasmaOrdered By: Rio Prasad on 10-12-2023 Chloride [Moles/Vol] 106 mmol/L Normal 98-107 [facility] Comment on above: Performed By: #### U NAMRATA, CREAT, PTH, BUN, LYTES, CA #### [facility] [address] [place] [id number] [place] Citric Acid, Urine, 24 Houro n 10-12-2023 Citric Acid, Urine 189 mg/L Normal Undefined [facility] Comment on above: Order Comment: URINE VOLUME (MILLILTERS): 2750 Result Comment: This test was developed and its performance characteristics determined by [facility]. It has not been cleared or approved by the Food and Drug Administration. Performed By: #### P HOS 24HRU, URIC 24HRU, MAG 24HRU, U24 CA, CITRIC UR ####[facility] ,#### CREA24, U24 NA, COL T V ####[facility] [place] [id number] [place] Citric Acid, Urine, 24HR 520 Normal 320-1240 [facility] Comment on above: Order Comment: URINE VOLUME (MILLILTERS): 2750 Result Comment: Perf ormed at: - [facility] [id number] Supervisory Historian: Ammon Dalton MD, Phone: [phone] PERFORMED BY: [address] [place] [address] PATHOLOGIST [employer] LANI GEORGE M.D. Performed By: #### P HOS 24HRU, URIC 24HRU, MAG 24HRU, U24 CA, CITRIC UR ####[facility] ,#### CREA24, U24 NA, COL T V ####[place] [id number] [facility] Carlos Alberto Time and Vol 24 hr uron 10-12-2023 Total Volume, Urine 2750 Normal [facility] Comment on above: Order Comment: URINE COLLECTION TIME (HRS): 24 URINE VOLUME (MILLILTERS): 2750 Result Comment: PERF ORMED BY: [address] [place] [address] PATHOLOGIST [employer] LANI GEORGE M.D. Performed By: #### P HOS 24HRU, URIC 24HRU, MAG 24HRU, U24 CA, CITRIC UR ####[facility] ,#### CREA24, U24 NA, COL T V ####[address] Urine Collection Time 24 Normal [facility] Comment on above: Order Comment: URINE COLLECTION TIME (HRS): 24 URINE VOLUME (MILLILTERS): 2750 Performed By: #### P HOS 24HRU, URIC 24HRU, MAG 24HRU, U24 CA, CITRIC UR ####[facility] ,#### CREA24, U24 NA, COL T V ####[place] [id number] [facility] Creatinineon 10-12-2023 GFR/1.73 sq M.predicted MDRD (S/P/Bld) [Vol rate/Area] mL/min/{1.73_m2} Normal [facility] Comment on above: Performed By: #### U NAMRATA, CREAT, PTH, BUN, LYTES, CA #### [facility] [address] [place] [id number] [facility] Creatinine [Mass/volume] in Serum or PlasmaOrdered By: Rio Prasad on 10-12-2023 Creatinine [Mass/Vol] 0.99 mg/dL Normal 0.70-1.30 [facility] Comment on above: Performed By: #### U NAMRATA, CREAT, PTH, BUN, LYTES, CA #### [facility] [address] [place] [id number] [place] Creatinine [Mass/volume] in UrineOrdered By: Rio Prasad on 10-12-2023 Creatinine (U) [Mass/Vol] 68.00 mg/dL 14.00-26.00 [facility] Creatinine, 24 Hr Urineon Creatinine 24 Hour, Urine 1.87 g/24_hr Normal 1.00-2.09 [facility] Comment on above: Order Comment: URINE COLLECTION TIME (HRS): 24 URINE VOLUME (MILLILTERS): 2750 Performed By: #### P HOS 24HRU, URIC 24HRU, MAG 24HRU, U24 CA, CITRIC UR ####[facility] ,#### CREA24, U24 NA, COL T V ####[facility] [place] [id number] [place] Creatinine, Urine 68.00 mg/dL High 14.00-26.00 [facility] Comment on above: Order Comment: URINE COLLECTION TIME (HRS): 24 URINE VOLUME (MILLILTERS): 2750 Performed By: #### P HOS 24HRU, URIC 24HRU, MAG 24HRU, U24 CA, CITRIC UR ####[facility] ,#### CREA24, U24 NA, COL T V ####[place] [address] [place] [id number] [place] Magnesium [Mass/time] in 24 hour UrineOrdered By: Rio Prasad on 10-12-2023 Magnesium (24H U) [Mass/Time] 151.3 mg/24 hr 12.0-293.0 [facility] Comment on above: Performed at: [place] [id number] Director: Garrison Pate PhD, Phone: [phone] Magnesium [Mass/volume] in U rineOrdered By: Rio Prasad on 10-12-2023 Magnesium (U) [Mass/Vol] 5.5 mg/dL Not Estab. [facility] Magnesium, Urine 24Hron 09-16 Magnesium, 24Hr Urine 151.3 Normal 12.0-293.0 [facility] Comment on above: Order Comment: URINE VOLUME (MILLILTERS): 2750 Result Comment: Perf ormed at: - [facility] [place] [address] [place], [place] [id number] Supervisory Historian: Garrison Pate PhD, Phone: [phone] Performed By: #### P HOS 24HRU, URIC 24HRU, MAG 24HRU, U24 CA, CITRIC UR ####[facility] ,#### CREA24, U24 NA, COL T V ####[address] Magnesium, Urine 5.5 mg/dL Normal Not Estab. [facility] Comment on above: Order Comment: URINE VOLUME (MILLILTERS): 2750 Performed By: #### P HOS 24HRU, URIC 24HRU, MAG 24HRU, U24 CA, CITRIC UR ####[facility] ,#### CREA24, U24 NA, COL T V ####[address] No Panel InformationOrdered By: Rio Prasad on 10-12-2023 Estimated GFR (CKD-EPI) > 60.0 mL/Min [facility] Creatinine Clearance (Chem N/A [facility] Urine Citric Acid 189 mg/L Undefined [facility] Comment on above: This test was develo ped and its performance characteristicsdetermined by [facility]. It has not been cleared orapproved by the Food and Drug Administration. Urine Citric Acid 24 Hour 520 mg/24 hr 320-1240 [facility] Comment on above: Performed at: [address] [id number] Director: Ammon Dalton MD, Phone: [phone] Urine Creatinine 24 Hour 1.87 g/24 hr 1.00-2.09 [facility] Parathyrin.intact [Mass/volu me] in Serum or PlasmaOrdered By: Rio Prasad on 10-12-2023 Parathyrin.intact [Mass/Vol] 76.2 pg/mL [facility] Parathyroid Hormone Intacton 10-12-2023 Parathyroid Hormone Intact 76.2 pg/mL Normal [facility] Comment on above: Result Comment: PERF ORMED BY: [facility] [address] [place] [address] PATHOLOGIST [employer] LANI GEORGE M.D. Performed By: #### U NAMRATA, CREAT, PTH, BUN, LYTES, CA ####[facility] [address] [place] [address] [place] Phosphate [Mass/time] in 24 hour UrineOrdered By: Rio Prasad on 10-12-2023 Phosphate (24H U) [Mass/Time] 1367 mg/24 hr 390-1425 [facility] Phosphate [Mass/volume] in U rineOrdered By: Rio Prasad on 10-12-2023 Phosphate (U) [Mass/Vol] 49.7 mg/dL Not Estab. [facility] Phosphorus, 24Hr Urineon Phosphorous, Urine 49.7 mg/dL Normal Not Estab. [facility] Comment on above: Order Comment: URINE VOLUME (MILLILTERS): 2750 Performed By: #### P HOS 24HRU, URIC 24HRU, MAG 24HRU, U24 CA, CITRIC UR ####[facility] ,#### CREA24, U24 NA, COL T V ####[place] [address] [place] [address] [place] Phosphorus, Urine 24Hr 1367 Normal 390-1425 [facility] Comment on above: Order Comment: URINE VOLUME (MILLILTERS): 2750 Performed By: #### P HOS 24HRU, URIC 24HRU, MAG 24HRU, U24 CA, CITRIC UR ####[facility] ,#### CREA24, U24 NA, COL T V ####[facility] [place] [address] [place] Potassium [Moles/volume] in Serum or PlasmaOrdered By: Rio Prasad on 10-12-2023 Potassium [Moles/Vol] 4.2 mmol/L Normal 3.5-5.1 [facility] Comment on above: Performed By: #### U NAMRATA, CREAT, PTH, BUN, LYTES, CA #### [facility] [address] Serum or plasma anion gap de terminationOrdered By: Rio Prasad on 10-12-2023 Anion gap [Moles/Vol] 9.8 mmol/L Normal 6.0-15.0 [facility] Comment on above: Performed By: #### U NAMRATA, CREAT, PTH, BUN, LYTES, [place] #### [place] [address] [place] Sodium [Moles/volume] in Ser um or PlasmaOrdered By: Rio Prasad on 10-12-2023 Sodium [Moles/Vol] 140 mmol/L Normal 136-145 [facility] Comment on above: Performed By: #### U NAMRATA, CREAT, PTH, BUN, LYTES, CA #### [facility] [address] [place] [address] [place] Sodium [Moles/volume] in Uri neOrdered By: Rio Prasad on 10-12-2023 Sodium (U) [Moles/Vol] 108.0 mmol/L Normal [facility] Comment on above: No reference range e stablished Order Comment: URINE COLLECTION TIME (HRS): 24 URINE VOLUME (MILLILTERS): 2750 Result Comment: No r eference range established Performed By: #### P HOS 24HRU, URIC 24HRU, MAG 24HRU, U24 CA, CITRIC UR ####[facility] ,#### CREA24, U24 NA, COL T V ####[place] [address] [place] Sodium, 24 Hr Urineon 2023 Sodium 24 Hour Urine 297 High 40-220 [facility] Comment on above: Order Comment: URINE COLLECTION TIME (HRS): 24 URINE VOLUME (MILLILTERS): 2750 Performed By: #### P HOS 24HRU, URIC 24HRU, MAG 24HRU, U24 CA, CITRIC UR ####[facility] ,#### CREA24, U24 NA, COL T V ####[facility] [address] [place] [id number] [place] Urate [Mass/volume] in Serum or PlasmaOrdered By: Rio Prasad on 10-12-2023 Urate [Mass/Vol] 4.6 mg/dL Normal 4.4-7.6 [facility] Comment on above: Result Comment: PERF ORMED BY: [place] [address] PATHOLOGIST [employer] LANI GEORGE M.D. Performed By: #### U NAMRATA, CREAT, PTH, BUN, LYTES, CA #### [facility] [address] Urea nitrogen [Mass/volume] in Serum or PlasmaOrdered By: Rio Prasad on 10-12-2023 Urea nitrogen [Mass/Vol] 19 mg/dL Normal 7-25 [facility] Comment on above: Performed By: #### U NAMRATA, CREAT, PTH, BUN, LYTES, CA #### [facility] [address] Urine uric acid measurement (mass/volume)Ordered By: Rio Prasad on 10-12-2023 Urate (U) [Mass/Vol] 26.9 mg/dL Not Estab. [facility] Urine volume measurementOrde red By: Rio Prasad on 10-12-2023 Specimen volume (U) 2750 ml [facility] Screenson 07-21-2023 Screens [id number]#1.00TIFF Normal [facility] Ambulatory Visit Summaryon 1 09-20-2022 Ambulatory Visit [...] Rio PRASAD MD Where: [facility] Normal [address] [facility] [place] [address]- \.br\ You Need to Schedule the Following Appointments\ .br\ Follow Up with Rio PRASAD MD, URL When: \.br\ Where:\.br\ [facility] [address] [place]\.br\ [place] [address]-\.br\ Medications\. br\ What How Much When Instructions\ .br\ Changed potassium bicarbonate (Klor-Con/ EF 25 mEq oral tablet, effervescent) 1 Tablets By Mouth 2 times a day Duration: 90 Days [facility] [place]\.br\ Unchanged amlodipine (amLODIPine 10 mg [...] or concerns \.br\ Pharmacy Information\. br\ [facility]: [address] [phone]\.br\ Allergies\.br \ No Known Medication Allergies\.br \ [...] and drink normally.\.br \ ? \.br\ Take txgh-nhb-aktr ter and prescription medicines only as told by your health care provider.\.br \ ? \.br\ Let your health care provider know about any medicines that you are taking, including aobg-zka-rcap ter medicines, vitamins, herbs, and supplements.\ .br\ [...] \ Document Revised: 02/05/2022 Document Reviewed: 02/05/2022 [employer] Patient Education ? 2022 [employer]uber.\.br\ \.br\ [facility] Patient Educationon 07-20-20 Patient Education Urology 24-Hour [...] may eat and drink normally. ? Take wiaf-zrg-vptmrvg and prescription medicines only as told by your health care provider. ? Let your health care provider know about any medicines that you are taking, including gtfl-cui-dpvftin medicines, vitamins, herbs, and supplements. ? Choose [...] provider. Document Revised: 02/05/2022 Document Reviewed: 02/05/2022 [employer] Patient Education ? 2022 [employer] [place] [facility] Urology Office/Clinic Noteon 07-20-2023 Urology Office/Clinic Note Chief Complaint 1 year follow up HPI Staff 1 year follow up w/PSA. Current PSA 0.590 done 07/11/23, previous PSA 0.810 done 07/07/22. Previous DX: BPH w/ obstruction/lower urinary tract symptoms, family history of prostate cancer, kidney stone, renal stone. S/P ESWL done on 08/11/17. *Klor- Con 25MEQ BID-[facility]. Pt unalbe to give [...] [facility] [address], [place] [address]- Additional Instructions: 4 mos with KUB and met workup, then PSA and OV with FRANSISCO in 1 yr Patient Education 24-Hour Urine Collection Soumya Galaviz, personally scribed for Dr. Prasad on 07/20/2023 [...] disease Hyperlipemia Hypertension Kidney stone Renal stones Sncml-Uefwkerxr-Goqos syndrome Historical No qualifying data Procedure/Surgical History [...] virus vaccine, inactivated 06/07/2022 Recorded SARS-CoV-2 (COVID-19) [id number] 06/07/2022 Recorded SARS-CoV-2 (COVID-19) mRNA BNT-162b2 vax 08/03/2021 Recorded influenza virus vaccine, inactivated 04/29/2021 Recorded SARS-CoV-2 (COVID-19) Ad26 vaccine 12/16/2020 Re (more content not included)... Normal [facility] Comment on above: Result Comment: Elec tronically Signed By: Rio PRASAD MD\.br\Date and Time Signed: 07/20/23 09:13 EST\.br\Electronically Co-Signed By: Soumya Rizvi\.br\Date and Time Co-Signed: 07/20/23 09:12 EST Lab Reportson 07-12-2023 Lab Reports [id number] Normal [facility] Alanine aminotransferase [En zymatic activity/volume] in Serum or PlasmaOrdered By: Arlyn Loza on 07-11-2023 ALT [Catalytic activity/Vol] 27 U/L Normal 7-52 [facility] Comment on above: Performed By: #### B MP, ALT, LIPID, AST ####[address] [place] [address] [facility] Aspartate aminotransferase [ Enzymatic activity/volume] in Serum or PlasmaOrdered By: Arlyn Loza on 07-11-2023 AST [Catalytic activity/Vol] 20 U/L Normal 13-39 [facility] Comment on above: Performed By: #### B MP, ALT, LIPID, AST ####[place] [id number] [facility] Basic Metabolic Panelon 06-16 GFR/1.73 sq M.predicted MDRD (S/P/Bld) [Vol rate/Area] mL/min/{1.73_m2} Normal [facility] Comment on above: Performed By: #### B MP, ALT, LIPID, AST ####[place] [id number] [facility] Calcium [Mass/volume] in Ser um or PlasmaOrdered By: Arlyn Loza on 07-11-2023 Calcium [Mass/Vol] 9.3 mg/dL Normal 8.6-10.3 [facility] Comment on above: Performed By: #### B MP, ALT, LIPID, AST ####[place] [id number] [facility] Carbon dioxide, total [Moles /volume] in Serum or PlasmaOrdered By: Arlyn Loza on 07-11-2023 CO2 [Moles/Vol] 30.7 mmol/L Normal 21.0-31.0 [facility] Comment on above: Performed By: #### B MP, ALT, LIPID, AST ####[place] [id number] [facility] Chloride [Moles/volume] in S new or PlasmaOrdered By: Arlyn Loza on 11-27-2023 Chloride [Moles/Vol] 104 mmol/L Normal 98-107 [facility] Comment on above: Performed By: #### B MP, ALT, LIPID, AST ####[facility] [id number] [place] [id number] [facility] Cholesterol [Mass/volume] in Serum or PlasmaOrdered By: Arlyn Loza on 07-11-2023 Cholesterol [Mass/Vol] 172 mg/dL Normal 140-200 [facility] Comment on above: Chol less than 200 m g/dl low riskChol 201-239 mg/dl borderline riskChol 240 mg/dl and greater high risk Result Comment: Chol less than 200 mg/dl low risk Chol 201-239 mg/dl borderline risk Chol 240 mg/dl and greater high risk Performed By: #### B MP, ALT, LIPID, AST ####[facility] [id number] [place] [id number] [facility] Cholesterol in LDL Calc [Mas s/Vol]Ordered By: Arlyn Loza on 07-11-2023 Cholesterol in LDL [Mass/Vol] 86 mg/dL 0-100 [facility] Comment on above: LDL ATP III CLASSIFI CATIONLDL less than 100 mg/dL OptimalLDL 100-129 mg/dL Near or above optimalLDL 130-159 mg/dL Borderline highLDL 160-189 mg/dL HighLDL greater than 189 mg/dL Very high Cholesterol in VLDL Calc [Ma ss/Vol]Ordered By: Arlyn Loza on 07-11-2023 Cholesterol in VLDL [Mass/Vol] 35 mg/dL [facility] Creatinine [Mass/volume] in Serum or PlasmaOrdered By: Arlyn Loza on 07-11-2023 Creatinine [Mass/Vol] 1.04 mg/dL Normal 0.70-1.30 [facility] Comment on above: Performed By: #### B MP, ALT, LIPID, AST ####[facility] [id number] [place] [id number] [place] Glucose [Mass/volume] in Ser um or PlasmaOrdered By: Arlyn Loza on 07-11-2023 Glucose [Mass/Vol] 97 mg/dL Normal 70-100 [facility] Comment on above: ADA recommended refe rence rangeRandom Glucose Reference Range is dependent on time and content of last meal. Glucose of more than 200 mg/dL in a nonstressed, ambulatory subject supports the diagnosis of Diabetes Mellitus. Result Comment: [place] Glucose Reference Range is dependent on time and content of last meal. Glucose of more than 200 mg/dL in a nonstressed, ambulatory subject supports the diagnosis of Diabetes Mellitus. ADA recommended reference range Performed By: #### B MP, ALT, LIPID, AST ####[address] Lipid Panelon 07-11-2023 LDL Cholesterol,Calculate d 86 mg/dL Normal 0-100 [facility] Comment on above: Result Comment: LDL ATP III CLASSIFICATION LDL less than 100 mg/dL Optimal LDL 100-129 mg/dL Near or above optimal LDL 130-159 mg/dL Borderline high LDL 160-189 mg/dL High LDL greater than 189 mg/dL Very high Performed By: #### B MP, ALT, LIPID, AST ####[address] Triglyceride w/Reflex 179 mg/dL High 0-149 [facility] Comment on above: Result Comment: TRIG ATP III CLASSIFICATION TRIG less than 150 mg/dL Normal TRIG 150-199 mg/dL Borderline high TRIG 200-500 mg/dL High TRIG greater than 500 mg/dL Very high Standard traceable to the Center for Disease Conrtrol and Prevention (CDC) test method. Performed By: #### B MP, ALT, LIPID, AST ####[address] VLDL CHOLESTEROL 35 mg/dL Normal [facility] Comment on above: Performed By: #### B MP, ALT, LIPID, AST ####[address] No Panel InformationOrdered By: Arlyn Loza on 07-11-2023 Estimated GFR (CKD-EPI) > 60.0 mL/Min [facility] Creatinine Clearance (Chem N/A [facility] PSA Total (Not a Screen)on 09-10-2022 PSA Total (Not a Screen) 0.590 ng/mL Normal 0.000-4.000 [facility] Comment on above: Result Comment: PERF ORMED BY: [facility] [address] [place] [address] PATHOLOGIST [employer] LANI GEORGE M.D. Performed By: #### P SATOTAL #### [facility] [address] Potassium [Moles/volume] in Serum or PlasmaOrdered By: Arlyn Loza on 07-11-2023 Potassium [Moles/Vol] 4.5 mmol/L Normal 3.5-5.1 [facility] Comment on above: Performed By: #### B MP, ALT, LIPID, AST ####[facility] Prostate specific Ag [Mass/v olume] in Serum or PlasmaOrdered By: Rio Prasad on 07-11-2023 Prostate specific Ag [Mass/Vol] 0.590 ng/mL 0.000-4.000 [facility] Serum or plasma anion gap de terminationOrdered By: Arlyn Loza on 07-11-2023 Anion gap [Moles/Vol] 11.8 mmol/L Normal 6.0-15.0 [facility] Comment on above: Performed By: #### B MP, ALT, LIPID, AST ####[address] Serum or plasma high density lipoprotein (HDL) cholesterol measurementOrdered By: Arlyn Loza on 07-11-2023 Cholesterol in HDL [Mass/Vol] 50 mg/dL Normal 23-92 [facility] Comment on above: HDL CHOL ATP-III CLA SSIFICATION Cardiovascular RiskHDL > or equal to 60 mg/dL LOWHDL < 40 mg/dL HIGH Result Comment: HDL CHOL ATP-III CLASSIFICATION Cardiovascular Risk HDL > or equal to 60 mg/dL LOW HDL < 40 mg/dL HIGH Performed By: #### B MP, ALT, LIPID, AST ####[address] Serum or plasma total choles terol/high density lipoprotein (HDL) cholesterol mass ratOrdered By: Arlyn Loza on 07-11-2023 Cholesterol.total/Cho lesterol in HDL [Mass ratio] 3.4 {ratio} Normal <5.0 [facility] Comment on above: Result Comment: PERF ORMED BY: [facility] [id number] PATHOLOGIST [employer] LANI GEORGE M.D. Performed By: #### B MP, ALT, LIPID, AST ####[address] [place] [id number] [facility] Sodium [Moles/volume] in Ser um or PlasmaOrdered By: Arlyn Loza on 07-11-2023 Sodium [Moles/Vol] 142 mmol/L Normal 136-145 [facility] Comment on above: Performed By: #### B MP, ALT, LIPID, AST ####[address] [place] [id number] [facility] Triglyceride [Mass/volume] i n Serum or PlasmaOrdered By: Arlyn Loza on 07-11-2023 Triglyceride [Mass/Vol] 179 mg/dL 0-149 [facility] Comment on above: TRIG ATP III CLASSIF ICATIONTRIG less than 150 mg/dL NormalTRIG 150-199 mg/dL Borderline highTRIG 200-500 mg/dL High TRIG greater than 500 mg/dL Very highStandard traceable to the Center for Disease Conrtrol and Prevention (CDC) test method. 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) Diabetes (250.00) (E11.9) Morbid obesity with BMI of 40.0-44.9, adult (278.01,V85.41) (E66.01,Z68.41) Nephrolithiasis (592.0) (N20.0) Orders Benign essential hypertension IO EKG Electrocardiogram- 12 Lead; Status:Complete; Done: [id number] Benign essential hypertension, Hyperlipidemia ALT - Alanine Aminotransferase, Serum; Status:Active - Retrospective Authorization; Requested for:[id number]; AST; Status:Active - Retrospective Authorization; Requested for:[id number]; Basic Metabolic Panel; Status:Active - Retrospective Authorization; Requested for:[id number]; Lipid Panel; Status:Active - Retrospective Authorization; Requested for:[id number]; Morbid obesity with BMI of 40.0-44.9, adult Healthy Weight Tips; Status:Complete - Retrospective Authorization; Done: [id number] Some eating tips that can help you lose weight.; Status:Complete - Retrospective Authorization; Done: [id number] Patient Instructions Please bring all medicines, vitamins, [...] to kidney stones 6. Diabetes managed by [facility] and stable Arlyn Loza MD, [facility] Surgical History Problems History of Complete colonoscopy [...] negative for complaint. Vitals Vital Signs Recorded: [id number] 08:44AM Heart Rate60, L Radial Wkfqbvnl560, LUE, Sitting Evnlyodrc86, LUE, Sitting Height5 ft 6 in Vnbdky399 lb BMI Lxlakwewyy80.45 kg/m2 BSA Calculated2.25 Tobacco Useb) No PHQ-2 [...] Screening.on 023 Adult depression screening assessment No [facility] [employer] norma 250 DO Work Phone: Tobacco use status CPHS b) No -[facility] [employer] norma 250 DO Work Phone: Established Visit [...] resuming activities as tolerated. He can take yeji-uwe-bhomyrb anti-inflammatory medications if needed. Follow-up as needed Questions answered . 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 [facility] Cholesterol [Mass/volume] in Serum or PlasmaOrdered By: Rossy Salinas on 08-09-2022 Cholesterol [Mass/Vol] 200 mg/dL 140-200 [facility] Comment on above: Chol less than 200 m g/dl low riskChol 201-239 mg/dl borderline riskChol 240 mg/dl and greater high risk Cholesterol in LDL Calc [Mas s/Vol]Ordered By: Rossy Salinas on 08-09-2022 Cholesterol in LDL [Mass/Vol] 106 mg/dL 0-100 [facility] Comment on above: LDL ATP III CLASSIFI CATIONLDL less than 100 mg/dL OptimalLDL 100-129 mg/dL Near or above optimalLDL 130-159 mg/dL Borderline highLDL 160-189 mg/dL HighLDL greater than 189 mg/dL Very high Cholesterol in VLDL Calc [Ma ss/Vol]Ordered By: Rossy Salinas on 08-09-2022 Cholesterol in VLDL [Mass/Vol] 41 mg/dL [facility] Creatinine [Mass/volume] in UrineOrdered By: Rossy Salinas on 08-09-2022 Creatinine (U) [Mass/Vol] 112.2 mg/dL [facility] Comment on above: No reference range e stablished Creatinine and Glomerular fi ltration rate.predicted panel (S/P/Bld)Ordered By: Rossy Salinas on 08-09-2022 Creatinine [Mass/Vol] 1.11 mg/dL 0.64-1.27 [facility] Eosinophils Auto (Bld) [#/Vo l]Ordered By: Rossy Salinas on 08-09-2022 Eosinophils (Bld) [#/Vol] 0.4 10*3/uL 0.0-0.45 [facility] Eosinophils/100 WBC Auto (Bl d)Ordered By: Rossy Salinas on 08-09-2022 Eosinophils/100 WBC (Bld) 4.3 % . [facility] Erythrocyte distribution wid th Auto (RBC) [Ratio]Ordered By: Rossy Salinas on 08-09-2022 Erythrocyte distribution width (RBC) [Ratio] 14.3 % 12.0-14.8 [facility] Estimated glomerular filtrat ion rate (GFR) non- AmericanOrdered By: Rossy Salinas on 08-09-2022 GFR/1.73 sq M.predicted among non-blacks MDRD (S/P/Bld) [Vol rate/Area] > 60 mL/Min [facility] Globulin Calc (S) [Mass/Vol] Ordered By: Rossy Salinas on 08-09-2022 Globulin (S) [Mass/Vol] 2.9 g/dL [facility] Hematocrit Auto (Bld) [Volum e fraction]Ordered By: Rossy Salinas on 08-09-2022 Hematocrit (Bld) [Volume fraction] 47.2 % 38.8-50.0 [facility] Hemoglobin [Mass/volume] in BloodOrdered By: Rossy Salinas on 08-09-2022 Hemoglobin (Bld) [Mass/Vol] 15.6 g/dL 13.0-17.0 [facility] Leukocytes [#/volume] correc yvonne for nucleated erythrocytes in Blood by Automated counOrdered By: Rossy Salinas on 08-09-2022 WBC corrected for nucl RBC Auto (Bld) [#/Vol] 10.2 10*3/uL 4.1-10.5 [facility] Lymphocytes Auto (Bld) [#/Vo l]Ordered By: Rossy Salinas on 08-09-2022 Lymphocytes (Bld) [#/Vol] 3.9 10*3/uL 1.00-4.8 [facility] Lymphocytes/100 WBC Auto (Bl d)Ordered By: Rossy Salinas on 08-09-2022 Lymphocytes/100 WBC (Bld) 38.1 % . [facility] MCH Auto (RBC) [Entitic mass ]Ordered By: Rossy Salinas on 08-09-2022 MCH (RBC) [Entitic mass] 29.6 pg 27.5-35.2 [facility] MCHC Auto (RBC) [Mass/Vol]Or dered By: Rossy Salinas on 08-09-2022 MCHC (RBC) [Mass/Vol] 33.0 g/dL 32.5-35.6 [facility] MCV Auto (RBC) [Entitic vol] Ordered By: Rossy [place] on 08-09-2022 MCV (RBC) [Entitic vol] 89.6 fL 83.5-101 [facility] Monocytes Auto (Bld) [#/Vol] Ordered By: Rossy Brad on 08-09-2022 Monocytes (Bld) [#/Vol] 0.6 10*3/uL 0.0-0.8 [facility] Monocytes/100 WBC Auto (Bld) Ordered By: Rossy [place] on 08-09-2022 Monocytes/100 WBC (Bld) 5.9 % . [facility] Neutrophils Auto (Bld) [#/Vo l]Ordered By: Rossy [place] on 08-09-2022 Neutrophils (Bld) [#/Vol] 5.2 10*3/uL 1.8-7.7 [facility] Neutrophils/100 WBC Auto (Bl d)Ordered By: Rossy Brad on 08-09-2022 Neutrophils/100 WBC (Bld) 50.8 % . [facility] No Panel InformationOrdered By: Rossy Salinas on 08-09-2022 25-Hydroxy Vitamin D Total 21.6 ng/mL 30-100 [facility] Comment on above: VITAMIN D STATUS 25( [place])VITAMIN D RANGE (ng/mL) Deficient <20 Insufficient 20 to <30Sufficient 30 to 100Reference: Brody MF,Jani NC, Irvin DEJESUS, et al. Evaluation,treatment, and prevention of vitamin D deficiency; an Endocrine Society clinical practice guideline. JCEM. 2010; 96(7):1911-30. Estimated GFR () > 60 mL/Min [facility] Comment on above: GFR estimated refere nce range: According to KDOQI guidelines, <60 ml/min/1.73m2 is sufficient to diagnose a patient with chronic kidney disease. Pharmacy Creatinine Clearance (Chem N/A [facility] Nucleated erythrocytes [Pres ence] in Blood by Automated countOrdered By: Rossy Chaparroser on 08-09-2022 Nucleated RBC Auto Ql (Bld) 0.1 /100{WBC} 0-0.5 [facility] Platelet mean volume Auto (B ld) [Entitic vol]Ordered By: Rossy Salinas on 08-09-2022 Platelet mean volume (Bld) [Entitic vol] 9.3 fL 6.6-10.1 [facility] Platelets Auto (Bld) [#/Vol] Ordered By: Rossy Salinas on 08-09-2022 Platelets (Bld) [#/Vol] 235 10*3/uL 150-450 [facility] Protein [Mass/volume] in Ser um or PlasmaOrdered By: Rossy Salinas on 08-09-2022 Protein [Mass/Vol] 7.0 g/dL 6.1-7.9 [facility] RBC Auto (Bld) [#/Vol]Ordere d By: Rossy Salinas on 08-09-2022 RBC (Bld) [#/Vol] 5.27 10*6/uL 3.90-5.60 [facility] Serum or plasma alanine weldon otransferase measurement without P-5'-P (enzymatic activiOrdered By: Rossy Salinas on 08-09-2022 ALT No additional P-5'-P [Catalytic activity/Vol] 35 U/L 10-60 [facility] Serum or plasma albumin/glob ulin mass ratioOrdered By: Rossy Salinas on 08-09-2022 Albumin/Globulin [Mass ratio] 1.4 {ratio} [facility] Serum or plasma alkaline linda sphatase measurement (enzymatic activity/volume)Ordered By: Rossy Salinas on 08-09-2022 ALP [Catalytic activity/Vol] 89 U/L 32-92 [facility] Serum or plasma anion gap de terminationOrdered By: Rossy Salinas on 08-09-2022 Anion gap [Moles/Vol] 12.1 mmol/L 6.0-15.0 [facility] Serum or plasma aspartate am inotransferase measurement (enzymatic activity/volume)Ordered By: Rossy Salinas on 08-09-2022 AST [Catalytic activity/Vol] 21 U/L 10-42 [facility] Serum or plasma calcium ivette urement (mass/volume)Ordered By: Rossy Salinas on 12-26-2022 Calcium [Mass/Vol] 9.6 mg/dL 8.2-10.2 [facility] Serum or plasma chloride kenan surement (moles/volume)Ordered By: Rossy Salinas on 08-09-2022 Chloride [Moles/Vol] 105 mmol/L 95-114 [facility] Serum or plasma glucose ivette urement (mass/volume)Ordered By: Rossy Salinas on 08-09-2022 Glucose [Mass/Vol] 93 mg/dL 70-100 [facility] Comment on above: ADA recommended refe rence rangeRandom Glucose Reference Range is dependent on time and content of last meal. Glucose of more than 200 mg/dL in a nonstressed, ambulatory subject supports the diagnosis of Diabetes Mellitus. Serum or plasma high density lipoprotein (HDL) cholesterol measurementOrdered By: Rossy Salinas on 08-09-2022 Cholesterol in HDL [Mass/Vol] 53 mg/dL 29-71 [facility] Comment on above: HDL CHOL ATP-III CLA SSIFICATION Cardiovascular RiskHDL > or equal to 60 mg/dL LOWHDL < 40 mg/dL HIGH Serum or plasma potassium me asurement (moles/volume)Ordered By: Rossy Salinas on 08-09-2022 Potassium [Moles/Vol] 4.1 mmol/L 3.5-5.1 [facility] Serum or plasma sodium measu rement (moles/volume)Ordered By: Rossy Salinas on 08-09-2022 Sodium [Moles/Vol] 138 mmol/L 136-146 [facility] Serum or plasma total biliru bin measurement (mass/volume)Ordered By: Rossy Salinas on 08-09-2022 Bilirubin [Mass/Vol] 0.9 mg/dL 0.3-1.2 [facility] Serum or plasma total carbon dioxide measurement (moles/volume)Ordered By: Rossy Salinas on 08-09-2022 CO2 [Moles/Vol] 25.0 mmol/L 22.0-30.0 [facility] Serum or plasma total choles terol/high density lipoprotein (HDL) cholesterol mass ratOrdered By: Rossy Salinas on 08-09-2022 Cholesterol.total/Cho lesterol in HDL [Mass ratio] 3.8 {ratio} <5.0 [facility] Serum or plasma urea nitroge n measurement (mass/volume)Ordered By: Rossy Salinas on 08-09-2022 Urea nitrogen [Mass/Vol] 15 mg/dL 9- [facility] Triglyceride [Mass/volume] i n Serum or PlasmaOrdered By: Rossy Salinas on 08-09-2022 Triglyceride [Mass/Vol] 205 mg/dL 35-149 [facility] Comment on above: TRIG ATP III [...] 20 mg/L (U) [Mass/Vol] 0.7 mg/dL 0.0-1.8 [facility] Urine microalbumin/creatinin e mass ratioOrdered By: Rossy Salinas on 08-09-2022 Albumin/Creatinine DL <= 20 mg/L (U) [Mass ratio] 6.0 mg/g 0.0-30.0 [facility] Comment on above: 30-300 mg/g indicate s an increased risk for diabetic nephropathy. Greater than 300 mg/g is consistent with clinical nephropathy. (Am. J. Kidney Disease 1995, 25:107) WBC Auto (Bld) [#/Vol]Ordere d By: Rossy Salinas on 08-09-2022 WBC (Bld) [#/Vol] 10.2 10*3/uL 4.1-10.5 [facility] Initial Visit (Orthopaedic S urgery)on 07-27-2022 Initial Visit (Orthopaedic Surgery) Orders Patellar tendinitis of right knee Start: Meloxicam 15 MG Oral Tablet; one tablet daily with food Physical Therapy - General Referral Evaluation and Treatment Evaluate AND Treat Status: Hold For - Scheduling,Retrospective Authorization Requested for: [id number] Basic Hinged Knee; Status:Canceled - Retrospective Authorization,Data wrong; Basic Hinged Knee; Status:Need Information - Financial Authorization,Retrospecti ve Authorization; Requested for:[id number]; Chief Complaint Right knee pain xrays today [...] (719.46) (M25.561) Vitamin D deficiency (268.9) (E55.9) Ifygk-Lqtxellqm-Gimiw 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 Vitals Vital Signs Recorded: [id number] 09:28AM Height5 ft 6 in Vgdcpg731 lb BMI Xkmdoeegfm75.58 kg/m2 BSA Calculated2.27 Signatures Electronically signed by : Josias Damon MD; Jul 27 2022 11:04AM EST (Author) Normal [facility] KNEE CMPLT[facility] KNEE CMPLT, 4 OR MORE VIEWS Patient Name: JOHN SMITH STUDY: KNEE; COMPLT, 4 OR MORE VIEWS; Right; 07/27/2022 9:37 am INDICATION: pain M25.561: Right knee pain, unspecified chronicity. ACCESSION NUMBER(S): [id number] ORDERING CLINICIAN: JOSIAS DAMON FINDINGS: Right knee films are negative for fracture, dislocation or destructive the joint spaces are maintained. There is some heterotopic bone seen in the patellar tendon. There is an intramedullary nail seen in the superior portion of the tibia. No evidence of hardware failure is appreciated. Electronically signed by: JOSIAS DAMON MD Normal [facility] 07-27-2022 XR Knee 4 Views Normal [facility] DO Work Phone: No Panel InformationOrdered By: Rio Prasad on 07-07-2022 Prostate Specific Antigen Total 0.810 ng/mL 0.000-4.000 [facility] XR Knee Complete Right*on XR Knee [...] by MARCEL VILLEGAS on 03/12/2022 1226 Normal [facility] [employer] In[employer] Tobacco Screening.on 022 Adult depression screening assessment No [facility] [employer] 250 DO Work Phone: Tobacco use status CPHS b) No [facility] [employer] norma 250 DO Work Phone: ALT (SGPT)on 02-16-2017 Alanine aminotransferase (ALT) 40 U/L Normal 10-52 [facility] Healthcare Comment on above: Performed By: #### [id number] ####[facility] [id number] [place] [address] AST (SGOT)on 02-16-2017 Aspartate aminotransferase (AST) 27 U/L Normal 13-39 [facility] Healthcare Comment on above: Performed By: #### [id number] ####[facility] [address] [place] [address] Vital Signs Date Time Vital Sign Value Performing Clinician [facility]en 02-15-2024 09:09-0400 Blood Pressure Location Rio PRASAD [facility] 02-15-2024 09:09-0400 Body temperature 98.6 [degF] Rio PRASAD [facility] 02-15-2024 09:09-0400 Diastolic blood pressure 81 mm[Hg] Rio PRASAD [facility] 02-15-2024 09:09-0400 Heart rate 72 /min Rioannemarie PRASAD [facility] 02-15-2024 09:09-0400 Respiratory rate 16 /min Rioannemarie PRASAD [facility] 02-15-2024 09:09-0400 Systolic blood pressure 131 mm[Hg] Rio PRASAD [facility] 12-13-2023 18:54-0400 Diastolic blood pressure 92 mm[Hg] [facility] Work Phone: [facility] 12-13-2023 18:54-0400 Heart rate 75 /min [facility] Work Phone: [facility] 12-13-2023 18:54-0400 Respiratory rate 16 /min [facility] Work Phone: [facility] 12-13-2023 18:54-0400 SaO2% (BldA) [Mass fraction] 97 % [facility] Work Phone: [facility] 12-13-2023 18:54-0400 Systolic blood pressure 155 mm[Hg] [facility] Work Phone: [facility] 12-13-2023 14:25-0400 Body height 165.1 cm [facility] Work Phone: [facility] 12-13-2023 14:25-0400 Body temperature 97.7 [degF] [facility] Work Phone: [facility] 12-13-2023 14:25-0400 Body weight 117.6 kg [facility] Work Phone: [facility] 11-16-2023 10:25-0400 Diastolic blood pressure 80 mm[Hg] Rio PRASAD [facility] 11-16-2023 10:25-0400 Heart rate 62 /min Rio PRASAD [facility] 11-16-2023 10:25-0400 Mean blood pressure 99 mm[Hg] Rio PRASAD [facility] 11-16-2023 10:25-0400 Systolic blood pressure 136 mm[Hg] Rio PRASAD [facility] 11-16-2023 09:10-0400 Blood Pressure Location Rio PRASAD [facility] 11-16-2023 09:10-0400 Body temperature 98.6 [degF] Rio PRASAD [facility] 11-16-2023 09:10-0400 Diastolic blood pressure 78 mm[Hg] Rio PRASAD [facility] 11-16-2023 09:10-0400 Heart rate 74 /min Rio PRASAD [facility] 11-16-2023 09:10-0400 Respiratory rate 14 /min Rio PRASAD [facility] 11-16-2023 09:10-0400 Systolic blood pressure 140 mm[Hg] Rio PRASAD [facility] 07-20-2023 08:20-0500 Diastolic blood pressure 80 mm[Hg] Rio PRASAD [facility] 07-20-2023 08:20-0500 Mean blood pressure 101 mm[Hg] Rio PRASAD [facility] 07-20-2023 08:20-0500 Systolic blood pressure 144 mm[Hg] Rio PRASAD [facility] 07-20-2023 08:15-0500 Blood Pressure Location Rio PRASAD [facility] 07-20-2023 08:15-0500 Diastolic blood pressure 88 mm[Hg] Rio PRASAD [facility] 07-20-2023 08:15-0500 Heart rate 67 /min Rio PRASAD [facility] 07-20-2023 08:15-0500 Systolic blood pressure 144 mm[Hg] Rio PRASAD [facility] 04-09-2023 12:28-0400 Body height 166.37 cm Services [employer] [facility] Work Phone: [facility] 04-09-2023 12:28-0400 Body temperature 98.2 [degF] [facility] Work Phone: [facility] 04-09-2023 12:28-0400 Body weight 119.95 kg [facility] Work Phone: [facility] 04-09-2023 12:28-0400 Diastolic blood pressure 84 mm[Hg] [facility] Work Phone: [facility] 04-09-2023 12:28-0400 Heart rate 78 /min Services [employer] Work Phone: [facility] 04-09-2023 12:28-0400 Respiratory rate 15 /min [facility] Work Phone: [facility] 04-09-2023 12:28-0400 SaO2% (BldA) [Mass fraction] 98 % Services [facility] Work Phone: [facility] 04-09-2023 12:28-0400 Systolic blood pressure 154 mm[Hg] Services [facility] Work Phone: [facility] 03-10-2023 08:44-0400 Body height 167.64 cm No PCP None [facility] DO Work Phone: 03-10-2023 08:44-0400 Body mass index (BMI) [Ratio] 42.45 kg/m2 No PCP None [facility] DO Work Phone: 03-10-2023 08:44-0400 Body surface area Derived from formula 2.25 m2 No PCP None [facility] DO Work Phone: 03-10-2023 08:44-0400 Body weight 119.3 kg No PCP None [facility] DO Work Phone: 03-10-2023 08:44-0400 Diastolic blood pressure 84 mm[Hg] No PCP None [facility] DO Work Phone: 03-10-2023 08:44-0400 Heart rate 60 /min No PCP None [facility] DO Work Phone: 03-10-2023 08:44-0400 Systolic blood pressure 118 mm[Hg] No PCP None [facility] DO Work Phone: 07-27-2022 09:28-0500 Body height 167.64 cm No PCP None [facility] Work Phone: 07-27-2022 09:28-0500 Body mass index (BMI) [Ratio] 43.58 kg/m2 No PCP None [facility] DO Work Phone: 07-27-2022 09:28-0500 Body surface area Derived from formula 2.27 m2 No PCP [facility] Work Phone: 07-27-2022 09:28-0500 Body weight 122.47 kg No PCP None [facility] t DO Work Phone: 03-10-2022 08:29-0400 Body height 167.64 cm No PCP None [facility] DO Work Phone: 03-10-2022 08:29-0400 Body mass index (BMI) [Ratio] 41.16 kg/m2 No PCP None [facility] DO Work Phone: 03-10-2022 08:29-0400 Body surface area Derived from formula 2.22 m2 No PCP None [facility] DO Work Phone: 03-10-2022 08:29-0400 Body weight 115.67 kg No PCP None [facility] DO Work Phone: 03-10-2022 08:29-0400 Diastolic blood pressure 82 mm[Hg] No PCP None [facility] DO Work Phone: 03-10-2022 08:29-0400 Heart rate 66 /min No PCP None [facility] DO Work Phone: 03-10-2022 08:29-0400 Systolic blood pressure 136 mm[Hg] No PCP None [facility] DO Work Phone: Encounters Encounter Date Encounter Type Care Provider Facility Start: 07-25-2024 ambulatory Rio Rey ty:RASHID Ovalle Start: 05-10-2024 ambulatory Rio Rey ty:[id number] Start: 04-04-2024 End: 04-04-2024 Patient encounter procedure Services [facility] [employer] Work Phone: [facility] [address] Work Phone: Start: 04-04-2024 End: 04-04-2024 ambulatory [facility] Work Phone: [facility] Work Phone: Start: 03-01-2024 End: 03-01-2024 ambulatory Rio PRASAD Facility:[id number] Start: 02-15-2024 End: 02-15-2024 ambulatory Rio PRASAD Facility:RASHID Ovalle Start: 02-15-2024 End: 02-15-2024 Patient encounter procedure Rio PRASAD [facility] Start: 02-06-2024 End: 02-06-2024 Patient encounter procedure [facility] Work Phone: [facility] [address] Work Phone: Start: 02-06-2024 End: 02-06-2024 ambulatory [facility] Work Phone: [facility] Work Phone: Start: 2023 End: 2023 Patient encounter procedure [facility] Work Phone: [facility] [address] Work Phone: Start: 2023 End: 2023 ambulatory [facility] Work Phone: [facility] Work Phone: Start: 12-13-2023 End: 12-13-2023 Emergency department patient visit [facility] Work Phone: [facility]-Emergency Room Work Phone: Start: 12-08-2023 End: 12-08-2023 ambulatory Rio PRASAD Facility:[id number] Start: 11-16-2023 End: 11-16-2023 ambulatory Rio PRASAD Facility:[facility] Start: 11-16-2023 End: 11-16-2023 Patient encounter procedure Rio PRASAD [facility] Start: 11-09-2023 End: 11-09-2023 Patient encounter procedure Services [facility] Work Phone: [facility] [address] Work Phone: Start: 11-09-2023 End: 11-09-2023 ambulatory Services [facility] Work Phone: [facility] Work Phone: Start: 10-12-2023 End: 10-12-2023 Patient encounter procedure Services [facility] Work Phone: [facility] [address] Work Phone: Start: 10-12-2023 End: 10-12-[address] [facility] Facility:[facility] Start: 07-20-2023 End: 07-20-2023 ambulatory Rio R PRASAD Facility:[facility] Start: 07-20-2023 End: 07-20-2023 Patient encounter procedure Rio PRASAD [facility] Start: 07-11-2023 End: 07-11-2023 Patient encounter procedure Services [facility] Work Phone: [facility] [address] Work Phone: Start: 07-11-2023 End: 07-11-[address] [facility] Work Phone: [facility] Work Phone: Start: 04-09-2023 End: 04-09-2023 Emergency department patient visit Services [facility] Work Phone: [facility]Emergency [facility] Work Phone: Start: 03-10-2023 Office outpatient vi sit 25 minutes No PCP None [facility] DO Work Phone: Start: 03-10-[address] Arlyn Loza Facility: Start: 10-04-2022 Rx Renewal No PCP None [facility] DO Work Phone: Start: 09-21-2022 Rx Renewal No PCP None [facility] DO Work Phone: Start: 09-07-2022 Patient encounter procedure No PCP None [facility] DO Work Phone: Start: 09-07-[address] Josias Damon Jr Facility:[id number] Start: 09-06-2022 End: 09-08-2022 ambulatory [facility] Work Phone: [facility] Work Phone: Start: 09-06-2022 End: 09-08-2022 Discharged Recurring Services [facility] Work Phone: [facility]-Physical Therapy [address] Start: 08-09-2022 End: 08-09-2022 ambulatory [facility] Work Phone: [facility] Work Phone: Start: 08-09-2022 End: 08-09-2022 Patient encounter procedure [facility] Work Phone: [facility] [address] Work Phone: Start: 08-05-2022 Registered Recurring [facility] Work Phone: [facility]-Physical Therapy [address] Start: 07-27-2022 Patient encounter procedure No PCP None [facility] DO Work Phone: Start: 07-27-[address] Josias Damon Jr Facility:[id number] Start: 07-07-2022 End: 07-07-2022 ambulatory [facility] Work Phone: [facility] Work Phone: Start: 07-07-2022 End: 07-07-2022 Patient encounter procedure Services [employer] Work Phone: [facility]-Lab [address] Start: 07-05-2022 Rx Renewal No PCP None [facility] DO Work Phone: Start: 03-10-2022 Office outpatient vi sit 25 minutes No PCP None [facility] DO Work Phone: Start: 01-28-2022 Rx Renewal Arlyn Loza MD Work Phone: [facility] DO Work Phone: Start: 10-09-2021 Rx Renewal Arlyn Loza MD Work Phone: [facility] DO Work Phone: Start: 09-28-2021 Rx Renewal Arlyn Loza MD Work Phone: [facility] DO Work Phone: Start: 06-22-2021 Rx Renewal Arlyn Loza MD Work Phone: [facility] [address] [place] Work Phone: Start: 08-11-2017 End: 08-11-2017 Patient encounter procedure RIO PRASAD Facility:H1 Start: 02-16-2017 Ambulatory ARLYN LOZA Facility :[id number] Procedures Date Procedure Procedure Detail Performing Clinician Start: 04-04-2024 Diagnostic radiograp hy of abdomen Services [employer] Phone: Start: 02-06-2024 Diagnostic radiograp hy of abdomen Services [employer] Phone: Start: 12-13-2023 CT of abdomen and pe lvis without contrast Services [employer] Phone: Start: 11-09-2023 Diagnostic radiograp hy of abdomen Services [employer] Phone: Start: 08-11-2017 Extracorporeal shock wave lithotripsy [...] Arlyn Loza, Status: Pen, Time: 8:40 AM [facility] 250 DO Work Phone: Start: 03-10-2023 FUV, Provider: Arlyn Loza, Status: Pen, Time: 8:40 AM [facility]UV, Provider: Arlyn Loza, Status: Pen, [facility]: 8:40 [facility] Work [facility]: Start: 09-07-2022 FUV, Provider: Josias Damon, Status: Pen, Time: 9:30 AM FUV, Provider: Josias Damon, Status: Pen, Time: 9:30 AM [facility] DO Work Phone: Start: 03-10-2022 FUV, Provider: Arlyn Loza, Status: Pen, Time: 8:30 AM FUV, Provider: Arlyn Loza, Status: Pen, Time: 8:30 AM [facility] [place] Work Phone: Patient Education [facility] Work Phone: Patient referral [facility] Work Phone: Immunizations Immunization Date Immunization Notes Care Provider Rosa coates 06-07-2022 influenza virus vacc ine, unspecified formulation Rio PRASAD [facility] 06-07-2022 influenza, injectabl e, quadrivalent, preservative free No PCP None [facility] DO Work Phone: 06-07-2022 Pfizer COVID-19 Vac Bivalent 30 MCG/0.3ML Intramuscular Suspension No PCP None [facility] 08-03-2021 Pfizer-BioNTech COVI D-19 Vacc 30 MCG/0.3ML Intramuscular Suspension Arlyn Loza MD Work Phone: [facility] Comment on above: Series: 04-29-2021 influenza virus vacc ine, unspecified formulation Rio PRASAD [facility] 04-29-2021 influenza, injectabl e, quadrivalent, preservative free No PCP None [facility] 250 DO Work Phone: 12-16-2020 Moderna COVID-19 Vac cine 100 MCG/0.5ML Intramuscular Suspension Arlyn Loza MD Work Phone: [facility] 250 DO Work Phone: 12-16-2020 SARS-CoV-2 (COVID-19 ) Ad26 vaccine, recombinant Rio PRASAD [facility] 11-18-2020 Moderna COVID-19 Vac cine 100 MCG/0.5ML Intramuscular Suspension Arlyn Loza MD Work Phone: [facility] 250 DO Work Phone: 11-18-2020 SARS-CoV-2 (COVID-19 ) Ad26 vaccine, recombinant Rio PRASAD [facility] 05-22-2020 influenza virus vacc ine, unspecified formulation Rio PRASAD [facility] 05-22-2020 influenza, injectabl e, quadrivalent, preservative free No PCP None -[facility] DO Work Phone: Payers Date Payer Category Payer Self-pay [id number] 2023 Medicaid [id number] 1965 Unknown [id number] 2.16.84 [id number] 1967 Unknown [id number] 2.16. [id number] 1967 Unknown [id number] 2.16. [id number] 1967 Unknown [id number] 2.16. [id number] 1967 Unknown [id number] 2.16.8 40.1.037730.3.579.2.727 1967 Unknown [id number] 2.16.8 40.1.845265.3.579.2.727 1967 Unknown [id number] 2.16.8 40.1.453412.3.579.2.727 1967 Unknown [id number] 2.16.8 40.1.707199.3.579.2.727 1967 Unknown [id number] 2.16.8 40.1.804212.3.579.2.727 1967 Unknown [id number] 2.16.8 40.1.418542.3.579.2.727 1959 Unknown [id number] Medicaid [id number] Unknown Unknown [place] NEERU [id number] Unknown HCAP/HFA/FAP Active [id number] Unknown [id number] 2.16.8 [id number] Unknown [id number] 2.16.8 40.1.136414.3.579.2.531 Unknown [id number] 2.16.8 40.1.509316.3.579.2.531 Unknown [id number] 2.16.8 40.1.412521.3.579.2.531 Unknown [id number] 2.16.8 40.1.200777.3.579.2.531 Unknown [id number] 2.16.8 40.1.624367.3.579.2.531 Unknown [id number] 2.16.8 [id number] Social History Date Type Detail Facility Alcohol use Alcohol use -[facility] 250 DO Work Phone: Start: 03-10-2019 End: 12-13-2023 Tobacco smoking status NHIS Never smoked tobacco (finding) [facility] Start: 1965 Sex Assigned At Male [facility] Tobacco smoking status Never [facility] Sex Assigned At Male [facility] Functional Status Date Assessment Result Facility 02-15-2024 Functional Status N/A [facility] 11-16-2023 Functional Status N/A [facility] 07-20-2023 Functional Status N/A [facility] Clinical Notes 08-15-2021 to 02-15-2024 Note [...] Follow these instructions at home: Medicines Take fkek-cod-xrskbfo and prescription medicines only as told by [...] provider. Document Revised: 06/28/2022 Document Reviewed: 04/05/2022 [employer] Patient Education 2022 [employer]. 02/15/2024 09:54:16 Lithotripsy Lithotripsy Lithotripsy is a [...] including vitamins, herbs, eye drops, creams, and erwz-kvy-cxwyokw medicines. Any problems you or family members [...] provider tells you to take them. Taking vjjk-aky-pwzrkft medicines, vitamins, herbs, and supplements. Tests You [...] provider. Document Revised: 06/28/2022 Document Reviewed: 04/05/2022 [employer] Patient Education 2022 [employer]uber. 02/15/2024 09:47:13 Benign Prostatic Hyperplasia Benign Prostatic [...] urethra. Follow these instructions at home: Take uobu-kyi-lusewqo and prescription medicines only as told by [...] provider. Document Revised: 02/17/2022 Document Reviewed: 02/17/2022 [employer] Patient Education 2022 Zauber. Follow Up Care 12/14/2023 12:41:57 With:DECLAN HERNANDEZ, GLENYS Cedillo Address: [facility] [address], [place] [address]- When: Unknown [facility] 02-15-2024 Note Patient Education Nephrology [...] these instructions at home: Medicines ? Take phsf-xtt-lcjcpkj and prescription medicines only as told by [...] all fragments fo (more content not included)... [facility] 11-16-2023 Hospital Discharge instructions Patient Education 11/16/2023 [...] Follow these instructions at home: Medicines Take wypk-oej-yktdndy and prescription medicines only as told by [...] provider. Document Revised: 06/28/2022 Document Reviewed: 04/05/2022 [employer] Patient Education 2022 [employer]uber. 11/16/2023 10:15:18 Lithotripsy Lithotripsy Lithotripsy is a [...] including vitamins, herbs, eye drops, creams, and lhyz-azf-fekrkui medicines. Any problems you or family members [...] provider tells you to take them. Taking irkx-wha-iusfjtc medicines, vitamins, herbs, and supplements. Tests You [...] provider. Document Revised: 06/28/2022 Document Reviewed: 04/05/2022 [employer] Patient Education 2022 [employer]uber. Follow Up Care 07/20/2023 09:14:37 With:DECLAN HERNANDEZ, Rio Simons, URL Address: [facility] [address] , [place] [address]- When: Unknown [facility] Hospital Discharge instructions Patient Education 07/20/2023 [...] you may eat and drink normally. Take dakg-ymb-yfeecqh and prescription medicines only as told by your health care provider. Let your health care provider know about any medicines that you are taking, including sflj-nsq-byrtxua medicines, vitamins, herbs, and supplements. Choose a [...] provider. Document Revised: 02/05/2022 Document Reviewed: 02/05/2022 [employer] Patient Education 2022 [employer]uber. Follow Up Care 07/14/2022 09:22:25 With:DECLAN HERNANDEZ, Rio Simons, URL Address: [facility] [address] , [place] [address]- When: Unknown [facility] 08-15-2021 History of Present illness Narrative [...] sooner if there is any problemsQuestions answered. [facility] Work Phone: Evaluation + Plan note Future Appointments Appointment Date:11/16/2023 09:15:00 AM Scheduled Provider:Rio PRASAD MD Location:[facility] Appointment Type:URO Office Visit Appointment Date:07/25/2024 09:15:00 AM Scheduled Provider:Rio PRASAD MD [facility] Appointment Type:URO Office Visit Diagnostic Tests PendingPSA Total 07/20/23 [facility] Evaluation + Plan note Future Appointments Appointment Date:07/25/2024 09:15:00 AM Scheduled Provider:Rio PRASAD MD [facility] Appointment Type:URO Office Visit Diagnostic Tests PendingElectrolyte Panel 11/16/23 [facility] Evaluation + Plan note Future Appointments Appointment Date:07/25/2024 09:15:00 AM Scheduled Provider:Rio PRASAD MD Location:[facility] Appointment Type:URO Office Visit [facility] Evaluation note No assessment information availa [facility] Work Phone: History of Present illness Narrative [...] recommend resuming activities as tolerated.He can take uzum-ksk-xnswsbt anti-inflammatory medications if needed.Follow-up as neededQuestions answered. [facility] DO Work Phone: Hospital course Narrative No data available for this section [facility] Hospital Discharge instructions Additional Instructions Apply 1 Polytrim eyedrop into the right eye every 3 hours while awake for 7 days Do not rub the eye but may apply compresses Call [facility] Tuesday morning or wait for them to call you to have an appointment to be rechecked Return to the ER for more severe pain loss of vision fever chills or any other concerns [facility] Work Phone: Progress note No data available for this section [facility] Summary Purpose Family History No [...] kidney stones * 6. Diabetes managed by [facility] and stable * Arlyn Loza MD, [...] section and content) DATE CREATED AUTHOR 02/08/2018 [facility] Healthcare DATE CREATED AUTHOR AUTHOR'S ORGANIZ ATION 04/26/2019 [facility] DATE CREATED AUTHOR AUTHOR'S ORGANIZ ATION 03/16/2022 [facility] dical Specialist DATE CREATED AUTHOR AUTHOR'S ORGANIZ ATION 03/10/2023 [facility] DATE CREATED AUTHOR AUTHOR'S ORGANIZ ATION 03/10/2023 [employer] DATE CREATED AUTHOR AUTHOR'S ORGANIZ ATION 04/13/2024 [facility] DATE CREATED AUTHOR AUTHOR'S ORGANIZ ATION 04/28/2024 [facility] Care Teams (unrecognized sec tion and content) Team Status: Active Member Role Status [facility] Primary Care Provider Active Team Status: Inactive Member Role Status [facility] Primary Care Provider Active Marilia Laureano PRETZEL TWISTER- Emergency Provider Active Team Status: Inactive Member Role Status [facility] Primary Care Provider Active Rio Prasad MD Attending Provider Active Team Status: Active Member Role Status [facility] Primary Care Provider Active Josias Damon MD Attending Provider Active Team Status: Inactive Member Role Status [facility] [facility] Primary Care Provider Active Carter Munroe DO Attending Provider Active Rossy Salinas MD RES Other Provider Active Team Status: Inactive Member Role Status [facility] Primary Care Provider Active Josias Damon MD Attending Provider Active Team Status: Inactive Member Role Status [facility] Primary Care Provider Active Rio Prasad MD Attending Provider Active Arlyn Loza MD Referring Provider Active Team Status: Inactive Member Role Status [facility] Primary Care Provider Active Start: October 12, 2023 End: October 12, 2023 Rio Prasad MD Attending Provider Active St art: October 12, 2023 End: October 12, 2023 Team Status: Inactive Member Role Status [facility] Primary Care Provider Active Start: November 09, 2023 End: November 09, 2023 Rio Prasad MD Attending Provider Active St art: November 09, 2023 End: November 09, 2023 Team Status: Inactive Member Role Status [facility] Primary Care Provider Active Start: December 13, 2023 End: December 13, 2023 Carter Alvarenga DO Emergency Provider Active Sta rt: December 13, 2023 End: December 13, 2023 Team Status: Inactive Member Role Status [facility] Primary Care Provider Active Start: 2023 End: 2023 Rio Prasad MD Attending Provider Active St art: 2023 End: 2023 Team Status: Inactive Member Role Status [facility] Primary Care Provider Active Start: February 06, 2024 End: February 06, 2024 Rio Prasad MD Attending Provider Active St art: February 06, 2024 End: February 06, 2024 Team Status: Inactive Member Role Status [facility] Primary Care Provider Active Start: April 04, 2024 End: [...] BE BASED ON THE PRIMARY CLINICAL RECORDS. [facility] [employer] [facility] provides no warranty or guarantee of the accuracy or completeness of information in this document.
--- NOTE | 2024-05-10 10:00 | XR_ITS ---
The [address] [address] Patient Name: JOHN GODWIN MRN: [id number] date: 1965 Sex: M Assigned Patient Location: [facility] Current Patient Location: Accession/Order Number: [id number] Exam Date: 05/10/2024 09:47 Report Date: 05/11/2024 07:01 At the request of: KASSI MANRIQUEZ Procedure: XR abdomen 1V EXAMINATION: XR abdomen 1V HISTORY: kidney stones COMPARISON: XR abdomen 03/01/2024 FINDINGS: KIDNEY/URETER - RIGHT: No visible renal or ureteral calcifications. KIDNEY/URETER - LEFT: Multiple small stones within left kidney, largest is approximately 4 mm. PELVIS: No visible ureteral stones. Stable pelvic calcifications favoring phleboliths. BOWEL: No abnormal dilation or deviation. BONES: No acute abnormality. OTHER: Negative. No abnormal gaseous collections. XR/XR abdomen 1V IMPRESSION: 1. Grossly stable left nephrolithiasis. Electronically authenticated by: DAYNE BRYANT Date: 05/11/2024 07:01
[2024-05-10] MEDS: LACTATED RINGER'S SOLUTION 1,000 ML 50 ML IV ×3 (10:43→12:18)
[2024-05-10] MEDS: CEFAZOLIN SODIUM/DEXTROSE,ISO 2 GM/50 ML PIGGYBACK IV (11:31)
--- NOTE | 2024-05-10 12:34 | PM.URSON ---
Urology Surgery Operative Note Operative Note Procedure Date: 05/10/24 Time Out Performed: yes Pre-op Diagnosis: Left renal calculi Post-op Diagnosis: same as pre-op Procedures performed: 1. Cystoscopy. 2. Left ureteroscopy. 3. Left pyeloscopy. 4. Thulium laser lithotripsy of left renal calculi. 5. Stone basket extraction from left kidney. 6. Placement of 6 Estonian variable length left ureteral stent Anesthesia: General-LMA Primary Surgeon: Rio Prasad Complications: None Estimated blood loss (mL): 5 Findings: Several renal stones and Ranjit's plaques Specimens: Left renal calculi Drains: 6 Estonian variable length left ureteral stent Indications for Procedures: This gentleman has recurrent bilateral nephrolithiasis. These are nonobstructing stones. He now presents for cystoscopy left ureteroscopy stone manipulation and stent placement. He has signed an informed consent after risks were explained. Detailed description of Procedure: The patient was brought to the operating room and placed on the operating room table in the supine position. SCDs were placed on the lower extremities and turned on and functioning during the entire case. Timeout was done by all parties in the room. We all agreed upon the patient's identification and the planned procedures for this patient. Genn. anesthesia was then administered. The patient was then repositioned into the modified dorsal lithotomy position. All pressure points were satisfactorily padded. Genitalia were sterilely prepped and draped in usual fashion. I started by passing a 22 Estonian Olympus cystoscope per urethra and into the bladder. The anterior urethra was normal. The prostatic urethra revealed bilobar obstruction of the prostate. The lobes were fairly long. Careful panendoscopy in the bladder revealed no evidence of any tumors or stones. I then passed a Glidewire through the scope and cannulated the left ureter. The wire went up the ureter and into the kidney. I then removed the scope and then passed a 10/12 Estonian ureteral access sheath over the wire and up the left ureter to the L5 position. The stylette and wire were then removed. I then passed a flexible ureteroscope through the access sheath and then into the ureter. I ascended up the ureter and then went into the kidney. I went into all of the calyces. There were only stones within the midpole calyces. There were several Ranjit's plaques. I started with the largest stone burden and I passed a 200 Angstrom laser fiber. I made contact with the stone and using the thulium laser at 7.5 W on the dusting mode I was able to dust all of these stones within this calyx. I then went into the adjacent calyx where there were 2 more sizable stones. I used a 0 tip nitinol basket and engaged one of them and it was extracted down and out and sent for stone analysis. I went back up with the scope into the kidney and then used the laser to dust the remaining stones. At this time, fluoroscopically, we were unable to see any more stones. Endoscopically all I could see was dust throughout. The scope was then removed. The guidewire was passed back up the sheath into the kidney and the sheath was then removed. The cystoscope was passed over the wire and into the bladder. I then slid a 6 Estonian variable length stent over the wire up into the kidney. The wire was removed and there were good curls in the kidney and in the bladder. The bladder was drained of its contents and the scope was then removed. He was then transferred to a [facility] bed and wheeled to PACU in stable condition.
[2024-05-10] MEDS: SOLIFENACIN SUCCINATE 10 MG TABLET PO (13:17)
[2024-05-18 17:11] LABS: Calcium Oxalate Dihydrate 10 % (.); Calcium Oxalate Monohydrate 50 % (.); Calcium phosphate (hydroxyl) 40 % (.); Size 3x3 mm (.)
== END 2024-05-10 13:46 | disposition home or self-care (01) ==
PROVIDERS: Visit Provider Urology
PROC: (CPT 918; principal; 2024-05-10 11:10)
DX: N20.0 Calculus of kidney (principal); I45.6 Pre-excitation syndrome; I10 Essential (primary) hypertension; I25.10 Atherosclerotic heart disease of native coronary artery without angina pectoris
CPT/HCPCS: 52356; 74018; 76000; 82365; 99999; J0690; J1100; J2250; J2371; J2405; J2704; J3010

== ENCOUNTER 2024-05-24 11:47 | Day surgery (SDC) | payer MEDICAID, SELFPAY ==
--- OUTSIDE RECORDS SUMMARY | 2024-05-24 11:50 | XMS_ITS | CCD ---
[facility] Organization [facility] Providers Care Applications Instructor Name Role Phone ARLYN LOZA Unavailable Unavailable NO FAMILY DOCTOR, NO FAMILY DOCTOR Unavailable Unavailable RIO PRASAD Admitting Unavailable RIO PRASAD Attending Unavailable REQUEST, NONE LISTED Primary Care Unavailable RIO PRASAD Consulting Unavailable RANI PATTERSON V Consulting Unavailable ENA GALICIA Consulting Unavailable JULIANO PORTER Consulting Unavailable Unavailable Unavailable None, No PCP Unavailable Unavailable [facility] Primary Care Provider MD Rio Prasad Attending Provider MD Josias Damon Attending Provider DO Carter Munroe Attending Provider MD Rossy Salinas Other Provider [phone] MD Josias Damon Attending Provider [phone] Marie Jay, Dr. Josias King Referring Unava iljanet Damon Jr, Dr. Josias King Attending Unava ilable Marie Jay, Dr. Josias King Attending Unava ilable Marie Jay, Dr. Josias iKng Referring Unava ilable Dago, Dr. Arlyn Webber Referring Yaquelin vailable Loza, Dr. Arlyn Webber Attending Yaquelin vailable [facility] Primary Care Provider Sridevi [facility]- Marilia Dietrich Emergency Provider [phone] [facility] Services Primary Care Provider MD Rio Prasad Attending Provider [phone] MD Arlyn Loza Referring Provider [facility], . Primary Care Physician [facility] Primary Care Provider MD Rio Prasad Attending Provider [phone] DO Carter Alvarenga Emergency Provider [facility] Primary Care Provider [phone] MD Rio Prasad Attending Provider [phone] [facility] Primary Care Provider MD Rio Prasad Attending Provider [phone] [facility] Primary Care Unavaila ble Lyle, Carter Admitting Unavailable Carter Alvarenga Attending Unavailable Prasad, [...] Lisinopril; Translations: [Lisinopril TABS] Drug Allergy Cough [facility] 250 DO Work Phone: (1 source) No Known Medication Allergies; Translations: [No Known Medication Allergies] Propensity to adverse reactions (disorder) [facility] Repository Medications Current Medications Medication Drug Class(es) [...] day(s), # 30 cap(s), Refills(s) 11, Pharmacy: [facility] [id number] [facility], 167, cm, 11/16/23 9:27:00 EDT, [...] Q8H November 10, 2022 12:00am polymyxin b 54386 unt/ml / trimethoprim 1 mg/ml ophthalmic solution [...] day(s), # 180 tab(s), Refills(s) 3, Pharmacy: 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.] Rio PRASAD MD Where: [facility] Ambulatory Visit Summary Ambulatory Visit Summary [...] Rio PRASAD MD Where: [facility] Urology Office/Clinic Noteon 02-15-2024 Urology Office/Clinic [...] ESWL 12/08/23. KUB 12/08/23 - Bilateral nephrolithiasis. [facility] [place] 12/13/23 due to L flank pain. CT AP wo con 12/13/23 - Multiple tiny bilateral renal stones largest L 5 mm. No hydro. No ureteral stones or dilation. KUB 02/06/24 [facility] [place] - Multiple stones in [...] [facility] [address], [place] [address]- Additional Instructions: schedule Left ESWL Patient Education [...] Kidney stone Renal cyst, right Renal stones Owyag-Zsohzhggw-Xflbj syndrome Historical No qualifying data Procedure/Surgical History ESWL - Extracorporeal shockwave lith (more content not included)... Normal [facility] Comment on above: Result Comment: Elec tronically Signed By: DECLAN HERNANDEZ, Rio Simons\.br\Date and Time Signed: 02/15/24 09:57 EDT\.br\Electronically Co-Signed By: Soumya Rizvi\.br\Date and Time Co-Signed: 02/15/24 09:55 EDT RAD - MISCon 02-07-2024 RAD - MISC [id number] [facility] XR abdomen 1Von 02-06-2024 XR abdomen 1V [facility] [place] [address] XRay Report Signed Patient: John Smith MR#: [id number] : 1965 Acct:[id number] Age/Sex: 58 / M ADM Date: 02/06/24 Loc: XD Room: Type: [facility] Attending Dr: Rio Prasad MD [...] Drew Purcell M.D.02/06/2024 12:10 PM Dictation Location: [place] [address] Transcribed By: [facility] 02/06/24 1210 Dictated By: Drew Purcell II, MD 02/06/24 1205 Signed By: 02/06/24 1210 Normal [facility] Lab Reportson 12-23-2023 Lab Reports [id number] Normal [facility] Carbon dioxide, total [Moles /volume] in Serum or PlasmaOrdered By: Rio Prasad on 2023 CO2 [Moles/Vol] 32.2 mmol/L High 21.0-31.0 [facility] Comment on above: Performed By: #### L YTES ####[place] [id number] [facility] Chloride [Moles/volume] in S new or PlasmaOrdered By: Rio Prasad on 2023 Chloride [Moles/Vol] 103 mmol/L Normal 98-107 [facility] Comment on above: Performed By: #### L YTES ####[place] [id number] [facility] Potassium [Moles/volume] in Serum or PlasmaOrdered By: Rio Prasad on 2023 Potassium [Moles/Vol] 4.1 mmol/L Normal 3.5-5.1 [facility] Comment on above: Performed By: #### L YTES ####[place] [id number] [facility] Serum or plasma anion gap de terminationOrdered By: Rio Prasad on 2023 Anion gap [Moles/Vol] 7.9 mmol/L Normal 6.0-15.0 [facility] Comment on above: Result Comment: PERF ORMED BY: [facility] [address] [place] [id number] PATHOLOGIST TRAVEL ACCOMMODATION INSPECTOR LANI GEORGE M.D. Performed By: #### L STEPHEN ####[place] [id number] [facility] Sodium [Moles/volume] in Ser um or PlasmaOrdered By: Rio Prasad on 2023 Sodium [Moles/Vol] 139 mmol/L Normal 136-145 [facility] Comment on above: Performed By: #### L YTES ####[place] [id number] [facility] Alanine aminotransferase [En zymatic activity/volume] in Serum or PlasmaOrdered By: Carter Alvarenga on 12-13-2023 ALT [Catalytic activity/Vol] 35 U/L Normal 7-52 [facility] Comment on above: Performed By: #### C BC, HEPATIC, BMP, LIPASE ####[place] [id number] [facility] Albumin [Mass/volume] in Ser um or Plasma by Bromocresol green (BCG) dye binding methoOrdered By: Carter Alvarenga on 12-13-2023 Albumin BCG dye [Mass/Vol] 4.5 g/dL 3.5-5.7 [facility] Alkaline phosphatase [Enzyma tic activity/volume] in Serum or PlasmaOrdered By: Carter Alvarenga on 12-13-2023 ALP [Catalytic activity/Vol] 104 U/L Normal 34-104 [facility] Comment on above: Performed By: #### C BC, HEPATIC, BMP, LIPASE ####[place] [id number] [facility] Aspartate aminotransferase [ Enzymatic activity/volume] in Serum or PlasmaOrdered By: Carter Alvarenga on 12-13-2023 AST [Catalytic activity/Vol] 18 U/L Normal 13-39 [facility] Comment on above: Performed By: #### C BC, HEPATIC, BMP, LIPASE ####[place] [id number] [facility] Automated basophil %Ordered By: Carter Alvarenga on 12-13-2023 Basophils/100 WBC (Bld) 0.6 % Normal . [facility] Comment on above: Performed By: #### C BC, HEPATIC, BMP, LIPASE ####[address] Automated basophil countOrde red By: Carter Alvarenga on 12-13-2023 Basophils (Bld) [#/Vol] 0.1 10*3/uL Normal 0.0-0.2 [facility] Comment on above: Result Comment: PERF ORMED BY: [facility] [address] [place] [address] PATHOLOGIST TRAVEL ACCOMMODATION INSPECTOR LANI GEORGE M.D. Performed By: #### C BC, HEPATIC, BMP, LIPASE ####[address] Automated blood monocyte cou ntOrdered By: Carter Alvarenga on 12-13-2023 Monocytes (Bld) [#/Vol] 0.6 10*3/uL Normal 0.0-0.8 [facility] Comment on above: Performed By: #### C BC, HEPATIC, BMP, LIPASE ####[address] Automated eosinophil %Ordere d By: Carter Alvarenga on 12-13-2023 Eosinophils/100 WBC (Bld) 2.7 % Normal . [facility] Comment on above: Performed By: #### C BC, HEPATIC, BMP, LIPASE ####[address] Automated eosinophil countOr dered By: Carter Alvarenga on 12-13-2023 Eosinophils (Bld) [#/Vol] 0.4 10*3/uL Normal 0.0-0.45 [facility] Comment on above: Performed By: #### C BC, HEPATIC, BMP, LIPASE ####[address] Automated erythrocytes count in urine sediment (number/area)Ordered By: Carter Alvarenga on 12-13-2023 RBC Auto (Urine sed) [#/Area] Innumerable [HPF] 0-4 [facility] Automated leukocytes count i n urine sediment (number/area)Ordered By: Carter Alvarenga on 12-13-2023 WBC Auto (Urine sed) [#/Area] 1-2 [HPF] 0-4 [facility] Automated monocyte %Ordered By: Carter Alvarenga on 12-13-2023 Monocytes/100 WBC (Bld) 4.3 % Normal . [facility] Comment on above: Performed By: #### C BC, HEPATIC, BMP, LIPASE ####[facility] [id number] Automated neutrophil %Ordere d By: Carter Alvarenga on 12-13-2023 Neutrophils/100 WBC (Bld) 52.5 % Normal . [facility] Comment on above: Performed By: #### C BC, HEPATIC, BMP, LIPASE ####[facility] Automated urine color determ inationOrdered By: Carter Alvarenga on 12-13-2023 Color (U) Yellow Normal Yellow [facility] Comment on above: Order Comment: Name Collection Type:: Clean-Voided Midstream Performed By: #### A DDONUAPLUS #### [facility] [address] Basic Metabolic Panelon 11-15 Creatinine Clr Calc Pharmacy 85.43 Normal [facility] Comment on above: Performed By: #### C BC, HEPATIC, BMP, LIPASE ####[facility] GFR/1.73 sq M.predicted MDRD (S/P/Bld) [Vol rate/Area] mL/min/{1.73_m2} Normal [facility] Comment on above: Performed By: #### C BC, HEPATIC, BMP, LIPASE ####[facility] Bilirubin Test strip Ql (U)O rdered By: Carter Alvarenga on 12-13-2023 Bilirubin Ql (U) Negative Negative [facility] Bilirubin.direct [Mass/volum e] in Serum or PlasmaOrdered By: Carter Alvarenga on 12-13-2023 Bilirubin.direct [Mass/Vol] 0.20 mg/dL 0.03-0.18 [facility] Bilirubin.total [Mass/volume ] in Serum or PlasmaOrdered By: Carter Alvarenga on 12-13-2023 Bilirubin [Mass/Vol] 1.2 mg/dL High 0.3-1.0 [facility] Comment on above: Performed By: #### C BC, HEPATIC, BMP, LIPASE ####[facility] [id number] abdomen pelvis wo conon 0 12-13-2023 CT abdomen pelvis wo con [facility] Main [place] [address] [place] [address] CT Scan Report Signed Patient: John Smith MR#: [id number] : 1965 Acct:[id number] Age/Sex: 57 / M ADM Date: 12/13/23 Loc: ER Room: Type: [facility] ER Attending Dr: Copies to: Carter Alvarenga [...] Ros Mendiola M.D.12/13/2023 4:46 PM Dictation Location: [place] [address] Transcribed By: [facility] 12/13/23 1646 Dictated By: Ros Mendiola MD 12/13/23 1633 Signed By: 12/13/23 1646 Normal [facility] Calcium [Mass/volume] in Ser um or PlasmaOrdered By: Carter Alvarenga on 12-13-2023 Calcium [Mass/Vol] 10.0 mg/dL Normal 8.6-10.3 [facility] Comment on above: Performed By: #### C BC, HEPATIC, BMP, LIPASE ####[facility] [id number] Carbon dioxide, total [Moles /volume] in Serum or PlasmaOrdered By: Carter Alvarenga on 12-13-2023 CO2 [Moles/Vol] 30.4 mmol/L Normal 21.0-31.0 [facility] Comment on above: Performed By: #### C BC, HEPATIC, BMP, LIPASE ####[facility] Who[address] [place] [address] [facility] Chloride [Moles/volume] in S new or PlasmaOrdered By: Carter Alvarenga on 12-13-2023 Chloride [Moles/Vol] 104 mmol/L Normal 98-107 [facility] Comment on above: Performed By: #### C BC, HEPATIC, BMP, LIPASE ####[place] [id number] [address] Complete Blood Count Auto Di ffon 12-13-2023 Mean Corpuscular HGB Conc 33.1 g/dL Normal 32.5-35.6 [facility] Comment on above: Performed By: #### C BC, HEPATIC, BMP, LIPASE ####[address] Monocytes/100 WBC (Bld) 16.76 % Normal 0.00-20.00 [facility] Comment on above: Performed By: #### C BC, HEPATIC, BMP, LIPASE ####[address] NRBC% 0.3 /100{WBC} Normal 0-0.5 [facility] Comment on above: Performed By: #### C BC, HEPATIC, BMP, LIPASE ####[address] Creatinine [Mass/volume] in Serum or PlasmaOrdered By: Carterkristian Alvarenga on 12-13-2023 Creatinine [Mass/Vol] 1.16 mg/dL Normal 0.70-1.30 [facility] Comment on above: Performed By: #### C BC, HEPATIC, BMP, LIPASE ####[address] Dipstick and Microscopicon 0 12-13-2023 Appearance (U) Clear Normal Clear [facility] Comment on above: Order Comment: Name Collection Type:: Clean-Voided Midstream Performed By: #### A DDONUAPLUS #### [facility] [address] Bacteria,Urine None Seen Normal None Seen [facility] Comment on above: Order Comment: Name Collection Type:: Clean-Voided Midstream Performed By: #### A DDONUAPLUS #### [facility] [address] [place] [address] [place] Bilirubin,Urine Negative Normal Negative [facility] Comment on above: Order Comment: Name Collection Type:: Clean-Voided Midstream Performed By: #### A DDONUAPLUS #### [address] Glucose Ql (U) Normal Normal Normal [facility] Comment on above: Order Comment: Name Collection Type:: Clean-Voided Midstream Performed By: #### A DDONUAPLUS #### [address] Hyaline Casts,Urine None Seen Normal 0-8 [facility] Comment on above: Order Comment: Name Collection Type:: Clean-Voided Midstream Result Comment: PERF ORMED BY: [place] [address] PATHOLOGIST TRAVEL ACCOMMODATION INSPECTOR LANI GEORGE M.D. Performed By: #### A DDONUAPLUS #### [place] [address] [place] Ketones Ql (U) Negative Normal Negative [facility] Comment on above: Order Comment: Name Collection Type:: Clean-Voided Midstream Performed By: #### A DDONUAPLUS #### [address] Leukocyte esterase Test strip Ql (U) Negative Normal Negative [facility] Comment on above: Order Comment: Name Collection Type:: Clean-Voided Midstream Performed By: #### A DDONUAPLUS #### [place] [address] [place] Nitrite,Urine Negative Normal Negative [facility] Comment on above: Order Comment: Name Collection Type:: Clean-Voided Midstream Performed By: #### A DDONUAPLUS #### [place] [address] [place] Occult Blood,Urine 3+ High Negative [facility] Comment on above: Order Comment: Name Collection Type:: Clean-Voided Midstream Result Comment: PERF ORMED BY: [place] [address] PATHOLOGIST TRAVEL ACCOMMODATION INSPECTOR LANI GEORGE M.D. Performed By: #### A DDONUAPLUS #### [address] Protein,Urine Negative Normal Negative [facility] Comment on above: Order Comment: Name Collection Type:: Clean-Voided Midstream Performed By: #### A DDONUAPLUS #### [address] RBC,Urine Innumerable High 0-4 [facility] Comment on above: Order Comment: Name Collection Type:: Clean-Voided Midstream Performed By: #### A DDONUAPLUS #### [address] Specificy Yoder,Urine 1.020 Normal 1.001-1.030 [facility] Comment on above: Order Comment: Name Collection Type:: Clean-Voided Midstream Performed By: #### A DDONUAPLUS #### [address] Squamous Epithelial Cell,Urine None Seen Normal 0-2 [facility] Comment on above: Order Comment: Name Collection Type:: Clean-Voided Midstream Performed By: #### A DDONUAPLUS #### [address] Urobilinogen,Urine Normal Normal Normal [facility] Comment on above: Order Comment: Name Collection Type:: Clean-Voided Midstream Performed By: #### A DDONUAPLUS #### [address] WBC,Urine 1-2 Normal 0-4 [facility] Comment on above: Order Comment: Name Collection Type:: Clean-Voided Midstream Performed By: #### A DDONUAPLUS #### [address] Erythrocyte distribution wid th [Ratio] by Automated countOrdered By: Carter Alvarenga on 12-13-2023 Erythrocyte distribution width (RBC) [Ratio] 14.4 % Normal 12.0-14.8 [facility] Comment on above: Performed By: #### C BC, HEPATIC, BMP, LIPASE ####[place] [id number] [place] [id number] [facility] Erythrocytes [#/volume] in B lood by Automated countOrdered By: Carter Alvarenga on 12-13-2023 RBC (Bld) [#/Vol] 5.62 10*6/uL High 3.90-5.60 [facility] Comment on above: Performed By: #### C BC, HEPATIC, BMP, LIPASE ####[place] [id number] [facility] Glucose [Mass/volume] in Ser um or PlasmaOrdered By: Carter Alvarenga on 12-13-2023 Glucose [Mass/Vol] 91 mg/dL Normal 70-100 [facility] Comment on above: ADA recommended refe rence rangeRandom Glucose Reference Range is dependent on time and content of last meal. Glucose of more than 200 mg/dL in a nonstressed, ambulatory subject supports the diagnosis of Diabetes Mellitus. Result Comment: [place] om Glucose Reference Range is dependent on time and content of last meal. Glucose of more than 200 mg/dL in a nonstressed, ambulatory subject supports the diagnosis of Diabetes Mellitus. ADA recommended reference range Performed By: #### C BC, HEPATIC, BMP, LIPASE ####[place] [id number] [facility] Hematocrit [Volume Fraction] of Blood by Automated countOrdered By: Carter Alvarenga on 12-13-2023 Hematocrit (Bld) [Volume fraction] 49.1 % Normal 38.8-50.0 [facility] Comment on above: Performed By: #### C BC, HEPATIC, BMP, LIPASE ####[place] [id number] [facility] Hemoglobin [Mass/volume] in BloodOrdered By: Carter Alvarenga on 12-13-2023 Hemoglobin (Bld) [Mass/Vol] 16.3 g/dL Normal 13.0-17.0 [facility] Comment on above: Performed By: #### C BC, HEPATIC, BMP, LIPASE ####[place] [id number] [facility] Hepatic Panelon 12-13-2023 Albumin [Mass/Vol] 4.5 g/dL Normal 3.5-5.7 [facility] Comment on above: Performed By: #### C BC, HEPATIC, BMP, LIPASE ####[facility] Bilirubin,Indirect 1.0 mg/dL Normal [facility] Comment on above: Performed By: #### C BC, HEPATIC, BMP, LIPASE ####[place] [id number] [address] Bilirubin.indirect [Mass/Vol] 0.20 mg/dL High 0.03-0.18 [facility] Comment on above: Performed By: #### C BC, HEPATIC, BMP, LIPASE ####[place] [id number] [address] Ketones Auto test strip (U) [Mass/Vol]Ordered By: Carter Alvarenga on 12-13-2023 Ketones (U) [Mass/Vol] Negative Negative [facility] - UrinalysisOrder ed By: Carter Alvarenga on 12-13-2023 Hyaline casts LM Ql (Urine sed) None seen [LPF] 0-8 [facility] Leukocytes [#/volume] correc yvonne for nucleated erythrocytes in Blood by Automated counOrdered By: Carter Alvarenga on 12-13-2023 WBC corrected for nucl RBC Auto (Bld) [#/Vol] 14.6 10*3/uL 4.1-10.5 [facility] Leukocytes [#/volume] in Blo od by Automated countOrdered By: Carter Alvarenga on 12-13-2023 WBC (Bld) [#/Vol] 14.6 10*3/uL High 4.1-10.5 [facility] Comment on above: Performed By: #### C BC, HEPATIC, BMP, LIPASE ####[facility] [id number] Lipase [Enzymatic activity/v olume] in Serum or PlasmaOrdered By: Carter Alvarenga on 12-13-2023 Lipase [Catalytic activity/Vol] 7.0 U/L Low 11.0-82.0 [facility] Comment on above: Result Comment: PERF ORMED BY: [facility] [address] [place] [address] PATHOLOGIST TRAVEL ACCOMMODATION INSPECTOR LANI GEORGE M.D. Performed By: #### C BC, HEPATIC, BMP, LIPASE ####[address] Lymphocytes [#/volume] in Bl ood by Automated countOrdered By: Carter Alvarenga on 12-13-2023 Lymphocytes (Bld) [#/Vol] 5.8 10*3/uL High 1.00-4.8 [facility] Comment on above: Performed By: #### C BC, HEPATIC, BMP, LIPASE ####[address] Lymphocytes/100 leukocytes i n Blood by Automated countOrdered By: Carter Alvarenga on 12-13-2023 Lymphocytes/100 WBC (Bld) 39.9 % Normal . [facility] Comment on above: Performed By: #### C BC, HEPATIC, BMP, LIPASE ####[address] MCH [Entitic mass] by Automa yvonne countOrdered By: Carter Alvarenga on 12-13-2023 MCH (RBC) [Entitic mass] 28.9 pg Normal 27.5-35.2 [facility] Comment on above: Performed By: #### C BC, HEPATIC, BMP, LIPASE ####[address] MCHC Auto (RBC) [Mass/Vol]Or dered By: Carter Alvarenga on 12-13-2023 MCHC (RBC) [Mass/Vol] 33.1 g/dL 32.5-35.6 [facility] MCV [Entitic volume] by Auto mated countOrdered By: Carter Alvarenga on 12-13-2023 MCV (RBC) [Entitic vol] 87.3 fL Normal 83.5-101 [facility] Comment on above: Performed By: #### C BC, HEPATIC, BMP, LIPASE ####[address] Monocyte distribution width [Entitic volume] in Blood by AutomatedOrdered By: Carter Alvarenga on 12-13-2023 Monocyte distribution width Auto (Bld) [Entitic vol] 16.76 % 0.00-20.00 [facility] Neutrophils [#/volume] in Bl ood by Automated countOrdered By: Carter Alvarenga on 12-13-2023 Neutrophils (Bld) [#/Vol] 7.7 10*3/uL Normal 1.8-7.7 [facility] Comment on above: Performed By: #### C BC, HEPATIC, BMP, LIPASE ####[facility] [id number] Nitrite Test strip Ql (U)Ord ered By: Carter Alvarenga on 12-13-2023 Nitrite Ql (U) Negative Negative [facility] No Panel InformationOrdered By: Carter Alvarenga on 12-13-2023 Estimated GFR (CKD-EPI) > 60.0 mL/Min [facility] Creatinine Clearance (Chem 85.43 [facility] Nucleated erythrocytes [Pres ence] in Blood by Automated countOrdered By: Carter Alvarenga on 12-13-2023 Nucleated RBC Auto Ql (Bld) 0.3 /100{WBC} 0-0.5 [facility] Platelet mean volume [Entiti c volume] in Blood by Automated countOrdered By: Carter Alvarenga on 12-13-2023 Platelet mean volume (Bld) [Entitic vol] 9.2 fL Normal 6.6-10.1 [facility] [facility] Comment on above: Performed By: #### C BC, HEPATIC, BMP, LIPASE ####[facility] [address] [place] [id number] [facility] Platelets [#/volume] in Bloo d by Automated countOrdered By: Carter Alvarenga on 12-13-2023 Platelets (Bld) [#/Vol] 256 10*3/uL Normal 150-450 [facility] Comment on above: Performed By: #### C BC, HEPATIC, BMP, LIPASE ####[facility] [address] [place] [id number] [facility] Potassium [Moles/volume] in Serum or PlasmaOrdered By: Carter Alvarenga on 12-13-2023 Potassium [Moles/Vol] 3.9 mmol/L Normal 3.5-5.1 [facility] Comment on above: Performed By: #### C BC, HEPATIC, BMP, LIPASE ####[address] Protein Auto test strip (U) [Mass/Vol]Ordered By: Carter Alvarenga on 12-13-2023 Protein (U) [Mass/Vol] Negative Negative [facility] Protein [Mass/volume] in Ser um or PlasmaOrdered By: Carter Alvarenga on 12-13-2023 Protein [Mass/Vol] 7.6 g/dL Normal 6.4-8.9 [facility] Comment on above: Performed By: #### C BC, HEPATIC, BMP, LIPASE ####[address] Serum globulin measurement b y calculation (mass/volume)Ordered By: Carter Alvarenga on 12-13-2023 Globulin (S) [Mass/Vol] 3.1 g/dL Normal [facility] Comment on above: Performed By: #### C BC, HEPATIC, BMP, LIPASE ####[address] Serum or plasma albumin/glob ulin mass ratioOrdered By: Carter Alvarenga on 12-13-2023 Albumin/Globulin [Mass ratio] 1.5 {ratio} [facility] Comment on above: Performed By: #### C BC, HEPATIC, BMP, LIPASE ####[address] Serum or plasma anion gap de terminationOrdered By: Carter Alvarenga on 12-13-2023 Anion gap [Moles/Vol] 8.5 mmol/L Normal 6.0-15.0 [facility] Comment on above: Performed By: #### C BC, HEPATIC, BMP, LIPASE ####[address] Serum or plasma non-glucuron idated bilirubin measurement (mass/volume)Ordered By: Carter Alvarenga on 12-13-2023 Bilirubin.indirect [Mass/Vol] 1.0 mg/dL [facility] Sodium [Moles/volume] in Ser um or PlasmaOrdered By: Carter Alvarenga on 12-13-2023 Sodium [Moles/Vol] 139 mmol/L Normal 136-145 [facility] Comment on above: Performed By: #### C BC, HEPATIC, BMP, LIPASE ####[facility] [address] [place] [id number] [facility] Specific gravity Auto test s trip (U) [Rel density]Ordered By: Carter Alvarenga on 12-13-2023 Specific gravity (U) [Rel density] 1.020 1.001-1.030 [facility] Squamous epithelial cells de tection in urine sediment by light microscopyOrdered By: Carter Alvarenga on 12-13-2023 Epithelial cells.squamous LM Ql (Urine sed) None seen [HPF] 0-2 [facility] Urea nitrogen [Mass/volume] in Serum or PlasmaOrdered By: Carter Alvarenga on 12-13-2023 Urea nitrogen [Mass/Vol] 20 mg/dL Normal 7-25 [facility] Comment on above: Performed By: #### C BC, HEPATIC, BMP, LIPASE ####[facility] [address] Urine bacteria detection by automated methodOrdered By: Carter Alvarenga on 12-13-2023 Bacteria Auto Ql (U) None seen [HPF] None Seen [facility] Urine clarity by refractomet ry automatedOrdered By: Carter Alvarenga on 12-13-2023 Clarity Refractometry automated (U) Clear Clear [facility] Urine glucose measurement by automated test strip (mass/volume)Ordered By: Carter Alavrenga on 12-13-2023 Glucose Auto test strip (U) [Mass/Vol] Normal mg/dL Normal [facility] Urine hemoglobin detection b y automated test stripOrdered By: Carter Alvarenga on 12-13-2023 Hemoglobin Auto test strip Ql (U) 3+ Negative [facility] Urine leukocyte esterase det ection by automated test stripOrdered By: Carter Alvarenga on 12-13-2023 Leukocyte esterase Auto test strip Ql (U) Negative Negative [facility] Urine pH measurement by auto mated test stripOrdered By: Carter Alvarenga on 12-13-2023 pH (U) 7.0 [pH] Normal 5.0-9.0 [facility] Comment on above: Order Comment: Name Collection Type:: Clean-Voided Midstream Performed By: #### A DDONUAPLUS #### [facility] [address] Urobilinogen Auto test strip (U) [Mass/Vol]Ordered By: Carter Alvarenga on 12-13-2023 Urobilinogen (U) [Mass/Vol] Normal mg/dL Normal [facility] RAD - MISCon 12-09-2023 [facility] [id number]#1.00TIFF Normal [facility] Operative Reporton Operative Report [id number]#1.00TIFF Normal [facility] Lab Reportson 12-06-2023 Lab Reports [id number]#1.00TIFF Normal [facility] ECG 12-Leadon 11-30-2023 ECG 12-Lead [id number]#1.00TIFF Normal [facility] RAD - MISCon 11-30-2023 RAD - MIS [id number]#1.00TIFF Normal [facility] Lab Reportson 11-28-2023 Lab Reports [id number]#1.00TIFF Normal [facility] Patient Correspondenceon Patient Correspondence [id number]#1.00TIFF [facility] Consent for Procedure/Surger yon 11-17-2023 Consent for Procedure/Surgery [id number]#1.00TIFF Normal [facility] Ambulatory Visit Summaryon 0 11-16-2023 Ambulatory Visit [...] Rio PRASAD MD Where: [facility] Patient Educationon 11-16-19 24 Patient Education [...] these instructions at home: Medicines ? Take cqaq-xkr-dpjnpej and prescription medicines only as told by [...] care p (more content not included)... Normal [facility] Screenson 11-16-2023 Screens [id number]#1.00TIFF Normal [facility] Urology Office/Clinic Noteon 11-16-2023 Urology Office/Clinic Note [...] July 2024 OV w/1yr PSARadha DOWNING @ [facility] [place] 11/09/23 Dysuria: denies pain [...] from his pharmacy. Another rx sent to [facility] in [employer]. Doesn't add salt to food. [...] mg qd. SEs discussed. Rx sent to [facility] in [employer]. -Electrolyte panel in one month. Follow-up With When Contact Information DECLAN HERNANDEZ, Rio Simons, URL [facility] [address], [place] [address]- Additional Instructions: schedule R ESWL Patient Education [...] Hypercalciuria Hyperlipemia Hypertension Kidney stone Renal stones Pztlh-Doeixxopz-Lxogi syndrome Historical No qualifying data Procedure/Surgical History [...] 3 ref (more content not included)... Normal [facility] Comment on above: Result Comment: Elec tronically Signed By: DECLAN HERNANDEZ, Rio Simons\.br\Date and Time Signed: 11/16/23 10:17 EDT\.br\Electronically Co-Signed By: Soumya Rizvi\.br\Date and Time Co-Signed: 11/16/23 10:15 EDT RAD - MISCon 11-10-2023 RAD - MISC [id number]#1.00TIFF Normal [facility] XR abdomen 1Von 11-09-2023 XR abdomen 1V [facility] [place] [address] XRay Report Signed Patient: John Smith MR#: [id number] : 1965 Acct:[id number] Age/Sex: 57 / M ADM Date: 11/09/23 Loc: XD Room: Type: [facility] Attending Dr: Rio Prasad MD [...] Mckeon Jr., Rosangela11/09/2023 1:05 PM Dictation Location: [place] [address] Transcribed By: [facility] 11/09/23 1305 Dictated By: Narciso Mckeon Jr, DO 11/09/23 1304 Signed By: 11/09/23 1305 Normal [facility] Lab Reportson 10-17-2023 Lab Reports [id number]#1.00TIFF Normal [facility] Lab Reportson 10-13-2023 Lab Reports [id number]#1.00TIFF Normal [facility] Lab Reports [id number]#1.00TIFF Normal [facility] 24 Hr Urine Uric Acidon 09-16 Uric Acid, 24 Hr Urine 739.8 Normal 197.2-1078.7 [facility] Comment on above: Order Comment: URINE VOLUME (MILLILTERS): 2750 Result Comment: Perf ormed at: - [facility] [place] [id number] [employer] Principal: Garrison Pate PhD, Phone: [phone] Performed By: #### P HOS 24HRU, URIC 24HRU, MAG 24HRU, U24 CA, CITRIC UR ####[facility] ,#### CREA24, U24 NA, COL T V ####[facility] Urine Uric Acid 26.9 mg/dL Normal Not Estab. [facility] Comment on above: Order Comment: URINE VOLUME (MILLILTERS): 2750 Performed By: #### P HOS 24HRU, URIC 24HRU, MAG 24HRU, U24 CA, CITRIC UR ####[facility] ,#### CREA24, U24 NA, COL T V ####[facility] 24 hour urine sodium measure ment (moles/time)Ordered By: Rio Prasad on 10-12-2023 Sodium (24H U) [Moles/Time] 297 mmol/24 40-220 [facility] 24 hour urine uric acid ivette urement (mass/time)Ordered By: Rio Prasad on 10-12-2023 Urate (24H U) [Mass/Time] 739.8 mg/24 hr 197.2-1078.7 [facility] Comment on above: Performed at: [place] [id number] Director: Garrison Pate PhD, Phone: [phone] CT biopsyOrdered By: Rio Prasad on 10-12-2023 CT biopsy 24 Hours [facility] Calcium [Mass/time] in 24 ho ur UrineOrdered By: Rio Prasad on 10-12-2023 Calcium (24H U) [Mass/Time] 421 mg/24 hr 0-320 [facility] Calcium [Mass/volume] in 24 hour UrineOrdered By: Rio Prasad on 10-12-2023 Calcium (24H U) [Mass/Vol] 15.3 mg/dL Not Estab. [facility] Calcium [Mass/volume] in Ser um or PlasmaOrdered By: Rio Prasad on 10-12-2023 Calcium [Mass/Vol] 8.9 mg/dL Normal 8.6-10.3 [facility] Comment on above: Performed By: #### U NAMRATA, CREAT, PTH, BUN, LYTES, CA #### [facility] [address] Calcium, 24Hr Urineon 2023 Calcium, Urine 15.3 mg/dL Normal Not Estab. [facility] Comment on above: Order Comment: URINE VOLUME (MILLILTERS): 2750 Performed By: #### P HOS 24HRU, URIC 24HRU, MAG 24HRU, U24 CA, CITRIC UR ####[facility] ,#### CREA24, U24 NA, COL T V ####[facility] [address] [place] [address] [place] Calcium, Urine 24 Hr 421 High 0-320 [facility] Comment on above: Order Comment: URINE VOLUME (MILLILTERS): 2750 Performed By: #### P HOS 24HRU, URIC 24HRU, MAG 24HRU, U24 CA, CITRIC UR ####[facility] ,#### CREA24, U24 NA, COL T V ####[facility] [place] [id number] [place] Carbon dioxide, total [Moles /volume] in Serum or PlasmaOrdered By: Rio Prasad on 10-12-2023 CO2 [Moles/Vol] 28.4 mmol/L Normal 21.0-31.0 [facility] Comment on above: Performed By: #### U NAMRATA, CREAT, PTH, BUN, LYTES, CA #### [facility] [address] [place] [address] [place] Chloride [Moles/volume] in S new or PlasmaOrdered By: Rio Prasad on 10-12-2023 Chloride [Moles/Vol] 106 mmol/L Normal 98-107 [facility] Comment on above: Performed By: #### U NAMRATA, CREAT, PTH, BUN, LYTES, CA #### [facility] [address] [place] [id number] [place] Citric Acid, Urine, 24 Houro n 10-12-2023 Citric Acid, Urine 189 mg/L Normal Undefined [facility] Comment on above: Order Comment: URINE VOLUME (MILLILTERS): 2750 Result Comment: This test was developed and its performance characteristics determined by [facility]. It has not been cleared or approved by the Food and Drug Administration. Performed By: #### P HOS 24HRU, URIC 24HRU, MAG 24HRU, U24 CA, CITRIC UR ####[facility] ,#### CREA24, U24 NA, COL T V ####[facility] [place] [id number] [place] Citric Acid, Urine, 24HR 520 Normal 320-1240 [facility] Comment on above: Order Comment: URINE VOLUME (MILLILTERS): 2750 Result Comment: Perf ormed at: - [place] [address] [place], [place] [id number] [employer] Principal: Ammon Dalton MD, Phone: [phone] PERFORMED BY: [address] [place] [address] PATHOLOGIST TRAVEL ACCOMMODATION INSPECTOR LANI GEORGE M.D. Performed By: #### P HOS 24HRU, URIC 24HRU, MAG 24HRU, U24 CA, CITRIC UR ####[facility] ,#### CREA24, U24 NA, COL T V ####[place] [id number] [facility] Carlos Alberto Time and Vol 24 hr uron 10-12-2023 Total Volume, Urine 2750 Normal [facility] Comment on above: Order Comment: URINE COLLECTION TIME (HRS): 24 URINE VOLUME (MILLILTERS): 2750 Result Comment: PERF ORMED BY: [facility] [address] [place] [address] PATHOLOGIST TRAVEL ACCOMMODATION INSPECTOR LANI GEORGE M.D. Performed By: #### P HOS 24HRU, URIC 24HRU, MAG 24HRU, U24 CA, CITRIC UR ####[facility] ,#### CREA24, U24 NA, COL T V ####[place] [id number] [facility] Urine Collection Time 24 Normal [facility] Comment on above: Order Comment: URINE COLLECTION TIME (HRS): 24 URINE VOLUME (MILLILTERS): 2750 Performed By: #### P HOS 24HRU, URIC 24HRU, MAG 24HRU, U24 CA, CITRIC UR ####[facility] ,#### CREA24, U24 NA, COL T V ####[place] [id number] [facility] Creatinineon 10-12-2023 GFR/1.73 sq M.predicted MDRD (S/P/Bld) [Vol rate/Area] mL/min/{1.73_m2} Normal [facility] Comment on above: Performed By: #### U NAMRATA, CREAT, PTH, BUN, LYTES, CA #### [facility] [address] Creatinine [Mass/volume] in Serum or PlasmaOrdered By: Rio Prasad on 10-12-2023 Creatinine [Mass/Vol] 0.99 mg/dL Normal 0.70-1.30 [facility] Comment on above: Performed By: #### U NAMRATA, CREAT, PTH, BUN, LYTES, CA #### [facility] [address] [place] [address] [place] Creatinine [Mass/volume] in UrineOrdered By: Rio Prasad on 10-12-2023 Creatinine (U) [Mass/Vol] 68.00 mg/dL 14.00-26.00 [facility] Creatinine, 24 Hr Urineon Creatinine 24 Hour, Urine 1.87 g/24_hr Normal 1.00-2.09 [facility] Comment on above: Order Comment: URINE COLLECTION TIME (HRS): 24 URINE VOLUME (MILLILTERS): 2750 Performed By: #### P HOS 24HRU, URIC 24HRU, MAG 24HRU, U24 CA, CITRIC UR ####[facility] ,#### CREA24, U24 NA, COL T V ####[facility] [place] [id number] [facility] Creatinine, Urine 68.00 mg/dL High 14.00-26.00 [facility] Comment on above: Order Comment: URINE COLLECTION TIME (HRS): 24 URINE VOLUME (MILLILTERS): 2750 Performed By: #### P HOS 24HRU, URIC 24HRU, MAG 24HRU, U24 CA, CITRIC UR ####[facility] ,#### CREA24, U24 NA, COL T V ####[place] [id number] [place] [phone] [place] Magnesium [Mass/time] in 24 hour UrineOrdered By: Rio Prasad on 10-12-2023 Magnesium (24H U) [Mass/Time] 151.3 mg/24 hr 12.0-293.0 [facility] Comment on above: Performed at: [facility] [address] [place], [place] [id number] Director: Garrison Pate PhD, Phone: [phone] Magnesium [Mass/volume] in U rineOrdered By: Rio Prasad on 10-12-2023 Magnesium (U) [Mass/Vol] 5.5 mg/dL Not Estab. [facility] Magnesium, Urine 24Hron 09-16 Magnesium, 24Hr Urine 151.3 Normal 12.0-293.0 [facility] Comment on above: Order Comment: URINE VOLUME (MILLILTERS): 2750 Result Comment: Perf ormed at: CB - [facility] [place] [address] [place], [place] [id number] [employer] Principal: Garrison Pate PhD, Phone: [phone] Performed By: #### P HOS 24HRU, URIC 24HRU, MAG 24HRU, U24 CA, CITRIC UR ####[facility] ,#### CREA24, U24 NA, COL T V ####[facility] [address] Magnesium, Urine 5.5 mg/dL Normal Not Estab. [facility] Comment on above: Order Comment: URINE VOLUME (MILLILTERS): 2750 Performed By: #### P HOS 24HRU, URIC 24HRU, MAG 24HRU, U24 CA, CITRIC UR ####[facility] ,#### CREA24, U24 NA, COL T V ####[address] No Panel InformationOrdered By: Rio Prasad on 10-12-2023 Estimated GFR (CKD-EPI) > 60.0 mL/Min [facility] Creatinine Clearance (Chem N/A [facility] Urine Citric Acid 189 mg/L Undefined [facility] Comment on above: This test was develo ped and its performance characteristicsdetermined by [facility]. It has not been cleared orapproved by the Food and Drug Administration. Urine Citric Acid 24 Hour 520 mg/24 hr 320-1240 [facility] Comment on above: Performed at: - [facility] [address] [id number] Director: Ammon Dalton MD, Phone: [phone] Urine Creatinine 24 Hour 1.87 g/24 hr 1.00-2.09 [facility] Parathyrin.intact [Mass/volu me] in Serum or PlasmaOrdered By: Rio Prasad on 10-12-2023 Parathyrin.intact [Mass/Vol] 76.2 pg/mL [facility] Parathyroid Hormone Intacton 10-12-2023 Parathyroid Hormone Intact 76.2 pg/mL Normal [facility] Comment on above: Result Comment: PERF ORMED BY: [facility] [address] [place] [address] PATHOLOGIST TRAVEL ACCOMMODATION INSPECTOR LANI GEORGE M.D. Performed By: #### U NAMRATA, CREAT, PTH, BUN, LYTES, CA ####[facility] [address] [place] [address] [place] Phosphate [Mass/time] in 24 hour UrineOrdered By: Rio Prasad on 10-12-2023 Phosphate (24H U) [Mass/Time] 1367 mg/24 hr 390-1425 [facility] Phosphate [Mass/volume] in U rineOrdered By: Rio Prasad on 10-12-2023 Phosphate (U) [Mass/Vol] 49.7 mg/dL Not Estab. [facility] Phosphorus, 24Hr Urineon Phosphorous, Urine 49.7 mg/dL Normal Not Estab. [facility] Comment on above: Order Comment: URINE VOLUME (MILLILTERS): 2750 Performed By: #### P HOS 24HRU, URIC 24HRU, MAG 24HRU, U24 CA, CITRIC UR ####[facility] ,#### CREA24, U24 NA, COL T V ####[facility] [place] [address] [place] Phosphorus, Urine 24Hr 1367 Normal 390-1425 [facility] Comment on above: Order Comment: URINE VOLUME (MILLILTERS): 2750 Performed By: #### P HOS 24HRU, URIC 24HRU, MAG 24HRU, U24 CA, CITRIC UR ####[facility] ,#### CREA24, U24 NA, COL T V ####[facility] [place] [address] [place] Potassium [Moles/volume] in Serum or PlasmaOrdered By: Rio Prasad on 10-12-2023 Potassium [Moles/Vol] 4.2 mmol/L Normal 3.5-5.1 [facility] Comment on above: Performed By: #### U NAMRATA, CREAT, PTH, BUN, LYTES, CA #### [facility] [address] Serum or plasma anion gap de terminationOrdered By: Rio Prasad on 10-12-2023 Anion gap [Moles/Vol] 9.8 mmol/L Normal 6.0-15.0 [facility] Comment on above: Performed By: #### U NAMRATA, CREAT, PTH, BUN, LYTES, CA #### [facility] [address] [place] [address] [place] Sodium [Moles/volume] in Ser um or PlasmaOrdered By: Rio Prasad on 10-12-2023 Sodium [Moles/Vol] 140 mmol/L Normal 136-145 [facility] Comment on above: Performed By: #### U NAMRATA, CREAT, PTH, BUN, LYTES, CA #### [address] Sodium [Moles/volume] in Uri neOrdered By: Rio Prasad on 10-12-2023 Sodium (U) [Moles/Vol] 108.0 mmol/L Normal [facility] Comment on above: No reference range e stablished Order Comment: URINE COLLECTION TIME (HRS): 24 URINE VOLUME (MILLILTERS): 2750 Result Comment: No r eference range established Performed By: #### P HOS 24HRU, URIC 24HRU, MAG 24HRU, U24 CA, CITRIC UR ####[facility] ,#### CREA24, U24 NA, COL T V ####[place] [address] [place] Sodium, 24 Hr Urineon 2023 Sodium 24 Hour Urine 297 High 40-220 [facility] Comment on above: Order Comment: URINE COLLECTION TIME (HRS): 24 URINE VOLUME (MILLILTERS): 2750 Performed By: #### P HOS 24HRU, URIC 24HRU, MAG 24HRU, U24 CA, CITRIC UR ####[facility] ,#### CREA24, U24 NA, COL T V ####[facility] [address] Urate [Mass/volume] in Serum or PlasmaOrdered By: Rio Prasad on 10-12-2023 Urate [Mass/Vol] 4.6 mg/dL Normal 4.4-7.6 [facility] Comment on above: Result Comment: PERF ORMED BY: [facility] [address] [place] [address] PATHOLOGIST TRAVEL ACCOMMODATION INSPECTOR LANI GEORGE M.D. Performed By: #### U NAMRATA, CREAT, PTH, BUN, LYTES, CA #### [facility] [address] Urea nitrogen [Mass/volume] in Serum or PlasmaOrdered By: Rio Prasad on 10-12-2023 Urea nitrogen [Mass/Vol] 19 mg/dL Normal 7-25 [facility] Comment on above: Performed By: #### U NAMRATA, CREAT, PTH, BUN, LYTES, CA #### [facility] [address] Urine uric acid measurement (mass/volume)Ordered By: Rio Prasad on 10-12-2023 Urate (U) [Mass/Vol] 26.9 mg/dL Not Estab. [facility] Urine volume measurementOrde red By: Rio Prasad on 10-12-2023 Specimen volume (U) 2750 ml [facility] Screenson 07-21-2023 Screens [id number]#1.00TIFF Normal [facility] Ambulatory Visit Summaryon 1 09-20-2022 Ambulatory Visit [...] Rio PRASAD MD Where: [facility] Normal [address] [place] [address]- \.br\ You Need to Schedule the Following Appointments\ .br\ Follow Up with Rio PRASAD MD, URL When: \.br\ Where:\.br\ [facility] [address] [place]\.br\ [place] [address].br\ Medications\. br\ What How Much When Instructions\ .br\ Changed potassium bicarbonate (Klor-Con/ EF 25 mEq oral tablet, effervescent) 1 Tablets By Mouth 2 times a day Duration: 90 Days [facility] [employer]\.br\ Unchanged amlodipine (amLODIPine 10 mg [...] or concerns \.br\ Pharmacy Information\. br\ [facility] [employer]: [address] [place] [id number] [phone]\.br\ Allergies\.br \ No Known Medication Allergies\.br \ [...] and drink normally.\.br \ ? \.br\ Take qwhd-alu-aali ter and prescription medicines only as told by your health care provider.\.br \ ? \.br\ Let your health care provider know about any medicines that you are taking, including pxlw-wfv-vwmz ter medicines, vitamins, herbs, and supplements.\ .br\ [...] \ Document Revised: 02/05/2022 Document Reviewed: 02/05/2022 [employer] Patient Education ? 2022 [employer].\.br\ \.br\ [facility] Patient Educationon 07-20-20 Patient Education Urology 24-Hour [...] may eat and drink normally. ? Take efre-wyc-xvjivkp and prescription medicines only as told by your health care provider. ? Let your health care provider know about any medicines that you are taking, including seop-euu-adtfhmd medicines, vitamins, herbs, and supplements. ? Choose [...] provider. Document Revised: 02/05/2022 Document Reviewed: 02/05/2022 [employer] Patient Education ? 2022 [employer]. [facility] Urology Office/Clinic Noteon 07-20-2023 Urology Office/Clinic Note Chief Complaint 1 year follow up HPI Staff 1 year follow up w/PSA. Current PSA 0.590 done 07/11/23, previous PSA 0.810 done 07/07/22. Previous DX: BPH w/ obstruction/lower urinary tract symptoms, family history of prostate cancer, kidney stone, renal stone. S/P ESWL done on 08/11/17. *Klor- Con 25MEQ BID-need refill [facility]. Pt unalbe to give urine [...] Klor-Con 25 mEq BID. Refill sent to [facility]. Pt passed 3 mm stone back [...] Rio Simons, URL [facility] [address] [place] [address]- Additional Instructions: 4 mos with KUB and [...] disease Hyperlipemia Hypertension Kidney stone Renal stones Bbgds-Btlgqocmo-Poxjl syndrome Historical No qualifying data Procedure/Surgical History [...] virus vaccine, inactivated 06/07/2022 Recorded SARS-CoV-2 (COVID-19) [id number].[id number] 06/07/2022 Recorded SARS-CoV-2 (COVID-19) mRNA BNT-162b2 vax 08/03/2021 Recorded influenza virus vaccine, inactivated 04/29/2021 Recorded SARS-CoV-2 (COVID-19) Ad26 vaccine 12/16/2020 Re (more content not included)... [facility] Comment on above: Result Comment: Elec tronically Signed By: Rio PRASAD MD\.br\Date and Time Signed: 07/20/23 09:13 EST\.br\Electronically Co-Signed By: Soumya Rizvi\.br\Date and Time Co-Signed: 07/20/23 09:12 EST Lab Reportson 07-12-2023 Lab Reports [id number] Normal [facility] Alanine aminotransferase [En zymatic activity/volume] in Serum or PlasmaOrdered By: Arlyn Loza on 07-11-2023 ALT [Catalytic activity/Vol] 27 U/L Normal 7-52 [facility] Comment on above: Performed By: #### B MP, ALT, LIPID, AST ####[id number] [place] [address] [facility] Aspartate aminotransferase [ Enzymatic activity/volume] in Serum or PlasmaOrdered By: Arlyn Loza on 07-11-2023 AST [Catalytic activity/Vol] 20 U/L Normal 13-39 [facility] Comment on above: Performed By: #### B MP, ALT, LIPID, AST ####[place] [id number] [facility] Basic Metabolic Panelon 06-16 GFR/1.73 sq M.predicted MDRD (S/P/Bld) [Vol rate/Area] mL/min/{1.73_m2} Normal [facility] Comment on above: Performed By: #### B MP, ALT, LIPID, AST ####[place] [id number] [facility] Calcium [Mass/volume] in Ser um or PlasmaOrdered By: Arlyn Loza on 07-11-2023 Calcium [Mass/Vol] 9.3 mg/dL Normal 8.6-10.3 [facility] Comment on above: Performed By: #### B MP, ALT, LIPID, AST ####[place] [id number] [facility] Carbon dioxide, total [Moles /volume] in Serum or PlasmaOrdered By: Arlyn Loza on 07-11-2023 CO2 [Moles/Vol] 30.7 mmol/L Normal 21.0-31.0 [facility] Comment on above: Performed By: #### B MP, ALT, LIPID, AST ####[place] [id number] [facility] Chloride [Moles/volume] in S new or PlasmaOrdered By: Arlyn Loza on 07-11-2023 Chloride [Moles/Vol] 104 mmol/L Normal 98-107 [facility] Comment on above: Performed By: #### B MP, ALT, LIPID, AST ####[facility] [id number] Cholesterol [Mass/volume] in Serum or PlasmaOrdered By: Arlyn Loza on 07-11-2023 Cholesterol [Mass/Vol] 172 mg/dL Normal 140-200 [facility] Comment on above: Chol less than 200 m g/dl low riskChol 201-239 mg/dl borderline riskChol 240 mg/dl and greater high risk Result Comment: Chol less than 200 mg/dl low risk Chol 201-239 mg/dl borderline risk Chol 240 mg/dl and greater high risk Performed By: #### B MP, ALT, LIPID, AST ####[place] [id number] Cholesterol in LDL Calc [Mas s/Vol]Ordered By: Arlyn Loza on 07-11-2023 Cholesterol in LDL [Mass/Vol] 86 mg/dL 0-100 [facility] Comment on above: LDL ATP III CLASSIFI CATIONLDL less than 100 mg/dL OptimalLDL 100-129 mg/dL Near or above optimalLDL 130-159 mg/dL Borderline highLDL 160-189 mg/dL HighLDL greater than 189 mg/dL Very high Cholesterol in VLDL Calc [Ma ss/Vol]Ordered By: Arlyn Loza on 07-11-2023 Cholesterol in VLDL [Mass/Vol] 35 mg/dL [facility] Creatinine [Mass/volume] in Serum or PlasmaOrdered By: Arlyn Loza on 07-11-2023 Creatinine [Mass/Vol] 1.04 mg/dL Normal 0.70-1.30 [facility] Comment on above: Performed By: #### B MP, ALT, LIPID, AST ####[facility] [id number] [place] [id number] [facility] Glucose [Mass/volume] in Ser um or PlasmaOrdered By: Arlyn Loza on 07-11-2023 Glucose [Mass/Vol] 97 mg/dL Normal 70-100 [facility] Comment on above: ADA recommended refe rence rangeRandom Glucose Reference Range is dependent on time and content of last meal. Glucose of more than 200 mg/dL in a nonstressed, ambulatory subject supports the diagnosis of Diabetes Mellitus. Result Comment: [place] om Glucose Reference Range is dependent on time and content of last meal. Glucose of more than 200 mg/dL in a nonstressed, ambulatory subject supports the diagnosis of Diabetes Mellitus. ADA recommended reference range Performed By: #### B MP, ALT, LIPID, AST ####[address] Lipid Panelon 07-11-2023 LDL Cholesterol,Calculate d 86 mg/dL Normal 0-100 [facility] Comment on above: Result Comment: LDL ATP III CLASSIFICATION LDL less than 100 mg/dL Optimal LDL 100-129 mg/dL Near or above optimal LDL 130-159 mg/dL Borderline high LDL 160-189 mg/dL High LDL greater than 189 mg/dL Very high Performed By: #### B MP, ALT, LIPID, AST ####[address] Triglyceride w/Reflex 179 mg/dL High 0-149 [facility] Comment on above: Result Comment: TRIG ATP III CLASSIFICATION TRIG less than 150 mg/dL Normal TRIG 150-199 mg/dL Borderline high TRIG 200-500 mg/dL High TRIG greater than 500 mg/dL Very high Standard traceable to the Center for Disease Conrtrol and Prevention (CDC) test method. Performed By: #### B MP, ALT, LIPID, AST ####[address] VLDL CHOLESTEROL 35 mg/dL Normal [facility] Comment on above: Performed By: #### B MP, ALT, LIPID, AST ####[address] No Panel InformationOrdered By: Arlyn Loza on 07-11-2023 Estimated GFR (CKD-EPI) > 60.0 mL/Min [facility] Creatinine Clearance (Chem N/A [facility] PSA Total (Not a Screen)on 09-10-2022 PSA Total (Not a Screen) 0.590 ng/mL Normal 0.000-4.000 [facility] Comment on above: Result Comment: PERF ORMED BY: [facility] [address] [facility] [address] PATHOLOGIST TRAVEL ACCOMMODATION INSPECTOR LANI GEORGE M.D. Performed By: #### P SATOTAL #### [facility] [address] Potassium [Moles/volume] in Serum or PlasmaOrdered By: Arlyn Loza on 07-11-2023 Potassium [Moles/Vol] 4.5 mmol/L Normal 3.5-5.1 [facility] Comment on above: Performed By: #### B MP, ALT, LIPID, AST ####[place] [id number] Prostate specific Ag [Mass/v olume] in Serum or PlasmaOrdered By: Rio Prasad on 07-11-2023 Prostate specific Ag [Mass/Vol] 0.590 ng/mL 0.000-4.000 [facility] Serum or plasma anion gap de terminationOrdered By: Arlyn Loza on 07-11-2023 Anion gap [Moles/Vol] 11.8 mmol/L Normal 6.0-15.0 [facility] Comment on above: Performed By: #### B MP, ALT, LIPID, AST ####[place] [id number] Serum or plasma high density lipoprotein (HDL) cholesterol measurementOrdered By: Arlyn Loza on 07-11-2023 Cholesterol in HDL [Mass/Vol] 50 mg/dL Normal 23-92 [facility] Comment on above: HDL CHOL ATP-III CLA SSIFICATION Cardiovascular RiskHDL > or equal to 60 mg/dL LOWHDL < 40 mg/dL HIGH Result Comment: HDL CHOL ATP-III CLASSIFICATION Cardiovascular Risk HDL > or equal to 60 mg/dL LOW HDL < 40 mg/dL HIGH Performed By: #### B MP, ALT, LIPID, AST ####[place] [id number] Serum or plasma total choles terol/high density lipoprotein (HDL) cholesterol mass ratOrdered By: Arlyn Loza on 07-11-2023 Cholesterol.total/Cho lesterol in HDL [Mass ratio] 3.4 {ratio} Normal <5.0 [facility] Comment on above: Result Comment: PERF ORMED BY: [facility] [address] [id number] PATHOLOGIST TRAVEL ACCOMMODATION INSPECTOR LANI GEORGE M.D. Performed By: #### B MP, ALT, LIPID, AST ####[place] [id number] [facility] Sodium [Moles/volume] in Ser um or PlasmaOrdered By: Arlyn Loza on 07-11-2023 Sodium [Moles/Vol] 142 mmol/L Normal 136-145 [facility] Comment on above: Performed By: #### B MP, ALT, LIPID, AST ####[place] [id number] [facility] Triglyceride [Mass/volume] i n Serum or PlasmaOrdered By: Arlyn Loza on 07-11-2023 Triglyceride [Mass/Vol] 179 mg/dL 0-149 [facility] Comment on above: TRIG ATP III CLASSIF ICATIONTRIG less than 150 mg/dL NormalTRIG 150-199 mg/dL Borderline highTRIG 200-500 mg/dL High TRIG greater than 500 mg/dL Very highStandard traceable to the Center for Disease Conrtrol and Prevention (CDC) test method. 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) Diabetes (250.00) (E11.9) Morbid obesity with BMI of 40.0-44.9, adult (278.01,V85.41) (E66.01,Z68.41) Nephrolithiasis (592.0) (N20.0) Orders Benign essential hypertension IO EKG Electrocardiogram- 12 Lead; Status:Complete; Done: [id number] Benign essential hypertension, Hyperlipidemia ALT - Alanine Aminotransferase, Serum; Status:Active - Retrospective Authorization; Requested for:[id number]; AST; Status:Active - Retrospective Authorization; Requested for:[id number]; Basic Metabolic Panel; Status:Active - Retrospective Authorization; Requested for:[id number]; Lipid Panel; Status:Active - Retrospective Authorization; Requested for:[id number]; Morbid obesity with BMI of 40.0-44.9, adult Healthy Weight Tips; Status:Complete - Retrospective Authorization; Done: [id number] Some eating tips that can help you lose weight.; Status:Complete - Retrospective Authorization; Done: [id number] Patient Instructions Please bring all medicines, vitamins, [...] to kidney stones 6. Diabetes managed by [facility] and stable Arlyn Loza MD, FACC Surgical History Problems History of Complete colonoscopy [...] negative for complaint. Vitals Vital Signs Recorded: [id number] 08:44AM Heart Rate60, L Radial Ttpsybvh790, LUE, Sitting Afqeuysfv84, LUE, Sitting Height5 ft 6 in Ewqshl872 lb BMI Wexnpcdnto18.45 kg/m2 BSA Calculated2.25 Tobacco Useb) No PHQ-2 [...] by : (more content not included)... Normal [employer] Tobacco Screening.on 023 Adult depression screening assessment No [facility] [address] DO Work Phone: Tobacco use status CPHS b) No [facility] norma 250 DO Work Phone: Established Visit [...] resuming activities as tolerated. He can take rflb-ajh-snsqgly anti-inflammatory medications if needed. Follow-up as needed Questions answered . 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 [facility] Cholesterol [Mass/volume] in Serum or PlasmaOrdered By: Rossy Salinas on 08-09-2022 Cholesterol [Mass/Vol] 200 mg/dL 140-200 [facility] Comment on above: Chol less than 200 m g/dl low riskChol 201-239 mg/dl borderline riskChol 240 mg/dl and greater high risk Cholesterol in LDL Calc [Mas s/Vol]Ordered By: Rossy Salinas on 08-09-2022 Cholesterol in LDL [Mass/Vol] 106 mg/dL 0-100 [facility] Comment on above: LDL ATP III CLASSIFI CATIONLDL less than 100 mg/dL OptimalLDL 100-129 mg/dL Near or above optimalLDL 130-159 mg/dL Borderline highLDL 160-189 mg/dL HighLDL greater than 189 mg/dL Very high Cholesterol in VLDL Calc [Ma ss/Vol]Ordered By: Rossy Salinas on 08-09-2022 Cholesterol in VLDL [Mass/Vol] 41 mg/dL [facility] Creatinine [Mass/volume] in UrineOrdered By: Rossy Salinas on 08-09-2022 Creatinine (U) [Mass/Vol] 112.2 mg/dL [facility] Comment on above: No reference range e stablished Creatinine and Glomerular fi ltration rate.predicted panel (S/P/Bld)Ordered By: Rossy Salinas on 08-09-2022 Creatinine [Mass/Vol] 1.11 mg/dL 0.64-1.27 [facility] Eosinophils Auto (Bld) [#/Vo l]Ordered By: Rossy Salinas on 08-09-2022 Eosinophils (Bld) [#/Vol] 0.4 10*3/uL 0.0-0.45 [facility] Eosinophils/100 WBC Auto (Bl d)Ordered By: Rossy Salinas on 08-09-2022 Eosinophils/100 WBC (Bld) 4.3 % . [facility] Erythrocyte distribution wid th Auto (RBC) [Ratio]Ordered By: Rossy Salinas on 08-09-2022 Erythrocyte distribution width (RBC) [Ratio] 14.3 % 12.0-14.8 [facility] Estimated glomerular filtrat ion rate (GFR) non- AmericanOrdered By: Rossy Salinas on 08-09-2022 GFR/1.73 sq M.predicted among non-blacks MDRD (S/P/Bld) [Vol rate/Area] > 60 mL/Min [facility] Globulin Calc (S) [Mass/Vol] Ordered By: Rossy Salinas on 08-09-2022 Globulin (S) [Mass/Vol] 2.9 g/dL [facility] Hematocrit Auto (Bld) [Volum e fraction]Ordered By: Rossy Salinas on 08-09-2022 Hematocrit (Bld) [Volume fraction] 47.2 % 38.8-50.0 [facility] Hemoglobin [Mass/volume] in BloodOrdered By: Rossy Salinas on 08-09-2022 Hemoglobin (Bld) [Mass/Vol] 15.6 g/dL 13.0-17.0 [facility] Leukocytes [#/volume] correc yvonne for nucleated erythrocytes in Blood by Automated counOrdered By: Rossy Salinas on 08-09-2022 WBC corrected for nucl RBC Auto (Bld) [#/Vol] 10.2 10*3/uL 4.1-10.5 [facility] Lymphocytes Auto (Bld) [#/Vo l]Ordered By: Rossy Salinas on 08-09-2022 Lymphocytes (Bld) [#/Vol] 3.9 10*3/uL 1.00-4.8 [facility] Lymphocytes/100 WBC Auto (Bl d)Ordered By: Rossy Salinas on 08-09-2022 Lymphocytes/100 WBC (Bld) 38.1 % . [facility] MCH Auto (RBC) [Entitic mass ]Ordered By: Rossy Salinas on 08-09-2022 MCH (RBC) [Entitic mass] 29.6 pg 27.5-35.2 [facility] MCHC Auto (RBC) [Mass/Vol]Or dered By: Rossy Salinas on 08-09-2022 MCHC (RBC) [Mass/Vol] 33.0 g/dL 32.5-35.6 [facility] MCV Auto (RBC) [Entitic vol] Ordered By: Rossy [place] on 08-09-2022 MCV (RBC) [Entitic vol] 89.6 fL 83.5-101 [facility] Monocytes Auto (Bld) [#/Vol] Ordered By: Rossy [place] on 08-09-2022 Monocytes (Bld) [#/Vol] 0.6 10*3/uL 0.0-0.8 [facility] Monocytes/100 WBC Auto (Bld) Ordered By: Rossy Brad on 08-09-2022 Monocytes/100 WBC (Bld) 5.9 % . [facility] Neutrophils Auto (Bld) [#/Vo l]Ordered By: Rossy Brad on 08-09-2022 Neutrophils (Bld) [#/Vol] 5.2 10*3/uL 1.8-7.7 [facility] Neutrophils/100 WBC Auto (Bl d)Ordered By: Rossy Brad on 08-09-2022 Neutrophils/100 WBC (Bld) 50.8 % . [facility] No Panel InformationOrdered By: Rossy Salinas on 08-09-2022 25-Hydroxy Vitamin D Total 21.6 ng/mL 30-100 [facility] Comment on above: VITAMIN D STATUS 25( [place])VITAMIN D RANGE (ng/mL) Deficient <20 Insufficient 20 to <30Sufficient 30 to 100Reference: Brody MF,Jani NC, Irvin DEJESUS, et al. Evaluation,treatment, and prevention of vitamin D deficiency; an Endocrine Society clinical practice guideline. JCEM. 2010; 96(7):1911-30. Estimated GFR () > 60 mL/Min [facility] Comment on above: GFR estimated refere nce range: According to KDOQI guidelines, <60 ml/min/1.73m2 is sufficient to diagnose a patient with chronic kidney disease. Pharmacy Creatinine Clearance (Chem N/A [facility] Nucleated erythrocytes [Pres ence] in Blood by Automated countOrdered By: Rossy Brad on 08-09-2022 Nucleated RBC Auto Ql (Bld) 0.1 /100{WBC} 0-0.5 [facility] Platelet mean volume Auto (B ld) [Entitic vol]Ordered By: Rossy Salinas on 08-09-2022 Platelet mean volume (Bld) [Entitic vol] 9.3 fL 6.6-10.1 [facility] Platelets Auto (Bld) [#/Vol] Ordered By: Rossy Salinas on 08-09-2022 Platelets (Bld) [#/Vol] 235 10*3/uL 150-450 [facility] Protein [Mass/volume] in Ser um or PlasmaOrdered By: Rossy Salinas on 08-09-2022 Protein [Mass/Vol] 7.0 g/dL 6.1-7.9 [facility] RBC Auto (Bld) [#/Vol]Ordere d By: Rossy Salinas on 08-09-2022 RBC (Bld) [#/Vol] 5.27 10*6/uL 3.90-5.60 [facility] Serum or plasma alanine weldon otransferase measurement without P-5'-P (enzymatic activiOrdered By: Rossy Salinas on 08-09-2022 ALT No additional P-5'-P [Catalytic activity/Vol] 35 U/L 10-60 [facility] Serum or plasma albumin/glob ulin mass ratioOrdered By: Rossy Salinas on 08-09-2022 Albumin/Globulin [Mass ratio] 1.4 {ratio} [facility] Serum or plasma alkaline linda sphatase measurement (enzymatic activity/volume)Ordered By: Rossy Salinas on 08-09-2022 ALP [Catalytic activity/Vol] 89 U/L 32-92 [facility] Serum or plasma anion gap de terminationOrdered By: Rossy Salinas on 08-09-2022 Anion gap [Moles/Vol] 12.1 mmol/L 6.0-15.0 [facility] Serum or plasma aspartate am inotransferase measurement (enzymatic activity/volume)Ordered By: Rossy Salinas on 08-09-2022 AST [Catalytic activity/Vol] 21 U/L 10-42 [facility] Serum or plasma calcium ivette urement (mass/volume)Ordered By: Rossy Salinas on 08-09-2022 Calcium [Mass/Vol] 9.6 mg/dL 8.2-10.2 [facility] Serum or plasma chloride kenan surement (moles/volume)Ordered By: Rossy Salinas on 08-09-2022 Chloride [Moles/Vol] 105 mmol/L 95-114 [facility] Serum or plasma glucose ivette urement (mass/volume)Ordered By: Rossy Salinas on 08-09-2022 Glucose [Mass/Vol] 93 mg/dL 70-100 [facility] Comment on above: ADA recommended refe rence rangeRandom Glucose Reference Range is dependent on time and content of last meal. Glucose of more than 200 mg/dL in a nonstressed, ambulatory subject supports the diagnosis of Diabetes Mellitus. Serum or plasma high density lipoprotein (HDL) cholesterol measurementOrdered By: Rossy Salinas on 08-09-2022 Cholesterol in HDL [Mass/Vol] 53 mg/dL 29-71 [facility] Comment on above: HDL CHOL ATP-III CLA SSIFICATION Cardiovascular RiskHDL > or equal to 60 mg/dL LOWHDL < 40 mg/dL HIGH Serum or plasma potassium me asurement (moles/volume)Ordered By: Rossy Salinas on 08-09-2022 Potassium [Moles/Vol] 4.1 mmol/L 3.5-5.1 [facility] Serum or plasma sodium measu rement (moles/volume)Ordered By: Rossy Salinas on 08-09-2022 Sodium [Moles/Vol] 138 mmol/L 136-146 [facility] Serum or plasma total biliru bin measurement (mass/volume)Ordered By: Rossy Salinas on 08-09-2022 Bilirubin [Mass/Vol] 0.9 mg/dL 0.3-1.2 [facility] Serum or plasma total carbon dioxide measurement (moles/volume)Ordered By: Rossy Salinas on 08-09-2022 CO2 [Moles/Vol] 25.0 mmol/L 22.0-30.0 [facility] Serum or plasma total choles terol/high density lipoprotein (HDL) cholesterol mass ratOrdered By: Rossy Salinas on 08-09-2022 Cholesterol.total/Cho lesterol in HDL [Mass ratio] 3.8 {ratio} <5.0 [facility] Serum or plasma urea nitroge n measurement (mass/volume)Ordered By: Rossy Salinas on 08-09-2022 Urea nitrogen [Mass/Vol] 15 mg/dL 9-23 [facility] Triglyceride [Mass/volume] i n Serum or PlasmaOrdered By: Rossy Salinas on 08-09-2022 Triglyceride [Mass/Vol] 205 mg/dL 35-149 [facility] Comment on above: TRIG ATP III [...] 20 mg/L (U) [Mass/Vol] 0.7 mg/dL 0.0-1.8 [facility] Urine microalbumin/creatinin e mass ratioOrdered By: Rossy Salinas on 08-09-2022 Albumin/Creatinine DL <= 20 mg/L (U) [Mass ratio] 6.0 mg/g 0.0-30.0 [facility] Comment on above: 30-300 mg/g indicate s an increased risk for diabetic nephropathy. Greater than 300 mg/g is consistent with clinical nephropathy. (Am. J. Kidney Disease 1994, 25:107) WBC Auto (Bld) [#/Vol]Ordere d By: Rossy Salinas on 08-09-2022 WBC (Bld) [#/Vol] 10.2 10*3/uL 4.1-10.5 [facility] Initial Visit (Orthopaedic S urgery)on 07-27-2022 Initial Visit (Orthopaedic Surgery) Orders Patellar tendinitis of right knee Start: Meloxicam 15 MG Oral Tablet; one tablet daily with food Physical Therapy - General Referral Evaluation and Treatment Evaluate AND Treat Status: Hold For - Scheduling,Retrospective Authorization Requested for: [id number] Basic Hinged Knee; Status:Canceled - Retrospective Authorization,Data wrong; Basic Hinged Knee; Status:Need Information - Financial Authorization,Retrospecti ve Authorization; Requested for:[id number]; Chief Complaint Right knee pain xrays today [...] (719.46) (M25.561) Vitamin D deficiency (268.9) (E55.9) Gvnen-Qknbrdjhx-Svsyj 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 Vitals Vital Signs Recorded: [id number] 09:28AM Height5 ft 6 in Mzscys879 lb BMI Oiynkncuqr71.58 kg/m2 BSA Calculated2.27 Signatures Electronically signed by : Josias Damon MD; Jul 27 2022 11:04AM EST (Author) Normal [employer] KNEE CMPLT, 4 OR MORE VIEWSo n 07-27-2022 KNEE CMPLT, 4 OR MORE VIEWS Patient Name: JOHN SMITH STUDY: KNEE; COMPLT, 4 OR MORE VIEWS; Right; 07/27/2022 9:37 am INDICATION: pain M25.561: Right knee pain, unspecified chronicity. ACCESSION NUMBER(S): [id number] ORDERING CLINICIAN: JOSIAS DAMON FINDINGS: Right knee films are negative for fracture, dislocation or destructive the joint spaces are maintained. There is some heterotopic bone seen in the patellar tendon. There is an intramedullary nail seen in the superior portion of the tibia. No evidence of hardware failure is appreciated. Electronically signed by: JOSIAS DAMON MD Normal [facility] Radiologyon 07-27-2022 XR Knee 4 Views Normal [facility] DO Work Phone: No Panel InformationOrdered By: Rio Prasad on 07-07-2022 Prostate Specific Antigen Total 0.810 ng/mL 0.000-4.000 [facility] XR Knee Complete Right*on XR Knee [...] by MARCEL VILLEGAS on 03/12/2022 1226 Normal [facility] Clerk Of Works Tobacco Screening.on 022 Adult depression screening assessment No [facility] [employer] 250 DO Work Phone: Tobacco use status CPHS b) No [facility] [employer] 250 DO Work Phone: ALT (SGPT)on 02-16-2017 Alanine aminotransferase (ALT) 40 U/L Normal 10-52 [facility] Comment on above: Performed By: #### 1 [id number] ####[facility] [address] [place] [address] AST (SGOT)on 02-16-2017 Aspartate aminotransferase (AST) 27 U/L Normal 13-39 [facility] Comment on above: Performed By: #### 1 [id number] ####[facility] [address] [place] [address] Vital Signs Date Time Vital Sign Value Performing Clinician [place] [facility] 02-15-2024 09:09-0400 Blood Pressure Location Rio PRASAD [facility] 02-15-2024 09:09-0400 Body temperature 98.6 [degF] Rio PRASAD [facility] 02-15-2024 09:09-0400 Diastolic blood pressure 81 mm[Hg] Rio PRASAD [facility] 02-15-2024 09:09-0400 Heart rate 72 /min Rio PRASAD [facility] 02-15-2024 09:09-0400 Respiratory rate 16 /min Rio PRASAD [facility] 02-15-2024 09:09-0400 Systolic blood pressure 131 mm[Hg] Rio PRASAD [facility] 12-13-2023 18:54-0400 Diastolic blood pressure 92 mm[Hg] [facility] Work Phone: [facility] 12-13-2023 18:54-0400 Heart rate 75 /min [facility] Work Phone: [facility] 12-13-2023 18:54-0400 Respiratory rate 16 /min [facility] [employer] [facility] Work Phone: [facility] 12-13-2023 18:54-0400 SaO2% (BldA) [Mass fraction] 97 % [facility] Work Phone: [facility] 12-13-2023 18:54-0400 Systolic blood pressure 155 mm[Hg] [facility] Work Phone: [facility] 12-13-2023 14:25-0400 Body height 165.1 cm [facility] [employer] [facility] Work Phone: [facility] 12-13-2023 14:25-0400 Body temperature 97.7 [degF] Services [facility] [employer] Work Phone: [facility] 12-13-2023 14:25-0400 Body weight 117.6 kg Services [facility] Work Phone: [facility] 11-16-2023 10:25-0400 Diastolic blood pressure 80 mm[Hg] Rio PRASAD [facility] 11-16-2023 10:25-0400 Heart rate 62 /min Rio PRASAD [facility] 11-16-2023 10:25-0400 Mean blood pressure 99 mm[Hg] Rio PRASAD [facility] 11-16-2023 10:25-0400 Systolic blood pressure 136 mm[Hg] Rio PRASAD [facility] 11-16-2023 09:10-0400 Blood Pressure Location Rio PRASAD [facility] 11-16-2023 09:10-0400 Body temperature 98.6 [degF] Rio PRASAD [facility] 11-16-2023 09:10-0400 Diastolic blood pressure 78 mm[Hg] Rio PRASAD [facility] 11-16-2023 09:10-0400 Heart rate 74 /min Rio PRASAD [facility] 11-16-2023 09:10-0400 Respiratory rate 14 /min Rio PRASAD [facility] 11-16-2023 09:10-0400 Systolic blood pressure 140 mm[Hg] Rio PRASAD [facility] 07-20-2023 08:20-0500 Diastolic blood pressure 80 mm[Hg] Rio PRASAD [facility] 07-20-2023 08:20-0500 Mean blood pressure 101 mm[Hg] Rio PRASAD [facility] 07-20-2023 08:20-0500 Systolic blood pressure 144 mm[Hg] Rio PRASAD [facility] 07-20-2023 08:15-0500 Blood Pressure Location Rio PRASAD [facility] 07-20-2023 08:15-0500 Diastolic blood pressure 88 mm[Hg] Rio PRASAD [facility] 07-20-2023 08:15-0500 Heart rate 67 /min Rioannemarie PRASAD [facility] 07-20-2023 08:15-0500 Systolic blood pressure 144 mm[Hg] Rio PRASAD [facility] 04-09-2023 12:28-0400 Body height 166.37 cm Services [employer] [facility] Work Phone: [facility] 04-09-2023 12:28-0400 Body temperature 98.2 [degF] Services [facility] Work Phone: [facility] 04-09-2023 12:28-0400 Body weight 119.95 kg Services [facility] Work Phone: [facility] 04-09-2023 12:28-0400 Diastolic blood pressure 84 mm[Hg] Services [facility] Work Phone: [facility] 04-09-2023 12:28-0400 Heart rate 78 /min Services [facility] Work Phone: [facility] 04-09-2023 12:28-0400 Respiratory rate 15 /min [facility] Work Phone: [facility] 04-09-2023 12:28-0400 SaO2% (BldA) [Mass fraction] 98 % Services [facility] Work Phone: [facility] 04-09-2023 12:28-0400 Systolic blood pressure 154 mm[Hg] Services [facility] Work Phone: [facility] 03-10-2023 08:44-0400 Body height 167.64 cm No PCP None [facility] 250 DO Work Phone: 03-10-2023 08:44-0400 Body mass index (BMI) [Ratio] 42.45 kg/m2 No PCP None [facility] 250 DO Work Phone: 03-10-2023 08:44-0400 Body surface area Derived from formula 2.25 m2 No PCP None [facility] 250 DO Work Phone: 03-10-2023 08:44-0400 Body weight 119.3 kg No PCP None [facility] DO Work Phone: 03-10-2023 08:44-0400 Diastolic blood pressure 84 mm[Hg] No PCP None [facility] DO Work Phone: 03-10-2023 08:44-0400 Heart rate 60 /min No PCP None [facility] DO Work Phone: 03-10-2023 08:44-0400 Systolic blood pressure 118 mm[Hg] No PCP None [facility] DO Work Phone: 07-27-2022 09:28-0500 Body height 167.64 cm No PCP None [facility] DO Work Phone: 07-27-2022 09:28-0500 Body mass index (BMI) [Ratio] 43.58 kg/m2 No PCP None [facility] Work Phone: 07-27-2022 09:28-0500 Body surface area Derived from formula 2.27 m2 No PCP None [facility] Work Phone: 07-27-2022 09:28-0500 Body weight 122.47 kg No PCP None [facility] Work Phone: 03-10-2022 08:29-0400 Body height 167.64 cm No PCP None [facility] DO Work Phone: 03-10-2022 08:29-0400 Body mass index (BMI) [Ratio] 41.16 kg/m2 No PCP None [facility] [facility] DO Work Phone: 03-10-2022 08:29-0400 Body surface area Derived from formula 2.22 m2 No PCP None [facility] 250 DO Work Phone: 03-10-2022 08:29-0400 Body weight 115.67 kg No PCP None [facility] [facility] DO Work Phone: 03-10-2022 08:29-0400 Diastolic blood pressure 82 mm[Hg] No PCP None [facility] DO Work Phone: 03-10-2022 08:29-0400 Heart rate 66 /min No PCP None [facility] [facility] DO Work Phone: 03-10-2022 08:29-0400 Systolic blood pressure 136 mm[Hg] No PCP None [facility] DO Work Phone: Encounters Encounter Date Encounter Type Care Provider Facility Start: 07-25-2024 ambulatory Rio Rey ty:RASHID Ovalle Start: 05-24-2024 ambulatory Rio Rey ty:[id number] Start: 05-10-2024 End: 05-10-2024 ambulatory Rio PRASAD Facility:[id number] Start: 04-04-2024 End: 04-04-2024 Patient encounter procedure Services [facility] Work Phone: [facility] [place] Work Phone: Start: 04-04-2024 End: 04-04-2024 ambulatory [facility] Work Phone: [facility] Work Phone: Start: 03-01-2024 End: 03-01-2024 ambulatory Rio PRASAD Facility:[id number] Start: 02-15-2024 End: 02-15-2024 ambulatory Rio PRASAD Facility: [place] Start: 02-15-2024 End: 02-15-2024 Patient encounter procedure Rio PRASAD [facility] [place] Start: 02-06-2024 End: 02-06-2024 Patient encounter procedure Services [facility] Work Phone: [facility] [place] Work Phone: Start: 02-06-2024 End: 02-06-2024 ambulatory [facility] Work Phone: [facility] Work Phone: Start: 2023 End: 2023 Patient encounter procedure Services [facility] Work Phone: [facility] [place] Work Phone: Start: 2023 End: 2023 ambulatory [facility] Work Phone: [facility] Work Phone: Start: 12-13-2023 End: 12-13-2023 Emergency department patient visit Services [facility] Work Phone: [facility] Work Phone: Start: 12-08-2023 End: 12-08-2023 ambulatory Rio PRASAD Facility:[id number] Start: 11-16-2023 End: 11-16-2023 ambulatory Rio PRASAD Facility:[facility] [place] Start: 11-16-2023 End: 11-16-2023 Patient encounter procedure Rio PRASAD [facility] [place] Start: 11-09-2023 End: 11-09-2023 Patient encounter procedure [facility] Work Phone: [facility] [place] Work Phone: Start: 11-09-2023 End: 11-09-2023 ambulatory [facility] Work Phone: [facility] Work Phone: Start: 10-12-2023 End: 10-12-2023 Patient encounter procedure [facility] Work Phone: [facility] [place] Work Phone: Start: 10-12-2023 End: 10-12-2023 ambulatory Services [facility] Facility:[facility] Start: 07-20-2023 End: 07-20-2023 ambulatory Rio PRASAD Facility: [place] Start: 07-20-2023 End: 07-20-2023 Patient encounter procedure Rio PRASAD [facility] [place] Start: 07-11-2023 End: 07-11-2023 Patient encounter procedure Services [facility] Work Phone: [facility] [place] Work Phone: Start: 07-11-2023 End: 07-11-2023 ambulatory [facility] Work Phone: [facility] Work Phone: Start: 04-09-2023 End: 04-09-2023 Emergency department patient visit Services [facility] Work Phone: [facility] Work Phone: Start: 03-10-2023 Office outpatient vi sit 25 minutes No PCP None [facility] 250 DO Work Phone: Start: 03-10-[address] Arlyn Loza Facility: Start: 10-04-2022 Rx Renewal No PCP None [facility] [facility] DO Work Phone: Start: 09-21-2022 Rx Renewal No PCP None [facility] 250 DO Work Phone: Start: 09-07-2022 Patient encounter procedure No PCP None [facility] DO Work Phone: Start: 09-07-[address] Josias Damon Jr Facility:[id number] Start: 09-06-2022 End: 09-08-2022 ambulatory [facility] Work Phone: [facility] Work Phone: Start: 09-06-2022 End: 09-08-2022 Discharged Recurring Services [facility] Work Phone: [facility] [address] Start: 08-09-2022 End: 08-09-2022 ambulatory [facility] Work Phone: [facility] Work Phone: Start: 08-09-2022 End: 08-09-2022 Patient encounter procedure Services [facility] Work Phone: [facility] [place] Work Phone: Start: 08-05-2022 Registered Recurring Services [facility] Work Phone: [facility] [address] Start: 07-27-2022 Patient encounter procedure No PCP None [facility] Work Phone: Start: 07-27-[address] Josias Damon Jr Facility:[id number] Start: 07-07-2022 End: 07-07-2022 ambulatory [facility] Work Phone: [facility] Work Phone: Start: 07-07-2022 End: 07-07-2022 Patient encounter procedure Services [facility] Work Phone: [facility] [place] Start: 07-05-2022 Rx Renewal No PCP None [facility] [facility] DO Work Phone: Start: 03-10-2022 Office outpatient vi sit 25 minutes No PCP None [facility] DO Work Phone: Start: 01-28-2022 Rx Renewal Arlyn Loza MD Work Phone: [facility] [facility] DO Work Phone: Start: 10-09-2021 Rx Renewal Arlyn Loza MD Work Phone: [facility] [facility] DO Work Phone: Start: 09-28-2021 Rx Renewal Arlyn Loza MD Work Phone: [facility] 250 DO Work Phone: Start: 06-22-2021 Rx Renewal Arlyn Loza MD Work Phone: [facility] [facility] [place] Work Phone: Start: 08-11-2017 End: 08-11-2017 Patient encounter procedure RIO PRASAD Facility:[id number] Start: 02-16-2017 Ambulatory ARLYN LOZA Facility :[id number] Procedures Date Procedure Procedure Detail Performing Clinician Start: 04-04-2024 Diagnostic radiograp hy of abdomen Services [facility] Work Phone: Start: 02-06-2024 Diagnostic radiograp hy of abdomen Services [facility] Phone: Start: 12-13-2023 CT of abdomen and pe lvis without contrast Services [facility] Work Phone: Start: 11-09-2023 Diagnostic radiograp hy of abdomen Services [facility] Work Phone: Start: 08-11-2017 Extracorporeal shock wave lithotripsy [...] Arlyn Loza, Status: Pen, Time: 8:40 AM [facility] Work Phone: Start: 03-10-2023 FUV, Provider: Arlyn Loza, Status: Pen, Time: 8:40 AM [facility]UV, Provider: Arlyn Loza, Status: Pen, Time: 8:40 AM [facility] Work Phone: Start: 09-07-2022 FUV, Provider: Josias Damon, Status: Pen, Time: 9:30 AM FUV, Provider: Josias Damon, Status: Pen, Time: 9:30 AM [facility] Work Phone: Start: 03-10-2022 FUV, Provider: Arlyn Loza, Status: Pen, Time: 8:30 AM FUV, Provider: Arlyn Loza, Status: Pen, Time: 8:30 AM [facility] [place] Work Phone: Patient Education [facility] Work Phone: Patient referral [facility] Work Phone: Immunizations Immunization Date Immunization Notes Care Provider Rosa coates 06-07-2022 influenza virus vacc ine, unspecified formulation Rio PRASAD [facility] 06-07-2022 influenza, injectabl e, quadrivalent, preservative free No PCP None [facility] DO Work Phone: 06-07-2022 Pfizer COVID-19 Vac Bivalent 30 MCG/0.3ML Intramuscular Suspension No PCP None [facility] 08-03-2021 Pfizer-BioNTech COVI D-19 Vacc 30 MCG/0.3ML Intramuscular Suspension Arlyn Loza MD Work Phone: [facility] Comment on above: Series: 04-29-2021 influenza virus vacc ine, unspecified formulation Rioannemarie PRASAD [facility] 04-29-2021 influenza, injectabl e, quadrivalent, preservative free No PCP None [facility] 250 DO Work Phone: 12-16-2020 Moderna COVID-19 Vac cine 100 MCG/0.5ML Intramuscular Suspension Arlyn Loza MD Work Phone: [facility] 250 DO Work Phone: 12-16-2020 SARS-CoV-2 (COVID-19 ) Ad26 vaccine, recombinant Rio PRASAD [facility] 11-18-2020 Moderna COVID-19 Vac cine 100 MCG/0.5ML Intramuscular Suspension Arlyn Loza MD Work Phone: [facility] 250 DO Work Phone: 11-18-2020 SARS-CoV-2 (COVID-19 ) Ad26 vaccine, recombinant Rio PRASAD [facility] 05-22-2020 influenza virus vacc ine, unspecified formulation Rio PRASAD [facility] 05-22-2020 influenza, injectabl e, quadrivalent, preservative free No PCP None -[facility] 250 DO Work Phone: Payers Date Payer Category Payer Self-pay [id number] 2023 Medicaid [id number] 1965 Unknown [id number] 2.16.84 [id number] 1967 Unknown [id number] 2.16. [id number] 1967 Unknown [id number] 2.16. [id number] 1967 Unknown [id number] 2.16. [id number] 1967 Unknown [id number] 2.16.8 40.1.081741.3.579.2.727 1967 Unknown [id number] 2.16.8 40.1.809513.3.579.2.727 1967 Unknown [id number] 2.16.8 40.1.482908.3.579.2.727 1967 Unknown [id number] 2.16.8 40.1.241502.3.579.2.727 1967 Unknown [id number] 2.16.8 40.1.167587.3.579.2.727 1967 Unknown [id number] 2.16.8 40.1.524837.3.579.2.727 1967 Unknown [id number] 2.16.8 40.1.126448.3.579.2.727 1959 Unknown [id number] Medicaid [id number] Unknown Unknown [place] [facility] [id number] Unknown HCAP/HFA/FAP Active [id number] Unknown [id number] 2.16.8 [id number] Unknown [id number] 2.16.8 40.1.852592.3.579.2.531 Unknown [id number] 2.16.8 40.1.276632.3.579.2.531 Unknown [id number] 2.16.8 40.1.249567.3.579.2.531 Unknown [id number] 2.16.8 40.1.683318.3.579.2.531 Unknown [id number] 2.16.8 40.1.784569.3.579.2.531 Unknown [id number] 2.16.8 40.1.751979.3.579.2.531 Social History Date Type Detail Facility Alcohol use Alcohol use -[facility] 250 DO Work Phone: Start: 03-10-2019 End: 12-13-2023 Tobacco smoking status MTIS Never smoked tobacco (finding) [facility] Start: 1965 Sex Assigned At Male [facility] Tobacco smoking status Never [facility] Sex Assigned At Male [facility] Functional Status Date Assessment Result Facility 02-15-2024 Functional Status N/A [facility] 11-16-2023 Functional Status N/A [facility] 12-06-2023 Functional Status N/A [facility] [place] Clinical Notes 08-15-2021 to 02-15-2024 Note Date [...] Follow these instructions at home: Medicines Take zyqg-bau-gpntgxn and prescription medicines only as told by [...] provider. Document Revised: 06/28/2022 Document Reviewed: 04/05/2022 [employer] Patient Education 2022 [employer]. 02/15/2024 09:54:16 Lithotripsy Lithotripsy Lithotripsy is a [...] including vitamins, herbs, eye drops, creams, and hvan-lcq-eyuismx medicines. Any problems you or family members [...] provider tells you to take them. Taking wbzm-ovz-mdcnods medicines, vitamins, herbs, and supplements. Tests You [...] provider. Document Revised: 06/28/2022 Document Reviewed: 04/05/2022 [employer] Patient Education 2022 [employer]. 02/15/2024 09:47:13 Benign Prostatic Hyperplasia Benign Prostatic [...] urethra. Follow these instructions at home: Take mmnu-fnn-didwbjf and prescription medicines only as told by [...] provider. Document Revised: 02/17/2022 Document Reviewed: 02/17/2022 [employer] Patient Education 2022 [employer]. Follow Up Care 12/14/2023 12:41:57 With:DECLAN HERNANDEZ, Rio Simons, URL Address: [facility] [address] , [place] [address]- When: Unknown [facility] 02-15-2024 Note Patient Education Nephrology Lithotripsy, Care [...] these instructions at home: Medicines ? Take xfxk-ecx-groqnkr and prescription medicines only as told by [...] all fragments fo (more content not included)... [facility] 11-16-2023 Hospital Discharge instructions Patient Education 11/16/2023 [...] Follow these instructions at home: Medicines Take bdka-rqb-jmlsbkc and prescription medicines only as told by [...] provider. Document Revised: 06/28/2022 Document Reviewed: 04/05/2022 [employer] Patient Education 2022 [employer]. 11/16/2023 10:15:18 Lithotripsy Lithotripsy Lithotripsy is a [...] including vitamins, herbs, eye drops, creams, and kavy-xrb-utlmcxj medicines. Any problems you or family members [...] provider tells you to take them. Taking pfst-ugp-tvcciap medicines, vitamins, herbs, and supplements. Tests You [...] provider. Document Revised: 06/28/2022 Document Reviewed: 04/05/2022 [employer] Patient Education 2022 [employer]. Follow Up Care 07/20/2023 09:14:37 With:DECLAN HERNANDEZ, Rio Simons, GLENYS Address: [facility] [address] [place] [address]- When: Unknown [facility] [place] 07-20-2023 Hospital Discharge instructions Patient [...] you may eat and drink normally. Take ygpc-iqp-ygsmwul and prescription medicines only as told by your health care provider. Let your health care provider know about any medicines that you are taking, including riod-tvj-uzmxwll medicines, vitamins, herbs, and supplements. Choose a [...] provider. Document Revised: 02/05/2022 Document Reviewed: 02/05/2022 [employer] Patient Education 2022 [employer]. Follow Up Care 07/14/2022 09:22:25 With:DECLAN HERNANDEZ, Rio Simons, URL Address: [facility] [address] , [place] [address]- When: Unknown [facility] 08-15-2021 History of Present illness Narrative [...] sooner if there is any problemsQuestions answered. [facility] Work Phone: Evaluation + Plan note Future Appointments Appointment Date:11/16/2023 09:15:00 AM Scheduled Provider:Roi PRASAD MD Location:[facility] Appointment Type:URO Office Visit Appointment Date:07/25/2024 09:15:00 AM Scheduled Provider:Rio PRASAD MD Location:[facility] [place] Appointment Type:URO Office Visit Diagnostic Tests PendingPSA Total 07/20/23 [facility] Evaluation + Plan note Future Appointments Appointment Date:07/25/2024 09:15:00 AM Scheduled Provider:Rio PRASAD MD Location:[facility] Appointment Type:URO Office Visit Diagnostic Tests PendingElectrolyte Panel 11/16/23 [facility] [place] Evaluation + Plan note Future Appointments Appointment Date:07/25/2024 09:15:00 AM Scheduled Provider:Rio PRASAD MD Location:[facility] Appointment Type:URO Office Visit [facility] [place] Evaluation note No assessment information availa [facility] Work Phone: History of Present illness [...] recommend resuming activities as tolerated.He can take klbi-dcb-zzqepyu anti-inflammatory medications if needed.Follow-up as neededQuestions answered. [facility] DO Work Phone: Hospital course Narrative No data available for this section [facility] Hospital Discharge instructions Additional Instructions Apply 1 Polytrim eyedrop into the right eye every 3 hours while awake for 7 days Do not rub the eye but may apply compresses Call [facility] Tuesday or wait for them to call you to have an appointment to be rechecked Return to the ER for more severe pain loss of vision fever chills or any other concerns [facility] Work Phone: Progress note No data available for this section [facility] [place] Summary Purpose Family History [...] White syndrome, 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 Hyperlipidemia, on statin [...] kidney stones * 6. Diabetes managed by [facility] and stable * Arlyn Loza MD, FACC [...] section and content) DATE CREATED AUTHOR 02/08/2018 [facility] DATE CREATED AUTHOR AUTHOR'S ORGANIZ ATION 04/26/2019 [facility] DATE CREATED AUTHOR AUTHOR'S ORGANIZ ATION 03/16/2022 [facility] dical Specialist DATE CREATED AUTHOR AUTHOR'S ORGANIZ ATION 03/10/2023 [facility] DATE CREATED AUTHOR AUTHOR'S ORGANIZ ATION 03/10/2023 [employer] DATE CREATED AUTHOR AUTHOR'S ORGANIZ ATION 04/13/2024 [facility] DATE CREATED AUTHOR AUTHOR'S ORGANIZ ATION 05/19/2024 [facility] Care Teams (unrecognized sec tion and content) Team Status: Active Member Role Status Dates Services [facility] Primary Care Provider Active Team Status: Inactive Member Role Status Dates Services [facility] Primary Care Provider Active Marilia Laureano , SURETY BOND AGENT- Emergency Provider Active Team Status: Inactive Member Role Status [facility] Services [facility] Primary Care Provider Active Rio Prasad MD Attending Provider Active Team Status: Active Member Role Status Dates Services [facility] Primary Care Provider Active Josias Damon MD Attending Provider Active Team Status: Inactive Member Role Status [facility] Services [facility] Primary Care Provider Active Carter Munroe DO Attending Provider Active Rossy Salinas MD RES Other Provider Active Team Status: Inactive Member Role Status Dates Services [facility] Primary Care Provider Active Josias Damon MD Attending Provider Active Team Status: Inactive Member Role Status Dates [facility] Primary Care Provider Active Rio Prasad MD Attending Provider Active Arlyn Loza MD Referring Provider Active Team Status: Inactive Member Role Status Dates Services [facility] Primary Care Provider Active Start: October 12, 2023 End: October 12, 2023 Rio Prasad MD Attending Provider Active St art: October 12, 2023 End: October 12, 2023 Team Status: Inactive Member Role Status Dates Services [facility] Primary Care Provider Active Start: November 09, 2023 End: November 09, 2023 Rio Prasad MD Attending Provider Active St art: November 09, 2023 End: November 09, 2023 Team Status: Inactive Member Role Status Dates [facility] Primary Care Provider Active Start: December 13, 2023 End: December 13, 2023 Carter Alvarenga DO Emergency Provider Active Sta rt: December 13, 2023 End: December 13, 2023 Team Status: Inactive Member Role Status Dates Services [facility] Primary Care Provider Active Start: 2023 End: 2023 Rio Prasad MD Attending Provider Active St art: 2023 End: 2023 Team Status: Inactive Member Role Status Dates [facility] Primary Care Provider Active Start: February 06, 2024 End: February 06, 2024 Rio Prasad MD Attending Provider Active St art: February 06, 2024 End: February 06, 2024 Team Status: Inactive Member Role Status Dates [facility] Primary Care Provider Active Start: [...] ON THE PRIMARY CLINICAL RECORDS. [facility] [email or web address] [facility]. provides no warranty or guarantee of the accuracy or completeness of information in this document.
[2024-05-24] MEDS: LIDOCAINE 2% JELLY 10 ML UR (13:46)
--- NOTE | 2024-05-24 13:57 | P.URON_ITS ---
Urology Surgery Operative Note Operative Note Procedure Date: 05/24/24 Time Out Performed: yes Pre-op Diagnosis: Status post left ureteroscopic stone manipulation and stent placement Post-op Diagnosis: same as pre-op Procedures performed: 1. Cystoscopy. 2. Left stent removal Anesthesia: local Primary Surgeon: Rio Prasad Complications: None none Estimated blood loss (mL): 5 Findings: Mildly encrusted stent Indications for Procedures: This gentleman had left sided ureteroscopic stone manipulation and stent placement done just a couple weeks ago. He now presents for cystoscopy and left stent removal. He has signed an informed consent after risks were explained. Detailed description of Procedure: The patient was kept on the [facility] bed and brought into the endoscopy suite. He was in the supine position. Timeout was done by all parties in the room. We all agreed upon the patient's identification and the planned procedures for this patient. Genitalia were sterilely prepped and draped in the usual fashion. 2% lidocaine gel was passed per urethra. I started by passing a flexible cystoscope per urethra and into the bladder. The bladder was full of clots and visibility was difficult. The flexible grasping forceps was passed through the scope and the left stent was grasped. The scope and stent were then removed without difficulty. His stent was mildly encrusted. He was then discharged to home. He will continue his stone prevention meds. He already has a follow-up scheduled for a few months from now.
[2024-05-24 14:42] VITALS: BP 138/82; BP 143/90; PULSE 78; PULSE 79; O2SAT 96
== END 2024-05-24 14:06 | disposition home or self-care (01) ==
PROVIDERS: Visit Provider Urology
PROC: (CPT 52310; principal; 2024-05-24 12:35)
DX: Z46.6 Encounter for fitting and adjustment of urinary device (principal); Z87.442 Personal history of urinary calculi; I25.10 Atherosclerotic heart disease of native coronary artery without angina pectoris; I10 Essential (primary) hypertension; E78.5 Hyperlipidemia, unspecified; I45.6 Pre-excitation syndrome
CPT/HCPCS: 52310